=== PATIENT | male | born 1955 | race Caucasian/White ===

== ENCOUNTER → 2020-09-24 11:33 | Outpatient (BNVA) | payer MEDICAID, SELFPAY | PROVIDERS: Family Provider Nurse Practitioner Family; PCP Nurse Practitioner Family; Visit Provider Registered Nurse | DX: F10.10 Alcohol abuse, uncomplicated (principal); F17.200 Nicotine dependence, unspecified, uncomplicated; F41.9 Anxiety disorder, unspecified; J43.9 Emphysema, unspecified; I50.9 Heart failure, unspecified; F41.0 Panic disorder [episodic paroxysmal anxiety]; Z71.41 Alcohol abuse counseling and surveillance of alcoholic; F43.0 Acute stress reaction | CPT/HCPCS: 80053; 80061; 85025 ==

== ENCOUNTER → 2021-01-11 11:45 | Outpatient (BNVA) | payer MEDICAID, SELFPAY | PROVIDERS: Family Provider Nurse Practitioner Family; PCP Nurse Practitioner Family; Visit Provider Internal Medicine Cardiovascular Disease | DX: I50.812 Chronic right heart failure (principal); R60.0 Localized edema | CPT/HCPCS: 80048; 83880 ==

== ENCOUNTER → 2021-01-17 10:14 | Outpatient (BNVA) | payer MEDICARE, MEDICAID, SELFPAY | PROVIDERS: Family Provider Nurse Practitioner Family; PCP Nurse Practitioner Family; Visit Provider Internal Medicine Cardiovascular Disease | DX: E46 Unspecified protein-calorie malnutrition (principal); I50.9 Heart failure, unspecified; J44.1 Chronic obstructive pulmonary disease with (acute) exacerbation; R07.89 Other chest pain | CPT/HCPCS: 80048; 83880 ==

== ENCOUNTER → 2021-01-24 09:58 | Outpatient (BNVA) | payer MEDICARE, MEDICAID, SELFPAY | PROVIDERS: Family Provider Nurse Practitioner Family; PCP Nurse Practitioner Family; Visit Provider Internal Medicine Cardiovascular Disease | DX: I50.9 Heart failure, unspecified (principal); R07.89 Other chest pain; J44.1 Chronic obstructive pulmonary disease with (acute) exacerbation; E46 Unspecified protein-calorie malnutrition | CPT/HCPCS: 80048; 83880 ==

== ENCOUNTER → 2021-02-08 08:51 | Outpatient (BNVA) | payer MEDICARE, MEDICAID, SELFPAY | PROVIDERS: Family Provider Nurse Practitioner Family; PCP Nurse Practitioner Family; Visit Provider Internal Medicine Cardiovascular Disease | DX: E46 Unspecified protein-calorie malnutrition (principal); J44.1 Chronic obstructive pulmonary disease with (acute) exacerbation; R07.89 Other chest pain; I50.9 Heart failure, unspecified; R60.0 Localized edema | CPT/HCPCS: 80048; 83880 ==

== ENCOUNTER 2021-02-17 09:12 | Outpatient (CLI) | payer MEDICARE, MEDICAID, SELFPAY ==
--- NOTE | 2021-02-17 09:39 | USCV_ITS ---
Jacob Goetz Age: 65 Gender: M : 1955 Exam Date: 02/17/2021 09:50 Ordering Phys: Janak Lazcano MD ([email or web address]) Technologist: Veda Mendes Exam Location: [facility] [place] Indication: VERY SOB BP: / HR: 80 Rhythm: Other Technical Quality: Poor secondary to COPD MEASUREMENTS (Male / Female) Normal Values 2D ECHO LV Diastolic Diameter PLAX 3.8 cm 4.2 - 5.9 / 3.9 - 5.3 cm LV Systolic Diameter PLAX 3.2 cm LV Chamber Size 2.8 cm IVS Diastolic Thickness 1.2 cm 0.6 - 1.0 / 0.6 - 0.9 cm IVS Systolic Thickness 1.4 cm LVPW Diastolic Thickness 1.3 cm 0.6 - 1.0 / 0.6 - 0.9 cm LVPW Systolic Thickness 1.3 cm RV Chamber Size 2.0 cm LVOT Diameter 2.0 cm LV Ejection Fraction 2D Teich 6.2 % LV Ejection Fraction MOD 2C 61.7 % LV Ejection Fraction 2C AL 65.0 % LA Diameter 2.7 cm LA Width 2.9 cm LA Height 2.6 cm RA Width 2.4 cm RA Height 2.3 cm M-MODE LV Diastolic Diameter MM 3.5 cm 4.2 - 5.9 / 3.9 - 5.3 cm LV Systolic Diameter MM 2.1 cm LV Ejection Fraction MM Teich 70.4 % IVS Diastolic Thickness MM 0.8 cm 0.6 - 1.0 / 0.6 - 0.9 cm IVS Systolic Thickness MM 1.0 cm LVPW Diastolic Thickness MM 0.7 cm 0.6 - 1.0 / 0.6 - 0.9 cm LVPW Systolic Thickness MM 1.1 cm Aortic Annulus Diameter 3.3 cm LA Ao Ratio MM 0.8 MV E Point Septal Separation 0.5 cm DOPPLER AV Peak Velocity 86.0 cm/s LVOT Peak Velocity 63.0 cm/s AV Area Cont Eq vti 2.6 cm squared AV Area Cont Eq pk 2.4 cm squared MV Area PHT 10.5 cm squared Mitral E to A Ratio 0.7 MV E' Velocity 35.0 cm/s Mitral E to MV E' Ratio 8.8 Mitral E to LV E' Lateral Ratio 7.9 Mitral E to LV E' Septal Ratio 10.2 TR Peak Velocity 139.2 cm/s TR Peak Gradient 7.8 mmHg TR Mean Velocity 104.1 cm/s TR Mean Gradient 4.9 mmHg TR Velocity Time Integral 34.3 cm TV Peak E Velocity 74.0 cm/s PV Peak Velocity 56.0 cm/s RV Acceleration Time 0.1 s RV Ejection Time 0.3 s RV AcT/ET 0.5 FINDINGS Left Ventricle Limited quality echocardiogram because of poor ultrasonic windows. Normal left ventricular size. LV systolic function is borderline normal with EF of 50-55%. Regional wall motion abnormalities can not ruled out because of limited visualization.Grade 1 diastolic dysfunction is noted Right Ventricle The right ventricle is normal in size and function. Right Atrium The right atrium is normal in size. Left Atrium The left atrium is normal in size. Mitral Valve Structurally normal mitral valve without significant stenosis or prolapse. There is trace mitral regurgitation. Aortic Valve Thickened aortic valve without significant stenosis. There is no aortic regurgitation. Tricuspid Valve Structurally normal tricuspid valve without significant stenosis or regurgitation. Insufficient jet to calculate RVSP Pulmonic Valve Structurally normal pulmonic valve without significant stenosis. There is no pulmonic regurgitation. Pericardium Normal pericardium without effusion. Aorta Normal ascending aorta dimension. CONCLUSIONS Limited quality echocardiogram because of poor ultrasonic windows LV systolic function is borderline normal with EF of 50-55%. Regional wall motion abnormalities can not be ruled out because of poor visualization. Grade 1 diastolic dysfunction Trace mitral regurgitation No comparison studies are available Dexter Romero MD (Electronically Signed) Final Date: 17 February 2021 17:27 S
--- NOTE | 2021-02-17 09:59 | ECG_ITS ---
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 Interpretive Statements NAME OF STUDY: LEXISCAN SESTAMIBI STRESS TEST INDICATION: [Chest Pain; Shortness of Breath] Procedure: At the baseline, the blood pressure was 168/102 mmHg with a heart rate of 92 bpm. The electrocardiogram showed normal sinus rhythm, incomplete right bundle branch block with normal ST and T's. The Lexiscan was infused over a period of 20 seconds. A total of 0.4 mg of Lexiscan was infused. The stress phase was continued for a total of 5 minutes. Heart rate was at the end of stress phase was 105 bpm and a blood pressure of 156/81 mmHg. The EKG at the peak infusion revealed since normal sinus rhythm with no significant ST-T wave changes. Sestamibi was injected 20 seconds after the Lexiscan infusion. Blood pressure at the end of recovery phase was 172/89 mmHg with a heart rate of 97 bpm Conclusion: 1. Normal EKG response to Lexiscan infusion 2. No Lexiscan induced chest pain or cardiac arrhythmia. 3. Normal blood pressure and heart rate response. 4. Sestamibi/sestamibi perfusion scan pending; see separate report. Electronically Signed On 02-26-2021 12:21:32 CDT by Dexter Romero M.D. [id number]
--- NOTE | 2021-02-17 09:59 | NMCV_ITS ---
NM samantha perf SPECT r/s* [id number] Jacob Goetz Age: 65 Gender: M : 1955 Exam Date: 02/17/2021 09:59 Ordering Phys: Janak Lazcano MD ([email or web address]) Technologist: WOODY Mcbride Exam Location: [facility] Indications: CHEST PAIN STRESS TEST Please [facility] for [facility] IMAGE PROTOCOL Rest/Stress 1 Lexiscan Day Radiopharmaceutical Dose (mCi) Administration Site Administered by Rest: Tc-99m 10.5 IV WOODY Mcbride Sestamibi Stress:Tc-99m 32.6 IV WOODY Patel Sestamibi Rest: 17-Feb-2021 60 Discovery 630 Stress: 17-Feb-2021 30 Discovery 630 0.4mg Lexiscan. Supine position only as patient was unable to lay prone. SPECT RESULTS Technical Quality: Excellent Raw Data Analysis: Normal Image Corrections: No attenuation or motion correction applied Summed Stress Score: 3 Summed Rest Score: 7 Summed Difference Score: 0 PERFUSION FINDINGS There is a moderate sized, fixed perfusion defect in the apical, apical lateral and apical inferior daniel. It improves on stress. This is likely secondary to prior infarct vs attenuation artifact. No evidence of ischemia noted FUNCTIONAL RESULTS (calculated via Gated SPECT) Stress Image LV EF (%): 41 Stress EDV (mL):105 TID: 1.18 Stress ESV (mL):62 FUNCTIONAL FINDINGS: LV systolic function is mild to moderately reduced with EF of 41% IMPRESSIONS 1. Abnormal myocardial perfusion imaging. Moderate sized, fixed perfusion defect in the apical, apical lateral and apical inferior daniel. It improves on stress. This is likely secondary to prior infarct vs attenuation artifact. No evidence of ischemia noted 2. LV systolic function is reduced with EF of 41% Dexter Romero MD (Electronically Signed) Final Date: 20 Feb 2021 18:47 S
[2021-02-17] MEDS: regadenoson 0.4 Mg/5 ml Syringe IVP (11:22)
[2021-02-17 12:48] VITALS: BP 172/89; PULSE 97
== END 2021-02-17 09:13 | disposition home or self-care (01) ==
LOC: CDL 09:14
PROVIDERS: PCP Registered Nurse; Visit Provider Internal Medicine Cardiovascular Disease
DX: R07.89 Other chest pain (principal); R06.02 Shortness of breath; I51.81 Takotsubo syndrome; I34.0 Nonrheumatic mitral (valve) insufficiency
CPT/HCPCS: 78452; 93017; 93306; A9500; J2785

== ENCOUNTER → 2021-07-14 10:52 | Outpatient (BNVA) | payer MEDICARE, MEDICAID, SELFPAY | PROVIDERS: PCP Registered Nurse; Visit Provider Registered Nurse | DX: E46 Unspecified protein-calorie malnutrition (principal) | CPT/HCPCS: 80053; 82607; 84443; 85025 ==

== ENCOUNTER 2022-01-07 14:57 | Observation (INO) | payer MEDICARE, MEDICAID, SELFPAY ==
[2022-01-07] VITALS (12 sets, daily range): BP systolic 115–146; BP diastolic 73–80; PULSE 95–118; RESP 16–26; TEMP 36.9–38.4; O2SAT 92–98; BMI 17.8
--- NOTE | 2022-01-07 15:23 | XRR_ITS ---
PROCEDURE INFORMATION: Exam: XR Chest Exam date and time: 01/07/2022 2:32 PM Age: 66 years old Clinical indication: Shortness of breath; Additional info: Cough TECHNIQUE: Imaging protocol: XR of the chest. Views: 1 view. COMPARISON: CR Chest 1 view [id number] 02/14/2019 12:24 PM FINDINGS: Lungs: Hyperinflated lungs with mild diffuse coarsening of the lung parenchyma. Linear scarring noted along the peripheral right mid lung in the left lung base. No consolidation. Pleural spaces: Unremarkable. No pleural effusion. No pneumothorax. Heart/Mediastinum: Unremarkable. No cardiomegaly. Bones/joints: Old callused left lower rib fractures again noted. Visualized osseous structures are intact. XR/XR chest 1V portable [id number] IMPRESSION: Sequela of COPD. No acute findings.
--- NOTE | 2022-01-07 15:24 | ECG_ITS ---
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 Measurements Intervals [place] Rate: 119 P: 82 GA: 110 QRS: 52 QRSD: 93 T: 88 QT: 323 QTc: 456 Interpretive Statements SINUS TACHYCARDIA WITH SHORT GA INTERVAL POSSIBLE LEFT ATRIAL ENLARGEMENT [-0.1mV P-WAVE IN V1/V2] INCOMPLETE RIGHT BUNDLE BRANCH BLOCK [90+ ms QRS DURATION, TERMINAL R IN V1/V2, 40+ ms S IN I/aVL/V4/V5/V6] ABNORMAL RHYTHM ECG INTERPRETATION BASED ON A DEFAULT AGE OF 40 YEARS No previous ECG available for comparison Electronically Signed On 01-08-2022 17:25:44 CDT by Janak Lazcano M.D. [id number]
--- NOTE | 2022-01-07 15:26 | ED_ITS ---
HPI - General Adult General: Chief complaint: General Medical Stated complaint: SOB Time Seen by Provider: 01/07/22 14:59 Source: patient Mode of arrival: EMS Limitations: no limitations History of Present Illness: This patient was transported to the emergency department by EMS. He has a longstanding history of COPD and over the past several days states he has had increasing cough, dyspnea with exertion and feeling ill. He wears oxygen as needed at home. He also uses Spiriva as well as a rescue inhaler. He states he has had little improvement with those modalities at home. He does admit to still using tobacco. He states he does have a history of heart failure but denies any sustained chest pain. He states his appetite and oral intake has been diminished over the past couple of days. No nausea vomiting or diarrhea. No history of thromboembolic events. No known exposure to COVID-19 and is unimmunized against COVID-19. He does live alone. Associated symptoms: Reports cough, dyspnea and short of breath; Deny chest pain, headache(s), nausea, rash, palpitations, syncope or vomiting Review of Systems 2 Const: Reports: change in appetite; Denies: fever(s) or chills Eyes: Denies: change in vision ENMT: Denies: throat pain, odynophagia or nasal congestion Card: Denies: chest pain, palpitations, irregular heart rhythm, edema, syncope or pre-syncope Resp: Reports: dyspnea, non-productive cough and wheezing; Denies: stridor or hemoptysis GI: Denies: abdominal pain, nausea, vomiting or diarrhea : Denies: flank pain, difficulty urinating, dysuria, urinary frequency or urinary urgency Musc: Denies: neck pain, back pain, extremity pain, extremity swelling or joint pain Skin/Breast: Denies: rash Neuro: Denies: headache(s), numbness in extremities, weakness in extremities, dizziness or Slurred speech present Psych: Denies: depression or mood swings All/Imm: Denies: urticaria, throat swelling or tongue swelling PFSH ED PFSH: Medical History AA (alcohol abuse) Anxiety Clubbed fingers Emphysema/COPD Essential hypertension Panic attack as reaction to stress Smoking Family History Son Cancer Grandmother Cancer Mother CAD (coronary artery disease) Dementia Stroke Family/Other Lung disease Other Hyperlipidemia Hypertension Denies family history of Diabetes Clotting disorder Chronic kidney disease (CKD) Suicide Anesthesia complication Bleeding disorder Family history of premature coronary artery disease Social History Smoking and tobacco status: current every day smoker (pack a day 55 years) cigarettes Packs smoked per day: 1 Years cigarettes smoked: 55 Alcohol intake: current Adopted: No Caregiver/support person: No Lives independently: Yes Current occupational status: disabled History of recent travel: No Current gender identity: Male Physical Exam Narrative: EXAM NARRATIVE: Thin appearing gentleman who is alert and answers questions in rather short declarative sentences. occasional cough. Const: COMMON NORMALS: no acute distress, patient oriented x3 and alert GENERAL APPEARANCE: frail appearing NUTRITIONAL APPEARANCE: underweight ORIENTATION/CONSCIOUSNESS: Yes awake HENMT: COMMON NORMALS: normocephalic, external ears normal, Normal external nose present, Normal nasal mucous membranes and turbinates present, moist oral mucous membranes and oropharynx normal HEAD & SCALP: normocephalic FACE & SINUS: normal facial exam NOSE: Normal external nose present and Normal nasal mucous membranes and turbinates present EXTERNAL EAR: Yes external ears normal Eye: COMMON NORMALS: Equal, round and reactive pupils present, EOMs intact b ilaterally, conjunctivae normal and no scleral icterus CONJUNCTIVA: Yes c onjunctivae normal PUPIL: Yes Equal, round and reactive pupils present Neck/C-Spine: COMMON NORMALS: full ROM, no lymphadenopathy, supple and no JVD Chest: COMMONS NORMALS: normal inspection of the chest CHEST: No Ecchymosis present and No rash Resp: EFFORT & INSPECTION: Yes Actively coughing and Yes uses accessory muscles AUSCULTATION: crackles Laterality: bilateral Cardio: COMMON NORMALS: no JVD, regular rhythm, No murmurs present (Cardio) and Peripheral pulses 2+ throughout RATE: tachycardic RHYTHM: regular rhythm PERIPHERAL PULSES: Peripheral pulses 2+ throughout GI: COMMON NORMALS: Normal to inspection, nondistended, normoactive bowel sounds present, Soft to palpation, non-tender, No hepatosplenomegaly present and no masses PALPATION: Yes Soft to palpation and Yes No hepatosplenomegaly present : COMMON NORMALS: Yes no CVA tenderness BLADDER/KIDNEY EXAM: Yes no CVA tenderness Back/Pelvis: COMMON NORMALS: no CVA tenderness, no thoracic nor lumbar tenderness and thoraco-lumbar ROM normal Extremity: COMMON NORMALS: normal to inspection, full ROM, capillary refill normal, no clubbing, cyanosis or edema and no pedal edema Neuro: COMMON NORMALS: patient oriented x3, moves all extremities, no focal motor deficits and no sensory deficits noted SENSORIUM/ORIENTATION: Yes alert Psych: COMMON NORMALS: mental status grossly normal MOOD & AFFECT: Yes irritable Skin: COMMON NORMALS: no rashes or lesions noted, no jaundice, no petechiae and no mottling; negative for turgor normal GENERAL SKIN EXAM: no rashes or lesions noted and decreased turgor Course Vital Signs: Vital signs: Vital Signs Temperature 98.8 F 01/07/22 16:14 Pulse Rate 114 H 01/07/22 17:30 Respiratory Rate 26 H 01/07/22 15:42 Blood Pressure 142/75 01/07/22 17:30 Pulse Oximetry 94 01/07/22 17:30 [facility] - General Adult Medical Decision Making Patient with frailty of age and oxygen dependent COPD comes to the emergency department with progressive worsening condition over the past 4 days. His clinical examination suggestive of COPD exacerbation. He had a fever on presentation with a leukocytosis despite a chest x-ray which was unrevealing for infiltrate he certainly is at risk for community acquired pneumonia. He received IV fluids, steroids, antibiotics, bronchodilators in the emergency department. Because of his current clinical picture it is thought best to continue his therapy as an inpatient. He will be admitted to the hospital. Patient agreed to the plan of care. Medical Records I reviewed the patient's medical records. Lab Data I reviewed the patient's lab results. : 01/07/22 15:18 01/07/22 15:18 Radiology Impressions Chest X-Ray 01/07/22 15:23 IMPRESSION: Sequela of COPD. No acute findings. Laboratory Results WBC 17.3 10^3/uL (4.0-10.0) H 01/07/22 15:18 RBC 4.20 10^6/uL (4.1-5.3) 01/07/22 15:18 Hgb 12.8 g/dL (11.7-16.6) 01/07/22 15:18 Hct 42.3 % (42.0-52.0) 01/07/22 15:18 MCV 100.7 fl (80-94) H 01/07/22 15:18 MCH 30.5 pg (28.0-34.0) 01/07/22 15:18 MCHC 30.3 g/dL (30.0-36.0) 01/07/22 15:18 RDW 13.3 % (12.1-15.1) 01/07/22 15:18 Plt Count 198 10^3/cmm (130-400) 01/07/22 15:18 MPV 11.2 fL (7.4-10.4) H 01/07/22 15:18 Neut % (Auto) 87.0 % 01/07/22 15:18 Lymph % (Auto) 4.7 % 01/07/22 15:18 [place] % (Auto) 7.5 % 01/07/22 15:18 Eos % (Auto) 0.2 % 01/07/22 15:18 Baso % (Auto) 0.2 % 01/07/22 15:18 Neut # (Auto) 15.07 10^3/uL (1.8-7.7) H 01/07/22 15:18 Lymph # (Auto) 0.8 10^3/uL (0.8-4.8) 01/07/22 15:18 [place] # (Auto) 1.3 10^3/uL (0.2-0.9) H 01/07/22 15:18 Eos # (Auto) 0.0 10^3/uL (0.0-0.8) 01/07/22 15:18 Baso # (Auto) 0.0 10^3/uL (0.0-0.1) 01/07/22 15:18 Nucleated RBC % (auto) 0 % 01/07/22 15:18 Nucleated RBCs # 0.0 /100WBC 01/07/22 15:18 Sodium 137 mmol/L (136-145) 01/07/22 15:18 Potassium 3.6 mmol/L (3.5-5.1) 01/07/22 15:18 Chloride 96 mmol/L (98-107) L 01/07/22 15:18 Carbon Dioxide 30 mmol/L (22-29) H 01/07/22 15:18 Anion Gap 14.6 (5-19) 01/07/22 15:18 BUN 12 mg/dL (8-23) 01/07/22 15:18 Creatinine 0.5 mg/dL (0.7-1.2) L 01/07/22 15:18 GFR Calculation 166.4 mL/min (90-130) H 01/07/22 15:18 Glucose 111 mg/dL (65-115) 01/07/22 15:18 Calculated Osmolality 284 mOsm/kg (285-295) L 01/07/22 15:18 Lactate 1.0 mmol/L (0.5-2.2) 01/07/22 15:18 Calcium 9.3 mg/dL (8.5-10.5) 01/07/22 15:18 Total Bilirubin 0.4 mg/dL (0.15-1.2) 01/07/22 15:18 AST 12 U/L (0-40) 01/07/22 15:18 ALT 6 U/L (0-41) 01/07/22 15:18 Alkaline Phosphatase 77 IU/L (40-130) 01/07/22 15:18 NT-Pro-B Natriuret Pep 162 pg/mL (0-125) H 01/07/22 15:18 Total Protein 8.0 g/dL (6.6-8.7) 01/07/22 15:18 Albumin 4.0 g/dL (3.5-5.2) 01/07/22 15:18 Globulin 4.0 g/dL (1.3-4.6) 01/07/22 15:18 SARS-CoV-2 Ag (Rapid) Negative (Negative) 01/07/22 15:37 Imaging Data CXR: Radiologist's impression: COPD EKG Data EKG 1: EKG interpretation time: 15:33 Interpretation: EKG was interpreted with ventricular rate noted 119 bpm noted. Normal NE interval Q TC intervals. QRS duration is normal. He has evidence of right intra atrial enlargement on limb lead II. no acute ST-T wave changes noted. Does have artifact noted on V3. Computer generated interpretation: Chest X-Ray 01/07/22 15:23 IMPRESSION: Sequela of COPD. No acute findings. Discharge Plan Discharge Patient Disposition: Admitted As Inpatient Clinical Impression: COPD exacerbation, Pneumonia Condition: Stable Prescriptions: No Action albuterol sulfate [ProAir HFA] 90 mcg/actuation HFA aerosol inhaler 2 puff INHALATION Q6H PRN (Reason: shortness of breath or wheezing) Qty: 6.7 12RF lisinopril 5 mg tablet 5 mg PO DAILY Qty: 90 1RF Rx Instructions: should increase dose to 5mg. furosemide 40 mg tablet 40 mg PO DAILY PRN0RF Rx Instructions: May take additional dose daily as needed for shortness of breath omeprazole 20 mg capsule,delayed release(DR/EC) 20 mg PO DAILY 30 Days Qty: 30 0RF Rx Instructions: Take on empty stomach. alprazolam [Xanax] 0.5 mg tablet 0.5 mg PO TID PRN (Reason: anxiety) 30 Days Qty: 80 2RF potassium chloride [Klor-Con] 20 mEq packet See Rx Instructions .ROUTE .COMPLEX Qty: 180 3RF Dose Instruction: MIX PACKET DIRECTED AND TAKE TWICE DAILY MAY TAKE ADDITIONAL DOSE NEEDED FOR WITH FUROSEMIDE Rx Instructions: MIX PACKET DIRECTED AND TAKE TWICE DAILY MAY TAKE ADDITIONAL DOSE NEEDED FOR WITH FUROSEMIDE Trelegy Ellipta 200-62.5-25 mcg blister with device See Rx Instructions .ROUTE .COMPLEX Qty: 60 3RF Dose Instruction: INHALE 1 PUFF BY MOUTH DAILY. MAY DIRECTOR PLANS 2-3 DAYS EARLY DUE TO TRANSPORTATION Rx Instructions: INHALE 1 PUFF BY MOUTH DAILY. MAY DIRECTOR PLANS 2-3 DAYS EARLY DUE TO TRANSPORTATION please give 90 day supply Referrals: Shelly Garibay FNP [Primary Care Provider] - Coding Level of Care Code ED Scientific Publications Editor for Chg Fwd Exam Comprehensive
[2022-01-07] MEDS: sodium chloride 0.9% 500 ML IV (15:32)
[2022-01-07] MEDS: ipratropium-albuterol 3 mL Neb INHALATION (15:42)
[2022-01-07 15:52] LABS: Basophils % 0.2 %; Eosinophils % 0.2 %; Hematocrit 42.3 % (42.0-52.0); Hemoglobin 12.8 g/dL (11.7-16.6); Lymphocytes # 0.8 10^3/uL (0.8-4.8); Lymphocytes % 4.7 %; Mean Corpuscular HGB Conc 30.3 g/dL (30.0-36.0); Mean Corpuscular Hemoglobin 30.5 pg (28.0-34.0); Mean Corpuscular Volume 100.7 fl (80-94); Mean Platelet Volume 11.2 fL (7.4-10.4); Monocytes # 1.3 10^3/uL (0.2-0.9); Monocytes % 7.5 %; Neutrophils # 15.07 10^3/uL (1.8-7.7); Nucleated Red Blood Cells % 0 %; Platelet Count 198 10^3/cmm (130-400); Red Cell Distribution Width 13.3 % (12.1-15.1); White Blood Count 17.3 10^3/uL (4.0-10.0)
[2022-01-07 16:18] LABS: Alanine Aminotransferase 6 U/L (0-41); Alkaline Phosphatase 77 IU/L (40-130); Anion Gap 14.6 (5-19); Aspartate Amino Transferase 12 U/L (0-40); Blood Urea Nitrogen 12 mg/dL (8-23); Calcium 9.3 mg/dL (8.5-10.5); Carbon Dioxide 30 mmol/L (22-29); Chloride 96 mmol/L (98-107); Glomerular Filtration Rate 166.4 mL/min (90-130); Glucose 111 mg/dL (65-115); NT Pro B Type Natriuretic Pept 162 pg/mL (0-125); Osmolality Calculated 284 mOsm/kg (285-295); Potassium 3.6 mmol/L (3.5-5.1); Sodium 137 mmol/L (136-145); Total Bilirubin 0.4 mg/dL (0.15-1.2)
[2022-01-07 16:25] LABS: SARS Covid-2 Antigen Negative (Negative)
[2022-01-07] MEDS: cefTRIAXone 2,000 MG in sodium chloride 0.9% (plus) 50 ML 100 MG IV (17:50)
[2022-01-07] MEDS: azithromycin 500 MG in sodium chloride 0.9% 250 ML 250 MG IV (19:00)
--- NOTE | 2022-01-07 21:51 | PM.HP ---
Providers/Chief Complaint Admitting Physician: Fany Moyer MD Primary Care Provider: ALLEN Nichole Chief Complaint: SOB History of Present Illness Jacob Goetz is a 66 year old male w/ h/o HTN. COPD, Chr Resp Failure, CHF, smoker came to the ED c/o increasing SOB for 5 days. Pt Pt states that 5 days back he developed some SOB which gradually progressed to AVENDANO and now even at rest. Has a yellowish productive ough. His PMD recently diagnosed him w/ CHF and started lasix. He has however did not take te Lasix as it was causing him to urinate too much. He denied CP, PND. Denied fever, chills. In the ED his WBC was 17, COVID 19 serology negative, CXR no acute changes. He is being admitted for Ac Exacerbation of COPD. Review of Systems Narrative: Const:?? Reports: change in appetite; Denies: fever(s) or chill s Eyes:?? Denies: change in vision ENMT:?? Denies: throat rupa n, odynophagia or nasal congestion Card:?? Denies: chest pain , palpitations, ir regular heart rhyt hm, edema, syncope or pre-syncope Resp:?? Reports: dyspnea, non-productive cou gh and wheezing; D enies: stridor or hemoptysis GI:?? Denies: abdominal pain, nausea, vomi ting or diarrhea :?? Denies: flank pain , difficulty urina ting, dysuria, uri nary frequency or urinary urgency Musc:?? Denies: neck pain, back pain, extrem ity pain, extremit y swelling or join t pain Skin/Breast:?? Denies: rash Neuro:?? Denies: headache(s ), numbness in ext remities, weakness in extremities, d izziness or Slurre d speech present Psych:?? Denies: depression or mood swings All/Imm:?? Denies: urticaria, throat swelling o r tongue swelling Medications/Allergies Home Medications Medication Instructions Recorded Confirmed Last Taken Type potassium chloride 20 mEq oral See Rx Instructions .ROUTE 07/05/21 01/08/22 Unknown Rx packet (Klor-Con) .COMPLEX #180 ea furosemide 40 mg tablet 20 mg PO DAILY tab 08/24/21 01/08/22 Unknown History albuterol sulfate 90 mcg/actuation 2 puff INHALATION Q6H PRN #6.7 gm 09/20/21 01/08/22 Unknown Rx aerosol inhaler (ProAir HFA) lisinopril 5 mg tablet 5 mg PO DAILY #90 tab 09/20/21 01/08/22 Unknown Rx fluticasone fur. 200 mcg-umeclid See Rx Instructions .ROUTE 11/21/21 01/08/22 Unknown Rx 62.5 mcg-vilant 25 mcg .COMPLEX #60 ea inhalat.powder (Trelegy Ellipta) alprazolam 0.5 mg tablet (Xanax) 0.5 mg PO TID PRN 30 Days #80 tab 12/19/21 01/08/22 Unknown Rx omeprazole 20 mg capsule,delayed 20 mg PO DAILY 30 Days #30 cap 12/19/21 01/08/22 Unknown Rx release Allergies Allergy/AdvReac Type Severity Reaction Status Date / Time Penicillins Allergy Mild UNKNOWN Verified 01/02/22 14:23 PFSH Acute PFSH: Medical History AA (alcohol abuse) Anxiety Clubbed fingers Emphysema/COPD Essential hypertension Panic attack as reaction to stress Smoking Family History Son Cancer Grandmother Cancer Mother CAD (coronary artery disease) Dementia Stroke Family/Other Lung disease Other Hyperlipidemia Hypertension Denies family history of Diabetes Clotting disorder Chronic kidney disease (CKD) Suicide Anesthesia complication Bleeding disorder Family history of premature coronary artery disease Social History Smoking and tobacco status: current every day smoker (pack a day 55 years) cigarettes Packs smoked per day: 1 Years cigarettes smoked: 55 Alcohol intake: current Adopted: No Caregiver/support person: No Lives independently: Yes Current occupational status: disabled History of recent travel: No Current gender identity: Male Vitals/I&O/Wt Last Vital Signs Temp 98.4 F 01/07/22 21:09 Pulse 109 H 01/07/22 21:09 Resp 18 01/07/22 21:09 BP 115/73 01/07/22 21:09 Pulse Ox 92 01/07/22 21:09 01/07/22 01/07/22 01/07/22 06:59 14:59 22:59 Intake Total 300 / 300 Balance 300 / 300 Weight last 48 hrs Weight 48.625 kg Weight 48.534 kg Physical Exam Narrative: Narrative:?? EXAM NARRATIVE: Th in appearing gentl eman who is alert and answers questi ons in rather shor t declarative sent ences. ? occasiona l cough. Const:?? COMMON NORMALS: no acute distress, p atient oriented x3 and alert? GENERA L APPEARANCE: frai l appearing? NUTRI TIONAL APPEARANCE: underweight? ORIE NTATION/CONSCIOUSN ESS: Yes awake HENMT:?? COMMON NORMALS: no rmocephalic, exter nal ears normal, N ormal external nos e present, Normal nasal mucous membr anes and turbinate s present, moist o ral mucous membran es and oropharynx normal? HEAD & SCA LP: normocephalic? FACE & SINUS: nor mal facial exam? N OSE: Normal ball point splitter al nose present an d Normal nasal muc ous membranes and turbinates present ? EXTERNAL EAR: Ye s external ears no rmal Eye:?? COMMON NORMALS: Eq ual, round and dejuan ctive pupils prese nt, EOMs intact bi laterally, conjunc tivae normal and n o scleral icterus? CONJUNCTIVA: Yes conjunctivae rohan l? PUPIL: Yes Equa l, round and react catherine pupils present Neck/C-Spine:?? COMMON NORMALS: fu ll ROM, no lymphad enopathy, supple a nd no JVD Chest:?? COMMONS NORMALS: n ormal inspection o f the chest? CHEST : No Ecchymosis pr esent and No rash Resp:?? EFFORT & INSPECTIO N: Yes Actively co ughing and Yes use s accessory muscle s? AUSCULTATION: c rackles Laterality : bilateral Cardio:?? COMMON NORMALS: no JVD, regular rhyt hm, No murmurs pre sent (Cardio) and Peripheral pulses 2+ throughout? RAT E: tachycardic? RH YTHM: regular rhyt hm? PERIPHERAL PUL SES: Peripheral pu lses 2+ throughout GI:?? COMMON NORMALS: No rmal to inspection , nondistended, no rmoactive bowel so unds present, Soft to palpation, non -tender, No hepato splenomegaly prese nt and no masses? PALPATION: Yes Sof t to palpation and Yes No hepatosple nomegaly present :?? COMMON NORMALS: Ye s no CVA tendernes s? BLADDER/KIDNEY EXAM: Yes no CVA t enderness Back/Pelvis:?? COMMON NORMALS: no CVA tenderness, n o thoracic nor lum bar tenderness and thoraco-lumbar RO M normal Extremity:?? COMMON NORMALS: no rmal to inspection , full ROM, capill adriano refill normal, no clubbing, cyan osis or edema and no pedal edema Neuro:?? COMMON NORMALS: pa tient oriented x3, moves all extremi ties, no focal mot or deficits and no sensory deficits noted? SENSORIUM/O RIENTATION: Yes al ert Psych:?? COMMON NORMALS: me ntal status grossl y normal? MOOD & A FFECT: Yes irritab le Skin:?? COMMON NORMALS: no rashes or lesions noted, no jaundic e, no petechiae an d no mottling; neg ative for turgor n ormal? GENERAL SKI N EXAM: no rashes or lesions noted a nd decreased turgo r Data : 01/08/22 05:34 01/08/22 05:34 Micro: Microbiology 01/07/22 17:30 Blood Culture - Preliminary Blood SPECIMEN COLLECTED 01/07/22 17:34 Blood Culture - Preliminary Blood SPECIMEN COLLECTED A&P Assessment and plan (1) COPD exacerbation: SOB, Cough, Chest tightness Status: Acute (2) Pneumonia: Suspected PNA w/ SOB, high WBC Status: Acute (3) Essential hypertension: Status: Acute (4) Chronic respiratory failure: Status: Acute Qualifiers: Respiratory failure complication: hypoxia and hypercapnia Qualified Code(s): J96.11 - Chronic respiratory failure with hypoxia; J96.12 - Chronic respiratory failure with hypercapnia (5) Smoking: Status: Chronic (6) CHF (congestive heart failure): Status: Chronic Qualifiers: Heart failure chronicity: chronic Heart failure type: right-sided Qualified Code(s): I50.812 - Chronic right heart failure (7) Anxiety: Status: Chronic (8) Leukocytosis: Status: Acute Plan Emerically Rocephine, Azithromycin Bd C/S Duoneb q6 Solumedrol 80 mg q8 O2 @2l Nicoderm CQ Discussed smoking cessation. Pt refused Attestations Medical Necessity Statement*: Pt here w/ Acute COPD Exacerbation and possible pneumonia. 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
[2022-01-07] MEDS: enoxaparin 40 mg/0.4 mL Syringe SUBCUT (22:32)
--- NOTE | 2022-01-07 23:38 | PC.ADMIT ---
[address] Admission Note: The patient,Jacob Goetz,66 y/o, was given written information regarding hospital policies, unit procedures and contact persons. Patient's smoking status: current every day smoker. Vital Signs - 8 hr 01/07/22 15:42 01/07/22 15:49 01/07/22 16:14 Temperature 98.8 F Pulse Rate 112 H 116 H 117 H Respiratory Rate 26 H Blood Pressure 146/74 Pulse Oximetry 98 94 01/07/22 17:30 01/07/22 18:16 01/07/22 19:45 Temperature Pulse Rate 114 H 113 H 106 H Respiratory Rate 16 18 Blood Pressure 142/75 139/78 139/77 Pulse Oximetry 94 93 96 01/07/22 21:09 01/07/22 21:36 01/07/22 22:00 Temperature 98.4 F Pulse Rate 109 H 95 95 Respiratory Rate 18 Blood Pressure 115/73 Pulse Oximetry 92 01/07/22 22:31 Temperature Pulse Rate 111 H Respiratory Rate 22 H Blood Pressure Pulse Oximetry 98 PATIENT ADMITTED THIS SHIFT FROM EMERGENCY DEPARTMENT FOR SHORTNESS OF BREATH AND PNEUMONIA. PATIENT ALERT AND OREINTED X4 UPON ADMISSION TO FLOOR. IV PATENT AND INTACT TO LEFT FOREARM. PATIENT UP TO BCS WITH STAND BY ASSIST VOIDING WITH NO DIFFICULTIES. VSS, PATIENT REMAINS ON 2L OXYGEN VIA NASAL CANULA. PATIENT RESTING IN BED AT THIS TIME IN NO ACUTE DISTRESS, CALL LIGHT WIHTIN REACH AND REMINDED TO CALL FOR HELP. PATIENT VERBAILIZED UNDERSTANDING.
[2022-01-08] VITALS (15 sets, daily range): BP systolic 108–154; BP diastolic 58–79; PULSE 71–96; RESP 16–18; TEMP 36.3–36.7; O2SAT 92–98
[2022-01-08 06:23] LABS: Basophils % 0.2 %; Hematocrit 37.4 % (42.0-52.0); Hemoglobin 11.8 g/dL (11.7-16.6); Lymphocytes # 0.8 10^3/uL (0.8-4.8); Lymphocytes % 6.1 %; Mean Corpuscular HGB Conc 31.6 g/dL (30.0-36.0); Mean Corpuscular Hemoglobin 30.5 pg (28.0-34.0); Mean Corpuscular Volume 96.6 fl (80-94); Mean Platelet Volume 11.1 fL (7.4-10.4); Monocytes # 0.1 10^3/uL (0.2-0.9); Monocytes % 0.8 %; Neutrophils # 11.32 10^3/uL (1.8-7.7); Neutrophils % 92.4 %; Nucleated Red Blood Cells % 0 %; Platelet Count 241 10^3/cmm (130-400); Red Blood Count 3.87 10^6/uL (4.1-5.3); Red Cell Distribution Width 13.4 % (12.1-15.1); White Blood Count 12.3 10^3/uL (4.0-10.0)
[2022-01-08 06:35] LABS: Alanine Aminotransferase 6 U/L (0-41); Albumin Level 3.1 g/dL (3.5-5.2); Alkaline Phosphatase 68 IU/L (40-130); Anion Gap 13.8 (5-19); Aspartate Amino Transferase 10 U/L (0-40); Blood Urea Nitrogen 14 mg/dL (8-23); Calcium 8.9 mg/dL (8.5-10.5); Carbon Dioxide 27 mmol/L (22-29); Chloride 97 mmol/L (98-107); Glomerular Filtration Rate 166.4 mL/min (90-130); Glucose 133 mg/dL (65-115); Osmolality Calculated 280 mOsm/kg (285-295); Potassium 3.8 mmol/L (3.5-5.1); Sodium 134 mmol/L (136-145); Total Bilirubin 0.2 mg/dL (0.15-1.2); Total Protein 7.1 g/dL (6.6-8.7)
[2022-01-08] MEDS: famotidine 20 mg Tablet PO ×2 (07:46→17:22)
[2022-01-08] MEDS: nicotine 21 mg Patch 1 PATCH TRANSDERMA (07:46)
[2022-01-08] MEDS: lisinopril 5 mg Tablet PO (07:46)
[2022-01-08] MEDS: ipratropium-albuterol 3 mL Neb INHALATION ×3 (08:05→20:24)
[2022-01-08] MEDS: ALPRAZolam 0.5 mg Tablet PO ×2 (09:57→20:06)
--- NOTE | 2022-01-08 12:47 | PM.PN ---
Subjective Subjective: Still has SOB and cough but slightly less. Feels anxious and wants to resume his Xanax Vitals/I&O/Wt Last Vital Signs Temp 97.7 F 01/08/22 12:00 Pulse 96 01/08/22 12:00 Resp 18 01/08/22 12:00 BP 154/79 01/08/22 12:00 Pulse Ox 98 01/08/22 12:00 01/07/22 01/08/22 01/08/22 22:59 06:59 14:59 Intake Total 410 / 410 150 / 560 240 / 240 Output Total 0 / 0 200 / 200 Balance 410 / 410 -50 / 360 240 / 240 Weight last 48 hrs Weight 48.534 kg Weight 48.625 kg Weight 48.534 kg Physical Exam Narrative: NAD CVS: S1S2, RRR, Mur (-) Resp: BS+ b/l scaterred wheeze post Abd: Soft, NT, BS+ Edema (-) SWEATER DESIGNER: A&Ox3 Data : 01/08/22 05:34 01/08/22 05:34 Micro: Microbiology 01/07/22 17:30 Blood Culture - Preliminary Blood SPECIMEN COLLECTED 01/07/22 17:34 Blood Culture - Preliminary Blood SPECIMEN COLLECTED A&P Assessment and plan (1) COPD exacerbation: Still SOB, cough Status: Acute (2) Pneumonia: CXR was neg but clinically suspected Status: Acute (3) Chronic respiratory failure: No significant change Status: Acute Qualifiers: Respiratory failure complication: hypoxia and hypercapnia Qualified Code(s): J96.11 - Chronic respiratory failure with hypoxia; J96.12 - Chronic respiratory failure with hypercapnia (4) Essential hypertension: BP slightly high. May be stress vs true Status: Acute (5) Leukocytosis: improving Status: Acute (6) CHF (congestive heart failure): compensated Status: Chronic Qualifiers: Heart failure type: right-sided Heart failure chronicity: chronic Qualified Code(s): I50.812 - Chronic right heart failure (7) Anxiety: Anxious Status: Chronic (8) Benign essential HTN: Status: Acute (9) Smoking addiction: Status: Acute (10) SIRS (systemic inflammatory response syndrome): Meets all the criteria Status: Acute Plan Continue Abx Continue IV Steroid, Bronchodilator Resume Zestril Resume Xanax DVT Prylaxis w/ Lovenox O2 Supplement Attestations Medical Necessity Statement*: Pt w/ Ac COPD.SIRS possible Pneumonia will need continued hospitalization for care and management Time Spent in Patient Care: 45 min Coding Level of Care Code Acute Remote Encoding Center Manager for g Fwd Diagnoses COPD exacerbation J44.1 Pneumonia J18.9 Chronic respiratory failure J96.11; J96.12 Respiratory failure complication: hypoxia and hypercapnia Essential hypertension I10 Leukocytosis D72.829 CHF (congestive heart failure) I50.812 Heart failure type: right-sided Heart failure chronicity: chronic Anxiety F41.9 Benign essential HTN I10 Smoking addiction F17.200 SIRS (systemic inflammatory response syndrome) R65.10
[2022-01-08] MEDS: azithromycin 500 MG in sodium chloride 0.9% 250 ML 250 MG IV (16:12)
[2022-01-08] MEDS: cefTRIAXone 1,000 MG in sodium chloride 0.9% (plus) 50 ML 100 MG IV (17:22)
--- NOTE | 2022-01-08 20:26 | PC.NURSE ---
PATIENT HAS COMPLAINTS OF NAUSEA AT THIS TIME. PATIENT REQUESTING PRN MEDICATION. PRN ZOFRAN GIVEN.
[2022-01-08] MEDS: ondansetron 4 MG Tablet PO (20:27)
[2022-01-08] MEDS: enoxaparin 40 mg/0.4 mL Syringe SUBCUT (22:48)
[2022-01-09] VITALS (13 sets, daily range): BP systolic 109–144; BP diastolic 57–74; PULSE 74–95; RESP 15–25; TEMP 36.3–36.6; O2SAT 90–98
[2022-01-09] MEDS: nicotine 21 mg Patch 1 PATCH TRANSDERMA (08:09)
[2022-01-09] MEDS: famotidine 20 mg Tablet PO ×2 (08:09→17:17)
[2022-01-09] MEDS: lisinopril 5 mg Tablet PO (08:09)
[2022-01-09] MEDS: ipratropium-albuterol 3 mL Neb INHALATION ×3 (08:30→20:15)
--- NOTE | 2022-01-09 10:01 | CT_ITS ---
WS: [id number] CTA OF THE CHEST WITH PULMONARY EMBOLISM PROTOCOL TECHNIQUE: High-resolution contrast enhanced CTA of the chest with coronal and sagittal reformatted i mages with pulmonary embolism protocol. MIP images are also reviewed. CLINICAL INFORMATION: sob, cachexia COMPARISON: None. DLP: 416.[address] scans at [facility] use at least one of these dose optimization techniques: automated e xposure control; mA and/or kV adjustment per patient size (includes targeted exams where dose is matc hed to clinical indication); or iterative reconstruction. FINDINGS: Proximal main pulmonary arteries are normal. Segmental and subsegmental pulmonary arteries are normal . No evidence of pulmonary embolus. Normal caliber thoracic aorta. Advanced chronic emphysematous changes. Slight atelectasis RIGHT lower lobe. Trace RIGHT pleural fluid or pleural thickening. Fibrosis in the lung apices. Subsegmental atelectasis RIGHT middle lobe. No mediastinal or hilar lymp hadenopathy. No axillary lymphadenopathy. Adrenal glands are normal. Mild narrowing of the celiac at the origin. SMA is patent. Small esophagea l hiatal hernia. CT/CT angio chest PE protcl [id number] IMPRESSION: 1. No evidence of pulmonary embolus. 2. Advanced chronic emphysematous changes. No acute pulmonary infiltrates. 3. Trace pleural fluid or pleural thickening RIGHT lower lobe posteriorly. 4. No other acute findings.
[2022-01-09] MEDS: iohexol 350 mg/mL 100 mL Btl IV (11:16)
--- NOTE | 2022-01-09 12:37 | PM.PN ---
Subjective Subjective: Patient is at baseline 2 L Cachectic malnourished clubbing positive Requested CTA Is motivated to quit smoking Does not want his sister to be informed in case of an emergency however he stating that his son can be approached. At the end he told him that his son is mentally challenged but wants to avoid getting in touch with his sister Vitals/I&O/Wt Last Vital Signs Temp 97.4 F L 01/09/22 08:00 Pulse 90 01/09/22 08:40 Resp 16 01/09/22 08:30 BP 132/74 01/09/22 08:00 Pulse Ox 98 01/09/22 08:30 01/08/22 01/09/22 01/09/22 22:59 06:59 14:59 Intake Total 780 / 1260 240 / 1500 240 / 240 Output Total 350 / 350 Balance 430 / 910 240 / 1150 240 / 240 Weight last 48 hrs Weight 48.081 kg Weight 48.534 kg Weight 48.625 kg Weight 48.534 kg Physical Exam Narrative: Diminished airflow bilaterally Currently on 2 L Cachectic Malnourished Digital clubbing Unkept appearance S1, S2 Dehydrated No signs of edema Abdomen is soft Awake and alert Talkative Nonfocal neuro exam Data : 01/08/22 05:34 01/08/22 05:34 Micro: Microbiology 01/07/22 17:30 Blood Culture - Preliminary Blood NEGATIVE TO DATE 01/07/22 17:34 Blood Culture - Preliminary Blood NEGATIVE TO DATE A&P Assessment and plan (1) SIRS (systemic inflammatory response syndrome): Status: Acute (2) COPD exacerbation: Status: Acute (3) Pneumonia: Status: Acute Plan COPD exacerbation secondary to active smoking No active signs of PE or pneumonia Digital clubbing positive Will need outpatient pulmonary medicine referral De-escalate steroids No active signs of pneumonia or sepsis No signs of PE We will add azithromycin for anti-inflammatory effect Considering his cachectic malnourished appearance might benefit from a palliative consult however would like him to get evaluated by pulmonary medicine first Chronic hypoxia without acute worsening He is on 2 L at baseline Full code Cardiac diet Attestations Medical Necessity Statement*: Anticipating discharge tomorrow Time Spent in Patient Care: 20min Coding Level of Care Code Acute Animal Control Specialist for g Fwd Diagnoses SIRS (systemic inflammatory response syndrome) R65.10 COPD exacerbation J44.1 Pneumonia J18.9
[2022-01-09] MEDS: ALPRAZolam 0.5 mg Tablet PO (18:19)
[2022-01-09] MEDS: enoxaparin 40 mg/0.4 mL Syringe SUBCUT (21:24)
[2022-01-09] MEDS: acetaminophen 325 mg Tablet 650 MG PO (22:49)
[2022-01-10] VITALS (16 sets, daily range): BP systolic 145–159; BP diastolic 59–90; PULSE 76–94; RESP 16–23; TEMP 36.4–36.8; O2SAT 92–95
[2022-01-10] MEDS: guaiFENesin-dextromethorphan UDC 10 mL PO ×4 (01:26→17:02)
--- NOTE | 2022-01-10 01:32 | PC.NURSE ---
PATIENT STATED THAT HE HAS A COUGH THAT IS COMING FROM OUTSIDE THE LUNGS, AND NOTHING IS COMING UP WHEN HE COUGHS.' PATIENT DENIES SHORTNESS OF BREATHE AND CHEST PAIN. PRN YESSY FOSTER AT THIS TIME.
[2022-01-10] MEDS: ALPRAZolam 0.5 mg Tablet PO ×3 (03:01→22:59)
[2022-01-10] MEDS: ipratropium-albuterol 3 mL Neb INHALATION ×4 (03:18→20:18)
[2022-01-10 04:55] LABS: Basophils % 0.2 %; Hematocrit 39.9 % (42.0-52.0); Hemoglobin 12.6 g/dL (11.7-16.6); Lymphocytes # 0.7 10^3/uL (0.8-4.8); Lymphocytes % 3.8 %; Mean Corpuscular HGB Conc 31.6 g/dL (30.0-36.0); Mean Corpuscular Hemoglobin 30.4 pg (28.0-34.0); Mean Corpuscular Volume 96.4 fl (80-94); Mean Platelet Volume 10.5 fL (7.4-10.4); Monocytes # 1.1 10^3/uL (0.2-0.9); Monocytes % 5.9 %; Neutrophils # 16.19 10^3/uL (1.8-7.7); Neutrophils % 88.6 %; Nucleated Red Blood Cells % 0 %; Platelet Count 313 10^3/cmm (130-400); Red Blood Count 4.14 10^6/uL (4.1-5.3); Red Cell Distribution Width 13.4 % (12.1-15.1); White Blood Count 18.3 10^3/uL (4.0-10.0)
[2022-01-10 05:15] LABS: Blood Urea Nitrogen 19 mg/dL (8-23); Calcium 8.9 mg/dL (8.5-10.5); Carbon Dioxide 31 mmol/L (22-29); Chloride 100 mmol/L (98-107); Glomerular Filtration Rate 166.4 mL/min (90-130); Glucose 144 mg/dL (65-115); Osmolality Calculated 295 mOsm/kg (285-295); Sodium 140 mmol/L (136-145)
[2022-01-10 05:22] LABS: Anion Gap 13.1 (5-19); Potassium 4.1 mmol/L (3.5-5.1)
[2022-01-10] MEDS: azithromycin 250 mg Tablet PO (06:00)
[2022-01-10] MEDS: famotidine 20 mg Tablet PO ×2 (08:20→17:02)
[2022-01-10] MEDS: predniSONE 20 mg Tablet 40 MG PO (08:20)
[2022-01-10] MEDS: nicotine 21 mg Patch 1 PATCH TRANSDERMA (08:20)
[2022-01-10] MEDS: lisinopril 5 mg Tablet PO (08:20)
--- NOTE | 2022-01-10 09:16 | PM.PN ---
Subjective Subjective: CT scan did not show PE or pneumonia He is afebrile Cultures negative He does have severe COPD Leukocytosis most likely secondary to use of steroids He was complaining about his diet Change to regular Vitals/I&O/Wt Last Vital Signs Temp 97.7 F 01/10/22 07:23 Pulse 90 01/10/22 08:42 Resp 20 H 01/10/22 08:32 BP 147/76 01/10/22 07:23 Pulse Ox 93 01/10/22 08:32 01/09/22 01/10/22 01/10/22 22:59 06:59 14:59 Intake Total 480 / 960 380 / 1340 240 / 240 Output Total 500 / 500 100 / 600 Balance -20 / 460 280 / 740 240 / 240 Weight last 48 hrs Weight 49.396 kg Weight 48.081 kg Physical Exam Narrative: Patient was eating breakfast No active patient was eating breakfast Comfortable on 2 L nasal cannula No active distress No chest pain S1, S2 Bilateral diminished breath sound no active wheezing Dry cough Appropriate mood and affect EOMI, PERRLA Nonfocal neuro exam cachectic malnourished Data : 01/10/22 04:20 01/10/22 04:20 A&P Assessment and plan (1) SIRS (systemic inflammatory response syndrome): Status: Acute (2) COPD exacerbation: Status: Acute (3) Pneumonia: Status: Acute (4) Chronic respiratory failure: Status: Acute Qualifiers: Respiratory failure complication: hypoxia and hypercapnia Qualified Code(s): J96.11 - Chronic respiratory failure with hypoxia; J96.12 - Chronic respiratory failure with hypercapnia (5) Essential hypertension: Status: Acute (6) Leukocytosis: Status: Acute Plan COPD exacerbation Patient is cachectic, malnourished No signs of pneumonia on CT scan: Pneumonia ruled out He is on azithromycin for anti-inflammatory effect He will need outpatient pulmonary medicine follow-up No signs of PE Doing well on 2 L nasal cannula Secondary to leukocytosis and plan to watch him 1 more day in the hospital, however he has been afebrile, cultures negative to date, hold his steroids today no active wheezing If his leukocytosis is trending down, will discharge him tomorrow, he is okay with this plan Change to regular diet Full code DVT prophylaxis on board Attestations Medical Necessity Statement*: Discharge tomorrow Time Spent in Patient Care: 30min Coding Level of Care Code Acute Radar Engineering Teacher for Chg Fwd Diagnoses SIRS (systemic inflammatory response syndrome) R65.10 COPD exacerbation J44.1 Pneumonia J18.9 Chronic respiratory failure J96.11; J96.12 Respiratory failure complication: hypoxia and hypercapnia Essential hypertension I10 Leukocytosis D72.829
--- NOTE | 2022-01-10 10:13 | PC.CHAP ---
Pastoral Care Encounter/Spiritual Assessment Type of Contact [] Declined airline reservation agent visit [] Patient/Family/Request visit [] Outpatient visit [] Follow-up visit [] Physician referral [] Code/Alert [x] Routine visit [] Staff referral [] Actively dying [] Patient sleeping [] Family support [] [] Out of room [] Palliative care [] [] Receiving care in room [] Pre-surgical visit [] Trauma [] Long length of stay [] ICU visit [] Other: Relational/Emotional Strength [x] Patient feels connected with others/family/visitors/staff [] Distress [] Loneliness/isolation [] Abandonment Spirituality of Patient [x] Person of Marya [] Attends Tenriism of their Marya [x] Believes in Prayer [] Reads Bible or Voodoo materials [] There are Spiritual issues to be addressed Flat Lock Operator Interventions [x] Prayer [x] Active listening [x] Non-anxious presence [x] Spiritual/emotional support [] Crisis/trauma care [] Spiritual counseling [] Bereavement support [] Provided bereavement packet [] Provided Bible/devotional materials [] Provided toy/stuffed animal, coloring book to patient or family member [] Provided Communion [] Anointing/[place] [] Salvation [x] Completed spiritual assessment [] Other: Impact on Illness or Injury [] Angry [] Fearful [] Anxious [] Often cries [] Exhaustion [] Unable to work [] Unable to attend pentecostal [] Unable to walk/stand [] Unable to read [] Unable to drive [] Unable to eat/drink [] Unable to sleep [] Unable to be with family [] Patient intubated [] Other: Summary Pt lives alone but has sons and their wives who live in the area and keep check on him. He also has several grandchildren. He is a person of marya but does not attend services. He stated he is on good speaking terms with the cVidya. He has been in the hospital several times recently. He stated he likes [facility] and the care he receives here. He told the Flat Lock Operator to keep the staff in prayer because they needed it with the burdens they are under. Time spent with patient 15m
--- NOTE | 2022-01-10 10:39 | PC.SOCIAL ---
IMM Update Pg. 2 of IMM updated and reviewed with patient, who verbalized understanding. Copy provided.
[2022-01-10] MEDS: acetaminophen 325 mg Tablet 650 MG PO (13:55)
[2022-01-10] MEDS: enoxaparin 40 mg/0.4 mL Syringe SUBCUT (21:43)
[2022-01-11 02:07] VITALS: PULSE 72; RESP 17; O2SAT 94
[2022-01-11] MEDS: ipratropium-albuterol 3 mL Neb INHALATION ×2 (02:08→08:59)
[2022-01-11] MEDS: acetaminophen 325 mg Tablet 650 MG PO (02:20)
[2022-01-11] MEDS: guaiFENesin-dextromethorphan UDC 10 mL PO (02:20)
[2022-01-11 03:43] VITALS: BP 149/73; PULSE 85; RESP 18; TEMP 36.3; O2SAT 94
[2022-01-11 04:54] VITALS: PULSE 83
[2022-01-11 05:00] LABS: Basophils # 0.1 10^3/uL (0.0-0.1); Basophils % 0.4 %; Eosinophils % 0.1 %; Hematocrit 36.6 % (42.0-52.0); Hemoglobin 11.5 g/dL (11.7-16.6); Lymphocytes # 1.1 10^3/uL (0.8-4.8); Lymphocytes % 8.4 %; Mean Corpuscular HGB Conc 31.4 g/dL (30.0-36.0); Mean Corpuscular Hemoglobin 29.6 pg (28.0-34.0); Mean Corpuscular Volume 94.3 fl (80-94); Monocytes # 1.3 10^3/uL (0.2-0.9); Monocytes % 9.5 %; Neutrophils # 10.45 10^3/uL (1.8-7.7); Neutrophils % 76.7 %; Nucleated Red Blood Cells % 0 %; Platelet Count 298 10^3/cmm (130-400); Red Blood Count 3.88 10^6/uL (4.1-5.3); Red Cell Distribution Width 13.3 % (12.1-15.1); White Blood Count 13.6 10^3/uL (4.0-10.0)
--- NOTE | 2022-01-11 06:52 | P.DS_ITS ---
Discharge Providers Date of Admission: 01/07/22 17:30 Date of Discharge: January 11, 2022 Attending Provider at Admission: Fany Moyer MD Attending Provider at Discharge: Leah Haider MD Primary Care Provider: ALLEN Nichole Diagnoses at Discharge Discharge Diagnosis (1) SIRS (systemic inflammatory response syndrome): Status: Acute (2) COPD exacerbation: Status: Acute (3) Pneumonia: Status: Acute (4) Chronic respiratory failure: Status: Acute Qualifiers: Respiratory failure complication: hypoxia and hypercapnia Qualified Code(s): J96.11 - Chronic respiratory failure with hypoxia; J96.12 - Chronic respiratory failure with hypercapnia (5) Essential hypertension: Status: Acute (6) Leukocytosis: Status: Acute Reason for Visit Reason for Visit: SOB Hospital Course Hospital Course Patient was admitted for management and evaluation of COPD exacerbation, initially he was being treated as pneumonia associated COPD exacerbation however CTA chest did not reveal consolidation, he is an active smoker who suffered from COPD exacerbation, his oxygen, did not worsen at baseline uses 2 L at home. He was counseled on smoking cessation. He has digital clubbing. No active pulmonary mass on CTA chest. I requested him to continue his treleogy, see pulmonary medicine, use nicotine patch, quit smoking. His leukocytosis was secondary to use of steroids which improved after I discontinued prednisone. He remained afebrile, he is cachectic malnourished, has severe COPD. At risk of readmissions. Will benefit from pulmonary rehab. Sputum and blood culture remain negative. Physical Exam Narrative: patient was eating breakfast No active patient was eating breakfast Comfortable on 2 L nasal cannula No active distress No chest pain S1, S2 Bilateral diminished breath sound no active wheezing Dry cough Appropriate mood and affect EOMI, PERRLA Nonfocal neuro exam cachectic malnourished ? Discharge Data Studies Completed and Pending Completed Studies During Hospitalization Category Date Time Status CTA PE [CT angio chest PE protcl [id number]] Routine Cat Scan 01/09/22 10:01 Completed XR chest 1V portable [id number] Urgent Exams 01/07/22 15:23 Completed Pending at discharge Category Date Time Status Blood Culture Stat Lab 01/07/22 17:30 Results Sputum Culture and Gram Stain Routine Lab 01/10/22 15:00 Received Radiology Impressions Chest X-Ray 01/07/22 15:23 IMPRESSION: Sequela of COPD. No acute findings. Chest CTA 01/09/22 10:01 IMPRESSION: 1. No evidence of pulmonary embolus. 2. Advanced chronic emphysematous changes. No acute pulmonary infiltrates. 3. Trace pleural fluid or pleural thickening RIGHT lower lobe posteriorly. 4. No other acute findings. Laboratory Results WBC 13.6 10^3/uL (4.0-10.0) H 01/11/22 04:40 RBC 3.88 10^6/uL (4.1-5.3) L 01/11/22 04:40 Hgb 11.5 g/dL (11.7-16.6) L 01/11/22 04:40 Hct 36.6 % (42.0-52.0) L 01/11/22 04:40 MCV 94.3 fl (80-94) H 01/11/22 04:40 MCH 29.6 pg (28.0-34.0) 01/11/22 04:40 MCHC 31.4 g/dL (30.0-36.0) 01/11/22 04:40 RDW 13.3 % (12.1-15.1) 01/11/22 04:40 Plt Count 298 10^3/cmm (130-400) 01/11/22 04:40 MPV 10.0 fL (7.4-10.4) 01/11/22 04:40 Neut % (Auto) 76.7 % 01/11/22 04:40 Lymph % (Auto) 8.4 % 01/11/22 04:40 Tucker % (Auto) 9.5 % 01/11/22 04:40 Eos % (Auto) 0.1 % 01/11/22 04:40 Baso % (Auto) 0.4 % 01/11/22 04:40 Neut # (Auto) 10.45 10^3/uL (1.8-7.7) H 01/11/22 04:40 Lymph # (Auto) 1.1 10^3/uL (0.8-4.8) 01/11/22 04:40 Tucker # (Auto) 1.3 10^3/uL (0.2-0.9) H 01/11/22 04:40 Eos # (Auto) 0.0 10^3/uL (0.0-0.8) 01/11/22 04:40 Baso # (Auto) 0.1 10^3/uL (0.0-0.1) 01/11/22 04:40 Nucleated RBC % (auto) 0 % 01/11/22 04:40 Nucleated RBCs # 0.0 /100WBC 01/11/22 04:40 Sodium 140 mmol/L (136-145) 01/10/22 04:20 Potassium 4.1 mmol/L (3.5-5.1) 01/10/22 04:20 Chloride 100 mmol/L (98-107) 01/10/22 04:20 Carbon Dioxide 31 mmol/L (22-29) H 01/10/22 04:20 Anion Gap 13.1 (5-19) 01/10/22 04:20 BUN 19 mg/dL (8-23) 01/10/22 04:20 Creatinine 0.5 mg/dL (0.7-1.2) L 01/10/22 04:20 GFR Calculation 166.4 mL/min (90-130) H 01/10/22 04:20 Glucose 144 mg/dL (65-115) H 01/10/22 04:20 Calculated Osmolality 295 mOsm/kg (285-295) 01/10/22 04:20 Lactate 1.0 mmol/L (0.5-2.2) 01/07/22 15:18 Calcium 8.9 mg/dL (8.5-10.5) 01/10/22 04:20 Total Bilirubin 0.2 mg/dL (0.15-1.2) 01/08/22 05:34 AST 10 U/L (0-40) 01/08/22 05:34 ALT 6 U/L (0-41) 01/08/22 05:34 Alkaline Phosphatase 68 IU/L (40-130) 01/08/22 05:34 NT-Pro-B Natriuret Pep 162 pg/mL (0-125) H 01/07/22 15:18 Total Protein 7.1 g/dL (6.6-8.7) 01/08/22 05:34 Albumin 3.1 g/dL (3.5-5.2) L 01/08/22 05:34 Globulin 4.0 g/dL (1.3-4.6) 01/08/22 05:34 SARS-CoV-2 Ag (Rapid) Negative (Negative) 01/07/22 15:37 Vitals Last Vital Signs Temp 97.3 F L 01/11/22 03:43 Pulse 83 01/11/22 04:54 Resp 18 01/11/22 03:43 BP 149/73 01/11/22 03:43 Pulse Ox 94 01/11/22 03:43 Discharge Plan Discharge Patient Disposition: Home Condition: Stable Prescriptions: New lisinopril 5 mg Tablet 5 mg PO DAILY Qty: 30 2RF nicotine 14 mg/24 hr patch 24 hour 1 patch transdermal DAILY Qty: 14 0RF nicotine 7 mg/24 hr patch 24 hour 1 patch transdermal DAILY Qty: 7 0RF Continued albuterol sulfate [ProAir HFA] 90 mcg/actuation HFA aerosol inhaler 2 puff INHALATION Q6H PRN (Reason: shortness of breath or wheezing) Qty: 6.7 12RF lisinopril 5 mg tablet 5 mg PO DAILY Qty: 90 1RF Rx Instructions: should increase dose to 5mg. furosemide 40 mg tablet 20 mg PO DAILY 0RF Rx Instructions: May take additional dose daily as needed for shortness of breath omeprazole 20 mg capsule,delayed release(DR/EC) 20 mg PO DAILY 30 Days Qty: 30 0RF Rx Instructions: Take on empty stomach. alprazolam [Xanax] 0.5 mg tablet 0.5 mg PO TID PRN (Reason: anxiety) 30 Days Qty: 80 2RF potassium chloride [Klor-Con] 20 mEq packet See Rx Instructions .ROUTE .COMPLEX Qty: 180 3RF Dose Instruction: MIX PACKET DIRECTED AND TAKE TWICE DAILY MAY TAKE ADDITIONAL DOSE NEEDED FOR WITH FUROSEMIDE Rx Instructions: MIX PACKET DIRECTED AND TAKE TWICE DAILY MAY TAKE ADDITIONAL DOSE NEEDED FOR WITH FUROSEMIDE Trelegy Ellipta 200-62.5-25 mcg blister with device See Rx Instructions .ROUTE .COMPLEX Qty: 60 4RF Dose Instruction: INHALE 1 PUFF BY MOUTH DAILY. MAY RETURNED CASE INSPECTOR 2-3 DAYS EARLY DUE TO TRANSPORTATION Rx Instructions: INHALE 1 PUFF BY MOUTH DAILY. MAY RETURNED CASE INSPECTOR 2-3 DAYS EARLY DUE TO TRANS PORTATION please give 90 day supply Discharge Orders: Discharge Order (Routine); Ordered 01/11/22 Ordered By: Leah Haider Other Ambulatory Orders: Physical Therapy Eval and Treat Outpatient (Order) Timeframe: 2 Months Facility: [facility] - Location: Physical Therapy Ordered By: Leah Haider Referrals: IvonnerAlex MD [Physician] - 01/20/22 8:45 am Shelly Garibay FNP [Primary Care Provider] - 01/25/22 10:00 am Discharge Diet: Cardiac Discharge Activity: Increase activity as tolerated Patient Instructions: COPD, Lisinopril (By mouth), Heart Failure (ED), Pneumonia (GEN), CHF Stoplight, Opioid Safety, Pneumonia Stoplight Discharge Attestations Time Spent in Discharge Care*: less than 30 min Quality Metrics Clinical Quality Measures [ No reported AMI, CVA or VTE this stay] Coding Level of Care Code Acute g [facility] note Diagnoses SIRS (systemic inflammatory response syndrome) R65.10 COPD exacerbation J44.1 Pneumonia J18.9 Chronic respiratory failure J96.11; J96.12 Respiratory failure complication: hypoxia and hypercapnia Essential hypertension I10 Leukocytosis D72.829
[2022-01-11 07:17] VITALS: BP 152/72; PULSE 77; RESP 18; O2SAT 93
[2022-01-11] MEDS: ALPRAZolam 0.5 mg Tablet PO (08:56)
[2022-01-11] MEDS: famotidine 20 mg Tablet PO (08:56)
[2022-01-11] MEDS: lisinopril 5 mg Tablet PO (08:56)
[2022-01-11] MEDS: nicotine 21 mg Patch 1 PATCH TRANSDERMA (08:56)
[2022-01-11 08:59] VITALS: PULSE 84; RESP 18; O2SAT 92
[2022-01-11 09:05] VITALS: PULSE 88
--- NOTE | 2022-01-11 10:24 | PC.CHAP ---
Pastoral Care Encounter/Spiritual Assessment Type of Contact [] Declined [employer] and agencies supervisor visit [] Patient/Family/Request visit [] Outpatient visit [] Follow-up visit [] Physician referral [] Code/Alert [x] Routine visit [] Staff referral [] Actively dying [] Patient sleeping [] Family support [] [] Out of room [] Palliative care [] [] Receiving care in room [] Pre-surgical visit [] Trauma [] Long length of stay [] ICU visit [] Other: Relational/Emotional Strength [x] Patient feels connected with others/family/visitors/staff [] Distress [] Loneliness/isolation [] Abandonment Spirituality of Patient [x] Person of Marya [] Attends Religious of their Marya [x] Believes in Prayer [] Reads Bible or Rastafari materials [] There are Spiritual issues to be addressed Transcriber Interventions [] Prayer [] Active listening [] Non-anxious presence [] Spiritual/emotional support [] Crisis/trauma care [] Spiritual counseling [] Bereavement support [] Provided bereavement packet [] Provided Bible/devotional materials [] Provided toy/stuffed animal, coloring book to patient or family member [] Provided Communion [] Anointing/Cyclone [] Salvation [x] Completed spiritual assessment [] Other: Impact on Illness or Injury [] Angry [] Fearful [] Anxious [] Often cries [] Exhaustion [] Unable to work [] Unable to attend jewish [] Unable to walk/stand [] Unable to read [] Unable to drive [] Unable to eat/drink [] Unable to sleep [] Unable to be with family [] Patient intubated [] Other: Summary Time spent with patient
== END 2022-01-11 11:00 | disposition home or self-care (01) ==
LOC: ER 17:35 → MEDSURG 18:57
PROVIDERS: Admitting Provider Internal Medicine; Emergency Provider Emergency Medicine; PCP Registered Nurse; Visit Provider Internal Medicine
DX: J44.1 Chronic obstructive pulmonary disease with (acute) exacerbation (principal); J18.9 Pneumonia, unspecified organism; R65.10 Systemic inflammatory response syndrome (SIRS) of non-infectious origin without acute organ dysfunction; J96.11 Chronic respiratory failure with hypoxia; J96.12 Chronic respiratory failure with hypercapnia; I10 Essential (primary) hypertension; D72.829 Elevated white blood cell count, unspecified; F41.9 Anxiety disorder, unspecified; F17.210 Nicotine dependence, cigarettes, uncomplicated
CPT/HCPCS: 36415; 71045; 71275; 80048; 80053; 83605; 83880; 85025; 87040; 87070; 87205; 87426; 93005; 94640; 96365; 96367; 96372; 96375; 99285; G0378; J0456; J0696; J1650; J2930; J7040; J7050; J7512; Q0144; Q0162; Q9967

== ENCOUNTER → 2022-01-20 08:51 | Outpatient (BNVA) | payer MEDICARE, MEDICAID, SELFPAY | PROVIDERS: PCP Registered Nurse; Visit Provider Internal Medicine Pulmonary Disease | DX: J43.9 Emphysema, unspecified (principal); R06.00 Dyspnea, unspecified; F17.210 Nicotine dependence, cigarettes, uncomplicated; Z09 Encounter for follow-up examination after completed treatment for conditions other than malignant neoplasm; I10 Essential (primary) hypertension; I50.9 Heart failure, unspecified; F10.11 Alcohol abuse, in remission | CPT/HCPCS: 99204 ==

== ENCOUNTER 2022-01-24 21:10 | Observation (INO) | payer MEDICARE, MEDICAID, SELFPAY ==
--- NOTE | 2022-01-24 21:13 | ECG_ITS ---
[facility] Test Date: 2022-01-24 Pat Name: Jacob Goetz Department: Room: Gender: Male Spool Tender: : 1955 Requested By: Jesus Rivero Order Number: [id number] Mariha MD: Janak Lzacano M.D. Measurements Intervals [place] Rate: 133 P: 81 CA: 121 QRS: 7 QRSD: 90 T: 117 QT: 354 QTc: 528 Interpretive Statements SINUS TACHYCARDIA WITH FREQUENT VENTRICULAR PREMATURE COMPLEXES POSSIBLE RIGHT VENTRICULAR CONDUCTION DELAY [RSR (QR) IN V1/V2] ST DEVIATION AND MODERATE T-WAVE ABNORMALITY, CONSIDER LATERAL ISCHEMIA [-0.1+ mV T-WAVE IN I/aVL/V5/V6] Compared to ECG 01/07/2022 15:13:41 Ventricular premature complex(es) now present T-wave abnormality now present Possible ischemia now present Short CA interval no longer present Incomplete right bundle-branch block no longer present Electronically Signed On 01-24-2022 22:58:38 CDT by Janak Lazcano M.D. [id number] peña
--- NOTE | 2022-01-24 21:13 | XRR_ITS ---
PROCEDURE INFORMATION: Exam: XR Chest Exam date and time: 01/24/2022 9:52 PM Age: 66 years old Clinical indication: Shortness of breath; Additional info: Dyspnea TECHNIQUE: Imaging protocol: XR of the chest. Views: 1 view. COMPARISON: CT angio chest PE protcl [id number] 01/24/2022 9:39 PM FINDINGS: Lungs: Lung volumes are large and the lungs are hyperlucent consistent with emphysema. There is mild nonspecific opacity in the lung bases, most apparent on the left. Pleural spaces: Unremarkable. No pleural effusion. No pneumothorax. Heart/Mediastinum: Cardiomediastinal contours are unremarkable. Bones/joints: Bones are unremarkable. XR/XR chest 1V portable [id number] IMPRESSION: 1. Mild nonspecific opacity in the lung bases. 2. Emphysema.
[2022-01-24 21:14] VITALS: BP 149/72; PULSE 131; RESP 28; TEMP 36.7; O2SAT 95; BMI 16.2
--- NOTE | 2022-01-24 21:18 | CTR_ITS ---
PROCEDURE INFORMATION: Exam: CTA Chest With Contrast Exam date and time: 01/24/2022 9:39 PM Age: 66 years old Clinical indication: Shortness of breath and tachypnea; Patient HX: SOB with hypoxia and tachycardia. History of copd and chf. ; Additional info: Eval for pe TECHNIQUE: Imaging protocol: Computed tomographic angiography of the chest with contrast. 3D rendering (Not supervised by radiologist): MIP and/or 3D reconstructed images were created by the technologist. Radiation optimization: All CT scans at this facility use at least one of these dose optimization techniques: automated exposure control; mA and/or kV adjustment per patient size (includes targeted exams where dose is matched to clinical indication); or iterative reconstruction. Contrast material: OMNI 350; Contrast volume: 91 ml; Contrast route: INTRAVENOUS (IV); COMPARISON: CT angio chest PE protcl [id number] 01/09/2022 11:09 AM RADIATION DOSE METRICS: Total DLP (mGy-cm): 384.75 FINDINGS: Pulmonary arteries: The pulmonary arteries are adequately opacified for evaluation to the subsegmental level. There is no filling defect to suggest embolism. Aorta: There is mild aortic atherosclerotic disease. Lungs: There is severe upper lung predominant centrilobular emphysema. There is dependent consolidation in the inferior lower lobes bilaterally. Pleural spaces: There is no pleural effusion or pneumothorax. Heart: Heart size is normal. There is no pericardial effusion. There is mild coronary artery calcification. Lymph nodes: There is no mediastinal or hilar lymphadenopathy. Gallbladder and bile ducts: There is moderate dilation of the common bile duct and central intrahepatic ducts. Pancreas: The pancreatic duct is diffusely dilated. Spleen: Splenic size is normal. There are scattered calcifications consistent with healed granulomas. Adrenal glands: The adrenal glands are hypertrophic bilaterally. Bones/joints: Bones are unremarkable. Soft tissues: The extrathoracic soft tissues are unremarkable. CT/CT angio chest PE protcl [id number] IMPRESSION: 1. No pulmonary embolism. 2. Dependent opacities in both lower lobes are nonspecific. Possible infection and/or atelectasis. 3. Dilation of the common bile duct and pancreatic duct. The ampulla is not imaged. Ampullary stone or neoplasm is not excluded. Consider nonemergent follow-up MRI. 4. Severe centrilobular emphysema.
[2022-01-24 21:24] LABS: Basophils # 0.1 10^3/uL (0.0-0.1); Basophils % 0.3 %; Eosinophils % 0.2 %; Hematocrit 41.9 % (42.0-52.0); Hemoglobin 13.2 g/dL (11.7-16.6); Lymphocytes # 0.4 10^3/uL (0.8-4.8); Lymphocytes % 1.9 %; Mean Corpuscular HGB Conc 31.5 g/dL (30.0-36.0); Mean Corpuscular Hemoglobin 30.3 pg (28.0-34.0); Mean Corpuscular Volume 96.1 fl (80-94); Mean Platelet Volume 9.3 fL (7.4-10.4); Monocytes # 0.2 10^3/uL (0.2-0.9); Monocytes % 1.1 %; Neutrophils # 18.22 10^3/uL (1.8-7.7); Neutrophils % 96.1 %; Nucleated Red Blood Cells % 0 %; Platelet Count 295 10^3/cmm (130-400); Red Blood Count 4.36 10^6/uL (4.1-5.3); White Blood Count 18.9 10^3/uL (4.0-10.0)
--- NOTE | 2022-01-24 21:24 | ED_ITS ---
HPI - General Adult General: Chief complaint: Shortness of Breath/Dyspnea Stated complaint: SOB Time Seen by Provider: 01/24/22 21:12 History of Present Illness: Patient is a 66-year-old male with history of hypertension, CHF, COPD/emphysema, smoking presents the emergency room with a cute dyspnea. Patient states that she has been feeling chest pain for the last 2 to 3 days that has acutely worsened today. Patient reports mild cough but denies any fever or chills, abdominal constant nausea/vomiting, diarrhea melena when she is Onset:2-3 days ago Duration: ongoing Location:home Severity:moderate Associated symptoms: Reports dyspnea; Deny chest pain, nausea, rash, palpitations or vomiting Review of Systems Const: Denies: fever(s) or chills Eyes: Denies: change in vision ENMT: Denies: mouth pain Card: Denies: chest pain or palpitations Resp: Reports: dyspnea and non-productive cough GI: Denies: abdominal pain, nausea, vomiting or diarrhea : Denies: dysuria Musc: Denies: extremity pain Skin/Breast: Denies: rash or new lesions Neuro: Denies: weakness in extremities Psych: Reports: other (Normal mood) Salty/Lymph: Denies: easy bruising PFSH ED PFSH: Medical History AA (alcohol abuse) Anxiety Benign essential HTN CHF (congestive heart failure) Chronic respiratory failure Clubbed fingers Emphysema/COPD Essential hypertension Leukocytosis Panic attack as reaction to stress Smoking Smoking addiction Family History Son Cancer Grandmother Cancer Mother CAD (coronary artery disease) Dementia Stroke Family/Other Lung disease Other Hyperlipidemia Hypertension Denies family history of Diabetes Clotting disorder Chronic kidney disease (CKD) Suicide Anesthesia complication Bleeding disorder Family history of premature coronary artery disease Social History Smoking and tobacco status: current every day smoker cigarettes Packs smoked per day: 1 Years cigarettes smoked: 56 [ Other cigarette details: started age 10] Alcohol intake: current Adopted: No Caregiver/support person: No Lives independently: Yes Current occupational status: disabled History of recent travel: No Current gender identity: Male Physical Exam Const: COMMON NORMALS: alert HENMT: COMMON NORMALS: atraumatic HEAD & SCALP: atraumatic MOUTH: moist mucous membranes abnormal Eye: COMMON NORMALS: EOMs intact bilaterally and conjunctivae normal CONJUNCTIVA: Yes conjunctivae normal Neck/C-Spine: COMMON NORMALS: full ROM and supple Resp: OTHER: + Mild increased work of breathing, coarse breath sounds bilaterally. Cardio: RATE: tachycardic GI: COMMON NORMALS: Soft to palpation and non-tender PALPATION: Yes Soft to palpation Extremity: COMMON NORMALS: full ROM Neuro: SENSORIUM/ORIENTATION: Yes alert MOTOR EXAM: No Abnormal motor strength present and Other motor observations present (no focal motor deficits) Psych: COMMON NORMALS: speech normal SPEECH: Yes normal speech MOOD & AFFECT: Yes euthymic mood Course Vital Signs: Vital signs: Vital Signs Temperature 97.6 F 01/26/22 12:14 Pulse Rate 109 H 01/26/22 12:14 Respiratory Rate 23 H 01/26/22 12:14 Blood Pressure 141/69 01/26/22 12:14 Pulse Oximetry 92 01/26/22 12:14 [facility] - General Adult Medical Decision Making 66-year-old male with history of COPD smoking presenting to the emergency room with increased oxygen requirement and dyspnea and nonproductive cough. On physical exam, patient has coarse breath sounds bilaterally. Patient noted to be satting at 94% on 7 L of oxygen. Patient has mild increased work of breathing. X-ray chest shows emphysematous changes. Patient white count 18.9. CTA chest did not show any signs of PE. Patient is noted to have dilated common bile duct and pancreatic duct. T Bili/AST/ALT non-elevated At the present time, do not suspect choledocholithiasis or ascending cholangitis. Patient received DuoNeb and Solu-Medrol and IVF with improvement symptom. Given the fact the patient has no pneumonia on CT evaluation, and prior leukocytosis, do not suspect this is pneumonia and we will not treat empirically with antibiotics. Dispsoition: admission Lab Data : 01/26/22 02:15 01/26/22 02:15 Radiology Impressions Chest X-Ray 01/24/22 21:13 IMPRESSION: 1. Mild nonspecific opacity in the lung bases. 2. Emphysema. Chest CTA 01/24/22 21:18 IMPRESSION: 1. No pulmonary embolism. 2. Dependent opacities in both lower lobes are nonspecific. Possible infection and/or atelectasis. 3. Dilation of the common bile duct and pancreatic duct. The ampulla is not imaged. Ampullary stone or neoplasm is not excluded. Consider nonemergent follow-up MRI. 4. Severe centrilobular emphysema. Abdomen Ultrasound 01/25/22 02:43 IMPRESSION: 1. Distended gallbladder. Dilated common bile duct measuring 8.7 mm. Recommend further evaluation with MRCP to exclude choledocholithiasis or pancreatic head mass 2. No hydronephrosis in RIGHT kidney. 3. Heterogeneous hypoechoic hepatic echotexture with echogenic portal triads can be seen with hepatitis, such as viral and alcoholic hepatitis and hepatocellular disease. Recommend correlation with liver function tests. 4. Pancreas is not well evaluated. Dilatation of the pancreatic duct. Fatty atrophy of the pancreas. 5. No hydronephrosis in RIGHT kidney. Laboratory Results WBC 18.9 10^3/uL (4.0-10.0) H 01/24/22 21:19 RBC 4.36 10^6/uL (4.1-5.3) 01/24/22 21:19 Hgb 13.2 g/dL (11.7-16.6) 01/24/22 21:19 Hct 41.9 % (42.0-52.0) L 01/24/22 21:19 MCV 96.1 fl (80-94) H 01/24/22 21:19 MCH 30.3 pg (28.0-34.0) 01/24/22 21:19 MCHC 31.5 g/dL (30.0-36.0) 01/24/22 21:19 RDW 14.0 % (12.1-15.1) 01/24/22 21:19 Plt Count 295 10^3/cmm (130-400) 01/24/22 21:19 MPV 9.3 fL (7.4-10.4) 01/24/22 21:19 Neut % (Auto) 96.1 % 01/24/22 21:19 Lymph % (Auto) 1.9 % 01/24/22 21:19 [place]field % (Auto) 1.1 % 01/24/22 21:19 Eos % (Auto) 0.2 % 01/24/22 21:19 Baso % (Auto) 0.3 % 01/24/22 21:19 Neut # (Auto) 18.22 10^3/uL (1.8-7.7) H 01/24/22 21:19 Lymph # (Auto) 0.4 10^3/uL (0.8-4.8) L 01/24/22 21:19 [place]field # (Auto) 0.2 10^3/uL (0.2-0.9) 01/24/22 21:19 Eos # (Auto) 0.0 10^3/uL (0.0-0.8) 01/24/22 21:19 Baso # (Auto) 0.1 10^3/uL (0.0-0.1) 01/24/22 21:19 Nucleated RBC % (auto) 0 % 01/24/22 21:19 Nucleated RBCs # 0.0 /100WBC 01/24/22 21:19 Specimen Type Arterial 01/24/22 21:14 Sample Site Brachial, right 01/24/22 21:14 ABG pH 7.31 (7.35-7.45) L 01/24/22 21:14 ABG pCO2 58.7 mmHg (35-45) H 01/24/22 21:14 ABG pO2 110.0 mmHg (80.0-100.0) H 01/24/22 21:14 ABG HCO3 29.5 mmol/L (22-26) H 01/24/22 21:14 ABG O2 Saturation 98.5 01/24/22 21:14 ABG Base Excess 2.0 mmol/L (-2.0-2.0) 01/24/22 21:14 Quoc Test Pos 01/24/22 21:14 Hematocrit 36.2 % (42-52) L 01/24/22 21:14 Hgb O2 Saturation 93.8 % (95-100) L 01/24/22 21:14 Carboxyhemoglobin 3.6 %THgb (0.4-20.1) 01/24/22 21:14 Methemoglobin 1.1 % (0.4-1.5) 01/24/22 21:14 Total Hemoglobin 11.8 g/dL (14-18) L 01/24/22 21:14 Sodium 142.0 mmol/L (131-143) 01/24/22 21:14 Potassium 3.7 mmol/L (3.5-5.0) 01/24/22 21:14 Glucose 82.0 mg/dL (70-115) 01/24/22 21:14 Ionized Calcium 1.1 mmol/L (1.1-1.4) 01/24/22 21:14 O2 Delivery Device Oxy mask 01/24/22 21:14 O2 Liters/Min 10.0 % 01/24/22 21:14 Commissions Coordinator ID Hensa 01/24/22 21:14 Sodium 138 mmol/L (136-145) 01/24/22 21:19 Sodium 139 mmol/L (136-145) 01/24/22 21:19 Potassium 4.0 mmol/L (3.5-5.1) 01/24/22 21:19 Potassium 4.0 mmol/L (3.5-5.1) 01/24/22 21:19 Chloride 98 mmol/L (98-107) 01/24/22 21:19 Chloride 99 mmol/L (98-107) 01/24/22 21:19 Carbon Dioxide 30 mmol/L (22-29) H 01/24/22 21:19 Carbon Dioxide 31 mmol/L (22-29) H 01/24/22 21:19 Anion Gap 13.0 (5-19) 01/24/22 21:19 Anion Gap 14.0 (5-19) 01/24/22 21:19 BUN 15 mg/dL (8-23) 01/24/22 21:19 BUN 15 mg/dL (8-23) 01/24/22 21:19 Creatinine 0.6 mg/dL (0.7-1.2) L 01/24/22 21:19 Creatinine 0.7 mg/dL (0.7-1.2) 01/24/22 21:19 GFR Calculation 112.8 mL/min (90-130) 01/24/22 21:19 GFR Calculation 134.8 mL/min (90-130) H 01/24/22 21:19 Glucose 97 mg/dL (65-115) 01/24/22 21:19 Glucose 100 mg/dL (65-115) 01/24/22 21:19 Calculated Osmolality 287 mOsm/kg (285-295) 01/24/22 21:19 Calculated Osmolality 289 mOsm/kg (285-295) 01/24/22 21:19 Calcium 8.8 mg/dL (8.5-10.5) 01/24/22 21:19 Calcium 9.1 mg/dL (8.5-10.5) 01/24/22 21:19 Total Bilirubin 0.4 mg/dL (0.15-1.2) 01/24/22 21:19 AST 16 U/L (0-40) 01/24/22 21:19 ALT 10 U/L (0-41) 01/24/22 21:19 Alkaline Phosphatase 87 IU/L (40-130) 01/24/22 21:19 Troponin T Baseline 25 ng/L (0-15) H 01/24/22 21:19 NT-Pro-B Natriuret Pep 226 pg/mL (0-125) H 01/24/22 21:19 Total Protein 7.1 g/dL (6.6-8.7) 01/24/22 21:19 Albumin 4.0 g/dL (3.5-5.2) 01/24/22 21:19 Globulin 3.1 g/dL (1.3-4.6) 01/24/22 21:19 Coronavirus 229E (PCR) Not detected (NOT DETECT) 01/24/22 21:20 SARS-CoV-2 (PCR) Not detected (NOT DETECT) 01/24/22 21:20 Imaging Data Other Imaging: Radiologist's impression: [place] [address] CT Scan Report Signed Patient: Jacob Goetz Unit #: [id number] : 1955 Age/Sex: 66 / M ADM Date: 01/24/22 Loc: ER Room/Bed: Attending Dr: Ordering Provider/Ordering MD: Jesus Rivero MD Date of Service: 01/24/22 Procedure(s): CT angio chest PE protcl [id number] Accession Number(s): [id number] Report Number: [id number] PROCEDURE INFORMATION: Exam: CTA Chest With Contrast Exam date and time: 01/24/2022 9:39 PM Age: 66 years old Clinical indication: Shortness of breath and tachypnea; Patient HX: SOB with hypoxia and tachycardia. History of copd and chf. ; Additional info: Eval for pe TECHNIQUE: Imaging protocol: Computed tomographic angiography of the chest with contrast. 3D rendering (Not supervised by radiologist): MIP and/or 3D reconstructed images were created by the technologist. Radiation optimization: All CT scans at this facility use at least one of these dose optimization techniques: automated exposure control; mA and/or kV adjustment per patient size (includes targeted exams where dose is matched to clinical indication); or iterative reconstruction. Contrast material: OMNI 350; Contrast volume: 91 ml; Contrast route: INTRAVENOUS (IV);? COMPARISON: CT angio chest PE protcl [id number] 01/09/2022 11:09 AM RADIATION DOSE METRICS: Total DLP (mGy-cm): 384.75 FINDINGS: Pulmonary arteries: The pulmonary arteries are adequately opacified for evaluation to the subsegmental level. There is no filling defect to suggest embolism. Aorta: There is mild aortic atherosclerotic disease. Lungs: There is severe upper lung predominant centrilobular emphysema. There is dependent consolidation in the inferior lower lobes bilaterally. Pleural spaces: There is no pleural effusion or pneumothorax. Heart: Heart size is normal. There is no pericardial effusion. There is mild coronary artery calcification. Lymph nodes: There is no mediastinal or hilar lymphadenopathy. Gallbladder and bile ducts: There is moderate dilation of the common bile duct and central intrahepatic ducts. Pancreas: The pancreatic duct is diffusely dilated. Spleen: Splenic size is normal. There are scattered calcifications consistent with healed granulomas. Adrenal glands: The adrenal glands are hypertrophic bilaterally. Bones/joints: Bones are unremarkable. Soft tissues: The extrathoracic soft tissues are unremarkable. CT/CT angio chest PE protcl [id number] IMPRESSION: 1. No pulmonary embolism. 2. Dependent opacities in both lower lobes are nonspecific. Possible infection and/or atelectasis. 3. Dilation of the common bile duct and pancreatic duct. The ampulla is not imaged. Ampullary stone or neoplasm is not excluded. Consider nonemergent follow-up MRI. 4. Severe centrilobular emphysema. ? Dictated By: Chaka Alexander MD Signed By: Chaka Alexander MD Signed Date/Time: 01/24/222214 DD/ [address] [address] XRay Report Signed Patient: Jacob Goetz Unit #: [id number] : 1955 Age/Sex: 66 / M ADM Date: 01/24/22 Loc: ER Room/Bed: Attending Dr: Ordering Provider/Ordering MD: Jesus Rivero MD Date of Service: 01/24/22 Procedure(s): XR chest 1V portable [id number] Accession Number(s): [id number] Report Number: [id number] PROCEDURE INFORMATION: Exam: XR Chest Exam date and time: 01/24/2022 9:52 PM Age: 66 years old Clinical indication: Shortness of breath; Additional info: Dyspnea TECHNIQUE: Imaging protocol: XR of the chest. Views: 1 view. COMPARISON: CT angio chest PE protcl [id number] 01/24/2022 9:39 PM FINDINGS: Lungs: Lung volumes are large and the lungs are hyperlucent consistent with emphysema. There is mild nonspecific opacity in the lung bases, most apparent on the left. Pleural spaces: Unremarkable. No pleural effusion. No pneumothorax. Heart/Mediastinum: Cardiomediastinal contours are unremarkable. Bones/joints: Bones are unremarkable. XR/XR chest 1V portable [id number] IMPRESSION: 1. Mild nonspecific opacity in the lung bases. 2. Emphysema. ? Dictated By: Chaka Alexander MD Signed By: Chaka Alexander MD Signed Date/Time: 01/24/222215 DD/ 51 Discharge Plan Discharge Patient Disposition: Admitted As Inpatient Admit Provider: Rajan Nava Clinical Impression: Acute dyspnea, Tachycardia, Hypoxemia, COPD exacerbation Condition: Stable Discharge Diet: Regular Discharge Activity: Increase activity as tolerated Coding Level of Care Code ED Die Forger for Chg Fwd Exam Comprehensive
[2022-01-24] MEDS: iohexol 350 mg/mL 100 mL Btl IV (21:39)
[2022-01-24 21:55] LABS: Troponin(5th) Baseline 25 ng/L (0-15)
[2022-01-24 21:59] LABS: Blood Urea Nitrogen 15 mg/dL (8-23); Calcium 8.8 mg/dL (8.5-10.5); Carbon Dioxide 31 mmol/L (22-29); Chloride 98 mmol/L (98-107); Glomerular Filtration Rate 134.8 mL/min (90-130); Glucose 97 mg/dL (65-115); Osmolality Calculated 287 mOsm/kg (285-295); Sodium 138 mmol/L (136-145)
[2022-01-24 22:00] LABS: NT Pro B Type Natriuretic Pept 226 pg/mL (0-125)
[2022-01-24] MEDS: sodium chloride 0.9% 1,000 ML 999 ML IV (22:09)
[2022-01-24] MEDS: sodium chloride 0.9% 500 ML IV (22:09)
[2022-01-24 22:13] VITALS: PULSE 100; RESP 19; O2SAT 96
[2022-01-24] MEDS: ipratropium-albuterol 3 mL Neb INHALATION (22:13)
[2022-01-24 22:35] LABS: Alanine Aminotransferase 10 U/L (0-41); Alkaline Phosphatase 87 IU/L (40-130); Aspartate Amino Transferase 16 U/L (0-40); Blood Urea Nitrogen 15 mg/dL (8-23); Calcium 9.1 mg/dL (8.5-10.5); Carbon Dioxide 30 mmol/L (22-29); Chloride 99 mmol/L (98-107); Globulin 3.1 g/dL (1.3-4.6); Glomerular Filtration Rate 112.8 mL/min (90-130); Glucose 100 mg/dL (65-115); Osmolality Calculated 289 mOsm/kg (285-295); Sodium 139 mmol/L (136-145); Total Bilirubin 0.4 mg/dL (0.15-1.2); Total Protein 7.1 g/dL (6.6-8.7)
[2022-01-24 22:48] VITALS: PULSE 120; RESP 20; O2SAT 99
[2022-01-24 22:48] LABS: ABG PCO2 58.7 mmHg (35-45); ABG PH Result 7.31 (7.35-7.45); Arterial Blood Gas Hematocrit 36.2 % (42-52); Blood Gas Allen Test Pos; Blood Gas Sample Site Brachial, right; Blood Gas Sample Type Arterial; Carboxyhemoglobin 3.6 %THgb (0.4-20.1); HCO3 ABG 29.5 mmol/L (22-26); HGB O2 Sat 93.8 % (95-100); Ionized Calcium Level - ABG 1.1 mmol/L (1.1-1.4); Methemoglobin 1.1 % (0.4-1.5); Oxygen Device OXY MASK; Oxygen Saturation ABG 98.5; Potassium Level - ABG 3.7 mmol/L (3.5-5.0); Total Hemoglobin 11.8 g/dL (14-18)
[2022-01-24 23:09] LABS: Adenovirus Not Detected (NOT DETECT); Chlamydia Pneumoniae Not Detected (NOT DETECT); Coronavirus 229E,HKU1,NL63,OC4 Not Detected (NOT DETECT); Human Metapneumovirus Not Detected (NOT DETECT); Human Rhinovirus/Enterovirus Not Detected (NOT DETECT); Influenza A Not Detected (NOT DETECT); Influenza A H1 Not Detected (NOT DETECT); Influenza A H1-2009 Not Detected (NOT DETECT); Influenza A H3 Not Detected (NOT DETECT); Influenza B Not Detected (NOT DETECT); Mycoplasma Pneumoniae Not Detected (NOT DETECT); Parainfluenza Virus Type 1 Not Detected (NOT DETECT); Parainfluenza Virus Type 2 Not Detected (NOT DETECT); Parainfluenza Virus Type 3 Not Detected (NOT DETECT); Parainfluenza Virus Type 4 Not Detected (NOT DETECT); Respiratory Syncytial Virus A Not Detected (NOT DETECT); Respiratory Syncytial Virus B Not Detected (NOT DETECT); SARS-COV-2 Not Detected (NOT DETECT)
--- NOTE | 2022-01-24 23:38 | PM.HP ---
Providers/Chief Complaint Admitting Physician: Rajan Nava DO Primary Care Provider: ALLEN Nichole Chief Complaint: SOB History of Present Illness The patient is a 66-year-old male with known history of O2 dependent COPD for which he uses 2 L via nasal cannula at home who continues to smoke who presents with chief [place] dyspnea which started proximally 1 hour prior to presenting to the hospital. He states it was of sudden onset. He states he was laying down at the time of onset. He denies fever, rigors, nausea, vomiting, cough, wheeze, abdominal pain, diarrhea, myalgia, chest pain. He denies peripheral edema. He presents for further evaluation Review of Systems General: Reports: 10 or more systems reviewed and unremarkable except in HPI and below Medications/Allergies Home Medications Medication Instructions Recorded Confirmed Last Taken Type potassium chloride 20 mEq oral See Rx Instructions .ROUTE 07/05/21 01/20/22 Unknown Rx packet (Klor-Con) .COMPLEX #180 ea albuterol sulfate 90 mcg/actuation 2 puff INHALATION Q6H PRN #6.7 gm 09/20/21 01/20/22 Unknown Rx aerosol inhaler (ProAir HFA) lisinopril 5 mg tablet 5 mg PO DAILY #90 tab 09/20/21 01/08/22 Unknown Rx alprazolam 0.5 mg tablet (Xanax) 0.5 mg PO TID PRN 30 Days #80 tab 12/19/21 01/20/22 Unknown Rx omeprazole 20 mg capsule,delayed 20 mg PO DAILY 30 Days #30 cap 12/19/21 01/20/22 Unknown Rx release fluticasone fur. 200 mcg-umeclid See Rx Instructions .ROUTE 01/11/22 01/20/22 Unknown Rx 62.5 mcg-vilant 25 mcg .COMPLEX #60 ea inhalat.powder (Trelegy Ellipta) lisinopril 5 mg tablet 5 mg PO DAILY #30 tab 01/11/22 01/20/22 Unknown Rx nicotine 14 mg/24 hr daily 1 patch TRANSDERMAL DAILY #14 ea 01/11/22 01/20/22 Unknown Rx transdermal patch nicotine 7 mg/24 hr daily 1 patch TRANSDERMAL DAILY #7 ea 01/11/22 01/20/22 Unknown Rx transdermal patch furosemide 40 mg tablet 20 mg PO DAILY #30 tab 01/23/22 01/23/22 Unknown Rx potassium chloride 10 mEq 10 meq PO DAILY #30 tab 01/23/22 01/23/22 Unknown Rx tablet,extended release Allergies Allergy/AdvReac Type Severity Reaction Status Date / Time Penicillins Allergy Mild UNKNOWN Verified 01/20/22 09:16 PFSH Acute PFSH: Medical History AA (alcohol abuse) Anxiety Benign essential HTN CHF (congestive heart failure) Chronic respiratory failure Clubbed fingers Emphysema/COPD Essential hypertension Leukocytosis Panic attack as reaction to stress Smoking Smoking addiction Family History Son Cancer Grandmother Cancer Mother CAD (coronary artery disease) Dementia Stroke Family/Other Lung disease Other Hyperlipidemia Hypertension Denies family history of Diabetes Clotting disorder Chronic kidney disease (CKD) Suicide Anesthesia complication Bleeding disorder Family history of premature coronary artery disease Social History Smoking and tobacco status: current every day smoker cigarettes Packs smoked per day: 1 Years cigarettes smoked: 56 [ Other cigarette details: started age 10] Alcohol intake: current Adopted: No Caregiver/support person: No Lives independently: Yes Current occupational status: disabled History of recent travel: No Current gender identity: Male Vitals/I&O/Wt Last Vital Signs Temp 98.1 F 01/24/22 21:14 Pulse 120 H 01/24/22 22:48 Resp 20 H 01/24/22 22:48 BP 149/72 01/24/22 21:14 Pulse Ox 99 01/24/22 22:48 01/24/22 01/24/22 01/25/22 14:59 22:59 06:59 Intake Total 1500 / 1500 Balance 1500 / 1500 Weight last 48 hrs Weight 44.452 kg Physical Exam Narrative: General: -Alert -No acute distress -No dyspnea -No tachypnea Head: -Atraumatic -Normocephalic Eyes: -Pupils equally round and reactive to light and accommodation -Extraocular muscles intact Neurological: -Cranial nerves II-XII intact Neck: -No jugular venous distention -No thyromegaly -No cervical lymphadenopathy Heart: -Regular rate -Regular rhythm -No murmurs -No gallops -No rubs Lungs: -No wheeze -No rhonchi -No rales ? Abdomen: -Normal bowel sounds in all four quadrants -No rebound -No guarding -No tenderness Extremities: -2/4 pulse in all four extremities -No clubbing -No cyanosis -No edema -No calf tenderness present bilaterally -Negative Chuy?s sign bilaterally Musculoskeletal: -5/5 bilateral upper extremity strength -5/5 bilateral lower extremity strength -Sensorium of bilateral upper extremities are equal and intact -Sensorium of bilateral lower extremities are equal and intact ? Additional Details / Additional Findings / Exceptions / Miscellaneous: Data : 01/24/22 21:19 01/24/22 21:19 A&P Assessment and plan (1) Acute dyspnea: Status: Acute Plan Dyspnea secondary to COPD exacerbation for which patient typically O2 dependent 2 L at home. Cymetra 60 Mill grams IV every 8 hours post DuoNeb every 4 hours plus Levaquin 500 Mill grams IV daily Common bile duct dilatation. LFTs within normal limit. Right upper quadrant ultrasound pending Remote history of alcohol abuse. The patient claims to be in abstention Elevated troponin. This likely sequelae of hypoxemia. Will monitor patient on telemetry and checks her cardiac enzymes. Recheck EKG on the morning of January 25, 2022 Arthritis Documented a history of benzodiazepine dependence Anxiety with history of panic attack CHF, ejection fraction 41% with grade 1 diastolic dysfunction Coronary artery disease, status post GA GERD. Protonix 40 Mill grams by mouth daily Hypertension Smoker. The patient becomes regarding smoking cessation Vital noncompliance as witnessed by patient continued to smoke despite having O2 dependent COPD. The patient will be counseled regarding medical compliance DT Margarita is. 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
[2022-01-25] VITALS (21 sets, daily range): BP systolic 100–162; BP diastolic 50–79; PULSE 90–120; RESP 16–25; TEMP 36.6–36.7; O2SAT 90–96
--- NOTE | 2022-01-25 00:28 | PC.NURSE ---
Patient states he has an appointment at 10 am tomorrow in [place]. Patient states we can get his list of home medications from his pharmacy or his doctor in [place]. Patient states the only thing I need tonight is my 0.[address] Nava notified of patient asking for Xanax. Home Xanax dose ordered.
[2022-01-25] MEDS: ALPRAZolam 0.5 mg Tablet PO ×3 (00:40→21:20)
[2022-01-25] MEDS: levofloxacin-dextrose 5 % 500 MG/100 ML PREMIX 100 MG IV ×2 (00:41→23:57)
[2022-01-25] MEDS: enoxaparin 40 mg/0.4 mL Syringe SUBCUT ×2 (00:41→23:57)
[2022-01-25] MEDS: acetaminophen 325 mg Tablet 650 MG PO (00:51)
[2022-01-25 00:57] LABS: Troponin 5 2HR 31.47 ng/L (0-15); Troponin 5 2HR Delta 6.47 ABS# (0-10)
--- NOTE | 2022-01-25 02:43 | US_ITS ---
WS: [id number] ULTRASOUND ABDOMEN LIMITED CLINICAL INFORMATION: RUQ US: CBD dilat COMPARISON: None. FINDINGS: Liver Size: Normal. Craniocaudal length: 13.5 cm. Echogenicity: Coarse hypoechoic with echogenic portal triads Surface nodularity: None. Mass (size and location): None. Bile ducts Intrahepatic ducts: Normal. Common bile duct diameter: 0.9 cm. Gallbladder Distended Gallstones: None. Gallbladder sludge: None. Gallbladder wall thickening: None. Pericholecystic fluid: None. Sonographic Parks sign: Absent. Pancreas Not well visualized. Dilatation pancreatic duct. Fatty atrophy. Right kidney: Normal. Hydronephrosis: None. Size: 9.3 cm x 4.8 cm x 3.7 cm. Abdominal aorta and IVC Visualized portions are normal. Ascites: None. US/US abdomen limited [id number] IMPRESSION: 1. Distended gallbladder. Dilated common bile duct measuring 8.7 mm. Recommend further evaluation with MRCP to exclude choledocholithiasis or pancreatic head mass 2. No hydronephrosis in RIGHT kidney. 3. Heterogeneous hypoechoic hepatic echotexture with echogenic portal triads c an be seen with hepatitis, such as viral and alcoholic hepatitis and hepatocell ular disease. Recommend correlation with liver function tests. 4. Pancreas is not well evaluated. Dilatation of the pancreatic duct. Fatty at rophy of the pancreas. 5. No hydronephrosis in RIGHT kidney.
[2022-01-25 04:03] LABS: Troponin 5 6HR 21.67 ng/L (0-15)
[2022-01-25 04:12] LABS: Troponin 5 6HR Delta -3.33 ng/L (0-12)
--- NOTE | 2022-01-25 05:23 | PC.NURSE ---
Patient switched from non-rebreather to 4 L NC. Oxygen saturation maintaining 91 percent on continuous pulse ox monitor.
--- NOTE | 2022-01-25 06:00 | ECG_ITS ---
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 Measurements Intervals [place] Rate: 93 P: 83 AR: 127 QRS: 69 QRSD: 85 T: 89 QT: 359 QTc: 447 Interpretive Statements SINUS RHYTHM POSSIBLE RIGHT VENTRICULAR CONDUCTION DELAY [RSR (QR) IN V1/V2] Compared to ECG 01/24/2022 21:22:50 Sinus tachycardia no longer present Ventricular premature complex(es) no longer present T-wave abnormality no longer present Possible ischemia no longer present Electronically Signed On 01-25-2022 18:31:04 CDT by Harika Swanson M.D. [email or web address]
[2022-01-25] MEDS: ipratropium-albuterol 3 mL Neb INHALATION ×4 (06:09→21:05)
--- NOTE | 2022-01-25 09:01 | PC.PHAR ---
PT STATES HE TAKES CARE OF HIS OWN MEDICATIONS-PT STATES HE HASNT PICKED UP THE NICOTINE 14MG PATCHES FILLED 01/11/22 OR THE 7MG DAILY WRITTEN ON 01/11/22-PT STATES HE HAS BEEN TAKING ONE PACKET KCL (20MEQ) DAILY RX WRITTEN MIX PACKET DIRECTED AND TAKE TWICE DAILY MAY TAKE ADDITIONAL DOSE NEEDED FOR WITH FUROSEMIDE -EXT MED HISTORY DOESNT SHOW WHEN LAST FILLED-EXT MED HISTORY SHOWS KCL 10MEQ DAILY FILLED ON 01/23/22 30D/S PT STATES NOT PICKED UP FROM THE PHARMACY-
[2022-01-25] MEDS: pantoprazole DR 40 mg Tablet PO (09:40)
--- NOTE | 2022-01-25 11:29 | PC.NURSE ---
Spoke with Dr Wagner with patient concerns of needing cough medications instructions received to start Tesslon perals 100mg po TID PRN
[2022-01-25] MEDS: benzonatate 100 mg Capsule PO (11:37)
--- NOTE | 2022-01-25 12:04 | PC.CHAP ---
Pastoral Care Encounter/Spiritual Assessment Type of Contact [] Declined oil developer visit [] Patient/Family/Request visit [] Outpatient visit [] Follow-up visit [] Physician referral [] Code/Alert [x] Routine visit [] Staff referral [] Actively dying [] Patient sleeping [] Family support [] [] Out of room [] Palliative care [] [x] Receiving care in room [] Pre-surgical visit [] Trauma [] Long length of stay [] ICU visit [x] Other: doctor Relational/Emotional Strength [] Patient feels connected with others/family/visitors/staff [] Distress [] Loneliness/isolation [] Abandonment Spirituality of Patient [] Person of Marya [] Attends Pentecostal of their Marya [] Believes in Prayer [] Reads Bible or Druze materials [] There are Spiritual issues to be addressed Adjunct History Instructor Interventions [x] Prayer [] Active listening [] Non-anxious presence [] Spiritual/emotional support [] Crisis/trauma care [] Spiritual counseling [] Bereavement support [] Provided bereavement packet [] Provided Bible/devotional materials [] Provided toy/stuffed animal, coloring book to patient or family member [] Provided Communion [] Anointing/[place] [] Salvation [x] Completed spiritual assessment [] Other: Impact on Illness or Injury [] Angry [] Fearful [] Anxious [] Often cries [] Exhaustion [] Unable to work [] Unable to attend zoroastrian [] Unable to walk/stand [] Unable to read [] Unable to drive [] Unable to eat/drink [] Unable to sleep [] Unable to be with family [] Patient intubated [] Other: Summary Time spent with patient
[2022-01-25] MEDS: nicotine 21 mg Patch 1 PATCH TRANSDERMA (16:02)
--- NOTE | 2022-01-25 17:33 | P.PN_ITS ---
Subjective Subjective: Patient was seen and examined this morning, very difficult to understand, states that shortness of breath has improved. Medications: Medication Review Details: Generic Name Dose Route Start Last Admin Trade Name Judy PRN Reason Stop Dose Admin Acetaminophen 650 mg 01/24/22 23:44 01/25/22 00:51 Acetaminophen 32 5 Mg Tablet PO 650 mg Q6H PRN Administration Mild/Mod Pain Or Temp >/= 101 Albuterol/Ipratrop ium 3 ml 01/25/22 00:00 01/25/22 15:44 Ipratropium-Albu terol 3 Ml Neb INHALATION Not Given Q4H.RESPIRATORY S CH Alprazolam 0.5 mg 01/25/22 08:50 01/25/22 09:40 Alprazolam 0.5 M g Tablet PO 0.5 mg TID PRN Administration ANXIETY Benzonatate 100 mg 01/25/22 11:29 01/25/22 11:37 Benzonatate 100 Mg Capsule PO 100 mg TID PRN Administration COUGH Enoxaparin Sodium 40 mg 01/25/22 00:00 01/25/22 00:41 Enoxaparin 40 Mg /0.4 Ml Syringe SUBCUT 40 mg Q24H BLANCA Administration Levofloxacin/Dextr ose 500 mg in 100 mls @ 100 mls/hr 01/25/22 00:00 01/25/22 01:18 Levaquin-D5w IV Infused Q24H BLANCA Infusion Protocol Methylprednisolone Sodium Succinate 60 mg 01/25/22 06:00 01/25/22 14:55 Methylprednisolo ne Sod Succ 125 Mg /2 Ml Inj IVP 60 mg Q8H BLANCA Administration Nicotine 1 patch 01/25/22 15:50 01/25/22 16:02 Nicotine 21 Mg P atch TRANSDERMA 1 patch DAILY BLANCA Administration Pantoprazole Sodiu m 40 mg 01/25/22 09:00 01/25/22 09:[address] 40 Mg Tablet PO 40 mg DAILY BLANCA Administration Vitals/I&O/Wt Last Vital Signs Temp 97.8 F 01/25/22 15:28 Pulse 103 H 01/25/22 15:44 Resp 18 01/25/22 15:44 BP 108/50 01/25/22 15:28 Pulse Ox 93 01/25/22 15:44 01/25/22 01/25/2222 06:59 14:59 22:59 Intake Total 1800 / 1800 Output Total 325 / 325 360 / 360 Balance 1475 / 1475 -360 / -360 Weight last 48 hrs Weight 46.72 kg Weight 44.452 kg Physical Exam Const: COMMON NORMALS: patient oriented x3 HENMT: COMMON NORMALS: normocephalic and atraumatic HEAD & SCALP: normoceph alic and atraumatic Eye: GENERAL EYE: appearance normal, both eyes and all related structures Chest: COMMONS NORMALS: normal inspection of the chest and normal palpation of entire chest wall CHEST: Yes Symmetrical chest wall rise Resp: EFFORT & INSPECTION: Yes symmetric chest movement OTHER: Diminished air entry bilaterally Cardio: COMMON NORMALS: regular rate, regular rhythm, S1 normal heart sound present, S2 normal heart sound present, No gallops present (Cardio), No murmurs present (Cardio), No rub (Cardio) and Peripheral pulses 2+ throughout RATE: regular rate RHYTHM: regular rhythm HEART SOUNDS: S1 normal heart sound present and S2 normal heart sound present PERIPHERAL PULSES: Peripheral pulses 2+ throughout GI: COMMON NORMALS: Normal to inspection, nondistended, normoactive bowel sounds present, Soft to palpation, non-tender, No hepatosplenomegaly present and no masses AUSCULTATION: Yes normoactive bowel sounds PALPATION: Yes Soft to palpation and Yes No hepatosplenomegaly present RECTAL EXAM: Yes deferred Extremity: COMMON NORMALS: no clubbing, cyanosis or edema and no pedal edema Neuro: COMMON NORMALS: patient oriented x3 Data : 01/24/22 21:19 01/24/22 21:19 A&P Assessment and plan (1) Acute dyspnea: Status: Acute Plan Dyspnea secondary to COPD exacerbation for which patient typically O2 dependent 2 L at home. Cymetra 60 Mill grams IV every 8 hours post DuoNeb every 4 hours plus Levaquin 500 Mill grams IV daily Common bile duct dilatation. LFTs within normal limit. Right upper quadrant ultrasound pending Remote history of alcohol abuse. The patient claims to be in abstention Elevated troponin. This likely sequelae of hypoxemia. Will monitor patient on telemetry and checks her cardiac enzymes. Recheck EKG on the morning of January 25, 2022 Arthritis Documented a history of benzodiazepine dependence Anxiety with history of panic attack CHF, ejection fraction 41% with grade 1 diastolic dysfunction Coronary artery disease, status post [place] GERD. Protonix 40 Mill grams by mouth daily Hypertension Smoker. The patient becomes regarding smoking cessation Vital noncompliance as witnessed by patient continued to smoke despite having O2 dependent COPD. The patient will be counseled regarding medical compliance DT Margarita is. Lovenox 40 Mill grams subcu tensely daily Attestations Medical Necessity Statement*: Patient is to be in hospital for management of COPD exacerbation Coding Level of Care Code Acute Senior Medical Billing Specialist for [facility] Fwd Exam Comprehensive Diagnoses Acute dyspnea R06.00
[2022-01-26] VITALS (15 sets, daily range): BP systolic 109–141; BP diastolic 55–70; PULSE 91–118; RESP 16–24; TEMP 36.4–36.8; O2SAT 91–110
[2022-01-26] MEDS: ipratropium-albuterol 3 mL Neb INHALATION ×4 (00:46→11:49)
[2022-01-26 03:00] LABS: Hematocrit 33.6 % (42.0-52.0); Hemoglobin 10.4 g/dL (11.7-16.6); Mean Corpuscular Hemoglobin 30.4 pg (28.0-34.0); Mean Corpuscular Volume 98.2 fl (80-94); Mean Platelet Volume 10.6 fL (7.4-10.4); Platelet Count 213 10^3/cmm (130-400); Red Blood Count 3.42 10^6/uL (4.1-5.3); Red Cell Distribution Width 14.1 % (12.1-15.1); White Blood Count 26.4 10^3/uL (4.0-10.0)
[2022-01-26 03:17] LABS: Slide Review Slide Review Perform
[2022-01-26 03:18] LABS: Absolute Neutrophil 24.3 10^3/cmm (1.4-6.5); Band Neutrophils Absolute 5.3 10^3/cmm (0.0-1.2); Eosinophils 0 %; Lymphocytes 2 %; Lymphocytes Absolute 0.8 10^3/cmm (1.2-3.4); Monocytes Absolute 0.5 10^3/cmm (0.1-0.6); Platelet Estimate Normal (Normal); Segmented Neutrophils 72 %; Total Cells Counted 100 (0-100)
[2022-01-26 03:23] LABS: Anion Gap 14.3 (5-19); Blood Urea Nitrogen 18 mg/dL (8-23); Calcium 8.9 mg/dL (8.5-10.5); Carbon Dioxide 28 mmol/L (22-29); Chloride 99 mmol/L (98-107); Glomerular Filtration Rate 134.8 mL/min (90-130); Glucose 233 mg/dL (65-115); Osmolality Calculated 295 mOsm/kg (285-295); Potassium 3.3 mmol/L (3.5-5.1); Sodium 138 mmol/L (136-145)
[2022-01-26] MEDS: nicotine 21 mg Patch 1 PATCH TRANSDERMA (09:17)
[2022-01-26] MEDS: ALPRAZolam 0.5 mg Tablet PO (09:17)
[2022-01-26] MEDS: pantoprazole DR 40 mg Tablet PO (09:17)
--- NOTE | 2022-01-26 10:50 | P.DS_ITS ---
Discharge Providers Date of Admission: 01/24/22 22:52 Date of Discharge: January 26, 2022 Attending Provider at Admission: Rajan Nava DO Attending Provider at Discharge: Miko Wagner MD Primary Care Provider: ALLEN Nichole Diagnoses at Discharge Discharge Diagnosis (1) Acute dyspnea: Reason for Visit Reason for Visit: SOB Hospital Course Hospital Course HPI : 66-year-old male with known history of O2 dependent COPD for which he uses 2 L via nasal cannula at home who continues to smoke who presents with chief [place] dyspnea which started proximally 1 hour prior to presenting to the hospital.? He states it was of sudden onset.? He states he was laying down at the time of onset.? He denies fever, rigors, nausea, vomiting, cough, wheeze, abdominal pain, diarrhea, myalgia, chest pain.? He denies peripheral edema.? He presents for further evaluation. Hospital course: Was admitted for the management of COPD exacerbation: Was kept on steroids, duo nebs supplemental oxygen as needed, other conservative respiratory support measures, levofloxacin, incentive spirometer, flutter valve, responded well to other conservative medical management , he was discharged on prednisone 40 mg p.o. daily for 7 days and was continued on home trilogy inhaler. He will continue to follow with his primary care physician as an outpatient. Physical Exam Const: COMMON NORMALS: patient oriented x3 HENMT: COMMON NORMALS: normocephalic and atraumatic HEAD & SCALP: normocephalic and atraumatic Eye: GENERAL EYE: appearance normal, both eyes and all related structures Chest: COMMONS NORMALS: normal inspection of the chest and normal palpation of entire chest wall CHEST: Yes Symmetrical chest wall rise Resp: EFFORT & INSPECTION: Yes symmetric chest movement OTHER: Diminished air entry bilaterally Cardio: COMMON NORMALS: regular rate, regular rhythm, S1 normal heart sound present, S2 normal heart sound present, No gallops present (Cardio), No murmurs present (Cardio), No rub (Cardio) and Peripheral pulses 2+ throughout RATE: regular rate RHYTHM: regular rhythm HEART SOUNDS: S1 normal heart sound present and S2 normal heart sound present PERIPHERAL PULSES: Peripheral pulses 2+ throughout GI: COMMON NORMALS: Normal to inspection, nondistended, normoactive bowel s ounds present, Soft to palpation, non-tender, No hepatosplenomegaly present and no masses AUSCULTATION: Yes normoactive bowel sounds PALPATION: Yes Soft to palpation and Yes No hepatosplenomegaly present RECTAL EXAM: Yes deferred Extremity: COMMON NORMALS: no clubbing, cyanosis or edema and no pedal edema Neuro: COMMON NORMALS: patient oriented x3 Discharge Data Studies Completed and Pending Completed Studies During Hospitalization Category Date Time Status CTA chest [CT angio chest PE protcl [id number]] Urgent Cat Scan 01/24/22 21:18 Completed XR chest 1V portable [id number] Urgent Exams 01/24/22 21:13 Completed US abdomen limited [id number] Routine Ultrasound 01/25/22 02:43 Completed Pending at discharge Category Date Time Status ABG FULL [Arterial Blood Gas Full] Stat Lab 01/24/22 21:14 Results BMP [Basic Metabolic Panel] AM LABS Lab 01/27/22 04:00 Ordered BMP [Basic Metabolic Panel] AM LABS Lab 01/28/22 04:00 Ordered CBC Auto Diff [Complete Blood Count w/Auto] AM LABS Lab 01/27/22 04:00 Ordered CBC Auto Diff [Complete Blood Count w/Auto] AM LABS Lab 01/28/22 04:00 Ordered Radiology Impressions Chest X-Ray 01/24/22 21:13 IMPRESSION: 1. Mild nonspecific opacity in the lung bases. 2. Emphysema. Chest CTA 01/24/22 21:18 IMPRESSION: 1. No pulmonary embolism. 2. Dependent opacities in both lower lobes are nonspecific. Possible infection and/or atelectasis. 3. Dilation of the common bile duct and pancreatic duct. The ampulla is not imaged. Ampullary stone or neoplasm is not excluded. Consider nonemergent follow-up MRI. 4. Severe centrilobular emphysema. Abdomen Ultrasound 01/25/22 02:43 IMPRESSION: 1. Distended gallbladder. Dilated common bile duct measuring 8.7 mm. Recommend further evaluation with MRCP to exclude choledocholithiasis or pancreatic head mass 2. No hydronephrosis in RIGHT kidney. 3. Heterogeneous hypoechoic hepatic echotexture with echogenic portal triads can be seen with hepatitis, such as viral and alcoholic hepatitis and hepatocellular disease. Recommend correlation with liver function tests. 4. Pancreas is not well evaluated. Dilatation of the pancreatic duct. Fatty atrophy of the pancreas. 5. No hydronephrosis in RIGHT kidney. Laboratory Results WBC 26.4 10^3/uL (4.0-10.0) H 01/26/22 02:15 RBC 3.42 10^6/uL (4.1-5.3) L 01/26/22 02:15 Hgb 10.4 g/dL (11.7-16.6) L 01/26/22 02:15 Hct 33.6 % (42.0-52.0) L 01/26/22 02:15 MCV 98.2 fl (80-94) H 01/26/22 02:15 MCH 30.4 pg (28.0-34.0) 01/26/22 02:15 MCHC 31.0 g/dL (30.0-36.0) 01/26/22 02:15 RDW 14.1 % (12.1-15.1) 01/26/22 02:15 Plt Count 213 10^3/cmm (130-400) 01/26/22 02:15 MPV 10.6 fL (7.4-10.4) H 01/26/22 02:15 Neut % (Auto) 96.1 % 01/24/22 21:19 Lymph % (Auto) 1.9 % 01/24/22 21:19 [place]idan % (Auto) 1.1 % 01/24/22 21:19 Eos % (Auto) 0.2 % 01/24/22 21:19 Baso % (Auto) 0.3 % 01/24/22 21:19 Neut # (Auto) 18.22 10^3/uL (1.8-7.7) H 01/24/22 21:19 Lymph # (Auto) 0.4 10^3/uL (0.8-4.8) L 01/24/22 21:19 [place]idan # (Auto) 0.2 10^3/uL (0.2-0.9) 01/24/22 21:19 Eos # (Auto) 0.0 10^3/uL (0.0-0.8) 01/24/22 21:19 Baso # (Auto) 0.1 10^3/uL (0.0-0.1) 01/24/22 21:19 Nucleated RBC % (auto) 0 % 01/24/22 21:19 Total Counted 100 (0-100) 01/26/22 02:15 Atypical Lymphs % 1.0 % (0-5) 01/26/22 02:15 Absolute Neutrophils 24.3 10^3/cmm (1.4-6.5) H 01/26/22 02:15 Segmented Neutrophils 72 % 01/26/22 02:15 Abs Segm Neuts (Man) 19.0 10/cmm (1.6-7.1) H 01/26/22 02:15 Band Neutrophils 20.0 % 01/26/22 02:15 Abs Band Neuts (Man) 5.3 10^3/cmm (0.0-1.2) H 01/26/22 02:15 Absolute Lymphocytes 0.8 10^3/cmm (1.2-3.4) L 01/26/22 02:15 Lymphocytes (Manual) 2 % 01/26/22 02:15 Monocytes (Manual) 2.0 % 01/26/22 02:15 Absolute Monocytes 0.5 10^3/cmm (0.1-0.6) 01/26/22 02:15 Eosinophils (Manual) 0 % 01/26/22 02:15 Absolute Eosinophils 0.0 10^3/cmm (0.0-0.7) 01/26/22 02:15 Basophils (Manual) 0.0 % 01/26/22 02:15 Absolute Basophils 0.0 10^3/cmm (0.0-0.2) 01/26/22 02:15 Metamyelocytes 3.0 % 01/26/22 02:15 Nucleated RBCs # 0.0 /100WBC 01/24/22 21:19 Platelet Estimate Normal (Normal) 01/26/22 02:15 Specimen Type Arterial 01/24/22 21:14 Sample Site Brachial, right 01/24/22 21:14 ABG pH 7.31 (7.35-7.45) L 01/24/22 21:14 ABG pCO2 58.7 mmHg (35-45) H 01/24/22 21:14 ABG pO2 110.0 mmHg (80.0-100.0) H 01/24/22 21:14 ABG HCO3 29.5 mmol/L (22-26) H 01/24/22 21:14 ABG O2 Saturation 98.5 01/24/22 21:14 ABG Base Excess 2.0 mmol/L (-2.0-2.0) 01/24/22 21:14 Quoc Test Pos 01/24/22 21:14 Hematocrit 36.2 % (42-52) L 01/24/22 21:14 Hgb O2 Saturation 93.8 % (95-100) L 01/24/22 21:14 Carboxyhemoglobin 3.6 %THgb (0.4-20.1) 01/24/22 21:14 Methemoglobin 1.1 % (0.4-1.5) 01/24/22 21:14 Total Hemoglobin 11.8 g/dL (14-18) L 01/24/22 21:14 Sodium 142.0 mmol/L (131-143) 01/24/22 21:14 Potassium 3.7 mmol/L (3.5-5.0) 01/24/22 21:14 Glucose 82.0 mg/dL (70-115) 01/24/22 21:14 Ionized Calcium 1.1 mmol/L (1.1-1.4) 01/24/22 21:14 O2 Delivery Device Oxy mask 01/24/22 21:14 O2 Liters/Min 10.0 % 01/24/22 21:14 Director [employer] ID Hensa 01/24/22 21:14 Sodium 138 mmol/L (136-145) 01/26/22 02:15 Potassium 3.3 mmol/L (3.5-5.1) L 01/26/22 02:15 Chloride 99 mmol/L (98-107) 01/26/22 02:15 Carbon Dioxide 28 mmol/L (22-29) 01/26/22 02:15 Anion Gap 14.3 (5-19) 01/26/22 02:15 BUN 18 mg/dL (8-23) 01/26/22 02:15 Creatinine 0.6 mg/dL (0.7-1.2) L 01/26/22 02:15 GFR Calculation 134.8 mL/min (90-130) H 01/26/22 02:15 Glucose 233 mg/dL (65-115) H 01/26/22 02:15 Calculated Osmolality 295 mOsm/kg (285-295) 01/26/22 02:15 Calcium 8.9 mg/dL (8.5-10.5) 01/26/22 02:15 Total Bilirubin 0.4 mg/dL (0.15-1.2) 01/24/22 21:19 AST 16 U/L (0-40) 01/24/22 21:19 ALT 10 U/L (0-41) 01/24/22 21:19 Alkaline Phosphatase 87 IU/L (40-130) 01/24/22 21:19 Troponin T Baseline 25 ng/L (0-15) H 01/24/22 21:19 Troponin T 120 Minute 31.47 ng/L (0-15) H 01/24/22 23:35 Delta Troponin T 6.47 ABS# (0-10) 01/24/22 23:35 Troponin T Hi Sens 6Hr 21.67 ng/L (0-15) H 01/25/22 03:28 Troponin T Hi Sens 6Hr Delta -3.33 ng/L (0-12) L 01/25/22 03:28 NT-Pro-B Natriuret Pep 226 pg/mL (0-125) H 01/24/22 21:19 Total Protein 7.1 g/dL (6.6-8.7) 01/24/22 21:19 Albumin 4.0 g/dL (3.5-5.2) 01/24/22 21:19 Globulin 3.1 g/dL (1.3-4.6) 01/24/22 21:19 Coronavirus 229E (PCR) Not detected (NOT DETECT) 01/24/22 21:20 SARS-CoV-2 (PCR) Not detected (NOT DETECT) 01/24/22 21:20 Vitals Last Vital Signs Temp 98.2 F 01/26/22 08:00 Pulse 104 H 01/26/22 08:31 Resp 17 01/26/22 08:26 BP 128/70 01/26/22 08:00 Pulse Ox 110 H 01/26/22 08:26 Discharge Plan Discharge Patient Disposition: Home Condition: Stable Prescriptions: New prednisone 20 mg tablet 40 mg PO BID Qty: 7 0RF Continued albuterol sulfate [ProAir HFA] 90 mcg/actuation HFA aerosol inhaler 2 puff INHALATION Q6H PRN (Reason: shortness of breath or wheezing) Qty: 6.7 12RF omeprazole 20 mg capsule,delayed release(DR/EC) 20 mg PO DAILY 30 Days Qty: 30 0RF Rx Instructions: Take on empty stomach. alprazolam [Xanax] 0.5 mg tablet 0.5 mg PO TID PRN (Reason: anxiety) 30 Days Qty: 80 2RF potassium chloride 10 mEq tablet extended release 10 meq PO DAILY Qty: 30 2RF potassium chloride [Klor-Con] 20 mEq packet See Rx Instructions .ROUTE .COMPLEX Qty: 180 3RF Dose Instruction: MIX PACKET DIRECTED AND TAKE TWICE DAILY MAY TAKE ADDITIONAL DOSE NEEDED FOR WITH FUROSEMIDE Rx Instructions: MIX PACKET DIRECTED ONCE A DAY lisinopril 5 mg Tablet 5 mg PO DAILY Qty: 30 2RF Trelegy Ellipta 200-62.5-25 mcg blister with device See Rx Instructions .ROUTE .COMPLEX Qty: 60 4RF Dose Instruction: INHALE 1 PUFF BY MOUTH DAILY. MAY HOUSING PROJECT MANAGER 2-3 DAYS EARLY DUE TO TRANSPORTATION Rx Instructions: INHALE 1 PUFF BY MOUTH DAILY. MAY HOUSING PROJECT MANAGER 2-3 DAYS EARLY DUE TO TRANSPORTATION please give 90 day supply nicotine 14 mg/24 hr patch 24 hour 1 patch transdermal DAILY Qty: 14 0RF nicotine 7 mg/24 hr patch 24 hour 1 patch transdermal DAILY Qty: 7 0RF Held furosemide 40 mg tablet 20 mg PO DAILY Qty: 30 0RF Hold Instructions: Resume on 02/09/22. Rx Instructions: May take additional dose daily as needed for shortness of breath Discharge Orders: Discharge Order (Routine); Ordered 01/26/22 Ordered By: Miko Wagner Referrals: Shelly Garibay FNP [Primary Care Provider] - 02/02/22 10:00 am (You have a hospital followup with ALLEN Nichole on February 02 at 10:00am) Discharge Diet: Regular Discharge Activity: Increase activity as tolerated Patient Instructions: COPD, Prednisone (By mouth), Levofloxacin (By mouth) (Levaqmanasa, Levmckayla Leva-danni), Using Oxygen at Home (DC), Opioid Safety Discharge Attestations Time Spent in Discharge Care*: less than 30 min Quality Metrics Clinical Quality Measures [ No reported AMI, CVA or VTE this stay] Coding Level of Care Code Acute Chg FW DC note Exam Comprehensive Diagnoses Acute dyspnea R06.00
--- NOTE | 2022-01-26 13:50 | PC.NURSE ---
Discharge Note Patient discharged to Home via private vehicle accompanied by friend. Discharge instructions reviewed with patient and/or customer loyalty representative. Mobile pharmacy medications and/or prescriptions provided. Belongings/home medications returned.
== END 2022-01-26 13:51 | disposition home or self-care (01) ==
LOC: ER 22:12 → CSU 23:13
PROVIDERS: Admitting Provider Internal Medicine; Emergency Provider Emergency Medicine; PCP Registered Nurse; Visit Provider Internal Medicine
DX: J44.1 Chronic obstructive pulmonary disease with (acute) exacerbation (principal); Z99.81 Dependence on supplemental oxygen; F17.210 Nicotine dependence, cigarettes, uncomplicated; M19.90 Unspecified osteoarthritis, unspecified site; F41.9 Anxiety disorder, unspecified; I50.9 Heart failure, unspecified; I25.10 Atherosclerotic heart disease of native coronary artery without angina pectoris; I11.0 Hypertensive heart disease with heart failure; Z91.19 Patient's noncompliance with other medical treatment and regimen; I25.2 Old myocardial infarction
CPT/HCPCS: 71045; 71275; 76705; 80048; 80051; 80053; 82330; 82805; 83880; 84484; 85007; 85025; 87635; 93005; 94640; 96361; 96372; 96374; 99285; G0378; J1650; J1956; J2930; J7030; J7040; Q9967

== ENCOUNTER → 2022-02-02 10:43 | Outpatient (BNVA) | payer MEDICARE, MEDICAID, SELFPAY | PROVIDERS: PCP Registered Nurse; Visit Provider Registered Nurse | DX: K21.9 Gastro-esophageal reflux disease without esophagitis (principal); I50.9 Heart failure, unspecified; E78.5 Hyperlipidemia, unspecified; I10 Essential (primary) hypertension; K86.89 Other specified diseases of pancreas; R93.5 Abnormal findings on diagnostic imaging of other abdominal regions, including retroperitoneum | CPT/HCPCS: 80053; 80061; 83880; 85007; 85025 ==

== ENCOUNTER 2022-02-07 11:35 | Inpatient (IN) | payer MEDICARE, MEDICAID, SELFPAY ==
[2022-02-07] VITALS (8 sets, daily range): BP systolic 105–139; BP diastolic 48–75; PULSE 54–109; RESP 16–22; TEMP 36.6–37; O2SAT 95–98; BMI 16.1
--- NOTE | 2022-02-07 12:31 | XR_ITS ---
WS: [id number] Exam: XR chest 1V portable [id number] Date/Time of Exam: 02/07/2022 12:32 PM Reason For Exam: dyspnea Comparison 01/24/2022. The lungs are hyperinflated and clear. Chronic changes in the left base. No pleural effusions. Unrema rkable cardiomediastinal silhouette. Bony structures are intact. XR/XR chest 1V portable [id number] IMPRESSION: 1. Pulmonary hyperinflation which may indicate COPD. No acute process noted.
--- NOTE | 2022-02-07 12:44 | ED_ITS ---
HPI - General Adult General: Chief complaint: General Medical Stated complaint: Weakness Time Seen by Provider: 02/07/22 12:10 History of Present Illness: Patient is a 66-year-old male with history of HTN, CHF, COPD on 2L of oxygen, CBD/pancreatic duct dilatation presents to the emerg ency room for worsening symptoms of cough, generalized weakness, decreased p.o. intake, diarrhea and weight loss since discharge from the hospital on 01/26/2022. Patient followed up with Dr. Garibay and had a MRCP that was scheduled today. The MRCP showed possible stricture versus occult neoplasm and recommended ERCP. Patient presents the emergency room for worsening symptoms. Onset:chronic Duration:ongoing Location:home Severity:severe Associated symptoms: Reports nausea; Deny chest pain, dyspnea, rash, palpitations or vomiting Review of Systems Const: Reports: change in appetite, change in weight and other (+generalized weakness); Denies: fever(s) or chills Eyes: Denies: change in vision ENMT: Denies: mouth pain Card: Denies: chest pain or palpitations Resp: Reports: non-productive cough; Denies: dyspnea GI: Reports: nausea and diarrhea; Denies: abdominal pain or vomiting : Denies: dysuria Musc: Denies: extremity pain Skin/Breast: Denies: rash or new lesions Neuro: Denies: weakness in extremities Psych: Reports: other (Normal mood) Salty/Lymph: Denies: easy bruising PFS ED PFSH: Medical History AA (alcohol abuse) Acute dyspnea Anxiety Benign essential HTN CHF (congestive heart failure) Chronic respiratory failure Clubbed fingers COPD exacerbation Emphysema/COPD Essential hypertension Hypoxemia Leukocytosis Panic attack as reaction to stress Smoking Smoking addiction Tachycardia Family History Son Cancer Grandmother Cancer Mother CAD (coronary artery disease) Dementia Stroke Family/Other Lung disease Other Hyperlipidemia Hypertension Denies family history of Diabetes Clotting disorder Chronic kidney disease (CKD) Suicide Anesthesia complication Bleeding disorder Family history of premature coronary artery disease Social History Smoking and tobacco status: current every day smoker cigarettes Packs smoked per day: 1 Years cigarettes smoked: 56 [ Other cigarette details: started age 10] Alcohol intake: current Adopted: No Caregiver/support person: No Lives independently: Yes Current occupational status: disabled History of recent travel: No Current gender identity: Male Physical Exam Const: COMMON NORMALS: alert OTHER: +thin cachetic male HENMT: COMMON NORMALS: atraumatic HEAD & SCALP: atraumatic MOUTH: moist mucous membranes abnormal Eye: COMMON NORMALS: EOMs intact bilaterally and conjunctivae normal CONJUNCTIVA: Yes conjunctivae normal Neck/C-Spine: COMMON NORMALS: full ROM and supple Resp: COMMON NORMALS: normal respiratory effort OTHER: + Coarse breath sounds bilaterally Cardio: RATE: tachycardic GI: COMMON NORMALS: Soft to palpation and non-tender PALPATION: Yes Soft to palpation Extremity: COMMON NORMALS: full ROM Neuro: SENSORIUM/ORIENTATION: Yes alert MOTOR EXAM: No Abnormal motor strength present and Other motor observations present (no focal motor deficits) Psych: COMMON NORMALS: speech normal SPEECH: Yes normal speech MOOD & AFFECT: Yes euthymic mood Course Vital Signs: Vital signs: Vital Signs Temperature 98.8 F 02/08/22 07:44 Pulse Rate 97 02/08/22 10:35 Respiratory Rate 18 02/08/22 10:35 Blood Pressure 105/52 02/08/22 07:44 Pulse Oximetry 93 02/08/22 10:35 MDM - General Adult Medical Decision Making 66-year-old male with history of COPD, hypertension, CHF, CBD/pancreatic duct dilation presenting to the emergency room with generalized weakness, decreased p.o. intake and, diarrhea, cough x3 weeks. On physical exam, patient is afebrile, dry cachectic with coarse breath sounds bilaterally. X-ray chest is negative for any acute finding. Patient is noted to have a white count of 34.6 up from 18K from prior discharge. Blood culture sent. Patient received vancomycin and cefepime and metronidazole. On review of MRCP, we do not see any CBD dilatation secondary to a stone. This likely stricture versus cancer. I do not suspect that there is ascending cholangitis or cholecystitis at this time. It is entirely unclear why patient has an overwhelming leukocytosis. He was previously discharged with prednisone daily 40 mg. However in light of other symptoms and possible dehydration, patient will be started on IVF and antibiotics. CT abd+pelvis show diffuse colitis without any other acute findings. I discussed case with Dr. Tanner Vera from [facility] who tells me that given the fact the patient has no LFT elevation, T bili elevation no right upper quadrant pain, it does not suspect that this is an acute infection from enlarged CBD/pancreatic duct. In the setting of patient's findings of colitis, this is likely C. difficile vs bacterial colitis. He recommended sending stool sample testing and cover empirically with antibiotics. Dr. Vera does not recommend transferring for ERCP at this time. However Dr. Vera will see patient in clinic after patient recovers from the colitis. Disposition: admission Lab Data : 02/08/22 04:26 02/08/22 04:26 Radiology Impressions Chest X-Ray 02/07/22 12:31 IMPRESSION: 1. Pulmonary hyperinflation which may indicate COPD. No acute process noted. Abdomen/Pelvis CT 02/07/22 15:09 IMPRESSION: 1. Diffuse colonic wall thickening suggesting colitis, likely infectious/inflammatory etiology. Neoplasm or ischemia is less likely due to long segment of involvement however clinical correlation is needed. No pneumatosis, large obstructive mass or free air. No drainable abscess. 2. Pancreatic and biliary ductal dilatation. See discussion above. 3. Other nonacute abdominopelvic findings as above. 4. Abnormal lung findings. See discussion above. Laboratory Results WBC 34.6 10^3/uL (4.0-10.0) H* 02/07/22 13:00 RBC 4.19 10^6/uL (4.1-5.3) 02/07/22 13:00 Hgb 12.4 g/dL (11.7-16.6) 02/07/22 13:00 Hct 40.8 % (42.0-52.0) L 02/07/22 13:00 MCV 97.4 fl (80-94) H 02/07/22 13:00 MCH 29.6 pg (28.0-34.0) 02/07/22 13:00 MCHC 30.4 g/dL (30.0-36.0) 02/07/22 13:00 RDW 15.2 % (12.1-15.1) H 02/07/22 13:00 Plt Count 389 10^3/cmm (130-400) 02/07/22 13:00 MPV 9.3 fL (7.4-10.4) 02/07/22 13:00 Neut % (Auto) 87.2 % 02/07/22 13:00 Lymph % (Auto) 3.6 % 02/07/22 13:00 Lawrence % (Auto) 6.7 % 02/07/22 13:00 Eos % (Auto) 0.4 % 02/07/22 13:00 Baso % (Auto) 0.3 % 02/07/22 13:00 Neut # (Auto) 30.15 10^3/uL (1.8-7.7) H 02/07/22 13:00 Lymph # (Auto) 1.3 10^3/uL (0.8-4.8) 02/07/22 13:00 Lawrence # (Auto) 2.3 10^3/uL (0.2-0.9) H 02/07/22 13:00 Eos # (Auto) 0.1 10^3/uL (0.0-0.8) 02/07/22 13:00 Baso # (Auto) 0.1 10^3/uL (0.0-0.1) 02/07/22 13:00 Nucleated RBC % (auto) 0 % 02/07/22 13:00 Nucleated RBCs # 0.0 /100WBC 02/07/22 13:00 Sodium 137 mmol/L (136-145) 02/07/22 13:00 Potassium 3.8 mmol/L (3.5-5.1) 02/07/22 13:00 Chloride 95 mmol/L (98-107) L 02/07/22 13:00 Carbon Dioxide 29 mmol/L (22-29) 02/07/22 13:00 Anion Gap 16.8 (5-19) 02/07/22 13:00 BUN 22 mg/dL (8-23) 02/07/22 13:00 Creatinine 0.8 mg/dL (0.7-1.2) 02/07/22 13:00 GFR Calculation 96.7 mL/min (90-130) 02/07/22 13:00 Glucose 109 mg/dL (65-115) 02/07/22 13:00 Calculated Osmolality 288 mOsm/kg (285-295) 02/07/22 13:00 Lactate 1.0 mmol/L (0.5-2.2) 02/07/22 13:29 Calcium 8.6 mg/dL (8.5-10.5) 02/07/22 13:00 Total Bilirubin 0.3 mg/dL (0.15-1.2) 02/07/22 13:00 AST 17 U/L (0-40) 02/07/22 13:00 ALT 17 U/L (0-41) 02/07/22 13:00 Alkaline Phosphatase 133 IU/L (40-130) H 02/07/22 13:00 C-Reactive Protein 258.1 mg/L (0.0-4.9) H 02/07/22 13:00 Total Protein 6.5 g/dL (6.6-8.7) L 02/07/22 13:00 Albumin 2.7 g/dL (3.5-5.2) L 02/07/22 13:00 Globulin 3.8 g/dL (1.3-4.6) 02/07/22 13:00 Lipase 7 U/L (13-60) L 02/07/22 13:00 Procalcitonin 77.54 ng/mL (0-0.5) H 02/07/22 13:00 Imaging Data CXR: Radiologist's impression: [address] [address] XRay Report Signed Patient: Jacob Goetz Unit #: [id number] : 1955 Age/Sex: 66 / M ADM Date: 02/07/22 Loc: ER Room/Bed: Attending Dr: Ordering Provider/Ordering MD: Jesus Rivero MD Date of Service: 02/07/22 Procedure(s): XR chest 1V portable [id number] Accession Number(s): [id number] Report Number: [id number] WS: [id number] Exam: XR chest 1V portable [id number] Date/Time of Exam: 02/07/2022 12:32 PM Reason For Exam: dyspnea Comparison 01/24/2022. The lungs are hyperinflated and clear. Chronic changes in the left base. No pleural effusions. Unremarkable cardiomediastinal silhouette. Bony structures are intact. XR/XR chest 1V portable [id number] IMPRESSION: 1. Pulmonary hyperinflation which may indicate COPD. No acute process noted. ? Dictated By: Neno Al DO Signed By: Neno Al DO Signed Date/Time: 02/07/22 1256 DD/ [address] [address] [address] Scan Report Signed Patient: Jacob Goetz Unit #: [id number] : 1955 Age/Sex: 66 / M ADM Date: 02/07/22 Loc: ER Room/Bed: Attending Dr: Ordering Provider/Ordering MD: Jesus Rivero MD Date of Service: 02/07/22 Procedure(s): CT abdomen pelvis w con* [id number] Accession Number(s): [id number] Report Number: [id number] PROCEDURE INFORMATION: Exam: CT Abdomen And Pelvis With Contrast Exam date and time: 02/07/2022 3:55 PM Age: 66 years old Clinical indication: Abdominal pain; Additional info: Eval for infection TECHNIQUE: Imaging protocol: Computed tomography of the abdomen and pelvis with contrast. Radiation optimization: All CT scans at this facility use at least one of these dose optimization techniques: automated exposure control; mA and/or kV adjustment per patient size (includes targeted exams where dose is matched to clinical indication); or iterative reconstruction. Contrast material: OMNI 350; Contrast volume: 75 ml; Contrast route: INTRAVENOUS (IV);? COMPARISON: 1. MR MRCP [id number] 02/07/2022 10:[address] angio chest PE protcl [id number] 01/24/2022 9:39 PM RADIATION DOSE METRICS: Total DLP (mGy-cm): 658.06 FINDINGS: Lungs: Pulmonary emphysema and bilateral basilar peribronchial thickening and linear scarring similar to most recent chest CT exam. Please refer to chest CT exam report. Basilar pneumonia cannot be excluded in this setting. Liver: Elongated right hepatic lobe with no significant overall hepatomegaly. No cirrhosis or suspicious mass. Multiple calcified hepatic granulomas. Gallbladder and bile ducts: There is mild intrahepatic and ductal dilatation. The distal CBD is somewhat obscured by artifacts however it is probably mildly dilated measuring about 8-9 mm as noted on most recent MRCP. There is also mild main pancreatic ductal dilatation measuring about 5 mm. No large pancreatic mass is identified however small ampullary lesion or stricture cannot be excluded in this setting. GI consultation should be obtained. Additional imaging such as ERCP/EUS may be considered. No obvious acute peripancreatic edema or acute inflammatory response.? Gallbladder is moderately distended with no obvious imaging signs of acute cholecystitis.? No obvious biliary ductal wall thickening. Pancreas: See Gallbladder and bile ducts finding. Spleen: Normal spleen size with no discrete mass. Multiple calcified splenic granulomas. Adrenal glands: Normal. No mass. Kidneys and ureters: No obstructing calculus. No hydronephrosis. Stomach and bowel: Assessment of the bowel loop is suboptimal due to lack of luminal contrast however there is long segment colonic wall thickening involving the ascending, transverse and proximal descending colon. There is also probable mild sigmoid and rectal mural thickening. The distal descending/sigmoid junction region demonstrates relatively normal wall thickness. No evidence of colonic or small bowel obstruction or pneumatosis. Small colorectal stool burden. Appendix: No evidence of appendicitis. Intraperitoneal space: No free air, ascites or drainable abscess. Arteries: Unremarkable. No abdominal aortic aneurysm. Lymph nodes: No enlarged lymph nodes. Urinary bladder: Unremarkable as visualized. Reproductive: Mildly enlarged prostate. Bones/joints: No acute fracture.? Soft tissues: No acute findings. CT/CT abdomen pelvis w con* [id number] IMPRESSION: 1. Diffuse colonic wall thickening suggesting colitis, likely infectious/inflammatory etiology. Neoplasm or ischemia is less likely due to long segment of involvement however clinical correlation is needed. No pneumatosis, large obstructive mass or free air.? No drainable abscess. 2. Pancreatic and biliary ductal dilatation. See discussion above. 3. Other nonacute abdominopelvic findings as above. 4. Abnormal lung findings. See discussion above. ? 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
[2022-02-07] MEDS: sodium chloride 0.9% 500 ML IV (12:50)
[2022-02-07 13:12] LABS: Basophils # 0.1 10^3/uL (0.0-0.1); Basophils % 0.3 %; Eosinophils # 0.1 10^3/uL (0.0-0.8); Eosinophils % 0.4 %; Hematocrit 40.8 % (42.0-52.0); Hemoglobin 12.4 g/dL (11.7-16.6); Lymphocytes # 1.3 10^3/uL (0.8-4.8); Lymphocytes % 3.6 %; Mean Corpuscular HGB Conc 30.4 g/dL (30.0-36.0); Mean Corpuscular Hemoglobin 29.6 pg (28.0-34.0); Mean Corpuscular Volume 97.4 fl (80-94); Mean Platelet Volume 9.3 fL (7.4-10.4); Monocytes # 2.3 10^3/uL (0.2-0.9); Monocytes % 6.7 %; Neutrophils # 30.15 10^3/uL (1.8-7.7); Neutrophils % 87.2 %; Nucleated Red Blood Cells % 0 %; Platelet Count 389 10^3/cmm (130-400); Red Blood Count 4.19 10^6/uL (4.1-5.3); Red Cell Distribution Width 15.2 % (12.1-15.1)
[2022-02-07 13:17] LABS: White Blood Count 34.6 10^3/uL (4.0-10.0)
[2022-02-07 13:30] LABS: Alanine Aminotransferase 17 U/L (0-41); Albumin Level 2.7 g/dL (3.5-5.2); Alkaline Phosphatase 133 IU/L (40-130); Anion Gap 16.8 (5-19); Aspartate Amino Transferase 17 U/L (0-40); Blood Urea Nitrogen 22 mg/dL (8-23); Calcium 8.6 mg/dL (8.5-10.5); Carbon Dioxide 29 mmol/L (22-29); Chloride 95 mmol/L (98-107); Globulin 3.8 g/dL (1.3-4.6); Glomerular Filtration Rate 96.7 mL/min (90-130); Glucose 109 mg/dL (65-115); Lipase 7 U/L (13-60); Osmolality Calculated 288 mOsm/kg (285-295); Potassium 3.8 mmol/L (3.5-5.1); Sodium 137 mmol/L (136-145); Total Bilirubin 0.3 mg/dL (0.15-1.2); Total Protein 6.5 g/dL (6.6-8.7)
[2022-02-07] MEDS: metroNIDAZOLE IV 500 MG/100 ML PREMIX 100 MG IV ×2 (14:20→21:39)
[2022-02-07] MEDS: vancomycin 1,000 MG in sodium chloride 0.9% 250 ML 250 MG IV (14:20)
[2022-02-07] MEDS: cefepime 1,000 MG in sodium chloride 0.9% (plus) 50 ML 100 MG IV (14:26)
--- NOTE | 2022-02-07 15:09 | CTR_ITS ---
PROCEDURE INFORMATION: Exam: CT Abdomen And Pelvis With Contrast Exam date and time: 02/07/2022 3:55 PM Age: 66 years old Clinical indication: Abdominal pain; Additional info: Eval for infection TECHNIQUE: Imaging protocol: Computed tomography of the abdomen and pelvis with contrast. Radiation optimization: All CT scans at this facility use at least one of these dose optimization techniques: automated exposure control; mA and/or kV adjustment per patient size (includes targeted exams where dose is matched to clinical indication); or iterative reconstruction. Contrast material: OMNI 350; Contrast volume: 75 ml; Contrast route: INTRAVENOUS (IV); COMPARISON: 1. MR MRCP [id number] 02/07/2022 10:[address] angio chest PE protcl [id number] 01/24/2022 9:39 PM RADIATION DOSE METRICS: Total DLP (mGy-cm): 658.06 FINDINGS: Lungs: Pulmonary emphysema and bilateral basilar peribronchial thickening and linear scarring similar to most recent chest CT exam. Please refer to chest CT exam report. Basilar pneumonia cannot be excluded in this setting. Liver: Elongated right hepatic lobe with no significant overall hepatomegaly. No cirrhosis or suspicious mass. Multiple calcified hepatic granulomas. Gallbladder and bile ducts: There is mild intrahepatic and ductal dilatation. The distal CBD is somewhat obscured by artifacts however it is probably mildly dilated measuring about 8-9 mm as noted on most recent MRCP. There is also mild main pancreatic ductal dilatation measuring about 5 mm. No large pancreatic mass is identified however small ampullary lesion or stricture cannot be excluded in this setting. GI consultation should be obtained. Additional imaging such as ERCP/EUS may be considered. No obvious acute peripancreatic edema or acute inflammatory response. Gallbladder is moderately distended with no obvious imaging signs of acute cholecystitis. No obvious biliary ductal wall thickening. Pancreas: See Gallbladder and bile ducts finding. Spleen: Normal spleen size with no discrete mass. Multiple calcified splenic granulomas. Adrenal glands: Normal. No mass. Kidneys and ureters: No obstructing calculus. No hydronephrosis. Stomach and bowel: Assessment of the bowel loop is suboptimal due to lack of luminal contrast however there is long segment colonic wall thickening involving the ascending, transverse and proximal descending colon. There is also probable mild sigmoid and rectal mural thickening. The distal descending/sigmoid junction region demonstrates relatively normal wall thickness. No evidence of colonic or small bowel obstruction or pneumatosis. Small colorectal stool burden. Appendix: No evidence of appendicitis. Intraperitoneal space: No free air, ascites or drainable abscess. Arteries: Unremarkable. No abdominal aortic aneurysm. Lymph nodes: No enlarged lymph nodes. Urinary bladder: Unremarkable as visualized. Reproductive: Mildly enlarged prostate. Bones/joints: No acute fracture. Soft tissues: No acute findings. CT/CT abdomen pelvis w con* [id number] IMPRESSION: 1. Diffuse colonic wall thickening suggesting colitis, likely infectious/inflammatory etiology. Neoplasm or ischemia is less likely due to long segment of involvement however clinical correlation is needed. No pneumatosis, large obstructive mass or free air. No drainable abscess. 2. Pancreatic and biliary ductal dilatation. See discussion above. 3. Other nonacute abdominopelvic findings as above. 4. Abnormal lung findings. See discussion above.
[2022-02-07] MEDS: ipratropium-albuterol 3 mL Neb INHALATION ×3 (15:22)
[2022-02-07] MEDS: iohexol 350 mg/mL 100 mL Btl IV (16:12)
--- NOTE | 2022-02-07 18:36 | P.HP_ITS ---
Providers/Chief Complaint Primary Care Provider: ALLEN Nichole Chief Complaint: Weakness History of Present Illness Jacob Goetz is a 66 year old male review of systemsWith past medical history of oxygen dependent COPD, continuous tobacco abuse, CHF, EF of 41%, possible noncompliance, recent hospitalization for COPD exacerbation who presented today to emergency room with complaints of generalized weakness, diarrhea. He reports that his diarrhea started shortly after discharge from the hospital. He is not very good historian. He is noted willingly answering to my questions and refusing to provide more details. However I was able to find out that he is having multiple episodes of diarrhea. There is no associated significant abdominal pain, vomiting, rectal blood, fever or chills. No significant changes in his respiratory complaints. No shortness of breath at rest or wheezing. No chest pain. In emergency room CT of the abdomen revealed diffuse colitis most likely infectious according to the radiologist. Also described were common bile duct and pancreatic duct mild dilation. However there is no associated LFT elevation. ER physician Dr. Rivero spoke with [facility] on-call GI physician Dr. Belcher. They reviewed patient's imaging studies and complaints and other data. Dr. Belcher recommended keeping him here, managing his colitis, ruling out C. difficile and discharging after stabilization with outpatient follow-up for ERCP after discharge. According to him there is no evidence of cholangitis or biliary obstruction. Please see radiology report for more details. Definitely GI malignancy remains a possibility especially considering patient's recent weight loss. Review of systems otherwise is negative except positive and negative pertinent as described above. All systems reviewed. Reportedly the patient continues smoking. Has history of remote alcohol use. Unable to obtain information about possible drug use Medications/Allergies Home Medications Medication Instructions Recorded Confirmed Last Taken Type potassium chloride 20 mEq oral See Rx Instructions .ROUTE 07/05/21 02/07/22 02/07/22 Rx packet (Klor-Con) .COMPLEX #180 ea albuterol sulfate 90 mcg/actuation 2 puff INHALATION Q6H PRN #6.7 gm 09/20/21 02/07/22 Unknown Rx aerosol inhaler (ProAir HFA) lisinopril 5 mg tablet 5 mg PO DAILY #30 tab 01/11/22 02/07/22 02/07/22 Rx nicotine 14 mg/24 hr daily 1 patch TRANSDERMAL DAILY #14 ea 01/11/22 02/07/2202/02/22 Rx transdermal patch alprazolam 0.5 mg tablet (Xanax) 0.5 mg PO TID PRN 30 Days #80 tab 02/02/22 02/07/22 02/07/22 04:00 Rx omeprazole 20 mg capsule,delayed 20 mg PO DAILY 30 Days #90 cap 02/02/22 02/07/22 Unknown Rx release famotidine 20 mg tablet (Pepcid AC) 40 mg PO BID 02/07/22 02/07/22 02/07/22 History fluticasone fur. 200 mcg-umeclid 1 ea INHALATION DAILY 02/07/22 02/07/22 02/07/22 History 62.5 mcg-vilant 25 mcg inhalat.powder (Trelegy Ellipta) furosemide 40 mg tablet 40 mg PO QAM 02/07/22 02/07/22 02/07/22 History 40mg see pharmacy co Allergies Allergy/AdvReac Type Severity Reaction Status Date / Time Penicillins Allergy Mild UNKNOWN Verified 02/07/22 14:48 PFSH Acute PFSH: Medical History AA (alcohol abuse) Acute dyspnea Anxiety Benign essential HTN CHF (congestive heart failure) Chronic respiratory failure Clubbed fingers COPD exacerbation Emphysema/COPD Essential hypertension Hypoxemia Leukocytosis Panic attack as reaction to stress Smoking Smoking addiction Tachycardia Family History Son Cancer Grandmother Cancer Mother CAD (coronary artery disease) Dementia Stroke Family/Other Lung disease Other Hyperlipidemia Hypertension Denies family history of Diabetes Clotting disorder Chronic kidney disease (CKD) Suicide Anesthesia complication Bleeding disorder Family history of premature coronary artery disease Social History Smoking and tobacco status: current every day smoker cigarettes Packs smoked per day: 1 Years cigarettes smoked: 56 [ Other cigarette details: started age 10] Alcohol intake: current Adopted: No Caregiver/support person: No Lives independently: Yes Current occupational status: disabled History of recent travel: No Current gender identity: Male Vitals/I&O/Wt Last Vital Signs Temp 97.9 F 02/07/22 11:37 Pulse 100 02/07/22 15:23 Resp 18 02/07/22 15:23 BP 109/65 02/07/22 11:37 Pulse Ox 98 02/07/22 15:23 Weight last 48 hrs Weight 43.998 kg Physical Exam Narrative: The patient is very ill looking male, disheveled, cachectic. However there is no acute distress. No agitation. Seemingly he is not very happy being in the hospital. Skin is warm and dry. Dry mucous membranes Neck supple. No JVD Lungs no significant wheezes or crackles. No respiratory distress Heart S1, S2, regular Abdomen is slightly distended, nontender, bowel sounds are hyperactive. No rebound or guarding. Extremities trace edema. No cyanosis or calf tenderness bilaterally. No facial asymmetry. Normal speech No focal deficits. Eyes PERRL, extraocular muscles are intact. No icterus. Data : 02/07/22 13:00 02/07/22 13:00 Micro: Microbiology 02/07/22 13:33 Blood Culture - Preliminary Blood SPECIMEN COLLECTED 02/07/22 13:29 Blood Culture - Preliminary Blood SPECIMEN COLLECTED Other data: Radiology Impressions Chest X-Ray 02/07/22 12:31 IMPRESSION: 1. Pulmonary hyperinflation which may indicate COPD. No acute process noted. Abdomen/Pelvis CT 02/07/22 15:09 IMPRESSION: 1. Diffuse colonic wall thickening suggesting colitis, likely infectious/inflammatory etiology. Neoplasm or ischemia is less likely due to long segment of involvement however clinical correlation is needed. No pneumatosis, large obstructive mass or free air. No drainable abscess. 2. Pancreatic and biliary ductal dilatation. See discussion above. 3. Other nonacute abdominopelvic findings as above. 4. Abnormal lung findings. See discussion above. Laboratory Results WBC 34.6 10^3/uL (4.0-10.0) H* 02/07/22 13:00 RBC 4.19 10^6/uL (4.1-5.3) 02/07/22 13:00 Hgb 12.4 g/dL (11.7-16.6) 02/07/22 13:00 Hct 40.8 % (42.0-52.0) L 02/07/22 13:00 MCV 97.4 fl (80-94) H 02/07/22 13:00 MCH 29.6 pg (28.0-34.0) 02/07/22 13:00 MCHC 30.4 g/dL (30.0-36.0) 02/07/22 13:00 RDW 15.2 % (12.1-15.1) H 02/07/22 13:00 Plt Count 389 10^3/cmm (130-400) 02/07/22 13:00 MPV 9.3 fL (7.4-10.4) 02/07/22 13:00 Neut % (Auto) 87.2 % 02/07/22 13:00 Lymph % (Auto) 3.6 % 02/07/22 13:00 Reagan % (Auto) 6.7 % 02/07/22 13:00 Eos % (Auto) 0.4 % 02/07/22 13:00 Baso % (Auto) 0.3 % 02/07/22 13:00 Neut # (Auto) 30.15 10^3/uL (1.8-7.7) H 02/07/22 13:00 Lymph # (Auto) 1.3 10^3/uL (0.8-4.8) 02/07/22 13:00 Reagan # (Auto) 2.3 10^3/uL (0.2-0.9) H 02/07/22 13:00 Eos # (Auto) 0.1 10^3/uL (0.0-0.8) 02/07/22 13:00 Baso # (Auto) 0.1 10^3/uL (0.0-0.1) 02/07/22 13:00 Nucleated RBC % (auto) 0 % 02/07/22 13:00 Nucleated RBCs # 0.0 /100WBC 02/07/22 13:00 Sodium 137 mmol/L (136-145) 02/07/22 13:00 Potassium 3.8 mmol/L (3.5-5.1) 02/07/22 13:00 Chloride 95 mmol/L (98-107) L 02/07/22 13:00 Carbon Dioxide 29 mmol/L (22-29) 02/07/22 13:00 Anion Gap 16.8 (5-19) 02/07/22 13:00 BUN 22 mg/dL (8-23) 02/07/22 13:00 Creatinine 0.8 mg/dL (0.7-1.2) 02/07/22 13:00 GFR Calculation 96.7 mL/min (90-130) 02/07/22 13:00 Glucose 109 mg/dL (65-115) 02/07/22 13:00 Calculated Osmolality 288 mOsm/kg (285-295) 02/07/22 13:00 Lactate 1.0 mmol/L (0.5-2.2) 02/07/22 13:29 Calcium 8.6 mg/dL (8.5-10.5) 02/07/22 13:00 Total Bilirubin 0.3 mg/dL (0.15-1.2) 02/07/22 13:00 AST 17 U/L (0-40) 02/07/22 13:00 ALT 17 U/L (0-41) 02/07/22 13:00 Alkaline Phosphatase 133 IU/L (40-130) H 02/07/22 13:00 Total Protein 6.5 g/dL (6.6-8.7) L 02/07/22 13:00 Albumin 2.7 g/dL (3.5-5.2) L 02/07/22 13:00 Globulin 3.8 g/dL (1.3-4.6) 02/07/22 13:00 Lipase 7 U/L (13-60) L 02/07/22 13:00 A&P Assessment and plan (1) Colitis: Status: Acute (2) Dehydration: Status: Acute (3) Dilated cbd, acquired: Status: Acute (4) Dilated pancreatic duct: Status: Acute (5) Sepsis: Status: Acute Plan Jacob Goetz is a 66 year old male review of systemsWith past medical history of oxygen dependent COPD, continuous tobacco abuse, CHF, EF of 41%, possible noncompliance, recent hospitalization for COPD exacerbation who presented today to emergency room with complaints of generalized weakness, diarrhea. He reports that his diarrhea started shortly after discharge from the hospital. In emergency room CT of the abdomen revealed diffuse colitis most likely infectious according to the radiologist. Also described were common bile duct and pancreatic duct mild dilation. However there is no associated LFT elevat ion. ER physician Dr. Rivero spoke with [facility] on-call GI physician Dr. Belcher. They reviewed patient's imaging studies and complaints and other data. Dr. Belcher recommended keeping him here, managing his colitis, ruling out C. difficile and discharging after stabilization with outpatient follow-up for ERCP after discharge. According to him there is no evidence of cholangitis or biliary obstruction. Please see radiology report for more details. Definitely GI malignancy remains a possibility especially considering patient's recent weight loss. Colitis and associated dehydration. Most likely infectious. C. difficile is suspected. The patient was given vancomycin and cefepime in the emergency room. It will cover him until tomorrow empirically until we have stool study results including C. difficile testing. At this point I will start him on p.o. vancomycin and IV metronidazole. Will check procalcitonin and CRP as baseline to monitor the progress throughout the hospitalization. We will provide gentle IV hydration with LR. Will monitor and replace electrolytes. Sepsis secondary to above. IV fluids and antibiotics. Hemodynamically stable at this point. Biliary and pancreatic duct dilation without elevation of LFTs. ER physician as mentioned above has spoken with [facility] on-call GI physician. They recommended against the transfer of the patient. They recommend treating patient's colitis, ruling out C. difficile. The patient will need however outpatient GI follow-up as soon as possible to rule out pancreatic or biliary obstructive problems or malignancy. We will monitor patient's LFTs. Cachexia and severe protein calorie malnutrition. We will request dietary consult and recommendations. History of COPD. Currently stable. Continue home medications and as needed coverage. History of CHF with EF of 41%. No evidence of decompensation. Will need to be careful with IV fluids. Holding furosemide. We will continue his home Lasix. He is not hypertensive. Not on beta-blockers probably due to risk of hypotension. Tobacco abuse. Nicotine patch. Hypertension. Continue home hydralazine. Ordering as needed hydralazine. DVT prophylaxis. Heparin. CODE STATUS. He wants to be full code. The plan of care was discussed with the patient. He voiced no additional questions. The patient remained unhappy and hard to please throughout entire interview which is understandable considering his current health and not feeling well. 65 minutes are spent on this encounter. Attestations Medical Necessity Statement*: Based on my assessment of patient's current condition the patient will require more than 2 midnights in the hospital. He is quite sick and needs IV fluids and systemic antibiotics. Needs additional testing. Coding Level of Care Code Acute Synthetic Department Supervisor for Zain Goss Diagnoses Colitis K52.9 Dehydration E86.0 Dilated cbd, acquired K83.8 Dilated pancreatic duct K86.89 Sepsis A41.9
[2022-02-07 19:25] LABS: C Reactive Protein 258.1 mg/L (0.0-4.9)
[2022-02-07 19:32] LABS: Procalcitonin 77.54 ng/mL (0-0.5)
[2022-02-07] MEDS: heparin 5,000 unit/mL INJ 1 mL 5000 UNIT SUBCUT (19:34)
[2022-02-07] MEDS: lactated ringers 1,000 ML 75 ML IV (19:38)
[2022-02-07 20:15] LABS: Add Urine Microscopic? YES; Bilirubin Urine Neg (Negative); Blood Urine Neg (Negative); Glucose Urine UA Norm (Normal); Ketones Urine Negative (Negative); Leukocyte Esterase Urine Negative (Negative); Nitrate Urine Negative (Negative); Protein Urine Trace (Negative); Urine Appearance Clear (CLEAR); Urine Color Yellow (Yellow); Urobilinogen Urine Norm (Negative); pH Urine 5 (5-7)
[2022-02-07 20:19] LABS: RBC Urine 0-4 /hpf (0-2); Renal Epithelial Cells Urine N /hpf; WBC Urine 0-4 /hpf (0-5)
[2022-02-07 20:20] LABS: Add Urine Culture? Yes; Amorphous Sediment Urine TRACE /hpf; Mucus Urine 1+ /hpf; Other Casts Urine N /lpf; Other Crystals Urine N /hpf; Other Sediment, Urine N; Uric Acid Crystals Urine N /hpf
[2022-02-08] VITALS (10 sets, daily range): BP systolic 101–125; BP diastolic 52–69; PULSE 65–100; RESP 16–18; TEMP 36.8–37.3; O2SAT 93–98; BMI 16.1
[2022-02-08] MEDS: acetaminophen 325 mg Tablet 650 MG PO ×2 (01:39→09:42)
[2022-02-08] MEDS: ALPRAZolam 0.5 mg Tablet PO ×3 (01:39→20:33)
[2022-02-08 05:06] LABS: Basophils # 0.1 10^3/uL (0.0-0.1); Basophils % 0.3 %; Eosinophils # 0.2 10^3/uL (0.0-0.8); Eosinophils % 0.8 %; Hemoglobin 10.2 g/dL (11.7-16.6); Lymphocytes # 1.1 10^3/uL (0.8-4.8); Lymphocytes % 4.2 %; Mean Corpuscular HGB Conc 30.9 g/dL (30.0-36.0); Mean Corpuscular Hemoglobin 29.8 pg (28.0-34.0); Mean Corpuscular Volume 96.5 fl (80-94); Mean Platelet Volume 9.6 fL (7.4-10.4); Monocytes # 1.8 10^3/uL (0.2-0.9); Monocytes % 6.9 %; Neutrophils # 22.34 10^3/uL (1.8-7.7); Neutrophils % 86.6 %; Nucleated Red Blood Cells % 0 %; Platelet Count 320 10^3/cmm (130-400); Red Blood Count 3.42 10^6/uL (4.1-5.3); Red Cell Distribution Width 15.3 % (12.1-15.1); White Blood Count 25.8 10^3/uL (4.0-10.0)
[2022-02-08 05:24] LABS: Magnesium 1.9 mg/dL (1.7-2.3)
[2022-02-08 05:27] LABS: Alanine Aminotransferase 10 U/L (0-41); Albumin Level 2.2 g/dL (3.5-5.2); Alkaline Phosphatase 142 IU/L (40-130); Anion Gap 12.7 (5-19); Aspartate Amino Transferase 14 U/L (0-40); Blood Urea Nitrogen 18 mg/dL (8-23); Carbon Dioxide 31 mmol/L (22-29); Chloride 99 mmol/L (98-107); Globulin 3.4 g/dL (1.3-4.6); Glomerular Filtration Rate 134.8 mL/min (90-130); Glucose 93 mg/dL (65-115); Osmolality Calculated 290 mOsm/kg (285-295); Potassium 3.7 mmol/L (3.5-5.1); Sodium 139 mmol/L (136-145); Total Bilirubin 0.2 mg/dL (0.15-1.2); Total Protein 5.6 g/dL (6.6-8.7)
[2022-02-08] MEDS: metroNIDAZOLE IV 500 MG/100 ML PREMIX 100 MG IV ×3 (05:37→21:13)
[2022-02-08] MEDS: heparin 5,000 unit/mL INJ 1 mL 5000 UNIT SUBCUT ×2 (05:38→18:16)
[2022-02-08] MEDS: nicotine 14 mg Patch 1 PATCH TRANSDERMA (08:53)
[2022-02-08] MEDS: lisinopril 2.5 mg Tablet PO (09:42)
[2022-02-08] MEDS: albuterol 8 gm MDI 2 PUFF INHALATION ×2 (10:34→21:23)
[2022-02-08] MEDS: budesonide 0.5 mg/2 mL Neb INHALATION ×2 (10:34→21:23)
--- NOTE | 2022-02-08 10:52 | PM.PN ---
Subjective Subjective: Reports ongoing diarrhea, probably slightly better. No rectal blood. No significant acute abdominal pain. No fever or chills. No nausea or vomiting. Denies chest pain or shortness of breath. Medications: Medication Review Details: Generic Name Dose Route Start Last Admin Trade Name Freq PRN Reason Stop Dose Admin Acetaminophen 650 mg 02/07/22 18:27 02/08/22 09:42 Acetaminophen 32 5 Mg Tablet PO 650 mg Q6H PRN Administration Mild/Mod Pain Or Temp >/= 101 Albuterol Sulfate 2 puff 02/07/22 19:54 02/08/22 10:34 Albuterol 8 Gm M di INHALATION 2 puff Q6H PRN Administration shortness of tej th or wheezing Alprazolam 0.5 mg 02/07/22 19:54 02/08/22 09:42 Alprazolam 0.5 M g Tablet PO 0.5 mg TID PRN Administration anxiety Budesonide 0.5 mg 02/08/22 08:00 02/08/22 10:34 Budesonide 0.5 M g/2 Ml Neb INHALATION 0.5 mg BID.RESPIRATORY S CH Administration Heparin Sodium (Po rcine) 5,000 unit 02/07/22 18:30 02/08/22 05:38 Heparin 5,000 Un it/Ml Inj 1 Ml SUBCUT 5,000 unit Q12H BLANCA Administration Lactated Ringer's 1,000 mls @ 75 ml s/hr 02/07/22 18:30 02/07/22 19:38 Lactated Ringers IV 02/08/22 21:09 75 mls/hr .[id number] BLANCA Administration Metronidazole 500 mg in 100 mls @ 100 mls/hr 02/07/22 22:00 02/08/22 06:37 Flagyl Iv IV Infused Q8H BLANCA Infusion Protocol Lisinopril 2.5 mg 02/08/22 09:15 02/08/22 09:42 Lisinopril 2.5 M g Tablet PO 2.5 mg DAILY BLANCA Administration Nicotine 1 patch 02/08/22 09:00 02/08/22 08:53 Nicotine 14 Mg P atch TRANSDERMA 1 patch DAILY BLANCA Administration Vancomycin HCl 250 mg 02/07/22 20:00 02/08/22 08:53 Vancomycin 1,000 Mg Oral Olga (Btl) PO 250 ml Q6H BLANCA Administration Vitals/I&O/Wt Last Vital Signs Temp 98.8 F 02/08/22 07:44 Pulse 97 02/08/22 10:35 Resp 18 02/08/22 10:35 BP 105/52 02/08/22 07:44 Pulse Ox 93 02/08/22 10:35 02/07/22 02/08/22 02/08/22 22:59 06:59 14:59 Intake Total 1050 / 1050 200 / 1250 Balance 1050 / 1050 200 / 1250 Weight last 48 hrs Weight 43.998 kg Weight 43.998 kg Physical Exam Narrative: The patient is very ill looking male, disheveled, cachectic. However there is no acute distress. No agitation. Skin is warm and dry. Moist mucous membranes Neck supple. No JVD Lungs no significant wheezes or crackles. No respiratory distress Heart S1, S2, regular Abdomen is slightly distended, nontender, bowel sounds are hyperactive. No rebound or guarding. Extremities trace edema. No cyanosis or calf tenderness bilaterally. No facial asymmetry. Normal speech No focal deficits. Eyes PERRL, extraocular muscles are intact. No icterus. Data : 02/08/22 04:26 02/08/22 04:26 Micro: Microbiology 02/07/22 19:26 Stool Lactoferrin - Final Stool C.difficile Toxin B Gene (PCR) - Final Occult Blood (FIT) - Final 02/07/22 13:33 Blood Culture - Preliminary Blood SPECIMEN COLLECTED 02/07/22 13:29 Blood Culture - Preliminary Blood SPECIMEN COLLECTED A&P Assessment and plan (1) Colitis: Status: Acute (2) Dehydration: Status: Acute (3) Dilated cbd, acquired: Status: Acute (4) Dilated pancreatic duct: Status: Acute (5) Sepsis: Status: Acute Plan Jacob Goetz is a 66 year old male review of systemsWith past medical history of oxygen dependent COPD, continuous tobacco abuse, CHF, EF of 41%, possible noncompliance, recent hospitalization for COPD exacerbation who presented today to emergency room with complaints of generalized weakness, diarrhea. He reports that his diarrhea started shortly after discharge from the hospital. In emergency room CT of the abdomen revealed diffuse colitis most likely infectious according to the radiologist. Also described were common bile duct and pancreatic duct mild dilation. However there is no associated LFT elevation. ER physician Dr. Rivero spoke with [facility] on-call GI physician Dr. Belcher. They reviewed patient's imaging studies and complaints and other data. Dr. Belcher recommended keeping him here, managing his colitis, ruling out C. difficile and discharging after stabilization with outpatient follow-up for ERCP after discharge. According to him there is no evidence of cholangitis or biliary obstruction. Please see radiology report for more details. Definitely GI malignancy remains a possibility especially considering patient's recent weight loss. Clostridium difficile colitis and associated dehydration. Some improvement with po Vanco and IV metronidazole. Will monitor procalcitonin and CRP. We will stop IV fluids later today and continue oral hydration. Sepsis secondary to above. Resolved. Biliary and pancreatic duct dilation without elevation of LFTs. ER physician as mentioned above has spoken with [facility] on-call GI physician. They recommended against the transfer of the patient. They recommend treating patient's colitis. The patient will need however outpatient GI follow-up as soon as possible to rule out pancreatic or biliary obstructive problems or malignancy. We will monitor patient's LFTs. These discussions were communicated to the family and the patient yesterday and today. Cachexia and severe protein calorie malnutrition. dietary consult and recommendations. History of COPD. Currently stable. Continue home medications and as needed coverage. History of CHF with EF of 41%. No evidence of decompensation. Will need to be careful with IV fluids. Holding furosemide. He is not hypertensive. Not on beta-blockers probably due to risk of hypotension. Tobacco abuse. Nicotine patch. Hypertension. Continue home lisinopril and as needed hydralazine. DVT prophylaxis. Heparin. CODE STATUS. He wants to be full code. The plan of care was discussed with the patient. He voiced no additional questions. Attestations Medical Necessity Statement*: Requires aggressive antibiotics and close monitoring due to severe colitis. Still having frequent diarrhea and at the risk of dehydration. 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
--- NOTE | 2022-02-08 12:17 | PC.CHAP ---
Pastoral Care Encounter/Spiritual Assessment Type of Contact [] Declined seismograph operator visit [] Patient/Family/Request visit [] Outpatient visit [] Follow-up visit [] Physician referral [] Code/Alert [x] Routine visit [] Staff referral [] Actively dying [] Patient sleeping [] Family support [] [] Out of room [] Palliative care [] [] Receiving care in room [] Pre-surgical visit [] Trauma [] Long length of stay [] ICU visit [] Other: Relational/Emotional Strength [] Patient feels connected with others/family/visitors/staff [] Distress [] Loneliness/isolation [] Abandonment Spirituality of Patient [] Person of Marya [] Attends Orthodoxy of their Marya [] Believes in Prayer [] Reads Bible or Anglican materials [] There are Spiritual issues to be addressed Tire Buffer Interventions [x] Prayer [] Active listening [] Non-anxious presence [] Spiritual/emotional support [] Crisis/trauma care [] Spiritual counseling [] Bereavement support [] Provided bereavement packet [] Provided Bible/devotional materials [] Provided toy/stuffed animal, coloring book to patient or family member [] Provided Communion [] Anointing/Kiana [] Salvation [x] Completed spiritual assessment [] Other: Impact on Illness or Injury [] Angry [] Fearful [] Anxious [] Often cries [] Exhaustion [] Unable to work [] Unable to attend sikh [] Unable to walk/stand [] Unable to read [] Unable to drive [] Unable to eat/drink [] Unable to sleep [] Unable to be with family [] Patient intubated [] Other: Summary Time spent with patient
--- NOTE | 2022-02-08 14:14 | PC.NURSE ---
WATER PROOFER found Alprazolam medication and Pro Air inhaler in patients pocket. Medication placed in [facility]
[2022-02-08] MEDS: lactated ringers 1,000 ML 75 ML IV (14:27)
[2022-02-09] VITALS (9 sets, daily range): BP systolic 109–124; BP diastolic 62–78; PULSE 82–111; RESP 13–18; TEMP 36.4–37.5; O2SAT 94–97
[2022-02-09] MEDS: acetaminophen 325 mg Tablet 650 MG PO ×2 (02:56→20:17)
[2022-02-09 03:01] LABS: Basophils # 0.1 10^3/uL (0.0-0.1); Basophils % 0.4 %; Eosinophils # 0.2 10^3/uL (0.0-0.8); Eosinophils % 0.6 %; Hematocrit 34.8 % (42.0-52.0); Hemoglobin 10.3 g/dL (11.7-16.6); Lymphocytes # 1.2 10^3/uL (0.8-4.8); Lymphocytes % 4.1 %; Mean Corpuscular HGB Conc 29.6 g/dL (30.0-36.0); Mean Corpuscular Hemoglobin 29.7 pg (28.0-34.0); Mean Corpuscular Volume 100.3 fl (80-94); Mean Platelet Volume 9.7 fL (7.4-10.4); Monocytes # 1.7 10^3/uL (0.2-0.9); Monocytes % 5.7 %; Neutrophils # 26.27 10^3/uL (1.8-7.7); Neutrophils % 87.9 %; Nucleated Red Blood Cells % 0 %; Platelet Count 302 10^3/cmm (130-400); Red Blood Count 3.47 10^6/uL (4.1-5.3); Red Cell Distribution Width 15.5 % (12.1-15.1); White Blood Count 29.9 10^3/uL (4.0-10.0)
[2022-02-09 03:26] LABS: Chloride 99 mmol/L (98-107); Potassium 3.1 mmol/L (3.5-5.1); Sodium 138 mmol/L (136-145)
[2022-02-09 04:11] LABS: Anion Gap 14.1 (5-19); Blood Urea Nitrogen 9 mg/dL (8-23); Calcium 7.7 mg/dL (8.5-10.5); Carbon Dioxide 28 mmol/L (22-29); Glomerular Filtration Rate 166.4 mL/min (90-130); Glucose 95 mg/dL (65-115); Magnesium 1.9 mg/dL (1.7-2.3); Phosphorus 2.2 mg/dL (2.5-4.5)
[2022-02-09] MEDS: heparin 5,000 unit/mL INJ 1 mL 5000 UNIT SUBCUT ×2 (06:01→18:14)
[2022-02-09] MEDS: metroNIDAZOLE IV 500 MG/100 ML PREMIX 100 MG IV ×3 (06:02→21:08)
--- NOTE | 2022-02-09 06:37 | PC.NURSE ---
PATIENT ENCOURAGED TO GET U IN CHAIR THIS MORNING. PATIENT STATED THAT HE HASNT SLEPT ANY AND HE WANTED TO STAY IN BED. WILL TRY TO ENCOURAGE TO GET IN CHAIR CLOSER TO BREAKFAST TIME.
--- NOTE | 2022-02-09 08:07 | XR_ITS ---
WS: [id number] Exam: XR [id number] Date/Time of Exam: 02/09/2022 8:34 AM Reason For Exam: c diff No bowel obstruction or free air. Visualized organ margins appear normal. Regional bony elements are intact. There is atelectasis and possible infiltrate in the left lower lobe. XR/XR KUB [id number] IMPRESSION: 1. No acute abdominal finding. 2. Left lower lobe atelectasis and questionable infiltrate partially visualized .
[2022-02-09] MEDS: ALPRAZolam 0.5 mg Tablet PO (08:18)
[2022-02-09] MEDS: lisinopril 2.5 mg Tablet PO (08:18)
[2022-02-09] MEDS: nicotine 14 mg Patch 1 PATCH TRANSDERMA (08:18)
[2022-02-09] MEDS: potassium chloride premix 100 ML 25 MEQ IV (08:29)
[2022-02-09] MEDS: budesonide 0.5 mg/2 mL Neb INHALATION ×2 (09:59→21:23)
[2022-02-09] MEDS: albuterol 8 gm MDI 2 PUFF INHALATION ×2 (09:59→21:27)
--- NOTE | 2022-02-09 11:14 | P.PN_ITS ---
Subjective Subjective: Reports no changes in the diarrhea. No blood. Denies abdominal pain. Reports decreased but improving appetite. No nausea or vomiting. No chest pain, shortness of breath, cough, palpitations Medications: Medication Review Details: Generic Name Dose Route Start Last Admin Trade Name Freq PRN Reason Stop Dose Admin Acetaminophen 650 mg 02/07/22 18:27 02/09/22 02:56 Acetaminophen 32 5 Mg Tablet PO 650 mg Q6H PRN Administration Mild/Mod Pain Or Temp >/= 101 Albuterol Sulfate 2 puff 02/07/22 19:54 02/09/22 09:59 Albuterol 8 Gm M di INHALATION 2 puff Q6H PRN Administration shortness of tej th or wheezing Alprazolam 0.5 mg 02/07/22 19:54 02/09/22 08:18 Alprazolam 0.5 M g Tablet PO 0.5 mg TID PRN Administration anxiety Budesonide 0.5 mg 02/08/22 08:00 02/09/22 09:59 Budesonide 0.5 M g/2 Ml Neb INHALATION 0.5 mg BID.RESPIRATORY S CH Administration Heparin Sodium (Po rcine) 5,000 unit 02/07/22 18:30 02/09/22 06:01 Heparin 5,000 Un it/Ml Inj 1 Ml SUBCUT 5,000 unit Q12H BLANCA Administration Metronidazole 500 mg in 100 mls @ 100 mls/hr 02/07/22 22:00 02/09/22 07:15 Flagyl Iv IV Infused Q8H BLANCA Infusion Protocol Potassium Chloride 100 mls @ 25 mls/ hr 02/09/22 08:07 02/09/22 08:29 K-Franko IV 02/09/22 12:06 25 mls/hr ONCE ONE Administration Lisinopril 2.5 mg 02/08/22 09:15 02/09/22 08:18 Lisinopril 2.5 M g Tablet PO 2.5 mg DAILY BLANCA Administration Nicotine 1 patch 02/08/22 09:00 02/09/22 08:18 Nicotine 14 Mg P atch TRANSDERMA 1 patch DAILY BLANCA Administration Vancomycin HCl 250 mg 02/07/22 20:00 02/09/22 08:18 Vancomycin 1,000 Mg Oral Loga (Btl) PO 250 ml Q6H BLANCA Administration Vitals/I&O/Wt Last Vital Signs Temp 97.6 F 02/09/22 07:41 Pulse 89 02/09/22 10:08 Resp 18 02/09/22 10:00 BP 111/65 02/09/22 07:41 Pulse Ox 95 02/09/22 10:00 02/08/22 02/09/22 02/09/22 22:59 06:59 14:59 Intake Total 490 / 1850 1300 / 3150 340 / 340 Output Total 800 / 801 Balance 490 / 1849 500 / 2349 340 / 340 Weight last 48 hrs Weight 43.273 kg Weight 43.998 kg Weight 43.998 kg Physical Exam Narrative: The patient is very ill looking male, disheveled, cachectic. However there is no acute distress. No agitation. Skin is warm and dry. Moist mucous membranes Neck supple. No JVD Lungs no significant wheezes or crackles. No respiratory distress Heart S1, S2, regular Abdomen is without distention,nontender, bowel sounds normal. No rebound or guarding. Extremities trace edema. No cyanosis or calf tenderness bilaterally. No facial asymmetry. Normal speech No focal deficits. Eyes PERRL, extraocular muscles are intact. No icterus. Data : 02/09/22 02:18 02/09/22 02:18 Micro: Microbiology 02/07/22 19:21 Urine Culture - Preliminary Urine,Clean Catch 02/07/22 13:33 Blood Culture - Preliminary Blood NEGATIVE TO DATE 02/07/22 13:29 Blood Culture - Preliminary Blood NEGATIVE TO DATE 02/07/22 19:26 Stool Lactoferrin - Final Stool Enteric Pathogens (PCR) - Final Parasite Antigen Panel - Final C.difficile Toxin B Gene (PCR) - Final Occult Blood (FIT) - Final A&P Assessment and plan (1) Colitis: Status: Acute (2) Dehydration: Status: Acute (3) Dilated cbd, acquired: Status: Acute (4) Dilated pancreatic duct: Status: Acute (5) Sepsis: Status: Acute Plan Jacob Goetz is a 66 year old male review of systemsWith past medical history of oxygen dependent COPD, continuous tobacco abuse, CHF, EF of 41%, possible noncompliance, recent hospitalization for COPD exacerbation who presented today to emergency room with complaints of generalized weakness, diarrhea. He reports that his diarrhea started shortly after discharge from the hospital. In emergency room CT of the abdomen revealed diffuse colitis most likely infectious according to the radiologist. Also described were common bile duct and pancreatic duct mild dilation. However there is no associated LFT elevation. ER physician Dr. Rivero spoke with [facility] on-call GI physician Dr. Belcher. They reviewed patient's imaging studies and complaints and other data. Dr. Belcher recommended keeping him here, managing his colitis, ruling out C. difficile and discharging after stabilization with outpatient follow-up for ERCP after discharge. According to him there is no evidence of cholangitis or bi liary obstruction. Please see radiology report for more details. Definitely GI malignancy remains a possibility especially considering patient's recent weight loss. Clostridium difficile colitis and associated dehydration. Some improvement with po Vanco and IV metronidazole. Will monitor procalcitonin and CRP. IV fluids are discontinued. Dehydration. Resolved. Sepsis secondary to above. Resolved. Biliary and pancreatic duct dilation without elevation of LFTs. ER physician as mentioned above has spoken with [facility] on-call GI physician. They recommended against the transfer of the patient. They recommend treating patient's colitis. The patient will need however outpatient GI follow-up as soon as possible to rule out pancreatic or biliary obstructive problems or malignancy. We will monitor patient's LFTs. These discussions were communicated to the family and the patient yesterday and today. Cachexia and severe protein calorie malnutrition. dietary consult and recom mendations. We will add appetite stimulant. Suspect depression. We will decrease Xanax dose and order mirtazapine at night which I hope will also help with the sleep and appetite. History of COPD. Currently stable. Continue home medications and as needed coverage. History of CHF with EF of 41%. No evidence of decompensation. Will need to be careful with IV fluids. Holding furosemide. He is not hypertensive. Not on beta-blockers probably due to risk of hypotension. Tobacco abuse. Nicotine patch. Hypertension. Continue home lisinopril and as needed hydralazine. DVT prophylaxis. Heparin. CODE STATUS. He wants to be full code. The plan of care was discussed with the patient. He voiced no additional questions. Attestations Medical Necessity Statement*: Still requires aggressive management with p.o. and IV antibiotics for severe case of C. difficile colitis. Also needs close monitoring due to concerns of possible decompensation. Coding Level of Care Code Acute Marketing Programs Specialist for Chg Fwd Diagnoses Colitis K52.9 Dehydration E86.0 Dilated cbd, acquired K83.8 Dilated pancreatic duct K86.89 Sepsis A41.9
[2022-02-09] MEDS: ALPRAZolam 0.5 mg Tablet 0.25 MG PO (15:48)
--- NOTE | 2022-02-09 17:27 | PC.NURSE ---
Patient has been educated multiple times about pushing call light for help to get up. Patient refuses to push light for assistance to the bedside commode.
[2022-02-09] MEDS: mirtazapine 15 mg Tablet 7.5 MG PO (20:14)
[2022-02-10] VITALS (9 sets, daily range): BP systolic 109–130; BP diastolic 60–70; PULSE 82–108; RESP 16–18; TEMP 36.6–37.2; O2SAT 93–99
[2022-02-10] MEDS: heparin 5,000 unit/mL INJ 1 mL 5000 UNIT SUBCUT ×2 (05:38→17:24)
[2022-02-10] MEDS: metroNIDAZOLE IV 500 MG/100 ML PREMIX 100 MG IV ×3 (05:39→21:00)
[2022-02-10 05:58] LABS: Alanine Aminotransferase 7 U/L (0-41); Albumin Level 2.1 g/dL (3.5-5.2); Alkaline Phosphatase 97 IU/L (40-130); Anion Gap 10.4 (5-19); Aspartate Amino Transferase 9 U/L (0-40); Blood Urea Nitrogen 10 mg/dL (8-23); C Reactive Protein 149.6 mg/L (0.0-4.9); Calcium 7.9 mg/dL (8.5-10.5); Carbon Dioxide 32 mmol/L (22-29); Chloride 105 mmol/L (98-107); Globulin 2.8 g/dL (1.3-4.6); Glomerular Filtration Rate 166.4 mL/min (90-130); Glucose 78 mg/dL (65-115); Osmolality Calculated 296 mOsm/kg (285-295); Potassium 3.4 mmol/L (3.5-5.1); Sodium 144 mmol/L (136-145); Total Bilirubin 0.2 mg/dL (0.15-1.2); Total Protein 4.9 g/dL (6.6-8.7)
[2022-02-10 06:04] LABS: Basophils # 0.1 10^3/uL (0.0-0.1); Basophils % 0.5 %; Eosinophils # 0.3 10^3/uL (0.0-0.8); Eosinophils % 1.7 %; Hematocrit 32.5 % (42.0-52.0); Lymphocytes # 1.3 10^3/uL (0.8-4.8); Lymphocytes % 7.4 %; Mean Corpuscular HGB Conc 30.8 g/dL (30.0-36.0); Mean Corpuscular Hemoglobin 29.5 pg (28.0-34.0); Mean Corpuscular Volume 95.9 fl (80-94); Mean Platelet Volume 11.4 fL (7.4-10.4); Neutrophils # 14.21 10^3/uL (1.8-7.7); Neutrophils % 82.3 %; Nucleated Red Blood Cells % 0 %; Platelet Count 252 10^3/cmm (130-400); Red Blood Count 3.39 10^6/uL (4.1-5.3); Red Cell Distribution Width 15.9 % (12.1-15.1); White Blood Count 17.3 10^3/uL (4.0-10.0)
[2022-02-10 06:08] LABS: Procalcitonin 8.79 ng/mL (0-0.5)
[2022-02-10] MEDS: ALPRAZolam 0.5 mg Tablet 0.25 MG PO ×2 (06:23→22:12)
[2022-02-10 06:57] LABS: Slide Review Slide Review Perform
[2022-02-10] MEDS: potassium chloride oral liq 20 mEq/15 mL UDC PO ×2 (08:28→17:24)
[2022-02-10] MEDS: nicotine 14 mg Patch 1 PATCH TRANSDERMA (08:28)
[2022-02-10] MEDS: lisinopril 2.5 mg Tablet PO (08:28)
[2022-02-10] MEDS: budesonide 0.5 mg/2 mL Neb INHALATION ×2 (09:04→20:34)
[2022-02-10] MEDS: albuterol 8 gm MDI 2 PUFF INHALATION (09:04)
--- NOTE | 2022-02-10 09:07 | PC.SOCIAL ---
IMM Update Pg. 2 of IMM updated and reviewed with patient, who verbalized understanding. Copy provided.
--- NOTE | 2022-02-10 10:25 | P.PN_ITS ---
Subjective Subjective: Patient's condition, clinical signs, complaints and physical examination findings are discussed with the patient's nurse and multidisciplinary team. The patient is currently improving. Good oral intake. Doing well with the physical and Occupational Therapy. No pain. No rectal blood. Medications: Medication Review Details: Generic Name Dose Route Start Last Admin Trade Name Freq PRN Reason Stop Dose Admin Acetaminophen 650 mg 02/07/22 18:27 02/09/22 20:17 Acetaminophen 32 5 Mg Tablet PO 650 mg Q6H PRN Administration Mild/Mod Pain Or Temp >/= 101 Albuterol Sulfate 2 puff 02/07/22 19:54 02/10/22 09:04 Albuterol 8 Gm M di INHALATION 2 puff Q6H PRN Administration shortness of tej th or wheezing Alprazolam 0.25 mg 02/09/22 11:16 02/10/22 06:23 Alprazolam 0.5 M g Tablet PO 0.25 mg TID PRN Administration anxiety Budesonide 0.5 mg 02/08/22 08:00 02/10/22 09:04 Budesonide 0.5 M g/2 Ml Neb INHALATION 0.5 mg BID.RESPIRATORY S CH Administration Heparin Sodium (Po rcine) 5,000 unit 02/07/22 18:30 02/10/22 05:38 Heparin 5,000 Un it/Ml Inj 1 Ml SUBCUT 5,000 unit Q12H BLANCA Administration Metronidazole 500 mg in 100 mls @ 100 mls/hr 02/07/22 22:00 02/10/22 06:39 Flagyl Iv IV Infused Q8H BLANCA Infusion Protocol Lisinopril 2.5 mg 02/08/22 09:15 02/10/22 08:28 Lisinopril 2.5 M g Tablet PO 2.5 mg DAILY BLANCA Administration Mirtazapine 7.5 mg 02/09/22 21:00 02/09/22 20:14 Mirtazapine 15 M g Tablet PO 7.5 mg BEDTIME BLANCA Administration Nicotine 1 patch 02/08/22 09:00 02/10/22 08:28 Nicotine 14 Mg P atch TRANSDERMA 1 patch DAILY BLANCA Administration Non-Formulary Medi cation 1 each 02/08/22 09:00 02/09/22 16:35 Fluticasone-Umec lidin-Vilanter [Tr elegy Ellipta] INHALATION Not Given DAILY [facility] Potassium Chloride 20 meq 02/10/22 09:00 02/10/22 08:28 Potassium Chlori de Oral Liq 20 Meq /15 Ml Udc PO 20 meq BID BLANCA Administration Vancomycin HCl 250 mg 02/07/22 20:00 02/10/22 08:28 Vancomycin 1,000 Mg Oral Olga (Btl) PO 2.5 ml Q6H BLANCA Administration Vitals/I&O/Wt Last Vital Signs Temp 98.7 F 02/10/22 07:13 Pulse 98 02/10/22 09:09 Resp 17 02/10/22 09:04 BP 123/64 02/10/22 07:13 Pulse Ox 93 02/10/22 09:04 02/09/22 02/10/22 02/10/22 22:59 06:59 14:59 Intake Total 450 / 790 590 / 1380 Output Total 200 / 200 440 / 640 Balance 250 / 590 150 / 740 Weight last 48 hrs Weight 43.998 kg Weight 43.273 kg Physical Exam Narrative: AAO3. NAD. Skin is warm and dry. Moist mucous membranes No respiratory distress Abdomen is soft and nontender. No cyanosis Normal speech No focal deficits. Data : 02/10/22 05:05 02/10/22 05:05 Micro: Microbiology 02/07/22 19:21 Urine Culture - Preliminary Urine,Clean Catch A&P Assessment and plan (1) Colitis: Status: Acute (2) Dehydration: Status: Acute (3) Dilated cbd, acquired: Status: Acute (4) Dilated pancreatic duct: Status: Acute (5) Sepsis: Status: Acute Plan Jacob Goetz is a 66 year old male review of systemsWith past medical h istory of oxygen dependent COPD, continuous tobacco abuse, CHF, EF of 41%, possible noncompliance, recent hospitalization for COPD exacerbation who presented today to emergency room with complaints of generalized weakness, diarrhea. He reports that his diarrhea started shortly after discharge from the hospital. In emergency room CT of the abdomen revealed diffuse colitis most likely infectious according to the radiologist. Also described were common bile duct and pancreatic duct mild dilation. However there is no associated LFT elevation. ER physician Dr. Rivero spoke with [facility] on-call GI physician Dr. Belcher. They reviewed patient's imaging studies and complaints and other data. Dr. Belcher recommended keeping him here, managing his colitis, ruling out C. difficile and discharging after stabilization with outpatient follow-up for ERCP after discharge. According to him there is no evidence of cholangitis or biliary obstruction. Please see radiology report for more details. Definitely GI malignancy remains a possibility especially considering patient's recent weight loss. Clostridium difficile colitis and associated dehydration. Some improvement with po Vanco and IV metronidazole. Improving leukocytosis and CRP. Continue current management for now. Dehydration. Resolved. Sepsis secondary to above. Resolved. Biliary and pancreatic duct dilation without elevation of LFTs. ER physician as mentioned above has spoken with [facility] on-call GI physician. They recommended against the transfer of the patient. They recommend treating patient's colitis. The patient will need however outpatient GI follow-up as soon as possible to rule out pancreatic or biliary obstructive problems or malignancy. We will monitor patient's LFTs. These discussions were c ommunicated to the family and the patient yesterday and today. Cachexia and severe protein calorie malnutrition. dietary consult and recommendations. Continue protein supplementation and balanced with Suspect depression. Decreased Xanax dose and order mirtazapine at night which I hope will also help with the sleep and appetite. History of COPD. Currently stable. Continue home medications and as needed coverage. History of CHF with EF of 41%. No evidence of decompensation. Will need to be careful with IV fluids. Holding furosemide. He is not hypertensive. Not on beta-blockers probably due to risk of hypotension. Tobacco abuse. Nicotine patch. Hypertension. Continue home lisinopril and as needed hydralazine. DVT prophylaxis. Heparin. CODE STATUS. He wants to be full code. Discussed with multidisciplinary team Attestations Medical Necessity Statement*: Improving but still requires IV and oral antibiotics and close monitoring. Possible discharge in 2 to 3 days. Coding Level of Care Code Acute Balance Wheel Arm Burnisher for Chg Fwd Diagnoses Colitis K52.9 Dehydration E86.0 Dilated cbd, acquired K83.8 Dilated pancreatic duct K86.89 Sepsis A41.9
[2022-02-10] MEDS: mirtazapine 15 mg Tablet 7.5 MG PO (20:57)
[2022-02-10] MEDS: acetaminophen 325 mg Tablet 650 MG PO (23:43)
[2022-02-11] VITALS: BP 122/66; PULSE 100; RESP 17; O2SAT 98
[2022-02-11] MEDS: metroNIDAZOLE IV 500 MG/100 ML PREMIX 100 MG IV ×3 (05:57→21:13)
[2022-02-11] MEDS: heparin 5,000 unit/mL INJ 1 mL 5000 UNIT SUBCUT ×2 (05:57→16:40)
[2022-02-11 06:04] LABS: Basophils # 0.1 10^3/uL (0.0-0.1); Basophils % 0.5 %; Eosinophils # 0.2 10^3/uL (0.0-0.8); Eosinophils % 2.6 %; Hematocrit 33.9 % (42.0-52.0); Hemoglobin 10.1 g/dL (11.7-16.6); Lymphocytes # 1.3 10^3/uL (0.8-4.8); Lymphocytes % 13.6 %; Mean Corpuscular HGB Conc 29.8 g/dL (30.0-36.0); Mean Corpuscular Hemoglobin 29.9 pg (28.0-34.0); Mean Corpuscular Volume 100.3 fl (80-94); Mean Platelet Volume 9.3 fL (7.4-10.4); Monocytes # 0.8 10^3/uL (0.2-0.9); Monocytes % 8.5 %; Neutrophils % 70.5 %; Nucleated Red Blood Cells % 0 %; Platelet Count 310 10^3/cmm (130-400); Red Blood Count 3.38 10^6/uL (4.1-5.3); Red Cell Distribution Width 15.4 % (12.1-15.1); White Blood Count 9.2 10^3/uL (4.0-10.0)
--- NOTE | 2022-02-11 06:16 | PC.NURSE ---
Shift Summary Patient slept through most of the night with respirations even and non-labored. Initially, patient complained of having generalized pain that allowed him to rest after receiving tylenol.
[2022-02-11 06:29] LABS: Anion Gap 11.6 (5-19); Blood Urea Nitrogen 7 mg/dL (8-23); Carbon Dioxide 29 mmol/L (22-29); Chloride 105 mmol/L (98-107); Glomerular Filtration Rate 166.4 mL/min (90-130); Glucose 84 mg/dL (65-115); Magnesium 1.9 mg/dL (1.7-2.3); Phosphorus 2.1 mg/dL (2.5-4.5); Potassium 3.6 mmol/L (3.5-5.1); Sodium 142 mmol/L (136-145)
[2022-02-11] MEDS: ALPRAZolam 0.5 mg Tablet 0.25 MG PO (06:39)
[2022-02-11 07:57] VITALS: BP 114/62; PULSE 84; RESP 12; TEMP 36.7; O2SAT 99
[2022-02-11] MEDS: lisinopril 2.5 mg Tablet PO (07:58)
[2022-02-11] MEDS: nicotine 14 mg Patch 1 PATCH TRANSDERMA (07:58)
[2022-02-11] MEDS: potassium chloride oral liq 20 mEq/15 mL UDC PO ×2 (07:59→16:40)
[2022-02-11 08:00] VITALS: PULSE 86; RESP 16; O2SAT 94
[2022-02-11] MEDS: phosphorus 250 mg Tablet PO ×2 (09:37→16:40)
--- NOTE | 2022-02-11 11:12 | P.PN_ITS ---
Subjective Subjective: Patient looks much better today. However he reports ongoing diarrhea. No rectal blood. Multiple episodes of diarrhea which is watery. No abdominal pain. No nausea or vomiting. Appetite is improving. No fever or chills. Medications: Medication Review Details: Generic Name Dose Route Start Last Admin Trade Name Mathewq PRN Reason Stop Dose Admin Acetaminophen 650 mg 02/07/22 18:27 02/10/22 23:43 Acetaminophen 32 5 Mg Tablet PO 650 mg Q6H PRN Administration Mild/Mod Pain Or Temp >/= 101 Albuterol Sulfate 2 puff 02/07/22 19:54 02/10/22 09:04 Albuterol 8 Gm M di INHALATION 2 puff Q6H PRN Administration shortness of tej th or wheezing Alprazolam 0.25 mg 02/09/22 11:16 02/11/22 06:39 Alprazolam 0.5 M g Tablet PO 0.25 mg TID PRN Administration anxiety Budesonide 0.5 mg 02/08/22 08:00 02/10/22 20:34 Budesonide 0.5 M g/2 Ml Neb INHALATION 0.5 mg BID.RESPIRATORY S CH Administration Heparin Sodium (Po rcine) 5,000 unit 02/07/22 18:30 02/11/22 05:57 Heparin 5,000 Un it/Ml Inj 1 Ml SUBCUT 5,000 unit Q12H BLANCA Administration Metronidazole 500 mg in 100 mls @ 100 mls/hr 02/07/22 22:00 02/11/22 06:57 Flagyl Iv IV Infused Q8H BLANCA Infusion Protocol Lisinopril 2.5 mg 02/08/22 09:15 02/11/22 07:58 Lisinopril 2.5 M g Tablet PO 2.5 mg DAILY BLANCA Administration Mirtazapine 7.5 mg 02/09/22 21:00 02/10/22 20:57 Mirtazapine 15 M g Tablet PO 7.5 mg BEDTIME BLANCA Administration Nicotine 1 patch 02/08/22 09:00 02/11/22 07:58 Nicotine 14 Mg P atch TRANSDERMA 1 patch DAILY BLANCA Administration Non-Formulary Medi cation 1 each 02/08/22 09:00 02/10/22 16:57 Fluticasone-Umec lidin-Vilanter [Tr elegy Ellipta] INHALATION Not Given DAILY [facility]ANCA Potassium Chloride 20 meq 02/10/22 09:00 02/11/22 07:59 Potassium Chlori de Oral Liq 20 Meq /15 Ml Udc PO 20 meq BID BLANCA Administration Potassium Phosphat e 250 mg 02/11/22 09:00 02/11/22 09:37 Phosphorus 250 M g Tablet PO 250 mg BID BLANCA Administration Vancomycin HCl 250 mg 02/07/22 20:00 02/11/22 09:37 Vancomycin 1,000 Mg Oral Olga (Btl) PO 2.5 ml Q6H BLANCA Administration Vitals/I&O/Wt Last Vital Signs Temp 98.1 F 02/11/22 07:57 Pulse 86 02/11/22 08:00 Resp 16 02/11/22 08:00 BP 114/62 02/11/22 07:57 Pulse Ox 94 02/11/22 08:00 02/10/22 02/11/22 02/11/22 22:59 06:59 14:59 Intake Total 440 / 440 100 / 540 100 / 100 Balance 440 / 440 100 / 540 100 / 100 Weight last 48 hrs Weight 43.687 kg Weight 43.998 kg Physical Exam Narrative: AAO3. NAD. Skin is warm and dry. Moist mucous membranes PERRL, extraocular muscles are intact. No respiratory distress. Clear. Abdomen is soft and nontender. Bowel sounds are better No cyanosis. No calf tenderness bilaterally. Normal speech No focal deficits. Data : 02/11/22 05:55 02/11/22 05:55 Micro: Microbiology 02/07/22 19:21 Urine Culture - Final Urine,Clean Catch A&P Assessment and plan (1) Colitis: Status: Acute (2) Dehydration: Status: Acute (3) Dilated cbd, acquired: Status: Acute (4) Dilated pancreatic duct: Status: Acute (5) Sepsis: Status: Acute Plan Jacob Goetz is a 66 year old male review of systemsWith past medical history of oxygen dependent COPD, continuous tobacco abuse, CHF, EF of 41%, possible noncompliance, recent hospitalization for COPD exacerbation who presented today to emergency room with complaints of generalized weakness, diarrhea. He reports that his diarrhea started shortly after discharge from the hospital. In emergency room CT of the abdomen revealed diffuse colitis most likely infectious according to the radiologist. Also described were common bile duct and pancreatic duct mild dilation. However there is no associated LFT elevation. ER physician Dr. Rivero spoke with [facility] on-call GI physician Dr. Belcher. They reviewed patient's imaging studies and complaints and other data. Dr. Belcher recommended keeping him here, managing his colitis, ruling out C. difficile and discharging after stabilization with outpatient follow-up for ERCP after discharge. According to him there is no evidence of cholangitis or biliary obstruction. Please see radiology report for more details. Definitely GI malignancy remains a possibility especially considering patient's recent weight loss. Clostridium difficile colitis and associated dehydration. Leukocytosis has resolved. We will wait for clinical improvements. Continues having diarrhea. Will consider de-escalating antibiotics (stopping metronidazole) soon. Dehydration. Resolved. Sepsis secondary to above. Resolved. Biliary and pancreatic duct dilation without elevation of LFTs. ER physician as mentioned above has spoken with [facility] on-call GI physician. They recommended against the transfer of the patient. They recommend treating patient's colitis. The patient will need however outpatient GI follow-up as soon as possible to rule out pancreatic or biliary obstructive problems or malignancy. We will monitor patient's LFTs. Please remind the patient and the family at discharge. Cachexia and severe protein calorie malnutrition. dietary consult and tiffany mmendations. Continue protein supplementation and balanced food. Improving. Suspect depression. Decreased Xanax dose again today. Continue mirtazapine at night which I hope will also help with the sleep and appetite. Generalized deconditioning and debilitated state. Continue PT OT efforts. The patient states that he cannot return home in this condition. We will look into possible placement solutions. Discussed with the case management. History of COPD. Currently stable. Continue home medications and as needed coverage. History of CHF with EF of 41%. No evidence of decompensation. Will need to be careful with IV fluids. Holding furosemide. He is not hypertensive. Not on beta-blockers probably due to risk of hypotension. Tobacco abuse. Nicotine patch. Hypertension. Continue home lisinopril and as needed hydralazine. DVT prophylaxis. Heparin. CODE STATUS. He wants to be full code. Discussed with multidisciplinary team Attestations Medical Necessity Statement*: Improving, however needs very close monitoring and adjustments of the treatments. Coding Level of Care Code Acute Risk Analyst for Chg Fwd Diagnoses Colitis K52.9 Dehydration E86.0 Dilated cbd, acquired K83.8 Dilated pancreatic duct K86.89 Sepsis A41.9
[2022-02-11] MEDS: budesonide 0.5 mg/2 mL Neb INHALATION (11:23)
[2022-02-11 11:45] VITALS: O2SAT 98
[2022-02-11] MEDS: ALPRAZolam 0.5 mg Tablet 0.125 MG PO ×2 (14:58→22:27)
[2022-02-11 16:00] VITALS: BP 118/71; PULSE 91; RESP 13; TEMP 36.6; O2SAT 99
[2022-02-11 20:00] VITALS: BP 124/74; PULSE 90; PULSE 95; RESP 16; RESP 18; TEMP 36.4; O2SAT 97; O2SAT 98
[2022-02-11] MEDS: mirtazapine 15 mg Tablet 7.5 MG PO (20:22)
[2022-02-11] MEDS: acetaminophen 325 mg Tablet 650 MG PO (23:40)
[2022-02-12] VITALS (8 sets, daily range): BP systolic 121–138; BP diastolic 70–75; PULSE 73–95; RESP 16–24; TEMP 36.3–36.9; O2SAT 93–98
[2022-02-12 05:31] LABS: Basophils # 0.1 10^3/uL (0.0-0.1); Basophils % 0.9 %; Eosinophils # 0.2 10^3/uL (0.0-0.8); Eosinophils % 2.5 %; Hematocrit 32.1 % (42.0-52.0); Hemoglobin 9.8 g/dL (11.7-16.6); Lymphocytes # 1.3 10^3/uL (0.8-4.8); Lymphocytes % 13.7 %; Mean Corpuscular HGB Conc 30.5 g/dL (30.0-36.0); Mean Corpuscular Hemoglobin 30.1 pg (28.0-34.0); Mean Corpuscular Volume 98.5 fl (80-94); Mean Platelet Volume 9.3 fL (7.4-10.4); Monocytes # 0.7 10^3/uL (0.2-0.9); Monocytes % 7.4 %; Neutrophils # 6.75 10^3/uL (1.8-7.7); Nucleated Red Blood Cells % 0 %; Platelet Count 293 10^3/cmm (130-400); Red Blood Count 3.26 10^6/uL (4.1-5.3); Red Cell Distribution Width 15.3 % (12.1-15.1); White Blood Count 9.4 10^3/uL (4.0-10.0)
[2022-02-12] MEDS: metroNIDAZOLE IV 500 MG/100 ML PREMIX 100 MG IV ×3 (05:31→20:25)
[2022-02-12] MEDS: heparin 5,000 unit/mL INJ 1 mL 5000 UNIT SUBCUT ×2 (05:32→18:00)
[2022-02-12 05:55] LABS: Anion Gap 7.4 (5-19); Blood Urea Nitrogen 7 mg/dL (8-23); C Reactive Protein 32.5 mg/L (0.0-4.9); Calcium 7.1 mg/dL (8.5-10.5); Carbon Dioxide 32 mmol/L (22-29); Chloride 103 mmol/L (98-107); Glomerular Filtration Rate 166.4 mL/min (90-130); Glucose 86 mg/dL (65-115); Magnesium 1.9 mg/dL (1.7-2.3); Phosphorus 2.8 mg/dL (2.5-4.5); Potassium 3.4 mmol/L (3.5-5.1); Sodium 139 mmol/L (136-145)
[2022-02-12] MEDS: nicotine 14 mg Patch 1 PATCH TRANSDERMA (09:02)
[2022-02-12] MEDS: lisinopril 2.5 mg Tablet PO (09:02)
[2022-02-12] MEDS: potassium chloride oral liq 20 mEq/15 mL UDC PO ×3 (09:03→20:26)
[2022-02-12] MEDS: ALPRAZolam 0.5 mg Tablet 0.125 MG PO ×2 (09:16→18:00)
--- NOTE | 2022-02-12 10:05 | PC.SOCIAL ---
IMM Update Pg. 2 of IMM updated and reviewed with patient, who verbalized understanding. Copy provided.
--- NOTE | 2022-02-12 11:14 | PM.PN ---
Subjective Subjective: Patient's condition, clinical signs, complaints and physical examination findings are discussed with the patient's nurse and multidisciplinary team.? The patient is currently improving.? Good oral intake.? No pain.? No rectal blood. Medications: Medication Review Details: Generic Name Dose Route Start Last Admin Trade Name Freq PRN Reason Stop Dose Admin Acetaminophen 650 mg 02/07/22 18:27 02/11/22 23:40 Acetaminophen 32 5 Mg Tablet PO 650 mg Q6H PRN Administration Mild/Mod Pain Or Temp >/= 101 Albuterol Sulfate 2 puff 02/07/22 19:54 02/10/22 09:04 Albuterol 8 Gm M di INHALATION 2 puff Q6H PRN Administration shortness of tej th or wheezing Alprazolam 0.125 mg 02/11/22 11:13 02/12/22 09:16 Alprazolam 0.5 M g Tablet PO 0.125 mg TID PRN Administration anxiety Budesonide 0.5 mg 02/08/22 08:00 02/11/22 20:06 Budesonide 0.5 M g/2 Ml Neb INHALATION Not Given BID.RESPIRATORY S CH Heparin Sodium (Po rcine) 5,000 unit 02/07/22 18:30 02/12/22 05:32 Heparin 5,000 Un it/Ml Inj 1 Ml SUBCUT 5,000 unit Q12H BLANCA Administration Metronidazole 500 mg in 100 mls @ 100 mls/hr 02/07/22 22:00 02/12/22 06:31 Flagyl Iv IV Infused Q8H BLANCA Infusion Protocol Lisinopril 2.5 mg 02/08/22 09:15 02/12/22 09:02 Lisinopril 2.5 M g Tablet PO 2.5 mg DAILY BLANCA Administration Mirtazapine 7.5 mg 02/09/22 21:00 02/11/22 20:22 Mirtazapine 15 M g Tablet PO 7.5 mg BEDTIME BLANCA Administration Nicotine 1 patch 02/08/22 09:00 02/12/22 09:02 Nicotine 14 Mg P atch TRANSDERMA 1 patch DAILY BLANCA Administration Non-Formulary Medi cation 1 each 02/08/22 09:00 02/12/22 07:22 Fluticasone-Umec lidin-Vilanter [Tr elegy Ellipta] INHALATION Not Given DAILY BLANCA Potassium Chloride 20 meq 04/24/22 09:00 02/12/22 09:03 Potassium Chlori de Oral Liq 20 Meq /15 Ml Udc PO 20 meq TID BLANCA Administration Vancomycin HCl 250 mg 02/07/22 20:00 02/12/22 09:17 Vancomycin 1,000 Mg Oral Olga (Btl) PO 2.5 ml Q6H BLANCA Administration Vitals/I&O/Wt Last Vital Signs Temp 98.3 F 02/12/22 07:43 Pulse 89 02/12/22 08:00 Resp 16 02/12/22 08:00 BP 138/71 02/12/22 07:43 Pulse Ox 97 02/12/22 08:00 02/11/22 02/12/22 02/12/22 22:59 06:59 14:59 Intake Total 680 / 830 100 / 930 240 / 240 Output Total 8 / 8 Balance 680 / 830 92 / 922 240 / 240 Weight last 48 hrs Weight 43.772 kg Weight 43.687 kg Physical Exam Narrative: AAO3. NAD. Skin is warm and dry. Moist mucous membranes No respiratory distress Abdomen is soft and nontender. No cyanosis Normal speech No focal deficits. ? Data : 02/12/22 05:05 02/12/22 05:05 A&P Assessment and plan (1) Colitis: Status: Acute (2) Dehydration: Status: Acute (3) Dilated cbd, acquired: Status: Acute (4) Dilated pancreatic duct: Status: Acute (5) Sepsis: Status: Acute Plan Jacob Goetz is a 66 year old male review of systemsWith past medical history of oxygen dependent COPD, continuous tobacco abuse, CHF, EF of 41%, possible noncompliance, recent hospitalization for COPD exacerbation who presented today to emergency room with complaints of generalized weakness, diarrhea. He reports that his diarrhea started shortly after discharge from the hospital. In emergency room CT of the abdomen revealed diffuse colitis most likely infectious according to the radiologist. Also described were common bile duct and pancreatic duct mild dilation. However there is no associated LFT elevation. ER physician Dr. Rivero spoke with [facility] on-call GI physician Dr. Belcher. They reviewed patient's imaging studies and complaints and other data. Dr. Belcher recommended keeping him here, managing his colitis, ruling out C. difficile and discharging after stabilization with outpatient follow-up for ERCP after discharge. According to him there is no evidence of cholangitis or biliary obstruction. Please see radiology report for more details. Definitely GI malignancy remains a possibility especially considering patient's recent weight loss. Clostridium difficile colitis and associated dehydration. Leukocytosis has resolved. We will wait for clinical improvements. Continues having diarrhea. Will consider de-escalating antibiotics (stopping metronidazole) soon. Dehydration. Resolved. Sepsis secondary to above. Resolved. Biliary and pancreatic duct dilation without elevation of LFTs. ER physician as mentioned above has spoken with [facility] on-call GI physician. They recommended against the transfer of the patient. They recommend treating patient's colitis. The patient will need however outpatient GI follow-up as soon as possible to rule out pancreatic or biliary obstructive problems or malignancy. We will monitor patient's LFTs. Please remind the patient and the family at discharge. Cachexia and severe protein calorie malnutrition. dietary consult and recommendations. Continue protein supplementation and balanced food. Improving. Suspect depression. Decreased Xanax dose again today. Continue mirtazapine at night which I hope will also help with the sleep and appetite. Generalized deconditioning and debilitated state. Continue PT OT efforts. The patient states that he cannot return home in this condition. We will look into possible placement solutions. Discussed with the case management. History of COPD. Currently stable. Continue home medications and as needed coverage. History of CHF with EF of 41%. No evidence of decompensation. Will need to be careful with IV fluids. Holding furosemide. He is not hypertensive. Not on beta-blockers probably due to risk of hypotension. Tobacco abuse. Nicotine patch. Hypertension. Continue home lisinopril and as needed hydralazine. DVT prophylaxis. Heparin. CODE STATUS. He wants to be full code. Discussed with multidisciplinary team Attestations Medical Necessity Statement*: Possible discharge soon. Case management is assessing his discharge needs. High risk for readmission Coding Level of Care Code Acute Lightning Rod Erector for [facility] Diagnoses Colitis K52.9 Dehydration E86.0 Dilated cbd, acquired K83.8 Dilated pancreatic duct K86.89 Sepsis A41.9
[2022-02-12] MEDS: acetaminophen 325 mg Tablet 650 MG PO (13:43)
[2022-02-12] MEDS: mirtazapine 15 mg Tablet 7.5 MG PO (20:25)
[2022-02-12] MEDS: ondansetron 2 mg/ML SDV 2 mL 4 MG IVP (20:34)
[2022-02-13] VITALS (9 sets, daily range): BP systolic 91–126; BP diastolic 64–71; PULSE 77–101; RESP 13–20; TEMP 36.5–37.1; O2SAT 94–98
[2022-02-13] MEDS: ALPRAZolam 0.5 mg Tablet 0.125 MG PO (02:30)
[2022-02-13 03:23] LABS: Basophils # 0.1 10^3/uL (0.0-0.1); Basophils % 0.8 %; Eosinophils # 0.2 10^3/uL (0.0-0.8); Eosinophils % 2.1 %; Hematocrit 32.7 % (42.0-52.0); Hemoglobin 9.9 g/dL (11.7-16.6); Lymphocytes # 1.2 10^3/uL (0.8-4.8); Lymphocytes % 11.6 %; Mean Corpuscular HGB Conc 30.3 g/dL (30.0-36.0); Mean Corpuscular Hemoglobin 29.5 pg (28.0-34.0); Mean Corpuscular Volume 97.3 fl (80-94); Mean Platelet Volume 9.4 fL (7.4-10.4); Monocytes # 0.7 10^3/uL (0.2-0.9); Monocytes % 6.5 %; Neutrophils # 8.19 10^3/uL (1.8-7.7); Neutrophils % 76.8 %; Nucleated Red Blood Cells % 0 %; Platelet Count 315 10^3/cmm (130-400); Red Blood Count 3.36 10^6/uL (4.1-5.3); White Blood Count 10.7 10^3/uL (4.0-10.0)
[2022-02-13 03:40] LABS: Albumin Level 2.1 g/dL (3.5-5.2); Anion Gap 8.9 (5-19); Blood Urea Nitrogen 5 mg/dL (8-23); Calcium 7.1 mg/dL (8.5-10.5); Carbon Dioxide 30 mmol/L (22-29); Chloride 105 mmol/L (98-107); Glomerular Filtration Rate 215.2 mL/min (90-130); Glucose 107 mg/dL (65-115); Magnesium 1.8 mg/dL (1.7-2.3); Phosphorus 2.1 mg/dL (2.5-4.5); Potassium 3.9 mmol/L (3.5-5.1); Sodium 140 mmol/L (136-145)
--- NOTE | 2022-02-13 05:06 | PC.NURSE ---
Pt had three bowel movements between 1900 and 0200, all roughly the same size and all looked the same.
[2022-02-13] MEDS: metroNIDAZOLE IV 500 MG/100 ML PREMIX 100 MG IV ×3 (05:14→21:34)
[2022-02-13] MEDS: heparin 5,000 unit/mL INJ 1 mL 5000 UNIT SUBCUT ×2 (05:15→18:29)
[2022-02-13] MEDS: budesonide 0.5 mg/2 mL Neb INHALATION ×2 (08:17→19:36)
[2022-02-13] MEDS: albuterol 8 gm MDI 2 PUFF INHALATION ×2 (08:19→19:37)
[2022-02-13] MEDS: potassium chloride oral liq 20 mEq/15 mL UDC PO ×3 (09:36→20:43)
[2022-02-13] MEDS: lisinopril 2.5 mg Tablet PO (09:36)
[2022-02-13] MEDS: ondansetron 2 mg/ML SDV 2 mL 4 MG IVP ×3 (09:37→20:44)
[2022-02-13] MEDS: ALPRAZolam 0.5 mg Tablet 0.25 MG PO ×2 (13:14→20:43)
--- NOTE | 2022-02-13 13:47 | P.PN_ITS ---
Subjective Subjective: Seen and examined this morning. Cousin at bedside. Patient and family had a lot of concerns regarding his diagnosis and his further follow-up appointment. They state they were told in the ER that patient has cancer and there was some confusion in regards to what was going on. I answered all their questions and concerns to their satisfaction. Patient had 1 bowel movement this morning and had multiple yesterday. He also reports having nausea which has been a longstanding issue for him. Vitals/I&O/Wt Last Vital Signs Temp 98.7 F 02/13/22 08:00 Pulse 95 02/13/22 08:20 Resp 17 02/13/22 08:20 BP 118/66 02/13/22 08:00 Pulse Ox 95 02/13/22 08:21 02/12/22 02/13/22 02/13/22 22:59 06:59 14:59 Intake Total 340 / 680 100 / 780 200 / 200 Output Total 250 / 250 Balance 340 / 680 -150 / 530 200 / 200 Weight last 48 hrs Weight 29.166 kg Weight 43.772 kg Physical Exam Narrative: AAO3. NAD. Skin is warm and dry. Moist mucous membranes No respiratory distress Abdomen is soft and nontender. No cyanosis Normal speech No focal deficits. Data : 02/13/22 03:02 02/13/22 03:02 Micro: Microbiology 02/07/22 13:29 Blood Culture - Final Blood NO GROWTH AFTER 5 DAYS 02/07/22 13:33 Blood Culture - Final Blood NO GROWTH AFTER 5 DAYS A&P Assessment and plan (1) Sepsis: Status: Acute (2) Colitis: Status: Acute (3) Alcoholism in remission: Status: Acute (4) Emphysema/COPD: Status: Chronic Qualifiers: Emphysema type: unspecified Qualified Code(s): J43.9 - Emphysema, unspecified (5) Congestive heart failure: Status: Acute Qualifiers: Heart failure type: unspecified Heart failure chronicity: unspecified Qualified Code(s): I50.9 - Heart failure, unspecified (6) Clostridium difficile colitis: Status: Acute Plan #Sepsis secondary to difficile colitis #Cachexia and severe protein calorie malnutrition #Generalized deconditioning, debilitated state #History of COPD?stable #History of CHF with reduced ejection fraction 41% #Nicotine dependence #Hypertension #Depression/anxiety #Biliary pancreatic dilation without elevation of LFT. Outpatient follow-up with GI recommended to rule out malignancy and further work-up. -Continue patient on oral vancomycin. ? We will discuss with social media sr strategy manager for placement. Patient has been referred to [facility]. ? He will need follow-up with GI in [place] for further work-up of his biliary tract. A copy of CAT scan from admission was given to patient and his cousin upon the request. They state they they will need transportation arranged and everything set up as patient cannot get there on his own. They would like to speak to social media sr strategy manager. ? Continue mirtazapine. Patient on as needed Xanax 3 times daily. Full code Family available bedside and updated. Attestations Medical Necessity Statement*: Pending placement to [facility]. Potential discharge in a.m. Coding Level of Care Code Acute Stock Mover for [facility] Diagnoses Sepsis A41.9 Colitis K52.9 Alcoholism in remission F10.21 Emphysema/COPD J43.9 Emphysema type: unspecified Congestive heart failure I50.9 Heart failure type: unspecified Heart failure chronicity: unspecified Clostridium difficile colitis A04.72
[2022-02-13] MEDS: acetaminophen 325 mg Tablet 650 MG PO (20:42)
[2022-02-13] MEDS: mirtazapine 15 mg Tablet 7.5 MG PO (20:43)
[2022-02-14] VITALS (11 sets, daily range): BP systolic 102–121; BP diastolic 56–76; PULSE 67–193; RESP 13–24; TEMP 36.6–36.8; O2SAT 93–98
[2022-02-14] MEDS: metroNIDAZOLE IV 500 MG/100 ML PREMIX 100 MG IV ×3 (04:57→20:53)
[2022-02-14] MEDS: heparin 5,000 unit/mL INJ 1 mL 5000 UNIT SUBCUT ×2 (04:57→18:12)
[2022-02-14 05:40] LABS: Basophils # 0.1 10^3/uL (0.0-0.1); Basophils % 0.7 %; Eosinophils # 0.2 10^3/uL (0.0-0.8); Eosinophils % 2.9 %; Hemoglobin 10.1 g/dL (11.7-16.6); Lymphocytes # 1.3 10^3/uL (0.8-4.8); Lymphocytes % 16.3 %; Mean Corpuscular HGB Conc 29.7 g/dL (30.0-36.0); Mean Corpuscular Hemoglobin 29.1 pg (28.0-34.0); Monocytes # 0.7 10^3/uL (0.2-0.9); Monocytes % 8.6 %; Neutrophils # 5.58 10^3/uL (1.8-7.7); Nucleated Red Blood Cells % 0 %; Platelet Count 336 10^3/cmm (130-400); Red Blood Count 3.47 10^6/uL (4.1-5.3); Red Cell Distribution Width 15.1 % (12.1-15.1); White Blood Count 8.2 10^3/uL (4.0-10.0)
[2022-02-14 05:59] LABS: Anion Gap 7.2 (5-19); Blood Urea Nitrogen 5 mg/dL (8-23); Calcium 7.4 mg/dL (8.5-10.5); Carbon Dioxide 35 mmol/L (22-29); Chloride 103 mmol/L (98-107); Glomerular Filtration Rate 134.8 mL/min (90-130); Glucose 89 mg/dL (65-115); Magnesium 1.9 mg/dL (1.7-2.3); Osmolality Calculated 289 mOsm/kg (285-295); Potassium 4.2 mmol/L (3.5-5.1); Sodium 141 mmol/L (136-145)
[2022-02-14] MEDS: albuterol 8 gm MDI 2 PUFF INHALATION ×2 (07:30→22:11)
[2022-02-14] MEDS: budesonide 0.5 mg/2 mL Neb INHALATION ×2 (07:30→20:19)
[2022-02-14] MEDS: ALPRAZolam 0.5 mg Tablet 0.25 MG PO ×2 (09:31→20:51)
[2022-02-14] MEDS: nicotine 14 mg Patch 1 PATCH TRANSDERMA (09:31)
[2022-02-14] MEDS: lisinopril 2.5 mg Tablet PO (09:32)
[2022-02-14] MEDS: potassium chloride oral liq 20 mEq/15 mL UDC PO ×3 (09:33→20:54)
--- NOTE | 2022-02-14 11:04 | PM.PN ---
Subjective Subjective: Seen this morning. Patient reported 10 bowel movements since yesterday which are uncontrollable and he is incontinent of bowel at times. Nursing staff however reported 5 bowel movements. Patient states that his abdomen overall feels a little better but he feels he is not quite there yet. He is requesting something for stopping his diarrhea. It is also reported the patient is not wanting to work with physical therapy. Vitals/I&O/Wt Last Vital Signs Temp 97.8 F 02/14/22 08:00 Pulse 92 02/14/22 08:00 Resp 13 02/14/22 08:00 BP 112/70 02/14/22 08:00 Pulse Ox 94 02/14/22 08:00 02/13/22 02/14/22 02/14/22 22:59 06:59 14:59 Intake Total 440 / 640 100 / 740 Output Total 300 / 300 Balance 440 / 640 -200 / 440 Weight last 48 hrs Weight 44.271 kg Weight 29.166 kg Physical Exam Narrative: AAO3. NAD. Skin is warm and dry. Moist mucous membranes No respiratory distress Abdomen is soft and nontender. No cyanosis Normal speech No focal deficits. Data : 02/14/22 04:59 02/14/22 05:02 A&P Assessment and plan (1) Clostridium difficile colitis: Status: Acute (2) Sepsis: Status: Acute (3) Abnormal computed tomography angiography (CTA) of abdomen: Status: Acute (4) Colitis: Status: Acute (5) Dilated pancreatic duct: Status: Acute Plan #Sepsis secondary to difficile colitis #Cachexia and severe protein calorie malnutrition #Generalized deconditioning, debilitated state #History of COPD?stable #History of CHF with reduced ejection fraction 41% #Nicotine dependence #Hypertension #Depression/anxiety #Biliary pancreatic dilation without elevation of LFT.? Outpatient follow-up with GI recommended to rule out malignancy and further work-up. . -Continue patient on oral vancomycin. ? We will discuss with director social welfare for placement.? Patient has been referred to [facility]. Pending insurance authorization. ? He will need follow-up with GI in [place] for further work-up of his biliary tract.? A copy of CAT scan from admission was given to patient and his cousin upon the request.? They state they they will need transportation arranged and everything set up as patient cannot get there on his own.? We will be discussing all the above with director social welfare. ? Continue mirtazapine.? Patient on as needed Xanax 3 times daily. -C. difficile treated with oral vancomycin. We will continue for now along with the IV metronidazole. Patient still having uncontrollable bowel movements and increased frequency. We will continue current treatment. I will avoid given Imodium due to active infection. I expect patient to improve over the next few days. Full code Attestations Medical Necessity Statement*: Greater than 48-hour stay for treatment of C. difficile diarrhea. Coding Level of Care Code Acute Coin Machine Mechanic for [facility] Diagnoses Clostridium difficile colitis A04.72 Sepsis A41.9 Abnormal computed tomography angiography (CTA) of abdomen R93.5 Colitis K52.9 Dilated pancreatic duct K86.89
--- NOTE | 2022-02-14 11:26 | PC.SOCIAL ---
IMM Update Pg. 2 of IMM updated and reviewed with patient, who verbalized understanding. Copy provided.
[2022-02-14] MEDS: acetaminophen 325 mg Tablet 650 MG PO ×2 (14:17→20:59)
--- NOTE | 2022-02-14 16:29 | XR_ITS ---
WS: [id number] Right shoulder, 3 views, 02/14/2022 Clinical Data: posterior shoulder and neck pain Comparison: None. Findings: No fractures or dislocations are seen. There is minimal irregularity of the greater tuberosity and of the glenoid fossa. The AC joint is normal. The adjacent right clavicle, right scapula and ribs are n ormal. The soft tissues are unremarkable. XR/XR shoulder RT min 2V* [id number] Impression: Mild osteoarthritis of the right shoulder.
--- NOTE | 2022-02-14 16:29 | XR_ITS ---
WS: [id number] Cervical spine, AP and lateral views, 02/14/2022 Clinical Data: right shoulder/neck posterior pain Comparison: None. Findings: No compression fractures are seen. The disc heights are normal. There is minimal spurring o f the anterior aspect of the vertebral bodies C4, C5 and C6. The C7 vertebral body is obscured on the lateral film by the patient's shoulders. There is no prevertebral soft tissue swelling. The odontoid is unremarkable. The soft tissues of the neck and the lung apices are normal. XR/XR cervical spine 3V* [id number] Impression: Minimal osteoarthritis C4-C6.
[2022-02-14] MEDS: mirtazapine 15 mg Tablet 7.5 MG PO (20:51)
[2022-02-14] MEDS: ondansetron 2 mg/ML SDV 2 mL 4 MG IVP (20:53)
[2022-02-15] VITALS (10 sets, daily range): BP systolic 97–159; BP diastolic 59–101; PULSE 65–112; RESP 16–22; TEMP 36.8–37.3; O2SAT 94–98
[2022-02-15 04:53] LABS: Anion Gap 9.3 (5-19); Blood Urea Nitrogen 8 mg/dL (8-23); Calcium 7.4 mg/dL (8.5-10.5); Carbon Dioxide 31 mmol/L (22-29); Chloride 105 mmol/L (98-107); Glomerular Filtration Rate 166.4 mL/min (90-130); Glucose 143 mg/dL (65-115); Osmolality Calculated 293 mOsm/kg (285-295); Potassium 4.3 mmol/L (3.5-5.1); Sodium 141 mmol/L (136-145)
[2022-02-15] MEDS: metroNIDAZOLE IV 500 MG/100 ML PREMIX 100 MG IV (05:12)
[2022-02-15] MEDS: heparin 5,000 unit/mL INJ 1 mL 5000 UNIT SUBCUT ×2 (05:13→18:57)
[2022-02-15 06:07] LABS: Basophils # 0.1 10^3/uL (0.0-0.1); Basophils % 0.9 %; Eosinophils # 0.2 10^3/uL (0.0-0.8); Eosinophils % 2.9 %; Hematocrit 33.4 % (42.0-52.0); Lymphocytes # 1.2 10^3/uL (0.8-4.8); Mean Corpuscular HGB Conc 29.9 g/dL (30.0-36.0); Mean Corpuscular Hemoglobin 29.4 pg (28.0-34.0); Mean Corpuscular Volume 98.2 fl (80-94); Mean Platelet Volume 9.6 fL (7.4-10.4); Monocytes # 0.7 10^3/uL (0.2-0.9); Monocytes % 8.7 %; Neutrophils # 5.67 10^3/uL (1.8-7.7); Neutrophils % 69.4 %; Nucleated Red Blood Cells % 0 %; Platelet Count 344 10^3/cmm (130-400); Red Cell Distribution Width 14.9 % (12.1-15.1); White Blood Count 8.2 10^3/uL (4.0-10.0)
[2022-02-15] MEDS: budesonide 0.5 mg/2 mL Neb INHALATION ×2 (08:10→20:32)
[2022-02-15] MEDS: albuterol 8 gm MDI 2 PUFF INHALATION ×2 (08:10→20:32)
[2022-02-15] MEDS: ondansetron 2 mg/ML SDV 2 mL 4 MG IVP (08:57)
[2022-02-15] MEDS: potassium chloride oral liq 20 mEq/15 mL UDC PO ×3 (08:57→21:16)
[2022-02-15] MEDS: lisinopril 2.5 mg Tablet PO (08:57)
[2022-02-15] MEDS: nicotine 14 mg Patch 1 PATCH TRANSDERMA (08:58)
[2022-02-15] MEDS: ALPRAZolam 0.5 mg Tablet 0.25 MG PO ×2 (09:03→19:00)
--- NOTE | 2022-02-15 09:16 | PC.NURSE ---
Stool vadim/red bm.
--- NOTE | 2022-02-15 10:10 | P.PN_ITS ---
Subjective Subjective: Seen this morning. Patient had 4 small bowel movements that were slightly loose over last 24 hours. He feels a lot better. Also a concern of shoulder pain for which he received an x-ray yesterday. Patient states the pain is chronic for him. Patient has been working with physical therapy as well Vitals/I&O/Wt Last Vital Signs Temp 98.5 F 02/15/22 07:16 Pulse 112 H 02/15/22 08:11 Resp 16 02/15/22 08:11 BP 159/101 02/15/22 07:16 Pulse Ox 95 02/15/22 08:11 02/14/22 02/15/22 02/15/22 22:59 06:59 14:59 Intake Total 680 / 680 100 / 780 Balance 680 / 680 100 / 780 Weight last 48 hrs Weight 44.271 kg Physical Exam Narrative: AAO3. NAD. Skin is warm and dry. Moist mucous membranes No respiratory distress Abdomen is soft and nontender. No cyanosis Normal speech No focal deficits. Data : 02/15/22 05:48 02/15/22 04:04 A&P Assessment and plan (1) Clostridium difficile colitis: Status: Acute (2) Sepsis: Status: Acute (3) Colitis: Status: Acute (4) Smoker: Status: Acute (5) Dilated pancreatic duct: Status: Acute (6) Chronic malnutrition: Status: Acute (7) Alcoholism in remission: Status: Acute (8) Emphysema/COPD: Status: Chronic Qualifiers: Emphysema type: unspecified Qualified Code(s): J43.9 - Emphysema, unspecified Plan #Sepsis secondary to difficile colitis #Cachexia and severe protein calorie malnutrition #Generalized deconditioning, debilitated state #History of COPD?stable #History of CHF with reduced ejection fraction 41% #Nicotine dependence #Hypertension #Depression/anxiety #Biliary pancreatic dilation without elevation of LFT.? Outpatient follow-up with GI recommended to rule out malignancy and further work-up.? . -Continue patient on oral vancomycin. ? We will discuss with social service director for placement.? Patient has been referred to [facility].? Pending insurance authorization. ? He will need follow-up with GI in [place] for further work-up of his biliary tract.? A copy of CAT scan from admission was given to patient and his cousin upon the request.? They state they they will need transportation arranged and everything set up as patient cannot get there on his own.? We will be discussing all the above with social service director. ? Continue mirtazapine.? Patient on as needed Xanax 3 times daily. -C. difficile treated with oral vancomycin.? We will stop IV metronidazole today. ? Medically clear for discharge. Pending placement. Attestations Medical Necessity Statement*: Pending placement. Coding Level of Care Code Acute Geotechnical Laboratory Technician for [facility] Diagnoses Clostridium difficile colitis A04.72 Sepsis A41.9 Colitis K52.9 Smoker F17.200 Dilated pancreatic duct K86.89 Chronic malnutrition E46 Alcoholism in remission F10.21 Emphysema/COPD J43.9 Emphysema type: unspecified
[2022-02-15] MEDS: mirtazapine 15 mg Tablet 7.5 MG PO (21:13)
[2022-02-16] VITALS (9 sets, daily range): BP systolic 100–112; BP diastolic 65–69; PULSE 86–110; RESP 14–22; TEMP 36.3–37.1; O2SAT 95–98
[2022-02-16] MEDS: acetaminophen 325 mg Tablet 650 MG PO (02:13)
[2022-02-16] MEDS: ALPRAZolam 0.5 mg Tablet 0.25 MG PO ×3 (03:36→20:23)
[2022-02-16] MEDS: albuterol 8 gm MDI 2 PUFF INHALATION ×4 (03:58→20:56)
[2022-02-16] MEDS: heparin 5,000 unit/mL INJ 1 mL 5000 UNIT SUBCUT ×2 (05:34→17:15)
[2022-02-16] MEDS: potassium chloride oral liq 20 mEq/15 mL UDC PO ×3 (08:22→20:22)
[2022-02-16] MEDS: nicotine 14 mg Patch 1 PATCH TRANSDERMA (08:22)
[2022-02-16] MEDS: lisinopril 2.5 mg Tablet PO (08:22)
[2022-02-16] MEDS: budesonide 0.5 mg/2 mL Neb INHALATION ×2 (08:46→20:56)
--- NOTE | 2022-02-16 10:38 | PC.SOCIAL ---
IMM Update pg 2 of IMM updated and reviewed w/ patient. Copy provided and Copy in chart updated.
--- NOTE | 2022-02-16 11:13 | P.PN_ITS ---
Subjective Subjective: seen today. pt states he feels a lot better he is requesting new nasal cannula Vitals/I&O/Wt Last Vital Signs Temp 97.3 F L 02/16/22 07:34 Pulse 108 H 02/16/22 10:20 Resp 20 H 02/16/22 10:20 BP 108/69 02/16/22 07:34 Pulse Ox 96 02/16/22 10:20 02/15/22 02/16/22 02/16/22 22:59 06:59 14:59 Intake Total 310 / 310 560 / 870 Output Total 600 / 600 Balance 310 / 310 -40 / 270 Weight last 48 hrs Weight 39.19 kg Weight 39.825 kg Physical Exam Narrative: AAO3. NAD. Skin is warm and dry. Moist mucous membranes No respiratory distress Abdomen is soft and nontender. No cyanosis Normal speech No focal deficits. Data : 02/15/22 05:48 02/15/22 04:04 A&P Assessment and plan (1) Clostridium difficile colitis: Status: Acute (2) Dehydration: Status: Acute (3) Dilated pancreatic duct: Status: Acute (4) Abnormal computed tomography angiography (CTA) of abdomen: Status: Acute (5) Smoker: Status: Acute (6) Alcoholism in remission: Status: Acute (7) Chronic malnutrition: Status: Acute Plan #Sepsis secondary to difficile colitis #Cachexia and severe protein calorie malnutrition #Generalized deconditioning, debilitated state #History of COPD?stable #History of CHF with reduced ejection fraction 41% #Nicotine dependence #Hypertension #Depression/anxiety #Biliary pancreatic dilation without elevation of LFT.? Outpatient follow-up with GI recommended to rule out malignancy and further work-up.? . -Continue patient on oral vancomycin. ? We will discuss with dialysis social worker for placement.? Patient has been referred to [facility].? Pending insurance authorization. ? He will need follow-up with GI in [place] for further work-up of his biliary tract.? A copy of CAT scan from admission was given to patient and his cousin upon the request.? They state they they will need transportation arranged and everything set up as patient cannot get there on his own.? We will be discussing all the above with dialysis social worker. ? Continue mirtazapine.? Patient on as needed Xanax 3 times daily. -C. difficile treated with oral vancomycin.? We will stop IV metronidazole today. ? Medically clear for discharge.? Pending placement. Attestations Medical Necessity Statement*: Pending placement. Coding Level of Care Code Acute Insurance Account Specialist for [facility] Diagnoses Clostridium difficile colitis A04.72 Dehydration E86.0 Dilated pancreatic duct K86.89 Abnormal computed tomography angiography (CTA) of abdomen R93.5 Smoker F17.200 Alcoholism in remission F10.21 Chronic malnutrition E46
--- NOTE | 2022-02-16 18:20 | PC.NURSE ---
Patient reported having 5 bowel movements today. Stated that he is feeling much better. He has been eating more today than previous day. Vitals stable. Requested a breathing treatment twice. Will continue to monitor and give report to night nurse.
[2022-02-16] MEDS: mirtazapine 15 mg Tablet 7.5 MG PO (20:22)
[2022-02-17] VITALS (9 sets, daily range): BP systolic 106–126; BP diastolic 58–77; PULSE 102–120; RESP 16–22; TEMP 36.7–37.2; O2SAT 95–97
[2022-02-17] MEDS: heparin 5,000 unit/mL INJ 1 mL 5000 UNIT SUBCUT ×2 (05:18→17:39)
[2022-02-17] MEDS: ALPRAZolam 0.5 mg Tablet 0.25 MG PO ×3 (05:22→20:23)
[2022-02-17] MEDS: albuterol 8 gm MDI 2 PUFF INHALATION ×2 (08:04→12:22)
[2022-02-17] MEDS: budesonide 0.5 mg/2 mL Neb INHALATION ×2 (08:04→20:25)
--- NOTE | 2022-02-17 08:13 | P.PN_ITS ---
Subjective Subjective: seen today. no acute events overnight Vitals/I&O/Wt Last Vital Signs Temp 98.2 F 02/17/22 07:55 Pulse 105 H 02/17/22 08:00 Resp 16 02/17/22 08:00 BP 125/68 02/17/22 07:55 Pulse Ox 96 02/17/22 08:00 02/16/22 02/17/22 02/17/22 22:59 06:59 14:59 Intake Total 240 / 480 540 / 1020 Output Total 800 / 800 Balance 240 / 480 -260 / 220 Weight last 48 hrs Weight 42.638 kg Weight 39.19 kg Physical Exam Narrative: AAO3. NAD. Skin is warm and dry. Moist mucous membranes No respiratory distress Abdomen is soft and nontender. No cyanosis Normal speech No focal deficits. Data : 02/15/22 05:48 02/15/22 04:04 A&P Assessment and plan Plan #Sepsis secondary to difficile colitis #Cachexia and severe protein calorie malnutrition #Generalized deconditioning, debilitated state #History of COPD?stable #History of CHF with reduced ejection fraction 41% #Nicotine dependence #Hypertension #Depression/anxiety #Biliary pancreatic dilation without elevation of LFT.? Outpatient follow-up with GI recommended to rule out malignancy and further work-up.? . -Continue patient on oral vancomycin. ? We will discuss with social sciences department chair for placement.? Patient has been referred to [facility].? Pending insurance authorization. ? He will need follow-up with GI in [place] for further work-up of his biliary tract.? A copy of CAT scan from admission was given to patient and his cousin upon the request.? They state they they will need transportation arranged and everything set up as patient cannot get there on his own.? Pt awaiting placement to custodial. ? Continue mirtazapine.? Patient on as needed Xanax 3 times daily. -C. difficile treated with oral vancomycin.? We will stop IV metronidazole today. ? Medically clear for discharge.? Pending placement. Attestations Medical Necessity Statement*: pending placement Coding Level of Care Code Acute Supervising Law Enforcement Analyst for [facility]
[2022-02-17] MEDS: potassium chloride oral liq 20 mEq/15 mL UDC PO ×3 (08:18→20:20)
[2022-02-17] MEDS: lisinopril 2.5 mg Tablet PO (08:18)
[2022-02-17] MEDS: nicotine 14 mg Patch 1 PATCH TRANSDERMA (08:18)
--- NOTE | 2022-02-17 16:02 | PC.NURSE ---
Patient is still waiting for placement. Vitals stable. No pain. Mild anxiety. Patient requested for a breathing treatment twice. Sat in chair for lunch. Will continue to monitor and give report to night nurse.
[2022-02-17] MEDS: calcium carbonate 500 mg Chew Tablet 1000 MG PO (18:03)
[2022-02-17] MEDS: mirtazapine 15 mg Tablet 7.5 MG PO (20:22)
[2022-02-18] VITALS (9 sets, daily range): BP systolic 109–129; BP diastolic 68–80; PULSE 98–117; RESP 16–22; TEMP 36.7–36.8; O2SAT 94–99
[2022-02-18] MEDS: ALPRAZolam 0.5 mg Tablet 0.25 MG PO ×3 (04:17→19:56)
--- NOTE | 2022-02-18 05:15 | PC.NURSE ---
Patient is waiting for placement. Vitals have been stable. No pain reported to staff. Patient has had miild anxiety. Xanax has been given twice per shift
[2022-02-18] MEDS: heparin 5,000 unit/mL INJ 1 mL 5000 UNIT SUBCUT ×2 (05:25→17:30)
[2022-02-18] MEDS: budesonide 0.5 mg/2 mL Neb INHALATION ×2 (07:25→21:13)
[2022-02-18] MEDS: potassium chloride oral liq 20 mEq/15 mL UDC PO ×3 (08:23→19:57)
[2022-02-18] MEDS: nicotine 14 mg Patch 1 PATCH TRANSDERMA (08:23)
[2022-02-18] MEDS: lisinopril 2.5 mg Tablet PO (08:23)
--- NOTE | 2022-02-18 08:45 | PM.PN ---
Subjective Subjective: seen today. no acute events overnight Vitals/I&O/Wt Last Vital Signs Temp 98.3 F 02/18/22 08:00 Pulse 117 H 02/18/22 08:00 Resp 16 02/18/22 08:00 BP 125/72 02/18/22 08:00 Pulse Ox 95 02/18/22 08:00 Weight last 48 hrs Weight 42.638 kg Physical Exam Narrative: AAO3. NAD. Skin is warm and dry. Moist mucous membranes No respiratory distress Abdomen is soft and nontender. No cyanosis Normal speech No focal deficits. Data : 02/15/22 05:48 02/15/22 04:04 A&P Assessment and plan (1) Clostridium difficile colitis: Status: Acute (2) Dehydration: Status: Acute (3) Abnormal computed tomography angiography (CTA) of abdomen: Status: Acute (4) Dilation of pancreatic duct: Status: Acute (5) Colitis: Status: Acute (6) Dilated cbd, acquired: Status: Acute (7) Dilated pancreatic duct: Status: Acute (8) Alcohol abuse counseling and surveillance: Status: Acute (9) Chronic malnutrition: Status: Acute Plan #Sepsis secondary to difficile colitis #Cachexia and severe protein calorie malnutrition #Generalized deconditioning, debilitated state #History of COPD?stable #History of CHF with reduced ejection fraction 41% #Nicotine dependence #Hypertension #Depression/anxiety #Biliary pancreatic dilation without elevation of LFT.? Outpatient follow-up with GI recommended to rule out malignancy and further work-up.? . -Continue patient on oral vancomycin. ? We will discuss with psychologist social for placement.? Patient has been referred to [facility].? Pending insurance authorization. ? He will need follow-up with GI in [place] for further work-up of his biliary tract.? A copy of CAT scan from admission was given to patient and his cousin upon the request.? They state they they will need transportation arranged and everything set up as patient cannot get there on his own.? [facility] ? Continue mirtazapine.? Patient on as needed Xanax 3 times daily. -C. difficile treated with oral vancomycin.? We will stop IV metronidazole today. ? Medically clear for discharge.? Pending placement. Attestations Medical Necessity Statement*: pending placement Coding Level of Care Code Acute It Program Auditor for g Fwd Diagnoses Clostridium difficile colitis A04.72 Dehydration E86.0 Abnormal computed tomography angiography (CTA) of abdomen R93.5 Dilation of pancreatic duct K86.89 Colitis K52.9 Dilated cbd, acquired K83.8 Dilated pancreatic duct K86.89 Alcohol abuse counseling and surveillance Z71.41 Chronic malnutrition E46
--- NOTE | 2022-02-18 09:26 | PC.SOCIAL ---
IMM Update pg 2 of IMM updated and reviewed w/ patient. Copy provided and Copy in chart updated.
[2022-02-18] MEDS: ondansetron 2 mg/ML SDV 2 mL 4 MG IVP (11:24)
--- NOTE | 2022-02-18 15:33 | PC.NURSE ---
Patient had uneventful shift. Vitals stable. Patient is still eating 50% or more of his food. Patient experienced some nausea after breakfast, zofran given. No pain. Will continue to monitor and give report to night nurse.
[2022-02-18] MEDS: calcium carbonate 500 mg Chew Tablet 1000 MG PO (17:30)
[2022-02-18] MEDS: albuterol 8 gm MDI 2 PUFF INHALATION (18:33)
[2022-02-18] MEDS: mirtazapine 15 mg Tablet 7.5 MG PO (19:56)
[2022-02-19] VITALS (11 sets, daily range): BP systolic 98–118; BP diastolic 58–69; PULSE 95–110; RESP 16–22; TEMP 36.4–37.2; O2SAT 94–100; BMI 15.7
[2022-02-19] MEDS: ALPRAZolam 0.5 mg Tablet 0.25 MG PO ×3 (04:09→23:07)
[2022-02-19 04:56] LABS: Basophils # 0.1 10^3/uL (0.0-0.1); Basophils % 0.9 %; Eosinophils # 0.3 10^3/uL (0.0-0.8); Eosinophils % 3.4 %; Hematocrit 34.7 % (42.0-52.0); Hemoglobin 10.1 g/dL (11.7-16.6); Lymphocytes % 25.4 %; Mean Corpuscular HGB Conc 29.1 g/dL (30.0-36.0); Mean Corpuscular Hemoglobin 29.2 pg (28.0-34.0); Mean Corpuscular Volume 100.3 fl (80-94); Mean Platelet Volume 10.1 fL (7.4-10.4); Monocytes # 0.8 10^3/uL (0.2-0.9); Monocytes % 9.9 %; Neutrophils # 4.61 10^3/uL (1.8-7.7); Neutrophils % 58.9 %; Nucleated Red Blood Cells % 0 %; Platelet Count 466 10^3/cmm (130-400); Red Blood Count 3.46 10^6/uL (4.1-5.3); Red Cell Distribution Width 15.6 % (12.1-15.1); White Blood Count 7.8 10^3/uL (4.0-10.0)
[2022-02-19 05:08] LABS: Anion Gap 11.6 (5-19); Blood Urea Nitrogen 14 mg/dL (8-23); Carbon Dioxide 30 mmol/L (22-29); Chloride 103 mmol/L (98-107); Glomerular Filtration Rate 134.8 mL/min (90-130); Glucose 115 mg/dL (65-115); Osmolality Calculated 291 mOsm/kg (285-295); Potassium 4.6 mmol/L (3.5-5.1); Sodium 140 mmol/L (136-145)
[2022-02-19] MEDS: heparin 5,000 unit/mL INJ 1 mL 5000 UNIT SUBCUT ×2 (05:20→17:13)
--- NOTE | 2022-02-19 08:06 | PC.NURSE ---
Report received from Annelise SIMMS
[2022-02-19] MEDS: potassium chloride oral liq 20 mEq/15 mL UDC PO ×2 (08:35→20:32)
[2022-02-19] MEDS: nicotine 14 mg Patch 1 PATCH TRANSDERMA (08:35)
[2022-02-19] MEDS: lisinopril 2.5 mg Tablet PO (08:36)
[2022-02-19] MEDS: budesonide 0.5 mg/2 mL Neb INHALATION ×2 (09:03→21:27)
--- NOTE | 2022-02-19 12:17 | P.PN_ITS ---
Subjective Subjective: Patient is a 66-year-old male who was being treated for C. difficile colitis. He was seen this morning. He was resting comfortably in bed. He had 1 bowel movement yesterday which was formed. Patient has completed his course of 10 days of oral vancomycin. He has no other concerns or complaints at this time. He is waiting for placement. Vitals/I&O/Wt Last Vital Signs Temp 97.7 F 02/19/22 11:33 Pulse 109 H 02/19/22 11:33 Resp 18 02/19/22 11:33 BP 115/69 02/19/22 11:33 Pulse Ox 97 02/19/22 11:33 02/18/22 02/19/22 02/19/22 22:59 06:59 14:59 Intake Total 400 / 620 420 / 1040 183 / 183 Output Total 300 / 300 Balance 400 / 620 120 / 740 183 / 183 Weight last 48 hrs Weight 43.091 kg Physical Exam Narrative: AAO3. NAD. Skin is warm and dry. Moist mucous membranes No respiratory distress Abdomen is soft and nontender. No cyanosis Normal speech No focal deficits. Data : 02/19/22 03:37 02/19/22 03:37 A&P Assessment and plan (1) Clostridium difficile colitis: Status: Acute (2) Dehydration: Status: Acute (3) Sepsis: Status: Acute (4) Dilated cbd, acquired: Status: Acute (5) Dilated pancreatic duct: Status: Acute (6) Colitis: Status: Acute (7) Abnormal computed tomography angiography (CTA) of abdomen: Status: Acute Plan #Sepsis secondary to difficile colitis #Cachexia and severe protein calorie malnutrition #Generalized deconditioning, debilitated state #History of COPD?stable #History of CHF with reduced ejection fraction 41% #Nicotine dependence #Hypertension #Depression/anxiety #Biliary pancreatic dilation without elevation of LFT.? Outpatient follow-up with GI recommended to rule out malignancy and further work-up.? . -Continue patient on oral vancomycin. ? We will discuss with outreach and education social worker for placement.? Patient has been referred [facility].? Pending insurance authorization. ? He will need follow-up with GI in [place] for further work-up of his biliary tract.? A copy of CAT scan from admission was given to patient and his cousin upon the request.? They state they they will need transportation arranged and everything set up as patient cannot get there on his own.? Pt awaiting placement to [facility]. ? Continue mirtazapine.? Patient on as needed Xanax 3 times daily. -C. difficile treated with oral vancomycin.? Patient is completed treatment at this time. Metronidazole has also been completed. ? Medically clear for discharge.? Pending placement. Attestations Medical Necessity Statement*: Awaiting placement Coding Level of Care Code Acute Counseling Center Manager for [facility] Diagnoses Clostridium difficile colitis A04.72 Dehydration E86.0 Sepsis A41.9 Dilated cbd, acquired K83.8 Dilated pancreatic duct K86.89 Colitis K52.9 Abnormal computed tomography angiography (CTA) of abdomen R93.5
[2022-02-19 14:02] LABS: SARS Covid-2 Antigen Negative (Negative)
[2022-02-19] MEDS: albuterol 8 gm MDI 2 PUFF INHALATION (17:20)
--- NOTE | 2022-02-19 19:18 | PC.NURSE ---
Report to Cinthya SNELL at this time.
[2022-02-19] MEDS: mirtazapine 15 mg Tablet 7.5 MG PO (20:32)
[2022-02-20 02:58] VITALS: BP 112/72; PULSE 98; RESP 18; TEMP 36.8; O2SAT 96
[2022-02-20] MEDS: heparin 5,000 unit/mL INJ 1 mL 5000 UNIT SUBCUT (05:51)
[2022-02-20 07:30] VITALS: PULSE 94; RESP 17; O2SAT 97
[2022-02-20] MEDS: albuterol 8 gm MDI 2 PUFF INHALATION (07:30)
[2022-02-20 07:31] VITALS: BP 106/63; PULSE 95; RESP 18; TEMP 36.8; O2SAT 96
[2022-02-20 07:33] VITALS: PULSE 93
[2022-02-20] MEDS: potassium chloride oral liq 20 mEq/15 mL UDC PO (08:18)
[2022-02-20] MEDS: nicotine 14 mg Patch 1 PATCH TRANSDERMA (08:18)
[2022-02-20] MEDS: lisinopril 2.5 mg Tablet PO (08:19)
[2022-02-20] MEDS: ALPRAZolam 0.5 mg Tablet 0.25 MG PO (08:27)
--- NOTE | 2022-02-20 10:00 | FL_ITS ---
WS: [id number] MODIFIED BARIUM SWALLOW HISTORY: Other dysphagia FLUOROSCOPY TIME: 3min [id number] # of spot films: 1 Modified barium swallow was performed by the speech pathologist. Fluoroscopy was provided with the pa tient in a lateral projection. Multiple food consistencies were provided. Moderate aspiration with thin liquids. The aspiration improved with chin tuck maneuver. No additional aspiration or laryngeal penetration. Patient swallowed the barium tablet with no difficulty. FL/FL barium swallow modifd [id number] IMPRESSION: Moderate aspiration with thin liquids. Aspiration resolved with chin tuck maneu luciana. Please see speech therapist report also for recommendations.
--- NOTE | 2022-02-20 10:50 | PM.DCS ---
Discharge Providers Date of Admission: 02/07/22 17:48 Date of Discharge: February 20, 2022 Attending Provider at Admission: Demetrio Vaughn Attending Provider at Discharge: Melani Caro MD Primary Care Provider: ALLEN Nichole Diagnoses at Discharge Discharge Diagnosis (1) Clostridium difficile colitis: Status: Resolved (2) Dehydration: Status: Resolved (3) Sepsis: Status: Resolved (4) Dilated cbd, acquired: Status: Acute (5) Dilated pancreatic duct: Status: Acute (6) Colitis: Status: Acute (7) Abnormal computed tomography angiography (CTA) of abdomen: Status: Acute Reason for Visit Reason for Visit: Weakness Brief History: As per Dr. Vaughn Jacob Goetz is a 66 year old male? review of systemsWith past medical history of oxygen dependent COPD, continuous tobacco abuse, CHF, EF of 41%, possible noncompliance, recent hospitalization for COPD exacerbation who presented today to emergency room with complaints of generalized weakness, diarrhea.? He reports that his diarrhea started shortly after discharge from the hospital.? He is not very good historian.? He is noted willingly answering to my questions and refusing to provide more details.? However I was able to find out that he is having multiple episodes of diarrhea.? There is no associated significant abdominal pain, vomiting, rectal blood, fever or chills.? No significant changes in his respiratory complaints.? No shortness of breath at rest or wheezing.? No chest pain. In emergency room CT of the abdomen revealed diffuse colitis most likely infectious according to the radiologist.? Also described were common bile duct and pancreatic duct mild dilation.? However there is no associated LFT elevation.? ER physician Dr. Rivero spoke with [facility] on-call GI physician Dr. Belcher.? They reviewed patient's imaging studies and complaints and other data.? Dr. Belcher recommended keeping him here, managing his colitis, ruling out C. difficile and discharging after stabilization with outpatient follow-up for ERCP after discharge.? According to him there is no evidence of cholangitis or biliary obstruction.? Please see radiology report for more details.? Definitely GI malignancy remains a possibility especially considering patient's recent weight loss. Review of systems otherwise is negative except positive and negative pertinent as described above.? All systems reviewed. Reportedly the patient continues smoking.? Has history of remote alcohol use.? Unable to obtain information about possible drug use Hospital Course Hospital Course Patient was admitted for diarrhea. He was positive for C. difficile. He was tx with IV metro and oral vanc. Pt was interested in going to a skilled facility which was setup for day of dischrge but he changed his mind last minute and ended up going home. Also on admission, CT abdomen described common bile duct and pancreatic duct dilation. There was no associated LFT elevation. ER physician called [facility] and spoke to on-call GI physician Dr. Belcher. Patient's imaging studies and complaints and other data were reviewed. Recommended ERCP and outpatient follow-up with GI after discharge. Patient was given a referral for Dr. Belcher at discharge. All this was discussed in detail with patient and his cousin and copy of CAT scan was also given to them. Physical Exam Narrative: AAO3. NAD. Skin is warm and dry. Moist mucous membranes No respiratory distress Abdomen is soft and nontender. No cyanosis Normal speech No focal deficits Discharge Data Studies Completed and Pending Completed Studies During Hospitalization Category Date Time Status CT abdomen pelvis w con* [id number] Urgent Cat Scan 02/07/22 15:09 Completed XR KUB [id number] Routine Exams 02/09/22 08:07 Completed XR cervical spine 3V* [id number] Routine Exams 02/14/22 16:29 Completed XR chest 1V portable [id number] Stat Exams 02/07/22 12:31 Completed XR shoulder RT min 2V* [id number] Routine Exams 02/14/22 16:29 Completed Pending at discharge Category Date Time Status Modified barium swallow [FL barium swallow modifd [id number] Exams 02/20/22 10:00 Taken ] Routine Radiology Impressions Chest X-Ray 02/07/22 12:31 IMPRESSION: 1. Pulmonary hyperinflation which may indicate COPD. No acute process noted. Abdomen/Pelvis CT 02/07/22 15:09 IMPRESSION: 1. Diffuse colonic wall thickening suggesting colitis, likely infectious/inflammatory etiology. Neoplasm or ischemia is less likely due to long segment of involvement however clinical correlation is needed. No pneumatosis, large obstructive mass or free air. No drainable abscess. 2. Pancreatic and biliary ductal dilatation. See discussion above. 3. Other nonacute abdominopelvic findings as above. 4. Abnormal lung findings. See discussion above. KUB X-Ray 02/09/22 08:07 IMPRESSION: 1. No acute abdominal finding. 2. Left lower lobe atelectasis and questionable infiltrate partially visualized. Cervical Spine X-Ray 02/14/22 16:29 Impression: Minimal osteoarthritis C4-C6. Shoulder X-Ray 02/14/22 16:29 Impression: Mild osteoarthritis of the right shoulder. Laboratory Results WBC 7.8 10^3/uL (4.0-10.0) 02/19/22 03:37 Corrected WBC Cancelled 02/15/22 04:04 RBC 3.46 10^6/uL (4.1-5.3) L 02/19/22 03:37 Hgb 10.1 g/dL (11.7-16.6) L 02/19/22 03:37 Hct 34.7 % (42.0-52.0) L 02/19/22 03:37 MCV 100.3 fl (80-94) H 02/19/22 03:37 MCH 29.2 pg (28.0-34.0) 02/19/22 03:37 MCHC 29.1 g/dL (30.0-36.0) L 02/19/22 03:37 RDW 15.6 % (12.1-15.1) H 02/19/22 03:37 Plt Count 466 10^3/cmm (130-400) H 02/19/22 03:37 MPV 10.1 fL (7.4-10.4) 02/19/22 03:37 Gran % Cancelled 02/15/22 04:04 Neut % (Auto) 58.9 % 02/19/22 03:37 Lymph % (Auto) 25.4 % 02/19/22 03:37 [place] % (Auto) 9.9 % 02/19/22 03:37 Eos % (Auto) 3.4 % 02/19/22 03:37 Baso % (Auto) 0.9 % 02/19/22 03:37 Neut # (Auto) 4.61 10^3/uL (1.8-7.7) 02/19/22 03:37 Lymph # (Auto) 2.0 10^3/uL (0.8-4.8) 02/19/22 03:37 [place] # (Auto) 0.8 10^3/uL (0.2-0.9) 02/19/22 03:37 Eos # (Auto) 0.3 10^3/uL (0.0-0.8) 02/19/22 03:37 Baso # (Auto) 0.1 10^3/uL (0.0-0.1) 02/19/22 03:37 Absolute Gran (auto) Cancelled 02/15/22 04:04 Nucleated RBC % (auto) 0 % 02/19/22 03:37 Nucleated RBCs # 0.0 /100WBC 02/19/22 03:37 Sodium 140 mmol/L (136-145) 02/19/22 03:37 Potassium 4.6 mmol/L (3.5-5.1) 02/19/22 03:37 Chloride 103 mmol/L (98-107) 02/19/22 03:37 Carbon Dioxide 30 mmol/L (22-29) H 02/19/22 03:37 Anion Gap 11.6 (5-19) 02/19/22 03:37 BUN 14 mg/dL (8-23) 02/19/22 03:37 Creatinine 0.6 mg/dL (0.7-1.2) L 02/19/22 03:37 GFR Calculation 134.8 mL/min (90-130) H 02/19/22 03:37 Glucose 115 mg/dL (65-115) 02/19/22 03:37 Calculated Osmolality 291 mOsm/kg (285-295) 02/19/22 03:37 Lactate 1.0 mmol/L (0.5-2.2) 02/07/22 13:29 Calcium 9.0 mg/dL (8.5-10.5) 02/19/22 03:37 Phosphorus 2.1 mg/dL (2.5-4.5) L 02/13/22 03:02 Magnesium 2.0 mg/dL (1.7-2.3) 02/19/22 03:37 Total Bilirubin 0.2 mg/dL (0.15-1.2) 02/10/22 05:05 AST 9 U/L (0-40) 02/10/22 05:05 ALT 7 U/L (0-41) 02/10/22 05:05 Alkaline Phosphatase 97 IU/L (40-130) 02/10/22 05:05 C-Reactive Protein 32.5 mg/L (0.0-4.9) H 02/12/22 05:05 Total Protein 4.9 g/dL (6.6-8.7) L 02/10/22 05:05 Albumin 2.1 g/dL (3.5-5.2) L 02/13/22 03:02 Globulin 2.8 g/dL (1.3-4.6) 02/10/22 05:05 Lipase 7 U/L (13-60) L 02/07/22 13:00 Procalcitonin 8.79 ng/mL (0-0.5) H 02/10/22 05:05 Urine Color Yellow (Yellow) 02/07/22 19:21 Urine Appearance Clear (CLEAR) 02/07/22 19:21 Urine pH 5 (5-7) 02/07/22 19:21 Ur Specific [place] 1.010 (1.005-1.030) 02/07/22 19:21 Urine Protein Trace (Negative) 02/07/22 19:21 Urine Glucose (UA) Norm (Normal) 02/07/22 19:21 Urine Ketones Negative (Negative) 02/07/22 19:21 Urine Blood Neg (Negative) 02/07/22 19:21 Urine Nitrate Negative (Negative) 02/07/22 19:21 Urine Bilirubin Neg (Negative) 02/07/22 19:21 Urine Urobilinogen Norm mg/dL (Negative) 02/07/22 19:21 Ur Leukocyte Esterase Negative (Negative) 02/07/22 19:21 Urine RBC 0-4 /hpf (0-2) H 02/07/22 19:21 Urine WBC 0-4 /hpf (0-5) H 02/07/22 19:21 Ur Squamous Epith Cells None /hpf (0-5) 02/07/22 19:21 Ur Transition Epith Cell None /hpf 02/07/22 19:21 Ur Renal Epithelial Cell N /hpf 02/07/22 19:21 Calcium Oxalate Crystal None /hpf 02/07/22 19:21 Uric Acid Crystals N /hpf 02/07/22 19:21 Triple Phos Crystals None /hpf 02/07/22 19:21 Other Crystals N /hpf 02/07/22 19:21 Amorphous Sediment Trace /hpf 02/07/22 19:21 Urine Bacteria None /hpf (NONE) 02/07/22 19:21 Hyaline Casts None /lpf 02/07/22 19:21 Fine Granular Casts None /lpf 02/07/22 19:21 Coarse Granular Casts None /lpf 02/07/22 19:21 RBC Casts None /lpf 02/07/22 19:21 Other Casts N /lpf 02/07/22 19:21 Urine Mucus 1+ /hpf 02/07/22 19:21 Urine Trichomonas None /hpf 02/07/22 19:21 Urine Yeast 1+ /hpf H 02/07/22 19:21 Urine Sperm None /hpf 02/07/22 19:21 Ur Oval Fat Bodies None /hpf 02/07/22 19:21 SARS-CoV-2 Ag (Rapid) Negative (Negative) 02/19/22 13:30 Vitals Last Vital Signs Temp 98.3 F 02/20/22 07:31 Pulse 93 02/20/22 07:33 Resp 18 02/20/22 07:31 BP 106/63 02/20/22 07:31 Pulse Ox 96 02/20/22 07:31 Discharge Plan Discharge Patient Disposition: Home Condition: Stable Prescriptions: Continued albuterol sulfate [ProAir HFA] 90 mcg/actuation HFA aerosol inhaler 2 puff INHALATION Q6H PRN (Reason: shortness of breath or wheezing) Qty: 6.7 12RF alprazolam [Xanax] 0.5 mg tablet 0.5 mg PO TID PRN (Reason: anxiety) 30 Days Qty: 80 2RF Rx Instructions: May fill on or after 02/13 omeprazole 20 mg capsule,delayed release(DR/EC) 20 mg PO DAILY 30 Days Qty: 90 1RF Rx Instructions: Take on empty stomach. lisinopril 5 mg Tablet 5 mg PO DAILY Qty: 30 2RF nicotine 14 mg/24 hr patch 24 hour 1 patch transdermal DAILY Qty: 14 0RF Pepcid AC 20 mg Tablet 40 mg PO BID 0RF Trelegy Ellipta 200-62.5-25 mcg blister with device 1 ea inhalation DAILY 0RF Changed furosemide 40 mg tablet 20 mg PO QAM Qty: 0 0RF Discontinued potassium chloride [Klor-Con] 20 mEq packet See Rx Instructions .ROUTE .COMPLEX Qty: 180 3RF Dose Instruction: MIX PACKET DIRECTED AND TAKE TWICE DAILY MAY TAKE ADDITIONAL DOSE NEEDED FOR WITH FUROSEMIDE Rx Instructions: MIX PACKET DIRECTED ONCE A DAY Discharge Orders: Discharge Order (Routine); Ordered 02/20/22 Ordered By: Melani Caro Other Ambulatory Orders: Basic Metabolic Panel (Routine) Timeframe: 3 Days Facility: [facility] - Location: Lab - Main Lab Ordered By: Melani Caro DME: Walker (Order) Location: None Selected Ordered By: Melani Caro Referrals: rakan belcher [Other] - 7-10 days (CT of the abdomen revealed diffuse colitis most likely infectious according to the radiologist. Also described were common bile duct and pancreatic duct mild dilation.) Shelly Garibay FNP [Primary Care Provider] - 02/27/22 10:30 am Discharge Diet: Cardiac and Low Salt Discharge Activity: Resume usual activity, Use walker/crutches as instructed and Oxygen as instructed Patient Instructions: Dehydration - Adult, C. Diff (Clostridioides Difficile) Infection (DC), Opioid Safety Discharge Attestations Time Spent in Discharge Care*: other Quality Metrics Clinical Quality Measures [ No reported AMI, CVA or VTE this stay] Coding Level of Care Code Acute Chg FW DC note Diagnoses Clostridium difficile colitis A04.72 Dehydration E86.0 Sepsis A41.9 Dilated cbd, acquired K83.8 Dilated pancreatic duct K86.89 Colitis K52.9 Abnormal computed tomography angiography (CTA) of abdomen R93.5
--- NOTE | 2022-02-20 11:05 | PC.SOCIAL ---
IMM Update Pg. 2 of IMM updated and reviewed with patient's cousin. Copy provided.
[2022-02-20 11:47] VITALS: BP 103/62; PULSE 113; RESP 18; TEMP 36.3; O2SAT 98
--- NOTE | 2022-02-20 14:15 | PC.NURSE ---
Spoke to nurse at Dr. Belcher's office in [place] and she states that they have not seen this patient since 2014 and they would need a referral from his primary care or another physician before they will be able to schedule an appointment for a follow for him. Dr. Caro notified.
--- NOTE | 2022-02-20 15:41 | PC.NURSE ---
patient and cousin verbalized understanding of discharge instructions, home medications, and follow up appointments. walker delivered to bedside. prescriptions called to [facility]
[2022-02-20 15:44] VITALS: BP 103/62; PULSE 113; RESP 18; TEMP 36.3; O2SAT 98
== END 2022-02-20 15:45 | disposition home or self-care (01) | DRG 871 ==
LOC: ER 16:42 → MEDSURG 18:42
PROVIDERS: Admitting Provider Internal Medicine; Emergency Provider Emergency Medicine; PCP Registered Nurse; Visit Provider Internal Medicine
DX: A41.9 Sepsis, unspecified organism (principal); E43 Unspecified severe protein-calorie malnutrition; A04.72 Enterocolitis due to Clostridium difficile, not specified as recurrent; I50.22 Chronic systolic (congestive) heart failure; Z68.1 Body mass index [BMI] 19.9 or less, adult; I11.0 Hypertensive heart disease with heart failure; Z99.81 Dependence on supplemental oxygen; F10.11 Alcohol abuse, in remission; F41.9 Anxiety disorder, unspecified; J43.9 Emphysema, unspecified; F17.210 Nicotine dependence, cigarettes, uncomplicated; E86.0 Dehydration; K86.89 Other specified diseases of pancreas; F41.8 Other specified anxiety disorders; Z79.51 Long term (current) use of inhaled steroids; R93.5 Abnormal findings on diagnostic imaging of other abdominal regions, including retroperitoneum; G89.29 Other chronic pain; M19.011 Primary osteoarthritis, right shoulder
CPT/HCPCS: 36415; 71045; 72040; 73030; 74018; 74177; 74181; 74230; 80048; 80053; 80069; 81001; 82274; 83605; 83630; 83690; 83735; 84100; 84145; 85025; 86140; 87040; 87086; 87426; 87493; 87506; 92611; 94640; 94664; 96365; 96367; 96372; 97110; 97116; 97161; 97165; 97530; 99285; J0692; J1644; J2405; J3370; J3480; J3535; J7040; J7050; J7626; Q9967; S0030

== ENCOUNTER → 2022-03-09 11:29 | Outpatient (BNVA) | payer MEDICARE, MEDICAID, SELFPAY | PROVIDERS: PCP Registered Nurse; Visit Provider Registered Nurse | DX: K52.9 Noninfective gastroenteritis and colitis, unspecified (principal) | CPT/HCPCS: 80053; 85025 ==

== ENCOUNTER → 2022-03-23 09:56 | Outpatient (BNVA) | payer MEDICARE, MEDICAID, SELFPAY | PROVIDERS: PCP Registered Nurse; Visit Provider Internal Medicine Pulmonary Disease | DX: J43.9 Emphysema, unspecified (principal); R06.00 Dyspnea, unspecified; Z09 Encounter for follow-up examination after completed treatment for conditions other than malignant neoplasm; Z91.89 Other specified personal risk factors, not elsewhere classified; F17.210 Nicotine dependence, cigarettes, uncomplicated; Z99.81 Dependence on supplemental oxygen | CPT/HCPCS: 99214 ==

== ENCOUNTER 2022-07-09 14:44 | Inpatient (IN) | payer MEDICARE, MEDICAID, SELFPAY ==
[2022-07-09 14:45] VITALS: BP 102/60; PULSE 120; RESP 22; TEMP 38; O2SAT 96; BMI 14.8
--- NOTE | 2022-07-09 14:48 | XRR_ITS ---
PROCEDURE INFORMATION: Exam: XR Chest Exam date and time: 07/09/2022 3:24 PM Age: 67 years old Clinical indication: Cough and shortness of breath; Additional info: SOB TECHNIQUE: Imaging protocol: Radiologic exam of the chest. Views: 1 view. COMPARISON: CR XR chest 1V portable [id number] 02/07/2022 12:35 PM FINDINGS: Lungs: Hyperinflated lungs. Linear opacities in the left lung base. Pleural spaces: Unremarkable. No pleural effusion. No pneumothorax. Heart/Mediastinum: Unremarkable. No cardiomegaly. Bones/joints: Unremarkable. XR/XR chest 1V portable [id number] IMPRESSION: Sequela of COPD. Linear opacities in the left lung base may reflect an infiltrate or focal scarring.
--- NOTE | 2022-07-09 14:53 | W.ED.SOB ---
HPI - SOB/Dyspnea General: Chief Complaint: Shortness of Breath/Dyspnea Stated Complaint: SOB, FEVER, N/V Time Seen by Provider: 07/09/22 14:45 Source: patient and EMS Mode of arrival: EMS Limitations: no limitations History of Present Illness: HPI Narrative: 67-year-old male who has a extensive history of COPD he is on 2 to 3 L of oxygen at home. He states that over the last 2 days he has had increasing cough that is been productive of colored sputum he is also had low-grade fever he does have a fever here 100.4 states he has had to turn his oxygen up from 2-3 EMS states they arrived he did have wheezing they gave breathing treatment and steroid he feels much improved denies any chest pain Associated symptoms: Reports fever(s); Deny abdominal pain, chest pain, nausea or vomiting Review of Systems Const: Reports: fever(s) and body aches Eyes: Denies: blurry vision or eye discomfort ENMT: Denies: throat pain or dental pain Card: Denies: chest pain Resp: Reports: dyspnea, non-productive cough and wheezing GI: Denies: abdominal pain, nausea, vomiting or diarrhea : Denies: dysuria Musc: Denies: neck pain or back pain Skin/Breast: Denies: rash Neuro: Denies: headache(s) Psych: Denies: depression Salty/Lymph: Denies: easy bruising All/Imm: Denies: urticaria PFSH ED PFSH: Medical History AA (alcohol abuse) Acute dyspnea Anxiety Benign essential HTN CHF (congestive heart failure) Chronic respiratory failure Clubbed fingers COPD exacerbation Emphysema/COPD Essential hypertension Generalized anxiety disorder with panic attacks Hypoxemia Leukocytosis Panic attack as reaction to stress Smoking Smoking addiction Tachycardia Family History Son Cancer Grandmother Cancer Mother CAD (coronary artery disease) Dementia Stroke Family/Other Lung disease Other Hyperlipidemia Hypertension Denies family history of Diabetes Clotting disorder Chronic kidney disease (CKD) Suicide Anesthesia complication Bleeding disorder Family history of premature coronary artery disease Social History Smoking and tobacco status: current every day smoker cigarettes Packs smoked per day: 1 Years cigarettes smoked: 56 [ Other cigarette details: started age 10] Alcohol intake: current Adopted: No Caregiver/support person: No Lives independently: Yes Current occupational status: disabled History of recent travel: No Current gender identity: Male Physical Exam Const: COMMON NORMALS: patient oriented x3 GENERAL APPEARANCE: ill appearing and frail appearing HENMT: COMMON NORMALS: normocephalic and atraumatic HEAD & SCALP: normocephalic and atraumatic Eye: COMMON NORMALS: Equal, round and reactive pupils present and EOMs intact bilaterally PUPIL: Yes Equal, round and reactive pupils present Neck/C-Spine: COMMON NORMALS: full ROM and supple Chest: COMMONS NORMALS: normal inspection of the chest and normal palpation of entire chest wall Resp: COMMON NORMALS: No retractions and No use of accessory muscles EFFORT & INSPECTION: Yes tachypneic and Yes labored AUSCULTATION: wheezes Cardio: COMMON NORMALS: regular rate, regular rhythm and No murmurs present (Cardio) RATE: regular rate RHYTHM: regular rhythm GI: COMMON NORMALS: Normal to inspection, nondistended, normoactive bowel sounds present, Soft to palpation, non-tender and no masses PALPATION: Yes Soft to palpation Extremity: COMMON NORMALS: normal to inspection and full ROM Neuro: COMMON NORMALS: patient oriented x3, moves all extremities and no focal motor deficits Psych: COMMON NORMALS: mental status grossly normal, Normal thought process present and cooperative THOUGHT PROCESS: Normal thought process present Skin: COMMON NORMALS: no rashes or lesions noted and no wounds GENERAL SKIN EXAM: no rashes or lesions noted Course Vital Signs: Vital signs: Vital Signs Temperature 100.4 F H 07/09/22 14:45 Pulse Rate 119 H 07/09/22 15:28 Respiratory Rate 16 07/09/22 15:28 Blood Pressure 102/60 07/09/22 14:45 Pulse Oximetry 97 07/09/22 15:28 Oxygen Delivery Me thod 07/09/22 15:28 Oxygen Flow Rate 2.5 07/09/22 15:28 MDM - SOB/Dyspnea Medical Decision Making Patient presents here with cough fever dyspnea likely COPD exacerbation along with a left lower lobe pneumonia. Patient is improved here after breathing treatment does have an elevated white count patient started on IV antibiotics I spoke to the hospitalist will admit at this time. Lab Data : 07/09/22 13:45 07/09/22 13:45 Labs/Radiology: Radiology Impressions Chest X-Ray 07/09/22 14:48 IMPRESSION: Sequela of COPD. Linear opacities in the left lung base may reflect an infiltrate or focal scarring. Laboratory Results WBC 18.2 10^3/uL (4.0-10.0) H 07/09/22 13:45 RBC 4.69 10^6/uL (4.1-5.3) 07/09/22 13:45 Hgb 14.0 g/dL (11.7-16.6) 07/09/22 13:45 Hct 44.6 % (42.0-52.0) 07/09/22 13:45 MCV 95.1 fl (80-94) H 07/09/22 13:45 MCH 29.9 pg (28.0-34.0) 07/09/22 13:45 MCHC 31.4 g/dL (30.0-36.0) 07/09/22 13:45 RDW 14.4 % (12.1-15.1) 07/09/22 13:45 Plt Count 249 10^3/cmm (130-400) 07/09/22 13:45 MPV 10.9 fL (7.4-10.4) H 07/09/22 13:45 Neut % (Auto) 86.8 % 07/09/22 13:45 Lymph % (Auto) 4.8 % 07/09/22 13:45 [place] % (Auto) 7.3 % 07/09/22 13:45 Eos % (Auto) 0.4 % 07/09/22 13:45 Baso % (Auto) 0.3 % 07/09/22 13:45 Neut # (Auto) 15.80 10^3/uL (1.8-7.7) H 07/09/22 13:45 Lymph # (Auto) 0.9 10^3/uL (0.8-4.8) 07/09/22 13:45 [place] # (Auto) 1.3 10^3/uL (0.2-0.9) H 07/09/22 13:45 Eos # (Auto) 0.1 10^3/uL (0.0-0.8) 07/09/22 13:45 Baso # (Auto) 0.1 10^3/uL (0.0-0.1) 07/09/22 13:45 Nucleated RBC % (auto) 0 % 07/09/22 13:45 Nucleated RBCs # 0.0 /100WBC 07/09/22 13:45 Sodium 139 mmol/L (136-145) 07/09/22 13:45 Potassium 3.7 mmol/L (3.5-5.1) 07/09/22 13:45 Chloride 94 mmol/L (98-107) L 07/09/22 13:45 Carbon Dioxide 30 mmol/L (22-29) H 07/09/22 13:45 Anion Gap 18.7 (5-19) 07/09/22 13:45 BUN 23 mg/dL (8-23) 07/09/22 13:45 Creatinine 0.9 mg/dL (0.7-1.2) 07/09/22 13:45 GFR Calculation 84.2 mL/min (90-130) L 07/09/22 13:45 Glucose 161 mg/dL (65-115) H 07/09/22 13:45 Calculated Osmolality 295 mOsm/kg (285-295) 07/09/22 13:45 Lactate 3.2 mmol/L (0.5-2.2) H 07/09/22 15:15 Calcium 9.4 mg/dL (8.5-10.5) 07/09/22 13:45 Total Bilirubin 0.4 mg/dL (0.15-1.2) 07/09/22 13:45 AST 10 U/L (0-40) 07/09/22 13:45 ALT < 5 U/L (0-41) 07/09/22 13:45 Alkaline Phosphatase 59 U/L (40-130) 07/09/22 13:45 NT-Pro-B Natriuret Pep 575 pg/mL (0-125) H 07/09/22 13:45 Total Protein 7.5 g/dL (6.6-8.7) 07/09/22 13:45 Albumin 4.0 g/dL (3.5-5.2) 07/09/22 13:45 Globulin 3.5 g/dL (1.3-4.6) 07/09/22 13:45 SARS-CoV-2 Ag (Rapid) Negative (Negative) 07/09/22 15:10 Critical Care Time Critical Care Time: Critical Care Time: Yes Total Critical Care Time: 41 Attestation: The high probability of a clinically significant, sudden or life threatening deterioration of the patient's resp system(s) required my full and direct attention, intervention and personal management. The critical care time is as shown. This time is in addition to time spent performing any reported procedures but includes the following: [x] Data and vital sign review and interpretation [x] Patient assessment, examination and intervention [x] Documentation [x] Medication orders and management Discharge Plan Discharge Patient Disposition: Admitted As Inpatient Clinical Impression: Community acquired pneumonia Qualifiers: Laterality: left Lung location: lower lobe of lung Qualified Code(s): J18.9 - Pneumonia, unspecified organism Condition: Stable Coding Level of Care Code ED Mechanic Field Service for Zain Goss Exam Comprehensive
[2022-07-09 15:20] LABS: ABG PCO2 46.1 mmHg (35-45); ABG PH Result 7.42 (7.35-7.45); Arterial Blood Gas Hematocrit 42.1 % (42-52); Base Excess ABG 4.5 mmol/L (-2.0-2.0); Blood Gas Allen Test Pos; Blood Gas Sample Site Radial, right; Blood Gas Sample Type Arterial; HCO3 ABG 29.8 mmol/L (22-26); Oxygen Device NC; PO2 ABG 67.8 mmHg (80.0-100.0)
[2022-07-09] MEDS: levalbuterol 1.25 mg/3 mL Neb INHALATION (15:26)
[2022-07-09 15:28] VITALS: PULSE 119; RESP 16; O2SAT 97
[2022-07-09] MEDS: acetaminophen 325 mg Tablet 650 MG PO (15:35)
[2022-07-09 15:43] LABS: Basophils # 0.1 10^3/uL (0.0-0.1); Basophils % 0.3 %; Eosinophils # 0.1 10^3/uL (0.0-0.8); Eosinophils % 0.4 %; Hematocrit 44.6 % (42.0-52.0); Lymphocytes # 0.9 10^3/uL (0.8-4.8); Lymphocytes % 4.8 %; Mean Corpuscular HGB Conc 31.4 g/dL (30.0-36.0); Mean Corpuscular Hemoglobin 29.9 pg (28.0-34.0); Mean Corpuscular Volume 95.1 fl (80-94); Mean Platelet Volume 10.9 fL (7.4-10.4); Monocytes # 1.3 10^3/uL (0.2-0.9); Monocytes % 7.3 %; Neutrophils % 86.8 %; Nucleated Red Blood Cells % 0 %; Platelet Count 249 10^3/cmm (130-400); Red Blood Count 4.69 10^6/uL (4.1-5.3); Red Cell Distribution Width 14.4 % (12.1-15.1); White Blood Count 18.2 10^3/uL (4.0-10.0)
[2022-07-09 15:52] LABS: SARS Covid-2 Antigen Negative (Negative)
[2022-07-09] MEDS: cefTRIAXone 1,000 MG in sodium chloride 0.9% (plus) 50 ML 100 MG IV (16:03)
[2022-07-09] MEDS: sodium chloride 0.9% 1,000 ML 999 ML IV ×2 (16:03)
[2022-07-09 16:13] LABS: Lactate (Lactic Acid level) 3.2 mmol/L (0.5-2.2)
[2022-07-09 16:24] LABS: Alanine Aminotransferase < 5 U/L (0-41); Alkaline Phosphatase 59 U/L (40-130); Anion Gap 18.7 (5-19); Aspartate Amino Transferase 10 U/L (0-40); Blood Urea Nitrogen 23 mg/dL (8-23); Calcium 9.4 mg/dL (8.5-10.5); Carbon Dioxide 30 mmol/L (22-29); Chloride 94 mmol/L (98-107); Globulin 3.5 g/dL (1.3-4.6); Glomerular Filtration Rate 84.2 mL/min (90-130); Glucose 161 mg/dL (65-115); NT Pro B Type Natriuretic Pept 575 pg/mL (0-125); Osmolality Calculated 295 mOsm/kg (285-295); Potassium 3.7 mmol/L (3.5-5.1); Sodium 139 mmol/L (136-145); Total Bilirubin 0.4 mg/dL (0.15-1.2); Total Protein 7.5 g/dL (6.6-8.7)
[2022-07-09 17:02] VITALS: BP 118/54; PULSE 107; RESP 16; O2SAT 99
--- NOTE | 2022-07-09 17:13 | PM.HP ---
Providers/Chief Complaint Primary Care Provider: ALLEN Nichole Chief Complaint: SOB, FEVER, N/V History of Present Illness Pleasant 67-year-old gentleman with history of COPD, normally on 2 L nasal cannula oxygen, has been feeling more short of breath especially with exertion over the last week or so worse in the last several days, presents with productive cough low-grade fever 100.4, his oxygen flow had increased about 3 L. He reports he had 2 episodes of vomiting in the last few days. States several weeks ago had upper endoscopy. He is not sure whether had colonoscopy but does not think so. Does say that results were mostly okay. He denies currently abdominal pain. He says feeling mildly queasy. Denies any diarrhea. Rapid COVID-19 negative in ER. Chest x-ray with sequela of COPD, linear opacities in left lung base possibly infiltrate or focal scarring. Leukocytosis 18.2. 100.4F. Sinus tachycardia 107. Lactate 3.3. In ER blood cultures were collected, he received ceftriaxone and azithromycin, fluid bolus. In terms of CODE STATUS he would want attempted resuscitation, but says would not want persistent repeated attempts in case not successful. Review of Systems Const: Denies: fever(s), chills, body aches or malaise Eyes: Denies: change in vision, eye discomfort or eye redness ENMT: Denies: throat pain, oral sores or ear or mastoid pain Card: Reports: dyspnea on exertion; Denies: chest pain, edema or pre-syncope Resp: Reports: dyspnea, productive cough and change in phlegm color; Denies: hemoptysis GI: Reports: vomiting; Denies: abdominal pain, nausea, diarrhea, constipation, hematochezia or melena : Denies: flank pain, difficulty urinating, urinary frequency or hematuria Musc: Denies: back pain, joint swelling or joint redness Skin/Breast: Denies: rash or new lesions Neuro: Denies: headache(s), numbness in extremities, weakness in extremities, dizziness, confusion or seizure-like activity Endo: Denies: polyuria or polydipsia Salty/Lymph: Denies: easy bleeding or tender lymph nodes All/Imm: Denies: urticaria or tongue swelling Medications/Allergies Home Medications Medication Instructions Recorded Confirmed Last Taken Type lisinopril 5 mg tablet 5 mg PO DAILY #30 tabs 01/11/22 07/09/22 07/09/22 Rx furosemide 40 mg tablet 20 mg PO QAM #0 tabs 02/20/22 07/09/22 02/07/22 Rx 40mg see pharmacy co ipratropium 0.5 mg-albuterol 3 mg 3 ml inhalation Q6H PRN wheezing 03/23/22 07/09/22 Unknown Rx (2.5 mg base)/3 mL nebulization #180 mL soln miscellaneous medical supply #1 ea 03/23/22 07/09/22 Unknown Rx mucus clearing device #1 ea 03/23/22 07/09/22 Unknown Rx albuterol sulfate 90 mcg/actuation 2 puff inhalation Q6H PRN 06/27/22 07/09/22 Unknown Rx aerosol inhaler (ProAir HFA) shortness of breath or wheezing #6.7 grams alprazolam 0.5 mg tablet (Xanax) 0.5 mg PO TID PRN anxiety 30 days 06/27/22 07/09/22 Unknown Rx #75 tabs fluticasone fur. 200 mcg-umeclid 1 inh inhalation DAILY 30 days #1 06/27/22 07/09/22 07/09/22 Rx 62.5 mcg-vilant 25 mcg ea inhalat.powder (Trelegy Ellipta) omeprazole 20 mg capsule,delayed 20 mg PO BID 30 days #60 caps 06/27/22 07/09/22 07/09/22 Rx release potassium chloride 10 mEq 10 meq PO DAILY #90 tabs 06/27/22 07/09/22 07/09/22 Rx tablet,extended release(part/cryst) (Klor-Con M) Allergies Allergy/AdvReac Type Severity Reaction Status Date / Time Penicillins Allergy Mild UNKNOWN Verified 06/27/22 10:01 PFSH Acute PFSH: Medical History (Updated 07/09/22 @ 17:37 by Prosper Reis MD) AA (alcohol abuse) Acute dyspnea Anxiety Benign essential HTN CHF (congestive heart failure) Chronic respiratory failure Clubbed fingers COPD exacerbation Emphysema/COPD Essential hypertension Generalized anxiety disorder with panic attacks Hypoxemia Leukocytosis Panic attack as reaction to stress Smoking Smoking addiction Tachycardia Surgical History (Updated 07/09/22 @ 17:37 by Prosper Reis MD) Hx of tonsillectomy Family History Son Cancer Grandmother Cancer Mother CAD (coronary artery disease) Dementia Stroke Family/Other Lung disease Other Hyperlipidemia Hypertension Denies family history of Diabetes Clotting disorder Chronic kidney disease (CKD) Suicide Anesthesia complication Bleeding disorder Family history of premature coronary artery disease Social History Smoking and tobacco status: current every day smoker cigarettes Packs smoked per day: 1 Years cigarettes smoked: 56 [ Other cigarette details: started age 10] Alcohol intake: current Adopted: No Caregiver/support person: No Lives independently: Yes Current occupational status: disabled History of recent travel: No Current gender identity: Male Vitals/I&O/Wt Last Vital Signs Temp 100.4 F H 07/09/22 14:45 Pulse 107 H 07/09/22 17:02 Resp 16 07/09/22 17:02 BP 118/54 07/09/22 17:02 Pulse Ox 99 07/09/22 17:02 O2 Del Method 07/09/22 17:02 O2 Flow Rate 2.5 07/09/22 15:28 Weight last 48 hrs Weight 40.37 kg Physical Exam Const: COMMON NORMALS: patient oriented x3 and alert GENERAL APPEARANCE: cooperative NUTRITIONAL APPEARANCE: thin ORIENTATION/CONSCIOUSNESS: Yes awake HENMT: COMMON NORMALS: oropharynx normal Neck/C-Spine: COMMON NORMALS: no JVD Resp: COMMON NORMALS: normal respiratory effort and clear to auscultation bilaterally AUSCULTATION: diminished lung sounds Cardio: COMMON NORMALS: no JVD, regular rhythm, S1 normal heart sound present, S2 normal heart sound present and No murmurs present (Cardio) RHYTHM: regular rhythm HEART SOUNDS: S1 normal heart sound present and S2 normal heart sound present GI: COMMON NORMALS: Normal to inspection, nondistended, normoactive bowel sounds present, Soft to palpation and non-tender PALPATION: Yes Soft to palpation Extremity: COMMON NORMALS: no joint enlargement and no pedal edema Neuro: COMMON NORMALS: patient oriented x3 and moves all extremities SENSORIUM/ORIENTATION: Yes alert Skin: COMMON NORMALS: no rashes or lesions noted GENERAL SKIN EXAM: no rashes or lesions noted Data : 07/09/22 13:45 07/09/22 13:45 Micro: Microbiology 07/09/22 15:18 Blood Culture - Preliminary Blood SPECIMEN COLLECTED 07/09/22 15:15 Blood Culture - Preliminary Blood SPECIMEN COLLECTED A&P Assessment and plan (1) Community acquired pneumonia: Community-acquired pneumonia, possible sepsis with leukocytosis 18, sinus tachycardia 107. Blood cultures collected. Lactic acid 3.3. Received fluid bolus, antibiotics. Continue ceftriaxone, azithromycin. Collect sputum culture if able to provide. Oxygen support. Breathing treatments. With history of vomiting cannot exclude aspiration pneumonia. If not improving, consider addition of anaerobic coverage. Inpatient treatment, CV risk group by esvin 65. Status: Acute Qualifiers: Laterality: left Lung location: lower lobe of lung Qualified Code(s): J18.9 - Pneumonia, unspecified organism (2) Nausea and vomiting: Currently mild nausea, no further vomiting. 2 episodes of vomiting in the last week. Denies abdominal pain. Does state that he had EGD done several weeks back in [place]. He is not sure whether colonoscopy was done as well. We will obtain abdominal series x-ray to assess for any free air. PPI, as needed antiemetics. Status: Acute (3) Smoker: Discussed with him smoking cessation for 4 minutes. He is down to about 6 cigarettes/day. Continue replacement as needed. Status: Acute (4) Protein calorie malnutrition: Add Ensure clear to clear liquid diet for now. Once nausea and vomiting without recurrence, please advance diet, continue protein supplements. Consider sales department supervisor consultation. Status: Acute Plan Anxiety HTN CHF COPD, possible exacerbation, with dyspnea, productive cough, but does appear to have pneumonia. Antibiotics as above. Breathing treatments. With nausea and vomiting for now hold steroid, but may need to consider addition in case not improving. Will provide inhaled steroid. Attestations Medical Necessity Statement*: Admission of over 2 midnights is going to be needed for assessment and management of pneumonia and gentleman with underlying comorbidities as above, in severe respiratory by esvin Beyer. Coding Level of Care Code Acute Tamper Operator for g Fwd Exam Comprehensive Diagnoses Community acquired pneumonia J18.9 Laterality: left Lung location: lower lobe of lung Nausea and vomiting R11.2 Smoker F17.200 Protein calorie malnutrition E46
--- NOTE | 2022-07-09 17:15 | XRR_ITS ---
PROCEDURE INFORMATION: Exam: XR Abdomen Exam date and time: 07/09/2022 5:21 PM Age: 67 years old Clinical indication: Abdominal tenderness; Additional info: Vomiting, recent egd TECHNIQUE: Imaging protocol: Radiologic exam of the abdomen. Views: 2 Views. Upright and supine views. COMPARISON: CT abdomen pelvis w con* [id number] 02/07/2022 3:55 PM FINDINGS: Gastrointestinal tract: Diffuse gas-filled small bowel without pathologic distention. Intraperitoneal space: Normal. No free air. Bones/joints: Unremarkable for age. XR/XR acute abdomen series [id number] IMPRESSION: No acute findings.
[2022-07-09] MEDS: azithromycin 500 MG in sodium chloride 0.9% 250 ML 250 MG IV (17:40)
[2022-07-09] MEDS: ALPRAZolam 0.5 mg Tablet PO (17:51)
[2022-07-09] MEDS: pantoprazole DR 40 mg Tablet PO (17:51)
[2022-07-09 18:37] LABS: Lipase 5 U/L (13-60)
[2022-07-09 19:31] LABS: Troponin(5th) Baseline 25 ng/L (0-15)
[2022-07-09 19:40] VITALS: PULSE 91; RESP 20; O2SAT 96
[2022-07-09 20:00] VITALS: BP 92/55; PULSE 92; RESP 114; TEMP 36.8; O2SAT 97; BMI 14.8
[2022-07-09] MEDS: budesonide 0.5 mg/2 mL Neb 0.25 MG INHALATION (20:32)
[2022-07-09] MEDS: ipratropium-albuterol 3 mL Neb INHALATION (20:32)
--- NOTE | 2022-07-09 20:35 | ECG_ITS ---
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 Measurements Intervals [place] Rate: 82 P: 78 DC: 130 QRS: 71 QRSD: 102 T: 77 QT: 393 QTc: 460 Interpretive Statements SINUS RHYTHM POSSIBLE RIGHT VENTRICULAR CONDUCTION DELAY [RSR (QR) IN V1/V2] Compared to ECG 01/25/2022 06:19:29 No significant changes Electronically Signed On 07-10-2022 7:38:28 CDT by Tip Corona M.D. [id number]
[2022-07-09 20:37] VITALS: PULSE 86; RESP 16; O2SAT 96
[2022-07-09] MEDS: heparin 5,000 unit/mL INJ 1 mL 5000 UNIT SUBCUT (21:27)
[2022-07-09 21:32] LABS: Troponin 5 2HR 24.65 ng/L (0-15)
[2022-07-09 21:40] LABS: Troponin 5 2HR Delta -0.35 ABS# (0-10)
[2022-07-10] VITALS (13 sets, daily range): BP systolic 100–153; BP diastolic 55–84; PULSE 82–123; RESP 14–18; TEMP 36.4–36.6; O2SAT 90–96
[2022-07-10 00:43] LABS: Basophils % 0.2 %; Hematocrit 35.5 % (42.0-52.0); Hemoglobin 10.8 g/dL (11.7-16.6); Lymphocytes # 0.7 10^3/uL (0.8-4.8); Lymphocytes % 4.7 %; Mean Corpuscular HGB Conc 30.4 g/dL (30.0-36.0); Mean Corpuscular Hemoglobin 30.2 pg (28.0-34.0); Mean Corpuscular Volume 99.2 fl (80-94); Mean Platelet Volume 10.3 fL (7.4-10.4); Monocytes # 0.4 10^3/uL (0.2-0.9); Monocytes % 2.9 %; Neutrophils # 13.82 10^3/uL (1.8-7.7); Neutrophils % 91.7 %; Nucleated Red Blood Cells % 0 %; Platelet Count 186 10^3/cmm (130-400); Red Blood Count 3.58 10^6/uL (4.1-5.3); Red Cell Distribution Width 14.4 % (12.1-15.1); White Blood Count 15.1 10^3/uL (4.0-10.0)
[2022-07-10 01:01] LABS: Alanine Aminotransferase < 5 U/L (0-41); Albumin Level 2.7 g/dL (3.5-5.2); Alkaline Phosphatase 40 U/L (40-130); Anion Gap 13.9 (5-19); Aspartate Amino Transferase 7 U/L (0-40); Blood Urea Nitrogen 23 mg/dL (8-23); Calcium 7.9 mg/dL (8.5-10.5); Carbon Dioxide 26 mmol/L (22-29); Chloride 103 mmol/L (98-107); Globulin 2.8 g/dL (1.3-4.6); Glomerular Filtration Rate 112.5 mL/min (90-130); Glucose 159 mg/dL (65-115); Osmolality Calculated 295 mOsm/kg (285-295); Potassium 3.9 mmol/L (3.5-5.1); Sodium 139 mmol/L (136-145); Total Bilirubin 0.2 mg/dL (0.15-1.2); Total Protein 5.5 g/dL (6.6-8.7)
[2022-07-10 01:02] LABS: Troponin 5 6HR 21.68 ng/L (0-15)
[2022-07-10 01:12] LABS: Troponin 5 6HR Delta -3.32 ng/L (0-12)
[2022-07-10 01:17] LABS: Slide Review Slide Review Perform
[2022-07-10] MEDS: acetaminophen 325 mg Tablet 650 MG PO ×2 (02:52→18:36)
--- NOTE | 2022-07-10 03:55 | ECG_ITS ---
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 Measurements Intervals [place] Rate: 93 P: 74 ME: 148 QRS: 77 QRSD: 82 T: 79 QT: 345 QTc: 430 Interpretive Statements SINUS RHYTHM POSSIBLE RIGHT VENTRICULAR CONDUCTION DELAY [RSR (QR) IN V1/V2] MODERATE ST DEPRESSION [0.05+ mV ST DEPRESSION] Compared to ECG 07/09/2022 20:35:50 ST (T wave) deviation now present Electronically Signed On 07-10-2022 7:39:15 CDT by Tip Corona M.D. [id number]
[2022-07-10] MEDS: heparin 5,000 unit/mL INJ 1 mL 5000 UNIT SUBCUT ×2 (06:31→18:37)
[2022-07-10] MEDS: ipratropium-albuterol 3 mL Neb INHALATION ×4 (07:55→19:57)
[2022-07-10] MEDS: budesonide 0.5 mg/2 mL Neb 0.25 MG INHALATION ×2 (07:55→19:57)
[2022-07-10] MEDS: ALPRAZolam 0.5 mg Tablet PO ×2 (08:18→18:36)
[2022-07-10] MEDS: pantoprazole DR 40 mg Tablet PO ×2 (08:18→18:37)
[2022-07-10] MEDS: lisinopril 5 mg Tablet PO (08:18)
--- NOTE | 2022-07-10 12:18 | P.PN_ITS ---
Subjective Subjective: Patient was very anxious about his blood pressure and heart rate, I have told him that I will obtain CT chest because he is very malnourished cachectic there is digital clubbing as well Patient took his time to convey his concerns to me Is getting ceftriaxone and azithromycin Vitals/I&O/Wt Last Vital Signs Temp 97.8 F 07/10/22 12:00 Pulse 97 07/10/22 12:00 Resp 18 07/10/22 12:00 BP 131/61 07/10/22 12:00 Pulse Ox 93 07/10/22 12:00 O2 Del Method 07/10/22 12:00 O2 Flow Rate 3 07/10/22 11:44 07/09/22 07/10/22 07/10/22 22:59 06:59 14:59 Intake Total 2320 / 2320 120 / 2440 Output Total 0 / 0 250 / 250 150 / 150 Balance 2320 / 2320 -130 / 2190 -150 / -150 Weight last 48 hrs Weight 40.37 kg Weight 40.37 kg Physical Exam Narrative: Cachectic, malnourished Currently on 3 L nasal cannula Bilateral breath sounds with mild rhonchi Digital clubbing present Abdomen soft EOMI, PERRLA S1, S2 No acute respiratory distress No conversational dyspnea Data : 07/10/22 00:33 07/10/22 00:33 Micro: Microbiology 07/09/22 15:18 Blood Culture - Preliminary Blood SPECIMEN COLLECTED 07/09/22 15:15 Blood Culture - Preliminary Blood SPECIMEN COLLECTED A&P Assessment and plan (1) Protein calorie malnutrition: Status: Acute (2) Community acquired pneumonia: Status: Acute Qualifiers: Laterality: left Lung location: lower lobe of lung Qualified Code(s): J18.9 - Pneumonia, unspecified organism (3) Generalized anxiety disorder with panic attacks: Status: Acute (4) Dependence on continuous supplemental oxygen: Status: Acute (5) Clubbed fingers: Status: Acute (6) Emphysema/COPD: Status: Chronic Qualifiers: Emphysema type: unspecified Qualified Code(s): J43.9 - Emphysema, unspecified Plan Acute on chronic hypoxic At home uses 2 L currently currently on 3 L of oxygen No conversational dyspnea No acute respiratory distress I will obtain CT chest to rule out malignancy patient has digital clubbing, cachexia and malnourishment I will change his IV azithromycin to p.o. Continue ceftriaxone Continue DVT prophylaxis Goals of care discussed with the patient, patient is stating that if Dr. Ingram there is a chance of recovery then go ahead and do everything if there is no chance then limited resuscitation Severe protein calorie malnourishment Added Ensure Active smoker Patient is stating that he was going through pulmonary rehab on recommendation of access liaison now he is not able to do so because of deconditioning, will obtain PT, patient lives alone If he does well with PT I might be able to discharge him home with outpatient pulmonary rehab Attestations Medical Necessity Statement*: Continue hospitalization Time Spent in Patient Care: 40 Coding Level of Care Code Acute Embedded Processor for g Fwd Diagnoses Protein calorie malnutrition E46 Community acquired pneumonia J18.9 Laterality: left Lung location: lower lobe of lung Generalized anxiety disorder with panic attacks F41.1; F41.0 Dependence on continuous supplemental oxygen Z99.81 Clubbed fingers R68.3 Emphysema/COPD J43.9 Emphysema type: unspecified
--- NOTE | 2022-07-10 12:18 | CT_ITS ---
WS: [id number] CT CHEST WITHOUT INTRAVENOUS CONTRAST HISTORY: hypoxia TECHNIQUE: Contiguous 5 mm axial imaging performed on the thorax. Coronal and sagittal reformats are submitted. All CT scans at [facility] use at least one of these dose optimization techniques: automated exposure control; mA and/or kV adjustment per patient size (includes targeted exams where dose is matched to clinical indication); or iterative reconstruction. CONTRAST: None DLP: 217.79 mGy.cm COMPARISON: 01/24/2022 Lungs and central airway: Severe centrilobular emphysema. New area of dense consolidation in the LEFT lower lobe in the dependent portion of the lung and at the lung base. There is also mild volume loss in the LEFT lower lobe. Pleura: Very tiny LEFT pleural effusion. Heart and pericardium: Normal size heart with no pericardial effusion. Mediastinum and serene: No adenopathy identified on this unenhanced exam. Vessels: Mild atherosclerosis aorta. Normal size pulmonary artery. Chest wall and lower neck: No soft tissue masses. Upper abdomen: Hepatic and splenic granulomata. No adrenal mass. Atrophied pancreas. Osseous structures: Stable lytic region since 01/09/2022 in the RIGHT lateral L1 vertebral body. CT/CT chest wo con [id number] IMPRESSION: 1. New dense area of consolidation with mild volume loss in the LEFT lower lob e. Most consistent with pneumonia. Consider aspiration pneumonia and atelectasi s due to the volume loss. 2. Severe centrilobular emphysema.
[2022-07-10] MEDS: cefTRIAXone 1,000 MG in sodium chloride 0.9% (plus) 50 ML 100 MG IV (15:36)
[2022-07-11] VITALS (15 sets, daily range): BP systolic 115–136; BP diastolic 55–74; PULSE 82–105; RESP 15–22; TEMP 36.3–36.8; O2SAT 92–98
[2022-07-11] MEDS: ALPRAZolam 0.5 mg Tablet PO ×3 (04:04→21:33)
[2022-07-11 05:02] LABS: Basophils % 0.1 %; Hemoglobin 10.9 g/dL (11.7-16.6); Lymphocytes # 0.9 10^3/uL (0.8-4.8); Lymphocytes % 6.3 %; Mean Corpuscular HGB Conc 30.3 g/dL (30.0-36.0); Mean Corpuscular Hemoglobin 29.8 pg (28.0-34.0); Mean Corpuscular Volume 98.4 fl (80-94); Mean Platelet Volume 10.5 fL (7.4-10.4); Monocytes # 0.6 10^3/uL (0.2-0.9); Monocytes % 4.4 %; Neutrophils % 88.5 %; Nucleated Red Blood Cells % 0 %; Platelet Count 221 10^3/cmm (130-400); Red Blood Count 3.66 10^6/uL (4.1-5.3); Red Cell Distribution Width 14.3 % (12.1-15.1); White Blood Count 13.7 10^3/uL (4.0-10.0)
[2022-07-11 05:29] LABS: Alanine Aminotransferase < 5 U/L (0-41); Albumin Level 2.8 g/dL (3.5-5.2); Alkaline Phosphatase 47 U/L (40-130); Anion Gap 12.6 (5-19); Aspartate Amino Transferase 12 U/L (0-40); Blood Urea Nitrogen 20 mg/dL (8-23); Calcium 8.5 mg/dL (8.5-10.5); Carbon Dioxide 29 mmol/L (22-29); Chloride 101 mmol/L (98-107); Glomerular Filtration Rate 134.4 mL/min (90-130); Glucose 121 mg/dL (65-115); Osmolality Calculated 292 mOsm/kg (285-295); Potassium 3.6 mmol/L (3.5-5.1); Sodium 139 mmol/L (136-145); Total Bilirubin 0.2 mg/dL (0.15-1.2); Total Protein 5.8 g/dL (6.6-8.7)
[2022-07-11] MEDS: heparin 5,000 unit/mL INJ 1 mL 5000 UNIT SUBCUT ×2 (06:22→17:50)
[2022-07-11] MEDS: budesonide 0.5 mg/2 mL Neb 0.25 MG INHALATION ×2 (08:18→22:06)
[2022-07-11] MEDS: ipratropium-albuterol 3 mL Neb INHALATION ×4 (08:18→22:06)
[2022-07-11] MEDS: lisinopril 10 mg Tablet PO (09:53)
[2022-07-11] MEDS: azithromycin 250 mg Tablet 500 MG PO (09:53)
[2022-07-11] MEDS: pantoprazole DR 40 mg Tablet PO ×2 (09:53→17:50)
[2022-07-11] MEDS: amlodipine 5 mg Tablet 2.5 MG PO (09:53)
[2022-07-11] MEDS: acetaminophen 325 mg Tablet 650 MG PO ×2 (09:58→21:34)
--- NOTE | 2022-07-11 10:27 | P.PN_ITS ---
Subjective Subjective: Patient is stating that he is not ready to go home, today he is on 1 L I have bumped his oxygen requirement to 2 L Which is his home requirement Leukocytosis has not worsened Afebrile Left a voicemail to his daughter Vitals/I&O/Wt Last Vital Signs Temp 98.2 F 07/11/22 08:01 Pulse 90 07/11/22 08:26 Resp 18 07/11/22 08:21 BP 131/74 07/11/22 08:01 Pulse Ox 97 07/11/22 08:21 O2 Del Method 07/11/22 08:21 O2 Flow Rate 2 07/11/22 08:21 07/10/22 07/11/22 07/11/22 22:59 06:59 14:59 Intake Total 530 / 770 Output Total 550 / 700 200 / 900 Balance - -200 / -130 Weight last 48 hrs Weight 40.37 kg Weight 40.37 kg Physical Exam Narrative: Patient was eating breakfast Currently on 2 L of oxygen No acute respiratory distress Bilateral diminished breath sounds No active wheezing Malnourished Cachectic EOMI, PERRLA S1, S2 Abdomen soft No signs of edema Patient is coughing not able to bring up the sputum up Data : 07/11/22 04:39 07/11/22 04:39 Micro: Microbiology 07/09/22 15:18 Blood Culture - Preliminary Blood NEGATIVE TO DATE 07/09/22 15:15 Blood Culture - Preliminary Blood NEGATIVE TO DATE A&P Assessment and plan (1) Protein calorie malnutrition: Status: Acute (2) Community acquired pneumonia: Status: Acute Qualifiers: Laterality: left Lung location: lower lobe of lung Qualified Code(s): J18.9 - Pneumonia, unspecified organism (3) Generalized anxiety disorder with panic attacks: Status: Acute (4) At risk for aspiration: Status: Acute (5) Dependence on continuous supplemental oxygen: Status: Acute (6) Chronic respiratory failure: Status: Acute Qualifiers: Respiratory failure complication: hypoxia and hypercapnia Qualified Code(s): J96.11 - Chronic respiratory failure with hypoxia; J96.12 - Chronic respiratory failure with hypercapnia Plan Acute on chronic hypoxia Patient is back to his baseline home requirement of 2 L No worsening of leukocytosis Afebrile Left-sided dense pneumonia Patient has been tolerating his diet very well He is actively smoking at home Counseled him He was attending pulm rehab I might be able to discharge him tomorrow if clinically he stays stable, I have left a voicemail to his daughter I have asked case checker to talk with his daughter as well, he might have to give up his check in order to go to the half-way/rehab for short-term Full code for now DVT prophylaxis on board Hypertension: Patient is normotensive Potassium is stable Attestations Medical Necessity Statement*: Anticipating discharge tomorrow Time Spent in Patient Care: 30 Coding Level of Care Code Acute Infection Control Manager for Chg Fwd Diagnoses Protein calorie malnutrition E46 Community acquired pneumonia J18.9 Laterality: left Lung location: lower lobe of lung Generalized anxiety disorder with panic attacks F41.1; F41.0 At risk for aspiration Z91.89 Dependence on continuous supplemental oxygen Z99.81 Chronic respiratory failure J96.11; J96.12 Respiratory failure complication: hypoxia and hypercapnia
[2022-07-11] MEDS: acetylcysteine 200 mg/mL SDV 4 mL INHALATION ×3 (12:58→22:07)
--- NOTE | 2022-07-11 13:22 | PC.CHAP ---
Pastoral Care Encounter/Spiritual Assessment Type of Contact [] Declined mechanist visit [] Patient/Family/Request visit [] Outpatient visit [] Follow-up visit [] Physician referral [] Code/Alert [x] Routine visit [] Staff referral [] Actively dying [] Patient sleeping [] Family support [] [] Out of room [] Palliative care [] [] Receiving care in room [] Pre-surgical visit [] Trauma [] Long length of stay [] ICU visit [] Other: Relational/Emotional Strength [x] Patient feels connected with others/family/visitors/staff [] Distress [] Loneliness/isolation [] Abandonment Spirituality of Patient [x] Person of Marya [] Attends Methodist of their Marya []x Believes in Prayer [] Reads Bible or Protestant materials [] There are Spiritual issues to be addressed Line Decorator Interventions x] Spiritual/emotional support [] Crisis/trauma care [] Spiritual counseling [] Bereavement support [] Provided bereavement packet [] Provided Bible/devotional materials [] Provided toy/stuffed animal, coloring book to patient or family member [] Provided Communion [] Anointing/[place] [] Salvation xx[] Completed spiritual assessment [] Other: Impact on Illness or Injury [] Angry [] Fearful [] Anxious [] Often cries [] Exhaustion [] Unable to work [] Unable to attend anglican [] Unable to walk/stand [] Unable to read [] Unable to drive [] Unable to eat/drink [] Unable to sleep [] Unable to be with family [] Patient intubated [] Other: Summary Time spent with patient 10 min
[2022-07-11 16:02] LABS: D Dimer 0.65 ug/mIFEU (0-0.59)
--- NOTE | 2022-07-11 16:11 | ECG_ITS ---
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 Measurements Intervals [place] Rate: 95 P: 81 MN: 122 QRS: 63 QRSD: 82 T: 76 QT: 324 QTc: 409 Interpretive Statements SINUS RHYTHM Compared to ECG 07/10/2022 03:55:50 ST (T wave) deviation no longer present Electronically Signed On 07-11-2022 20:50:25 CDT by Janak Lazcano M.D. [id number]
[2022-07-11] MEDS: cefTRIAXone 1,000 MG in sodium chloride 0.9% (plus) 50 ML 100 MG IV (17:50)
[2022-07-11] MEDS: benzonatate 100 mg Capsule 200 MG PO (22:20)
[2022-07-12] VITALS (12 sets, daily range): BP systolic 134–158; BP diastolic 66–86; PULSE 79–91; RESP 16–18; TEMP 36.6–36.7; O2SAT 90–98
[2022-07-12 04:41] LABS: Basophils % 0.2 %; Eosinophils # 0.1 10^3/uL (0.0-0.8); Eosinophils % 0.5 %; Hematocrit 33.7 % (42.0-52.0); Hemoglobin 10.3 g/dL (11.7-16.6); Lymphocytes # 1.6 10^3/uL (0.8-4.8); Lymphocytes % 15.7 %; Mean Corpuscular HGB Conc 30.6 g/dL (30.0-36.0); Mean Corpuscular Hemoglobin 29.9 pg (28.0-34.0); Mean Platelet Volume 10.3 fL (7.4-10.4); Monocytes # 0.6 10^3/uL (0.2-0.9); Monocytes % 5.5 %; Neutrophils # 8.08 10^3/uL (1.8-7.7); Neutrophils % 77.2 %; Nucleated Red Blood Cells % 0 %; Platelet Count 226 10^3/cmm (130-400); Red Blood Count 3.44 10^6/uL (4.1-5.3); Red Cell Distribution Width 14.3 % (12.1-15.1); White Blood Count 10.5 10^3/uL (4.0-10.0)
[2022-07-12 05:03] LABS: Alanine Aminotransferase 8 U/L (0-41); Albumin Level 2.7 g/dL (3.5-5.2); Alkaline Phosphatase 61 U/L (40-130); Aspartate Amino Transferase 14 U/L (0-40); Blood Urea Nitrogen 13 mg/dL (8-23); Calcium 8.3 mg/dL (8.5-10.5); Carbon Dioxide 32 mmol/L (22-29); Chloride 105 mmol/L (98-107); Globulin 2.9 g/dL (1.3-4.6); Glomerular Filtration Rate 134.4 mL/min (90-130); Glucose 100 mg/dL (65-115); Osmolality Calculated 298 mOsm/kg (285-295); Sodium 144 mmol/L (136-145); Total Bilirubin 0.2 mg/dL (0.15-1.2); Total Protein 5.6 g/dL (6.6-8.7)
[2022-07-12 05:06] LABS: Anion Gap 10.2 (5-19)
[2022-07-12 05:07] LABS: Potassium 3.2 mmol/L (3.5-5.1)
--- NOTE | 2022-07-12 05:44 | PC.NURSE ---
BM'S Pt c/o bowels being loose. X3 reported this shift while up to bathroom. Were not seen by nurse. Container placed in bathroom to monitor and collect spec to check for C-diff if needed.
[2022-07-12] MEDS: heparin 5,000 unit/mL INJ 1 mL 5000 UNIT SUBCUT ×2 (06:17→18:24)
[2022-07-12] MEDS: ALPRAZolam 0.5 mg Tablet PO ×2 (06:20→20:25)
[2022-07-12] MEDS: acetylcysteine 200 mg/mL SDV 4 mL INHALATION ×4 (08:28→20:55)
[2022-07-12] MEDS: budesonide 0.5 mg/2 mL Neb 0.25 MG INHALATION ×2 (08:28→20:55)
[2022-07-12] MEDS: ipratropium-albuterol 3 mL Neb INHALATION ×4 (08:28→20:55)
[2022-07-12] MEDS: potassium chloride ER 20 mEq Tablet 40 MEQ PO (08:42)
[2022-07-12] MEDS: lidocaine 1% 5 ML in potassium chloride premix 100 ML 50 ML IV (08:43)
[2022-07-12] MEDS: acetaminophen 325 mg Tablet 650 MG PO ×2 (08:44→18:24)
[2022-07-12] MEDS: pantoprazole DR 40 mg Tablet PO ×2 (08:45→18:25)
[2022-07-12] MEDS: amlodipine 5 mg Tablet 2.5 MG PO (08:45)
[2022-07-12] MEDS: azithromycin 250 mg Tablet 500 MG PO (08:45)
[2022-07-12] MEDS: lisinopril 10 mg Tablet PO (08:45)
--- NOTE | 2022-07-12 10:46 | PC.SOCIAL ---
IMM update IMM updated with patient at bedside. Copy of page 2 provided. Patient verbalized understanding. Copy in chart initialed, timed and dated.
--- NOTE | 2022-07-12 11:33 | PM.PN ---
Subjective Subjective: Patient does not want to go to any rehab facility Agreeable to go home by tomorrow Currently on 2 L No fever Leukocytosis improved Cultures negative Potassium 3.2 repleted Vitals/I&O/Wt Last Vital Signs Temp 98.1 F 07/12/22 11:23 Pulse 81 07/12/22 11:23 Resp 18 07/12/22 11:23 BP 142/86 07/12/22 11:23 Pulse Ox 92 07/12/22 11:23 O2 Del Method 07/12/22 11:23 O2 Flow Rate 2 07/12/22 11:23 07/11/22 07/12/22 07/12/22 22:59 06:59 14:59 Intake Total 480 / 720 240 / 960 240 / 240 Output Total 400 / 400 Balance 80 / 320 240 / 560 240 / 240 Physical Exam Narrative: Cachectic, malnourished S1, S2 Abdomen soft Currently on 2 L Bilateral diminished breath sounds No active wheezing or crackles No conversational dyspnea Posterior breathing No signs of cyanosis Digital clubbing prominent EOMI, PERRLA Nonfocal neuro exam Complaining of burning around IV, potassium is running Data : 07/12/22 04:12 07/12/22 04:12 A&P Assessment and plan (1) Protein calorie malnutrition: Status: Acute (2) Community acquired pneumonia: Status: Acute Qualifiers: Laterality: left Lung location: lower lobe of lung Qualified Code(s): J18.9 - Pneumonia, unspecified organism (3) Generalized anxiety disorder with panic attacks: Status: Acute (4) At risk for aspiration: Status: Acute (5) Dependence on continuous supplemental oxygen: Status: Acute (6) Chronic respiratory failure: Status: Acute Qualifiers: Respiratory failure complication: hypoxia and hypercapnia Qualified Code(s): J96.11 - Chronic respiratory failure with hypoxia; J96.12 - Chronic respiratory failure with hypercapnia Plan Chronic hypoxia Community-acquired pneumonia Change antibiotics to p.o. only Doing well on 2 L He was able to go home tomorrow Will touch base with his caregiver Patient does have once a week home health services He will also has prescription to see environmental quality analyst for ERCP outpatient No active wheezing Hypokalemia: Repleted Check magnesium level Mild protein calorie malnourishment: Diet supplementation provided Chest congestion, productive cough, he is getting acetylcysteine/Tessalon Perles DVT prophylaxis Heparin Attestations Medical Necessity Statement*: Discharge tomorrow Time Spent in Patient Care: 40 Coding Level of Care Code Acute General Service Officer for Chg Fwd Diagnoses Protein calorie malnutrition E46 Community acquired pneumonia J18.9 Laterality: left Lung location: lower lobe of lung Generalized anxiety disorder with panic attacks F41.1; F41.0 At risk for aspiration Z91.89 Dependence on continuous supplemental oxygen Z99.81 Chronic respiratory failure J96.11; J96.12 Respiratory failure complication: hypoxia and hypercapnia
[2022-07-12] MEDS: potassium chloride ER 20 mEq Tablet PO (12:54)
[2022-07-12] MEDS: magnesium oxide 400 mg tablet PO (18:24)
[2022-07-12] MEDS: doxycycline 100 mg Tablet PO (18:25)
[2022-07-13] VITALS (13 sets, daily range): BP systolic 144–159; BP diastolic 75–85; PULSE 84–101; RESP 16–18; TEMP 36.6–36.8; O2SAT 92–97
[2022-07-13] MEDS: acetaminophen 325 mg Tablet 650 MG PO ×3 (00:17→18:00)
[2022-07-13] MEDS: ALPRAZolam 0.5 mg Tablet PO ×3 (04:39→22:29)
[2022-07-13 05:38] LABS: Anion Gap 11.4 (5-19); Blood Urea Nitrogen 7 mg/dL (8-23); Calcium 8.7 mg/dL (8.5-10.5); Carbon Dioxide 33 mmol/L (22-29); Chloride 103 mmol/L (98-107); Glomerular Filtration Rate 165.9 mL/min (90-130); Glucose 113 mg/dL (65-115); Magnesium 1.7 mg/dL (1.7-2.3); Osmolality Calculated 297 mOsm/kg (285-295); Potassium 3.4 mmol/L (3.5-5.1); Sodium 144 mmol/L (136-145)
[2022-07-13] MEDS: heparin 5,000 unit/mL INJ 1 mL 5000 UNIT SUBCUT ×2 (06:27→17:49)
[2022-07-13] MEDS: amlodipine 5 mg Tablet 2.5 MG PO (08:57)
[2022-07-13] MEDS: doxycycline 100 mg Tablet PO ×2 (08:59→17:49)
[2022-07-13] MEDS: lisinopril 10 mg Tablet PO (08:59)
[2022-07-13] MEDS: magnesium oxide 400 mg tablet PO ×2 (09:00→17:49)
[2022-07-13] MEDS: pantoprazole DR 40 mg Tablet PO ×2 (09:00→17:49)
[2022-07-13] MEDS: potassium chloride ER 20 mEq Tablet 40 MEQ PO (09:02)
[2022-07-13] MEDS: ipratropium-albuterol 3 mL Neb INHALATION ×4 (09:26→20:35)
[2022-07-13] MEDS: budesonide 0.5 mg/2 mL Neb 0.25 MG INHALATION ×2 (09:26→20:35)
[2022-07-13] MEDS: acetylcysteine 200 mg/mL SDV 4 mL INHALATION ×4 (09:26→20:34)
--- NOTE | 2022-07-13 10:33 | PM.PN ---
Subjective Subjective: 67-year male who was admitted for management evaluation of acute on chronic hypoxia at home he uses 2 L of oxygen has COPD, he was diagnosed with pneumonia, he was put on ceftriaxone and azithromycin, started having diarrhea, C. difficile to be ruled out, and last visit he developed C. difficile diarrhea as well with IV antibiotics, considering he is macerated malnourished deconditioned state I have recommended short-term rehab but patient does not want to go to any rehab facility for now he does not want to give up his check, he wants to go home, his leukocytosis has improved significantly, he remained afebrile, currently saturating well on 2 L nasal cannula, Potassium has been repleted along magnesium Vitals/I&O/Wt Last Vital Signs Temp 98.2 F 07/13/22 08:00 Pulse 89 07/13/22 09:00 Resp 18 07/13/22 09:00 BP 159/85 07/13/22 08:00 Pulse Ox 96 07/13/22 09:00 O2 Del Method 07/13/22 09:00 O2 Flow Rate 2 07/13/22 09:00 07/12/22 07/13/22 07/13/22 22:59 06:59 14:59 Intake Total 375 / 855 250 / 1105 200 / 200 Balance 375 / 855 250 / 1105 200 / 200 Physical Exam Narrative: Patient is doing well on 2 L nasal cannula No acute respite distress He was eating breakfast Awake and alert Nonfocal neuro exam Abdomen soft Malnourished Muscle mass loss Data : 07/12/22 04:12 07/13/22 05:08 A&P Assessment and plan (1) Protein calorie malnutrition: Status: Acute (2) Community acquired pneumonia: Status: Acute Qualifiers: Laterality: left Lung location: lower lobe of lung Qualified Code(s): J18.9 - Pneumonia, unspecified organism (3) Generalized anxiety disorder with panic attacks: Status: Acute (4) Chronic respiratory failure: Status: Acute Qualifiers: Respiratory failure complication: hypoxia and hypercapnia Qualified Code(s): J96.11 - Chronic respiratory failure with hypoxia; J96.12 - Chronic respiratory failure with hypercapnia Plan C. difficile to be ruled out Treatment for pneumonia: Currently patient is doing well on 2 L nasal cannula Plan to discharge him home if C. difficile is negative C. difficile is positive he might need 1 more day with electrolyte replenishment Hypokalemia hypomagnesemia: Replenished Full code Patient has refused to go to senior living Attestations Medical Necessity Statement*: Discharge today versus tomorrow Time Spent in Patient Care: 35 Coding Level of Care Code Acute Costume Maker for Chg Fwd Diagnoses Protein calorie malnutrition E46 Community acquired pneumonia J18.9 Laterality: left Lung location: lower lobe of lung Generalized anxiety disorder with panic attacks F41.1; F41.0 Chronic respiratory failure J96.11; J96.12 Respiratory failure complication: hypoxia and hypercapnia
--- NOTE | 2022-07-13 20:18 | PC.NURSE ---
Spoke with regarding patient on PO Vanco for possible Cdiff but patients CDiff came back negative. Dr Wade said continue Vanco for right now and Dr Haider can decide tomorrow if he wants it discontinued.
[2022-07-14] VITALS (10 sets, daily range): BP systolic 147–155; BP diastolic 72–88; PULSE 84–99; RESP 16–17; TEMP 36.6–36.8; O2SAT 95–98
[2022-07-14] MEDS: acetaminophen 325 mg Tablet 650 MG PO (04:10)
[2022-07-14 05:53] LABS: Anion Gap 11.9 (5-19); Blood Urea Nitrogen 7 mg/dL (8-23); Calcium 8.6 mg/dL (8.5-10.5); Carbon Dioxide 32 mmol/L (22-29); Chloride 102 mmol/L (98-107); Glomerular Filtration Rate 165.9 mL/min (90-130); Glucose 98 mg/dL (65-115); Osmolality Calculated 292 mOsm/kg (285-295); Potassium 3.9 mmol/L (3.5-5.1); Sodium 142 mmol/L (136-145)
[2022-07-14] MEDS: heparin 5,000 unit/mL INJ 1 mL 5000 UNIT SUBCUT (06:20)
--- NOTE | 2022-07-14 07:44 | P.DS_ITS ---
Discharge Providers Date of Admission: 07/09/22 18:47 Date of Discharge: July 14, 2022 Attending Provider at Admission: Prosper Reis Attending Provider at Discharge: Leah Haider MD Primary Care Provider: ALLEN Nichole Diagnoses at Discharge Discharge Diagnosis (1) Protein calorie malnutrition: Status: Acute (2) Community acquired pneumonia: Status: Acute Qualifiers: Laterality: left Lung location: lower lobe of lung Qualified Code(s): J18.9 - Pneumonia, unspecified organism (3) Generalized anxiety disorder with panic attacks: Status: Acute (4) Chronic respiratory failure: Status: Acute Qualifiers: Respiratory failure complication: hypoxia and hypercapnia Qualified Code(s): J96.11 - Chronic respiratory failure with hypoxia; J96.12 - Chronic respiratory failure with hypercapnia Reason for Visit Reason for Visit: SOB, FEVER, N/V Hospital Course Hospital Course 67-year-old male who has history of end-stage COPD, noncompliant, active smoker, lives alone, presented to the hospital for acute on chronic hypoxia related to community-acquired pneumonia he was given ceftriaxone and azithromycin, C. difficile was ruled out, he is extremely nauseated and malnourished CT scan was done to rule out cancer, it only showed consolidation. Patient has been experiencing productive cough. I will prescribe him doxycycline at the time of discharge along Medrol pack. I have requested him to stop taking Lasix and potassium for next 5 to 7 days. We recommended penitentiary placement but patient refused he does not want glucose check not to go to the penitentiary for rehab. He was attending pulmonary rehab before he ended up in the hospital. At home uses 2 L of oxygen at baseline currently he is on 2 L, his oxygen requirement did not worsen. Physical Exam Narrative: Patient is doing well on 2 L nasal cannula No acute respite distress He was eating breakfast Awake and alert Nonfocal neuro exam Abdomen soft Malnourished Muscle mass loss Discharge Data Studies Completed and Pending Completed Studies During Hospitalization Category Date Time Status CT chest wo con [id number] Routine Cat Scan 07/10/22 12:18 Completed XR acute abdomen series [id number] Stat Exams 07/09/22 17:15 Completed XR chest 1V portable [id number] Stat Exams 07/09/22 14:48 Completed Pending at discharge Category Date Time Status Arterial Blood Gas W/O Coox Stat Lab 07/09/22 14:48 Ordered Blood Culture Stat Lab 07/09/22 15:18 Results CDIFF [Clostridioides Difficile PCR] Routine Lab 07/12/22 13:02 Uncollected Sputum Culture and Gram Stain Routine Lab 07/09/22 18:47 Uncollected Radiology Impressions Chest X-Ray 07/09/22 14:48 IMPRESSION: Sequela of COPD. Linear opacities in the left lung base may reflect an infiltrate or focal scarring. Chest/Abdomen X-ray 07/09/22 17:15 IMPRESSION: No acute findings. Chest CT 07/10/22 12:18 IMPRESSION: 1. New dense area of consolidation with mild volume loss in the LEFT lower lobe. Most consistent with pneumonia. Consider aspiration pneumonia and at electasis due to the volume loss. 2. Severe centrilobular emphysema. Laboratory Results WBC 10.5 10^3/uL (4.0-10.0) H 07/12/22 04:12 RBC 3.44 10^6/uL (4.1-5.3) L 07/12/22 04:12 Hgb 10.3 g/dL (11.7-16.6) L 07/12/22 04:12 Hct 33.7 % (42.0-52.0) L 07/12/22 04:12 MCV 98.0 fl (80-94) H 07/12/22 04:12 MCH 29.9 pg (28.0-34.0) 07/12/22 04:12 MCHC 30.6 g/dL (30.0-36.0) 07/12/22 04:12 RDW 14.3 % (12.1-15.1) 07/12/22 04:12 Plt Count 226 10^3/cmm (130-400) 07/12/22 04:12 MPV 10.3 fL (7.4-10.4) 07/12/22 04:12 Neut % (Auto) 77.2 % 07/12/22 04:12 Lymph % (Auto) 15.7 % 07/12/22 04:12 [place] % (Auto) 5.5 % 07/12/22 04:12 Eos % (Auto) 0.5 % 07/12/22 04:12 Baso % (Auto) 0.2 % 07/12/22 04:12 Neut # (Auto) 8.08 10^3/uL (1.8-7.7) H 07/12/22 04:12 Lymph # (Auto) 1.6 10^3/uL (0.8-4.8) 07/12/22 04:12 [place] # (Auto) 0.6 10^3/uL (0.2-0.9) 07/12/22 04:12 Eos # (Auto) 0.1 10^3/uL (0.0-0.8) 07/12/22 04:12 Baso # (Auto) 0.0 10^3/uL (0.0-0.1) 07/12/22 04:12 Nucleated RBC % (auto) 0 % 07/12/22 04:12 Nucleated RBCs # 0.0 /100WBC 07/12/22 04:12 D-Dimer 0.65 ug/mIFEU (0-0.59) H 07/11/22 15:31 Specimen Type Arterial 07/09/22 15:10 Sample Site Radial, right 07/09/22 15:10 ABG pH 7.42 (7.35-7.45) 07/09/22 15:10 ABG pCO2 46.1 mmHg (35-45) H 07/09/22 15:10 ABG pO2 67.8 mmHg (80.0-100.0) L 07/09/22 15:10 ABG HCO3 29.8 mmol/L (22-26) H 07/09/22 15:10 ABG Base Excess 4.5 mmol/L (-2.0-2.0) H 07/09/22 15:10 Quoc Test Pos 07/09/22 15:10 Hematocrit 42.1 % (42-52) 07/09/22 15:10 O2 Delivery Device Nc 07/09/22 15:10 O2 Liters/Min 3.0 % 07/09/22 15:10 FiO2 0.0 % 07/09/22 15:[address] 07/09/22 15:10 Sodium 142 mmol/L (136-145) 07/14/22 04:46 Potassium 3.9 mmol/L (3.5-5.1) 07/14/22 04:46 Chloride 102 mmol/L (98-107) 07/14/22 04:46 Carbon Dioxide 32 mmol/L (22-29) H 07/14/22 04:46 Anion Gap 11.9 (5-19) 07/14/22 04:46 BUN 7 mg/dL (8-23) L 07/14/22 04:46 Creatinine 0.5 mg/dL (0.7-1.2) L 07/14/22 04:46 GFR Calculation 165.9 mL/min (90-130) H 07/14/22 04:46 Glucose 98 mg/dL (65-115) 07/14/22 04:46 Calculated Osmolality 292 mOsm/kg (285-295) 07/14/22 04:46 Lactate 3.2 mmol/L (0.5-2.2) H 07/09/22 15:15 Calcium 8.6 mg/dL (8.5-10.5) 07/14/22 04:46 Magnesium 1.7 mg/dL (1.7-2.3) 07/13/22 05:08 Total Bilirubin 0.2 mg/dL (0.15-1.2) 07/12/22 04:12 AST 14 U/L (0-40) 07/12/22 04:12 ALT 8 U/L (0-41) 07/12/22 04:12 Alkaline Phosphatase 61 U/L (40-130) 07/12/22 04:12 Troponin T Baseline 25 ng/L (0-15) H 07/09/22 19:09 Troponin T 120 Minute 24.65 ng/L (0-15) H 07/09/22 21:05 Delta Troponin T -0.35 ABS# (0-10) L 07/09/22 21:05 Troponin T Hi Sens 6Hr 21.68 ng/L (0-15) H 07/10/22 00:33 Troponin T Hi Sens 6Hr Delta -3.32 ng/L (0-12) L 07/10/22 00:33 NT-Pro-B Natriuret Pep 575 pg/mL (0-125) H 07/09/22 13:45 Total Protein 5.6 g/dL (6.6-8.7) L 07/12/22 04:12 Albumin 2.7 g/dL (3.5-5.2) L 07/12/22 04:12 Globulin 2.9 g/dL (1.3-4.6) 07/12/22 04:12 Lipase 5 U/L (13-60) L 07/09/22 14:00 SARS-CoV-2 Ag (Rapid) Negative (Negative) 07/09/22 15:10 Vitals Last Vital Signs Temp 98.0 F 07/14/22 04:00 Pulse 95 07/14/22 06:00 Resp 16 07/14/22 04:00 BP 150/72 07/14/22 04:00 Pulse Ox 95 07/14/22 04:00 O2 Del Method 07/14/22 04:00 O2 Flow Rate 2 07/14/22 04:00 Discharge Plan Discharge Patient Disposition: Home Condition: Stable Prescriptions: New amlodipine 5 mg Tablet 5 mg PO DAILY Qty: 60 4RF benzonatate 100 mg Capsule 200 mg PO Q6H PRN (Reason: Cough) Qty: 30 0RF doxycycline monohydrate 100 mg Tablet 100 mg PO BID Qty: 14 0RF Magnesium Oxide [Magox] 400 mg PO BID Qty: 6 0RF Mucinex 600 mg tablet extended release 12hr 600 mg PO BID PRN (Reason: cough) Qty: 20 1RF Medrol (Tor) 4 mg tablets,dose pack 4 mg PO DAILY Qty: 21 0RF Continued (DME) mucus clearing device Device See Rx Instructions .Route Qty: 1 0RF Rx Instructions: As directed (DME) miscellaneous medical supply Misc See Rx Instructions .Route Qty: 1 0RF Rx Instructions: [employer] portable oxygen concentrator with supplies ipratropium-albuterol 0.5 mg-3 mg(2.5 mg base)/3 mL solution for nebulization 3 ml inhalation Q6H PRN (Reason: wheezing) Qty: 180 3RF omeprazole 20 mg capsule,delayed release(DR/EC) 20 mg PO BID 30 Days Qty: 60 5RF Rx Instructions: Take on empty stomach. alprazolam [Xanax] 0.5 mg tablet 0.5 mg PO TID PRN (Reason: anxiety) 30 Days Qty: 75 2RF ProAir HFA 90 mcg/actuation HFA aerosol inhaler 2 puff INHALATION Q6H PRN (Reason: shortness of breath or wheezing) Qty: 6.7 13RF Klor-Con M10 10 mEq tablet,ER particles/crystals 10 meq PO DAILY Qty: 90 3RF Trelegy Ellipta 200-62.5-25 mcg blister with device 1 inh inhalation DAILY 30 Days Qty: 1 10RF Changed lisinopril 5 mg Tablet 10 mg PO DAILY Qty: 30 4RF Held furosemide 40 mg tablet 20 mg PO QAM Qty: 0 0RF Hold Instructions: Resume on 07/17/22. Discharge Orders: Discharge Order (Routine); Ordered 07/14/22 Ordered By: Leah Haider Referrals: [facility] [Other] (Please call [facility] 3 days before provider or rehab appointments to schedule rides. ) Shelly Garibay FNP [Primary Care Provider] - 07/20/22 10:30 am Patient Instructions: Benzonatate (By mouth), Decongestant/Expectorant (By mouth), Doxycycline (By mouth), Methylprednisolone (By mouth), Amlodipine (By mouth), Community Acquired Pneumonia (GEN), Opioid Safety Discharge Attestations Time Spent in Discharge Care*: less than 30 min Quality Metrics Clinical Quality Measures [ No reported AMI, CVA or VTE this stay] Coding Level of Care Code Acute Chg FW DC note Diagnoses Protein calorie malnutrition E46 Community acquired pneumonia J18.9 Laterality: left Lung location: lower lobe of lung Generalized anxiety disorder with panic attacks F41.1; F41.0 Chronic respiratory failure J96.11; J96.12 Respiratory failure complication: hypoxia and hypercapnia
[2022-07-14] MEDS: acetylcysteine 200 mg/mL SDV 4 mL INHALATION (08:25)
[2022-07-14] MEDS: ipratropium-albuterol 3 mL Neb INHALATION ×2 (08:25→13:23)
[2022-07-14] MEDS: budesonide 0.5 mg/2 mL Neb 0.25 MG INHALATION (08:25)
[2022-07-14] MEDS: pantoprazole DR 40 mg Tablet PO (09:51)
[2022-07-14] MEDS: lisinopril 10 mg Tablet PO (09:52)
[2022-07-14] MEDS: amlodipine 5 mg Tablet 2.5 MG PO (09:52)
[2022-07-14] MEDS: magnesium oxide 400 mg tablet PO (09:52)
[2022-07-14] MEDS: doxycycline 100 mg Tablet PO (09:52)
[2022-07-14] MEDS: potassium chloride ER 20 mEq Tablet 40 MEQ PO (09:52)
--- NOTE | 2022-07-14 13:40 | PC.SOCIAL ---
IMM Updated Updated pt on IMM. No questions voiced. Provided pt a copy. Initialed, dated, & timed copy in chart.
--- NOTE | 2022-07-14 15:12 | PC.NURSE ---
patient verbalized understanding of home medications, follow up appointments, and discharge instructions. IV removed; medications, and home oxygen has been delivered to patients room. pt waiting on transportation.
--- NOTE | 2022-07-14 17:38 | PC.NURSE ---
CAR TENDER RIDE APPROVED THROUGH GYMNASTICS COACH HARINI RAGSDALE. RIDE ON THEIR WAY.
--- NOTE | 2022-07-14 17:51 | PC.NURSE ---
THIS NURSE CONTACTED [employer] TO CANCEL PATIENT'S MEDICAID RIDE DUE TO RIDE STILL NOT BEING SET UP AT THIS TIME.
== END 2022-07-14 18:05 | disposition home or self-care (01) | DRG 193 ==
LOC: ER 16:24 → MEDSURG 19:37
PROVIDERS: Admitting Provider Internal Medicine; Emergency Provider Emergency Medicine; PCP Registered Nurse; Visit Provider Internal Medicine
DX: J18.9 Pneumonia, unspecified organism (principal); E43 Unspecified severe protein-calorie malnutrition; J96.21 Acute and chronic respiratory failure with hypoxia; J96.22 Acute and chronic respiratory failure with hypercapnia; Z68.1 Body mass index [BMI] 19.9 or less, adult; J43.9 Emphysema, unspecified; Z99.81 Dependence on supplemental oxygen; F10.10 Alcohol abuse, uncomplicated; F41.1 Generalized anxiety disorder; I10 Essential (primary) hypertension; F17.210 Nicotine dependence, cigarettes, uncomplicated; F41.0 Panic disorder [episodic paroxysmal anxiety]; E87.6 Hypokalemia; E83.42 Hypomagnesemia
CPT/HCPCS: 36415; 36600; 71045; 71250; 74022; 80048; 80053; 82803; 83605; 83690; 83735; 83880; 84484; 85025; 85378; 87040; 87426; 87493; 93005; 94640; 96365; 96367; 96372; 97116; 97161; 99285; J0456; J0696; J1644; J3370; J3480; J7030; J7050; J7608; J7614; J7626; Q0144

== ENCOUNTER → 2023-03-26 13:33 | Outpatient (BNVA) | payer MEDICARE, MEDICAID, SELFPAY | PROVIDERS: PCP Registered Nurse; Visit Provider Registered Nurse | DX: E53.8 Deficiency of other specified B group vitamins (principal); I11.0 Hypertensive heart disease with heart failure; E46 Unspecified protein-calorie malnutrition; I50.9 Heart failure, unspecified; E78.5 Hyperlipidemia, unspecified; E55.9 Vitamin D deficiency, unspecified | CPT/HCPCS: 80053; 80061; 82306; 82607; 83880; 84443; 85025 ==

== ENCOUNTER → 2023-05-03 14:26 | Outpatient (BNVA) | payer MEDICARE, MEDICAID, SELFPAY | PROVIDERS: PCP Registered Nurse; Visit Provider Internal Medicine Cardiovascular Disease | DX: R00.0 Tachycardia, unspecified (principal); R09.02 Hypoxemia; I11.0 Hypertensive heart disease with heart failure; I50.9 Heart failure, unspecified; R06.00 Dyspnea, unspecified; R07.89 Other chest pain; F17.210 Nicotine dependence, cigarettes, uncomplicated | CPT/HCPCS: 93242; 93246; 99214 ==

== ENCOUNTER 2023-10-18 12:42 | Inpatient (IN) | payer MEDICARE, MEDICAID, SELFPAY ==
[2023-10-18] VITALS (15 sets, daily range): BP systolic 92–120; BP diastolic 52–67; PULSE 80–107; RESP 15–29; TEMP 36.6–36.8; O2SAT 78–100; BMI 14.6
--- NOTE | 2023-10-18 13:05 | ECG_ITS ---
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 Measurements Intervals [place] Rate: 103 P: 83 [place]: 131 QRS: 73 QRSD: 90 T: 85 QT: 320 QTc: 419 Interpretive Statements SINUS TACHYCARDIA RIGHT ATRIAL ENLARGEMENT [0.3mV P-WAVE] POSSIBLE LEFT ATRIAL ENLARGEMENT [-0.1mV P-WAVE IN V1/V2] POSSIBLE RIGHT VENTRICULAR CONDUCTION DELAY [RSR (QR) IN V1/V2] Compared to ECG 07/11/2022 16:11:40 Atrial abnormality now present Sinus rhythm no longer present Electronically Signed On 10-18-2023 13:28:26 ALTERNATIVE ENERGY ENGINEER by Dexter Romero M.D. [id number]
--- NOTE | 2023-10-18 13:05 | XRR_ITS ---
PROCEDURE INFORMATION: Exam: XR Chest Exam date and time: 10/18/2023 1:36 PM Age: 68 years old Clinical indication: Other: Weakness TECHNIQUE: Imaging protocol: Radiologic exam of the chest. Views: 1 view. COMPARISON: CT chest [facility] [id number] 07/10/2022 1:19 PM FINDINGS: Lungs: Pulmonary hyperinflation without focal consolidation. Mildly increased left lower lung reticulation less pronounced compared to June 2022. No consolidation. Pleural spaces: Unremarkable. No pleural effusion. No pneumothorax. Heart/Mediastinum: Unremarkable. No cardiomegaly. Bones/joints: Unremarkable. XR/XR chest 1V portable [id number] IMPRESSION: COPD and chronic left lower lung reticulation. No consolidation.
--- NOTE | 2023-10-18 13:13 | ED_ITS ---
HPI - Weakness 2 General: Chief complaint: Weakness Stated complaint: generalized weakness Time Seen by Provider: 10/18/23 13:02 History of Present Illness: Presents to the ER with complaints of generalized weakness and going downhill for some time. Patient states has not been able to eat or drink a whole lot for several weeks and has been losing weight unintentionally. Patient states he does not hurt anywhere nor does he have generalized pain. Patient was seen on 10/09/2023 for his family practice and got diagnosed with chronic malnutrition at that time. Patient does have a history of COPD and still smokes. Patient has CHF and also alcohol abuse. Review of Systems 2 General: Reports: 10 or more systems reviewed and unremarkable except in HPI and below PFSH ED 2 PFSH: Medical History Protein calorie malnutrition Nausea and vomiting Community acquired pneumonia Generalized anxiety disorder with panic attacks At risk for aspiration Dependence on continuous supplemental oxygen COPD exacerbation Hypoxemia Tachycardia Acute dyspnea Smoker Leukocytosis Essential hypertension Clubbed fingers Benign essential HTN Smoking addiction Chronic respiratory failure Panic attack as reaction to stress Anxiety Smoking AA (alcohol abuse) CHF (congestive heart failure) Emphysema/COPD Surgical History Hx of tonsillectomy Family History Son Cancer Grandmother Cancer Mother CAD (coronary artery disease) Dementia Stroke Family/Other Lung disease Other Hyperlipidemia Hypertension Denies family history of Diabetes Clotting disorder Chronic kidney disease (CKD) Suicide Anesthesia complication Bleeding disorder Family history of premature coronary artery disease Social History Smoking and tobacco/nicotine status: current every day tobacco/nicotine user cigarettes Packs smoked per day: 1 Years cigarettes smoked: 56 [ Other cigarette details: started age 10] Alcohol intake: current Substance/Drug Use: never Adopted: No Caregiver/support person: No Lives independently: Yes Current occupational status: disabled Current gender identity: Male Physical Exam 2 Const: COMMON NORMALS: no acute distress, average body habitus, patient oriented x3, no limitations, healthy appearing, alert and well nourished HENMT: COMMON NORMALS: normocephalic, hearing grossly normal bilaterally, external ears normal, Normal external nose present, moist oral mucous membranes and oropharynx normal HEAD & SCALP: normocephalic NOSE: Normal external nose present EXTERNAL EAR: Yes external ears normal Eye: COMMON NORMALS: Equal, round and reactive pupils present, EOMs intact bilaterally, conjunctivae normal and no scleral icterus CONJUNCTIVA: Yes conjunctivae normal PUPIL: Yes Equal, round and reactive pupils present Neck/C-Spine: COMMON NORMALS: full ROM, no lymphadenopathy, supple, no meningeal signs, no JVD and Thyroid normal THYROID: Thyroid normal Chest: COMMONS NORMALS: normal inspection of the chest and normal palpation of entire chest wall Resp: COMMON NORMALS: normal respiratory effort, No retractions, No use of accessory muscles and clear to auscultation bilaterally AUSCULTATION: clear to auscultation bilaterally Cardio: COMMON NORMALS: no JVD, regular rate, regular rhythm, S1 normal heart sound present, S2 normal heart sound present, No gallops present (Cardio), No clicks present (Cardio), No murmurs present (Cardio) and No rub (Cardio) R ATE: regular rate RHYTHM: regular rhythm HEART SOUNDS: S1 normal heart sound present and S2 normal heart sound present GI: COMMON NORMALS: Normal to inspection, nondistended, normoactive bowel sounds present, Soft to palpation, non-tender, No hepatosplenomegaly present and no masses PALPATION: Yes Soft to palpation and Yes No hepatosplenomegaly present Neuro: COMMON NORMALS: patient oriented x3 SENSORIUM/ORIENTATION: Yes alert MENINGEAL SIGNS: Yes no meningeal signs Course 2 Vital Signs: Vital signs: Vital Signs Pulse Rate 87 10/18/23 17:00 Respiratory Rate 16 10/18/23 17:00 Blood Pressure 115/57 10/18/23 17:00 Pulse Oximetry 95 10/18/23 17:00 Oxygen Delivery Me thod Nasal Cannula 10/18/23 17:00 Oxygen Flow Rate 6 10/18/23 17:00 Fraction of Inspir ed Oxygen 35 10/18/23 15:57 MDM - Weakness Medical Decision Making Patient had lab work done that included CBC CMP magnesium TSH ABG chest x-ray chest abdomen pelvis CT ABG showed hypercapnia with a pCO2 in the 70s, chest abdomen pelvis CT showed left lower lobe pneumonia. Patient was placed on BiPAP for couple hours and has perked patient up pressure patient was able to be titrated down to nasal cannula on 6 L and His sats up in the mid 90s. Patient was given 1 L normal saline and 3.375 g Zosyn. Discussed patient with Dr. Reis who agreed to accept the patient to the floor for further evaluation and treatment. We will do a D-dimer, COVID PCR, influenza. Differential Diagnosis Unlikely acute myocardial infarction, anemia, hypoglycemia, hypothyroidism, rhabdomyolysis, sepsis or dehydration Medical Records I reviewed the patient's medical records. Lab Data I reviewed the patient's lab results. 10/18/23 13:18 10/18/23 13:18 Radiology Impressions Chest X-Ray 10/18/23 13:05 IMPRESSION: COPD and chronic left lower lung reticulation. No consolidation. Chest/Abdomen/Pelvis CT 10/18/23 15:21 IMPRESSION: 1. COPD with diffuse emphysematous changes. 2. Bronchiectasis with small patchy left peribronchial infiltrate left lower lobe likely secondary to pneumonia. IMPRESSION: 1. No acute findings within the abdomen or pelvis. 2. Stable dilatation of main pancreatic duct without evidence of underlying mass favoring benign etiology. Continued periodic surveillance recommended. 3. There is some narrowing at the origin of the celiac trunk and SMA that could be better assessed on CT angiogram of the abdomen clinically warranted. 4. Additional nonemergent findings as above. Laboratory Results WBC 8.64 10^3/uL (3.29-11.43) 10/18/23 13:18 RBC 3.79 10^6/uL (3.85-5.65) L 10/18/23 13:18 Hgb 11.20 g/dL (11.27-16.99) L 10/18/23 13:18 Hct 36.5 % (37-53) L 10/18/23 13:18 MCV 96.3 fl (82-101) 10/18/23 13:18 MCH 29.6 pg (27-33) 10/18/23 13:18 MCHC 30.7 g/dL (30-55) 10/18/23 13:18 RDW 13.5 % (12.1-15.1) 10/18/23 13:18 Plt Count 132 10^3/cmm (157-399) L 10/18/23 13:18 MPV 10.4 fL (7.4-10.4) 10/18/23 13:18 Neut % (Auto) 84.7 % 10/18/23 13:18 Lymph % (Auto) 7.9 % 10/18/23 13:18 [place] % (Auto) 6.8 % 10/18/23 13:18 Eos % (Auto) 0.0 % 10/18/23 13:18 Baso % (Auto) 0.1 % 10/18/23 13:18 Neut # (Auto) 7.32 10^3/uL (1.8-7.7) 10/18/23 13:18 Lymph # (Auto) 0.7 10^3/uL (0.8-4.8) L 10/18/23 13:18 [place] # (Auto) 0.6 10^3/uL (0.2-0.9) 10/18/23 13:18 Eos # (Auto) 0.0 10^3/uL (0.0-0.8) 10/18/23 13:18 Baso # (Auto) 0.0 10^3/uL (0.0-0.1) 10/18/23 13:18 Nucleated RBC % (auto) 0 % 10/18/23 13:18 Nucleated RBCs # 0.0 /100WBC 10/18/23 13:18 Specimen Type Arterial 10/18/23 13:16 Sample Site Radial, right 10/18/23 13:16 ABG pH 7.33 (7.35-7.45) L 10/18/23 13:16 ABG pCO2 73.7 mmHg (35-45) H* 10/18/23 13:16 ABG pO2 52.5 mmHg (80.0-100.0) L 10/18/23 13:16 ABG PO2/FiO2 Ratio 0 10/18/23 13:16 ABG HCO3 39.1 mmol/L (22-26) H 10/18/23 13:16 ABG O2 Saturation 86.0 10/18/23 13:16 ABG Base Excess 10.7 mmol/L (-2.0-2.0) H 10/18/23 13:16 Quoc Test Pos 10/18/23 13:16 A-a O2 Gradient 11.4 mmHg (5-10) H 10/18/23 13:16 Hematocrit 35.0 % (42-52) L 10/18/23 13:16 Hgb O2 Saturation 84.2 % (95-100) L 10/18/23 13:16 Carboxyhemoglobin 1.4 %THgb (0.4-20.1) 10/18/23 13:16 Methemoglobin 0.8 % (0.4-1.5) 10/18/23 13:16 Total Hemoglobin 11.4 g/dL (14-18) L 10/18/23 13:16 Sodium 141.0 mmol/L (131-143) 10/18/23 13:16 Potassium 3.4 mmol/L (3.5-5.0) L 10/18/23 13:16 Glucose 120.0 mg/dL (70-115) H 10/18/23 13:16 Ionized Calcium 1.2 mmol/L (1.1-1.4) 10/18/23 13:16 O2 Delivery Device Nc 10/18/23 13:16 O2 Liters/Min 3.0 % 10/18/23 13:16 FiO2 32.0 % 10/18/23 13:16 Building Official ID Monro 10/18/23 13:16 Sodium 140 mmol/L (136-145) 10/18/23 13:18 Potassium 3.8 mmol/L (3.5-5.1) 10/18/23 13:18 Chloride 95 mmol/L (98-107) L 10/18/23 13:18 Carbon Dioxide 34 mmol/L (22-29) H 10/18/23 13:18 Anion Gap 14.8 (5-19) 10/18/23 13:18 BUN 26 mg/dL (8-23) H 10/18/23 13:18 Creatinine 0.9 mg/dL (0.7-1.2) 10/18/23 13:18 GFR Calculation 83.9 mL/min (90-130) L 10/18/23 13:18 Glucose 137 mg/dL (65-115) H 10/18/23 13:18 Calculated Osmolality 297 mOsm/kg (285-295) H 10/18/23 13:18 Calcium 8.5 mg/dL (8.5-10.5) 10/18/23 13:18 Magnesium 1.8 mg/dL (1.7-2.3) 10/18/23 13:18 Total Bilirubin 0.2 mg/dL (0.15-1.2) 10/18/23 13:18 AST 43 U/L (0-40) H 10/18/23 13:18 ALT 19 U/L (0-41) 10/18/23 13:18 Alkaline Phosphatase 53 U/L (40-130) 10/18/23 13:18 NT-Pro-B Natriuret Pep 577 pg/mL (0-125) H 10/18/23 13:18 Total Protein 6.7 g/dL (6.6-8.7) 10/18/23 13:18 Albumin 3.6 g/dL (3.5-5.2) 10/18/23 13:18 Globulin 3.1 g/dL (1.3-4.6) 10/18/23 13:18 TSH 0.25 uIU/mL (0.27-4.20) L 10/18/23 13:18 Urine Color Yellow (Yellow) 10/18/23 15:06 Urine Appearance Sl hazy (CLEAR) A 10/18/23 15:06 Urine pH 5 (5-7) 10/18/23 15:06 Ur Specific Carmen 1.025 (1.005-1.030) 10/18/23 15:06 Urine Protein 2+ (Negative) H 10/18/23 15:06 Urine Glucose (UA) Norm (Normal) 10/18/23 15:06 Urine Ketones Negative (Negative) 10/18/23 15:06 Urine Blood 2+ (Negative) H 10/18/23 15:06 Urine Nitrate Negative (Negative) 10/18/23 15:06 Urine Bilirubin Neg (Negative) 10/18/23 15:06 Urine Urobilinogen Norm mg/dL (Negative) 10/18/23 15:06 Ur Leukocyte Esterase Negative (Negative) 10/18/23 15:06 Urine RBC 0-4 /hpf (0-2) H 10/18/23 15:06 Urine WBC 0-4 /hpf (0-5) H 10/18/23 15:06 Ur Squamous Epith Cells 0-4 /hpf (0-5) H 10/18/23 15:06 Amorphous Sediment 1+ /hpf 10/18/23 15:06 Urine Bacteria Trace /hpf (NONE) 10/18/23 15:06 Fine Granular Casts 0-4 /lpf H 10/18/23 15:06 Urine Mucus 1+ /hpf 10/18/23 15:06 All radiology interpretation(s) finalized by discharge EKG Data EKG 1: I personally reviewed and interpreted this EKG as follows: EKG interpretation date: 10/18/23 EKG interpretation time: 13:20 Prior EKG tracings: not available for review Interpretation: EKG showed ventricular rate 103 bpm, NV interval 131, QRS duration 90, QTc of 379, sinus tachycardia, right atrial lodgment, possible left atrial lodgment, possible right ventricular conduction delay, Discharge Plan Discharge Clinical Impression: Chronic malnutrition Left lower lobe pneumonia Qualifiers: Pneumonia type: due to unspecified organism Qualified Code(s): J18.9 - Pneumonia, unspecified organism COPD (chronic obstructive pulmonary disease) Qualifiers: COPD type: COPD with acute lower respiratory infection Qualified Code(s): J44.0 - Chronic obstructive pulmonary disease with (acute) lower respiratory infection Condition: Stable Prescriptions: No Action (DME) mucus clearing device Device See Rx Instructions .Route Qty: 1 0RF Rx Instructions: As directed (DME) miscellaneous medical supply Misc See Rx Instructions .Route Qty: 1 0RF Rx Instructions: Patience portable oxygen concentrator with supplies fluticasone propionate [Flonase Allergy Relief] 50 mcg/actuation spray,suspension 1 spray intranasal DAILY Qty: 16 5RF amlodipine 2.5 mg tablet 2.5 mg PO DAILY 90 Days Qty: 90 1RF alprazolam [Xanax] 0.5 mg tablet 0.5 mg PO TID PRN (Reason: anxiety) 30 Days Qty: 70 5RF (DME) Vanilla Boost See Rx Instructions .Route .MEDSUPPLY Qty: 24 12RF Rx Instructions: one daily Klor-Con M10 10 mEq tablet,ER particles/crystals 10 meq PO DAILY Qty: 180 3RF albuterol sulfate [ProAir HFA] 90 mcg/actuation HFA aerosol inhaler 2 puff INHALATION Q6H PRN (Reason: shortness of breath or wheezing) Qty: 6.7 13RF cholecalciferol (vitamin D3) 1,250 mcg (50,000 unit) tablet 1,250 mcg PO DAILY 90 Days Qty: 12 0RF Dairy Relief 3,000 unit Tablet 3,000 unit PO QID PRN (Reason: Diarrhea) Rx Instructions: administer with meals and/or snacks magnesium 200 mg Tablet 400 mg PO DAILY Mucus Relief Sinus 10-400 mg Tablet 2 tab PO Q4H PRN (Reason: Cold Symptoms) lisinopril 10 mg tablet 10 mg PO DAILY metoprolol tartrate 50 mg tablet 50 mg PO BID omeprazole 20 mg capsule,delayed release(DR/EC) 20 mg PO BID furosemide 20 mg tablet 20 mg PO DAILY mirtazapine 15 mg tablet 15 mg PO DAILY Trelegy Ellipta 200-62.5-25 mcg blister with device 1 ea inhalation DAILY Referrals: Shelly Garibay, LALEN [Primary Care Provider] - Coding Level of Care Code ED Foundation Director for Zain Goss
[2023-10-18] MEDS: sodium chloride 0.9% 1,000 ML 999 ML IV (13:16)
[2023-10-18] MEDS: ondansetron 2 mg/ML SDV 2 mL 4 MG IVP (13:16)
[2023-10-18 13:30] LABS: ABG PCO2 73.7 mmHg (35-45); ABG PH Result 7.33 (7.35-7.45); Alveolar-Arterial Oxygen Gradi 11.4 mmHg (5-10); Base Excess ABG 10.7 mmol/L (-2.0-2.0); Blood Gas Allen Test Pos; Blood Gas Operator Identificat MONRO; Blood Gas Sample Site Radial, right; Blood Gas Sample Type Arterial; Carboxyhemoglobin 1.4 %THgb (0.4-20.1); HCO3 ABG 39.1 mmol/L (22-26); HGB O2 Sat 84.2 % (95-100); Ionized Calcium Level - ABG 1.2 mmol/L (1.1-1.4); Methemoglobin 0.8 % (0.4-1.5); Oxygen Device NC; PO2 ABG 52.5 mmHg (80.0-100.0); PO2 FiO2 Ratio Arterial Blood 0; Potassium Level - ABG 3.4 mmol/L (3.5-5.0); Total Hemoglobin 11.4 g/dL (14-18)
[2023-10-18 13:33] LABS: Basophils % 0.1 %; Hematocrit 36.5 % (37-53); Lymphocytes # 0.7 10^3/uL (0.8-4.8); Lymphocytes % 7.9 %; Mean Corpuscular HGB Conc 30.7 g/dL (30-55); Mean Corpuscular Hemoglobin 29.6 pg (27-33); Mean Corpuscular Volume 96.3 fl (82-101); Mean Platelet Volume 10.4 fL (7.4-10.4); Monocytes # 0.6 10^3/uL (0.2-0.9); Monocytes % 6.8 %; Neutrophils # 7.32 10^3/uL (1.8-7.7); Neutrophils % 84.7 %; Nucleated Red Blood Cells % 0 %; Platelet Count 132 10^3/cmm (157-399); Red Blood Count 3.79 10^6/uL (3.85-5.65); Red Cell Distribution Width 13.5 % (12.1-15.1); White Blood Count 8.64 10^3/uL (3.29-11.43)
[2023-10-18] MEDS: ipratropium-albuterol 3 mL Neb INHALATION ×2 (13:47→20:54)
[2023-10-18 14:01] LABS: Alanine Aminotransferase 19 U/L (0-41); Albumin Level 3.6 g/dL (3.5-5.2); Alkaline Phosphatase 53 U/L (40-130); Anion Gap 14.8 (5-19); Aspartate Amino Transferase 43 U/L (0-40); Blood Urea Nitrogen 26 mg/dL (8-23); Calcium 8.5 mg/dL (8.5-10.5); Carbon Dioxide 34 mmol/L (22-29); Chloride 95 mmol/L (98-107); Globulin 3.1 g/dL (1.3-4.6); Glomerular Filtration Rate 83.9 mL/min (90-130); Glucose 137 mg/dL (65-115); Magnesium 1.8 mg/dL (1.7-2.3); NT Pro B Type Natriuretic Pept 577 pg/mL (0-125); Osmolality Calculated 297 mOsm/kg (285-295); Potassium 3.8 mmol/L (3.5-5.1); Sodium 140 mmol/L (136-145); Thyroid Stimulating Hormone 0.25 uIU/mL (0.27-4.20); Total Bilirubin 0.2 mg/dL (0.15-1.2); Total Protein 6.7 g/dL (6.6-8.7)
[2023-10-18 15:18] LABS: Urine Appearance SL Hazy (CLEAR); Urine Color Yellow (Yellow); pH Urine 5 (5-7)
[2023-10-18 15:19] LABS: Add Urine Microscopic? YES; Bilirubin Urine Neg (Negative); Blood Urine 2+ (Negative); Glucose Urine UA Norm (Normal); Ketones Urine Negative (Negative); Leukocyte Esterase Urine Negative (Negative); Nitrate Urine Negative (Negative); Protein Urine 2+ (Negative); Specific Gravity, Urine 1.025 (1.005-1.030); Urobilinogen Urine Norm (Negative)
--- NOTE | 2023-10-18 15:21 | CTR_ITS ---
PROCEDURE INFORMATION: Exam: CT Chest With Contrast; Diagnostic Exam date and time: 10/18/2023 5:11 PM Age: 68 years old Clinical indication: Other: Unintentional weight loss, hypoxia, hematuria, TECHNIQUE: Imaging protocol: Diagnostic computed tomography of the chest with contrast. Radiation optimization: All CT scans at this facility use at least one of these dose optimization techniques: automated exposure control; mA and/or kV adjustment per patient size (includes targeted exams where dose is matched to clinical indication); or iterative reconstruction. Contrast material: OMNI 350; Contrast volume: 100 ml; Contrast route: INTRAVENOUS (IV); REPORTING DATA: Count of CT and Cardiac NM exams in prior 12 months: This patient has received 0 known CTs and 0 known cardiac nuclear medicine studies in the 12 months prior to the current study. COMPARISON: CT chest con [id number] 07/10/2022 1:19 PM RADIATION DOSE METRICS: Total DLP (mGy-cm): 408 FINDINGS: Lungs: COPD with diffuse emphysematous changes upper lung zones relatively stable. Mild patchy peribronchial consolidative opacities with mild bronchiectasis left lung base likely secondary to bronchopneumonia.Heart is not significantly enlarged. No significant coronary artery calcifications. No significant pericardial effusion. Pleural spaces: Unremarkable. No pneumothorax. No pleural effusion. Heart: See Lungs finding. Lymph nodes: See Kidneys and ureters finding. Vasculature: Unremarkable. No aortic aneurysm. Kidneys and ureters: Chronic renal is calcifications within the mediastinum and left hilum. Scattered small mediastinal lymph nodes, stable favoring benign etiology. No significant hilar or axillary lymphadenopathy. Bones/joints: Unremarkable. No acute fracture. Soft tissues: Unremarkable. COMMENTS: In the absence of a history or active diagnosis of lung cancer, it is recommended that this patient with emphysema be evaluated for enrollment in a low dose CT lung cancer screening program. PROCEDURE INFORMATION: Exam: CT Abdomen And Pelvis With Contrast Exam date and time: 10/18/2023 5:11 PM Age: 68 years old Clinical indication: Other: Unintentional weight loss, hypoxia, hematuria, TECHNIQUE: Imaging protocol: Computed tomography of the abdomen and pelvis with contrast. Radiation optimization: All CT scans at this facility use at least one of these dose optimization techniques: automated exposure control; mA and/or kV adjustment per patient size (includes targeted exams where dose is matched to clinical indication); or iterative reconstruction. Contrast material: OMNI 350; Contrast volume: 100 ml; Contrast route: INTRAVENOUS (IV); REPORTING DATA: Count of CT and Cardiac NM exams in prior 12 months: This patient has received 0 known CTs and 0 known cardiac nuclear medicine studies in the 12 months prior to the current study. COMPARISON: CT abdomen pelvis w con* [id number] 02/07/2022 3:55 PM RADIATION DOSE METRICS: Total DLP (mGy-cm): 409 FINDINGS: Lungs: Lung bases are clear. Liver: Scattered granulomatous calcifications within the liver unchanged otherwise liver is unremarkable. Gallbladder and bile ducts: Gallbladder somewhat contracted limiting assessment. Bile ducts are not dilated. Pancreas: Redemonstration of mild dilatation of main pancreatic duct relatively unchanged. Pancreas is otherwise unremarkable. No pancreatic mass detected. Spleen: Scattered granulomatous calcifications within the spleen unchanged otherwise spleen is unremarkable. Adrenal glands: Normal. No mass. Kidneys and ureters: Normal. No hydronephrosis. Stomach and bowel: Unremarkable. No obstruction. No mucosal thickening. Appendix: No evidence of appendicitis. Intraperitoneal space: Unremarkable. No free air. No significant fluid collection. Vasculature: There is calcification at the origin of the celiac trunk that appears somewhat narrowed. There is also narrowing at the origin of the SMA. Remainder of the SMA appears adequately opacified. Scattered atherosclerotic changes of the abdominal aorta and iliac vessels. No aortic aneurysm. Lymph nodes: Unremarkable. No enlarged lymph nodes. Urinary bladder: Unremarkable as visualized. Reproductive: See Bones/joints finding. Bones/joints: Stable small bone cyst L1 vertebral body. No suspicious bone lesions detected. The Prostate gland is mildly enlarged unchanged. Soft tissues: Unremarkable. CT/CT chest abdpel w/*[id number] IMPRESSION: 1. COPD with diffuse emphysematous changes. 2. Bronchiectasis with small patchy left peribronchial infiltrate left lower lobe likely secondary to pneumonia. IMPRESSION: 1. No acute findings within the abdomen or pelvis. 2. Stable dilatation of main pancreatic duct without evidence of underlying mass favoring benign etiology. Continued periodic surveillance recommended. 3. There is some narrowing at the origin of the celiac trunk and SMA that could be better assessed on CT angiogram of the abdomen clinically warranted. 4. Additional nonemergent findings as above.
[2023-10-18 15:33] LABS: Amorphous Sediment Urine 1+ /hpf; Bacteria Urine TRACE /hpf; Fine Granular Casts Urine 0-4 /lpf; RBC Urine 0-4 /hpf (0-2); Squamous Epithelial Cell Urine 0-4 /hpf (0-5); WBC Urine 0-4 /hpf (0-5)
[2023-10-18 15:34] LABS: Add Urine Culture? No; Mucus Urine 1+ /hpf
[2023-10-18] MEDS: iohexol 350 mg/mL 500 mL Btl (per mL) IV (17:20)
[2023-10-18] MEDS: piperacillin-tazobactam 3.375 GM in sodium chloride 0.9% (plus) 50 ML IV (18:00)
[2023-10-18 18:31] LABS: D Dimer 1.08 ug/mLFEU (0-0.59)
--- NOTE | 2023-10-18 19:00 | P.HP_ITS ---
Providers/Chief Complaint 2 Primary Care Provider: ALLEN Nichole Chief Complaint: generalized weakness History of Present Illness 68-year-old gentleman with advanced, previously noted end-stage COPD, normally on 2 L oxygen by nasal cannula, cachexia, history of CHF, current smoker, has cut down to 5 cigarettes/day, chronic weight loss, in the last 3 weeks has not been able to walk, has been more exhausted, here more recently also weaker, with cough, in ER found to require 6 L nasal cannula oxygen and on ABG with noted respiratory acidosis, required BiPAP support. With significant weight loss, functional decline, with concern for possible occult metastatic malignancy contrast CT chest abdomen pelvis was obtained in ER, finding of extensive emphysema on CT chest, mild patchy peribronchial consolidative opacities with mild bronchiectasis left lung base likely secondary to bronchopneumonia, stable dilation of main pancreatic duct in the abdomen without evidence of underlying mass favoring benign etiology. Continued periodic surveillance recommended. There is some narrowing at the origin of celiac trunk and SMA that could be better assessed on CT angiogram of the abdomen clinically warranted. He also has a past history of C. difficile colitis, and does report some liquid stools several times a day worse over the last week or so. Additionally he reports Concerta has caused an (who is also his DPOA), that he has had some drooling on the left side of his mouth over the last several weeks as well as some numbness in the fingers of the left hand. He is worried about having had a small stroke, reports history of stroke in his mother. Reported allergy to penicillin, the reaction reportedly was that he stops breathing , last reaction was 20 years ago. He had completed Zosyn in ER without any signs of anaphylaxis. Review of Systems 2 Const: Denies: fever(s), chills, body aches or malaise ENMT: Denies: throat pain Card: Denies: chest pain, edema, pre-syncope or dyspnea on exertion Resp: Reports: dyspnea, productive cough and change in phlegm color; Denies: hemoptysis GI: Reports: diarrhea; Denies: abdominal pain, nausea, vomiting, constipation, hematochezia or melena : Denies: flank pain, difficulty urinating, urinary frequency or hematuria Musc: Denies: back pain, joint swelling or joint redness Skin/Breast: Denies: rash or new lesions Neuro: Reports: numbness in extremities (L fingers. ) and other (Mild drooling L side mouth) Medications/Allergies Home Medications Medication Instructions Recorded Confirmed Last Taken Type miscellaneous medical supply #1 ea 03/23/22 10/18/23 Unknown Rx mucus clearing device #1 ea 03/23/22 10/18/23 Unknown Rx potassium chloride 10 mEq 10 meq PO DAILY #180 tabs 02/16/23 10/18/23 10/18/23 Rx tablet,extended release(part/cryst) (Klor-Con M) albuterol sulfate 90 mcg/actuation 2 puff inhalation Q6H PRN 08/02/23 10/18/23 Unknown Rx aerosol inhaler (ProAir HFA) shortness of breath or wheezing #6.7 grams cholecalciferol (vitamin D3) 1,250 1,250 mcg PO DAILY 90 days #12 tabs 08/20/23 10/18/23 10/18/23 Rx mcg (50,000 unit) tablet Vanilla Boost #24 ea 10/09/23 10/18/23 Unknown Rx alprazolam 0.5 mg tablet (Xanax) 0.5 mg PO TID PRN anxiety 30 days 10/09/23 10/18/23 Unknown Rx #70 tabs amlodipine 2.5 mg tablet 2.5 mg PO DAILY 90 days #90 tabs 10/09/23 10/18/23 10/18/23 Rx fluticasone propionate 50 1 spray intranasal DAILY #16 grams 10/09/23 10/18/23 10/18/23 Rx mcg/actuation nasal spray,suspension (Flonase Allergy Relief) fluticasone fur. 200 mcg-umeclid 1 ea inhalation DAILY 10/18/23 10/18/23 10/18/23 History 62.5 mcg-vilant 25 mcg inhalat.powder (Trelegy Ellipta) furosemide 20 mg tablet 20 mg PO DAILY 10/18/23 10/18/23 10/18/23 History lactase 3,000 unit tablet (Dairy 3,000 unit PO QID PRN Diarrhea 10/18/23 10/18/23 Unknown History Relief) lisinopril 10 mg tablet 10 mg PO DAILY 10/18/23 10/18/23 10/18/23 History magnesium 200 mg tablet 400 mg PO DAILY 10/18/23 10/18/23 10/18/23 History metoprolol tartrate 50 mg tablet 50 mg PO BID 10/18/23 10/18/23 10/18/23 History mirtazapine 15 mg tablet 15 mg PO DAILY 10/18/23 10/18/23 10/18/23 History omeprazole 20 mg capsule,delayed 20 mg PO BID 10/18/23 10/18/23 10/18/23 History release phenylephrine-guaifenesin 10 2 tab PO Q4H PRN Cold Symptoms 10/18/23 10/18/23 10/18/23 History mg-400 mg tablet Allergies Allergy/AdvReac Type Severity Reaction Status Date / Time Penicillins Allergy Severe ALGY-Difficulty Verified 10/18/23 19:04 Breathing PFSH Acute 2 PFSH: Medical History Protein calorie malnutrition Nausea and vomiting Community acquired pneumonia Generalized anxiety disorder with panic attacks At risk for aspiration Dependence on continuous supplemental oxygen COPD exacerbation Hypoxemia Tachycardia Acute dyspnea Smoker Leukocytosis Essential hypertension Clubbed fingers Benign essential HTN Smoking addiction Chronic respiratory failure Panic attack as reaction to stress Anxiety Smoking AA (alcohol abuse) CHF (congestive heart failure) Emphysema/COPD Surgical History Hx of tonsillectomy Family History Son Cancer Grandmother Cancer Mother CAD (coronary artery disease) Dementia Stroke Family/Other Lung disease Other Hyperlipidemia Hypertension Denies family history of Diabetes Clotting disorder Chronic kidney disease (CKD) Suicide Anesthesia complication Bleeding disorder Family history of premature coronary artery disease Social History Smoking and tobacco/nicotine status: current every day tobacco/nicotine user cigarettes Packs smoked per day: 1 Years cigarettes smoked: 56 [ Other cigarette details: started age 10] Alcohol intake: current Substance/Drug Use: never Adopted: No Caregiver/support person: No Lives independently: Yes Current occupational status: disabled Current gender identity: Male Vitals/I&O/Wt Last Vital Signs Pulse 87 10/18/23 17:00 Resp 16 10/18/23 17:00 BP 115/57 10/18/23 17:00 Pulse Ox 96 10/18/23 18:00 O2 Del Method Nasal Cannula 10/18/23 18:00 O2 Flow Rate 6 10/18/23 18:00 FiO2 35 10/18/23 15:57 Weight last 48 hrs Weight 39.916 kg Physical Exam 2 Narrative: Accompanied by family. Const: COMMON NORMALS: patient oriented x3 and alert GENERAL APPEARANCE: c ooperative ORIENTATION/CONSCIOUSNESS: Yes awake HENMT: COMMON NORMALS: oropharynx normal Neck/C-Spine: COMMON NORMALS: no JVD Resp: COMMON NORMALS: normal respiratory effort and clear to auscultation bilaterally AUSCULTATION: rhonchi and diminished lung sounds Cardio: COMMON NORMALS: no JVD, regular rhythm, S1 normal heart sound present, S2 normal heart sound present and No murmurs present (Cardio) RHYTHM: regular rhythm HEART SOUNDS: S1 normal heart sound present and S2 normal heart sound present GI: COMMON NORMALS: Normal to inspection, nondistended, normoactive bowel sounds present, Soft to palpation and non-tender PALPATION: Yes Soft to palpation Extremity: COMMON NORMALS: no joint enlargement and no pedal edema Neuro: COMMON NORMALS: patient oriented x3 and moves all extremities S ENSORIUM/ORIENTATION: Yes alert Skin: COMMON NORMALS: no rashes or lesions noted GENERAL SKIN EXAM: no rashes or lesions noted Data 10/18/23 13:18 10/18/23 13:18 A&P Assessment and plan (1) Acute respiratory failure with hypoxia and hypercarbia: Acute on chronic respiratory failure with hypoxia and hypercapnia. Normally on 2 L of oxygen, requiring 6 L in ER, as well as with respiratory acidosis, required BiPAP in ER. Severe exacerbation of COPD with cough, dyspnea, diminished air entry, rhonchi, purulent sputum. Peribronchial infiltrate in left lower lobe with suspected pneumonia. Additionally history of aspiration with thin liquids, question of possible recurrent aspiration. Reviewed vitals, CBC, ABG, CMP, CT chest abdomen pelvis, NT-proBNP, TSH, UA. Reviewed ER documentation. Discussed with ER physician. Continue oxygen support. Antibiotic coverage with Levaquin. IV steroid with Solu-Medrol. Risk of hyperglycemia with steroid. Will follow-up blood glucose. Follow-up blood pressures with risk of hypotension, monitor mental status with risk of encephalopathy. Collect sputum culture, urine bacterial antigens. On review of rapid influenza, noted to also acute influenza. Treat with Tamiflu. Isolation. Breathing treatments. Guaifenesin. RT assess and treat. Wean down oxygen support as tolerating. Clear liquid diet for now. (2) Smoking addiction: Discussed smoking cessation for 5 minutes. He has cut down to about 5 cigarettes/day. He knows that he needs to quit. Discussed additional risks on top of advanced COPD, he is worried about risk of stroke. Nicotine replacement. Continue to encourage cessation. Plan History of aspiration with liquids: Aspiration precautions. ST evaluation. Once breathing is doing better consider repeat MBS given declining condition. L side drooling, numbness of fingers of left hand: Mother had history of CVA. Discussed prior stroke is possible given his risk factors. Discussed also smoking cessation. Continue to encourage. Discussed with him and family starting aspirin, statin. Quitting smoking. Monitor blood pressures. Currently soft, antihypertensives held for now. Discussed is at elevated risk of stroke. Severe protein calorie malnutrition: BMI 14.46. Oral intake is tolerating. Add protein supplements. Advanced COPD: Continue goals of care discussion. For now he wants to be full code. Goals of care discussion: For now he wants to be full code, however, given severity of his illness discussed consideration of options of more conservative goals of cares, hospice. History of congestive heart failure: Currently does not appear in exacerbation. Monitor. Cardiac diet once resuming more usual oral intake. Attestations 2 Medical Necessity Statement*: Admission of over 2 midnights anticipated for assessment management of acute on chronic respiratory failure with respiratory acidosis, and a gentleman with advanced COPD, with severe COPD exacerbation, pneumonia, influenza infection. Diagnoses Acute respiratory failure with hypoxia and hypercarbia J96.01; J96.02 Smoking addiction F17.200
[2023-10-18 19:03] LABS: Influenza A by IFA Positive (Negative); Influenza B by IFA Negative (Negative)
--- NOTE | 2023-10-18 20:04 | PC.NURSE ---
Report called to MENDEZ Little on Med-Surg. All questions and concerns addressed at time of report.
[2023-10-18 20:13] LABS: Adenovirus Not Detected (NOT DETECT); Chlamydia Pneumoniae Not Detected (NOT DETECT); Coronavirus 229E,HKU1,NL63,OC4 Not Detected (NOT DETECT); Human Metapneumovirus Not Detected (NOT DETECT); Human Rhinovirus/Enterovirus Not Detected (NOT DETECT); Influenza A Detected (NOT DETECT); Influenza A H1 Not Detected (NOT DETECT); Influenza A H1-2009 Detected (NOT DETECT); Influenza A H3 Not Detected (NOT DETECT); Influenza B Not Detected (NOT DETECT); Mycoplasma Pneumoniae Not Detected (NOT DETECT); Parainfluenza Virus Type 1 Not Detected (NOT DETECT); Parainfluenza Virus Type 2 Not Detected (NOT DETECT); Parainfluenza Virus Type 3 Not Detected (NOT DETECT); Parainfluenza Virus Type 4 Not Detected (NOT DETECT); Respiratory Syncytial Virus A Not Detected (NOT DETECT); Respiratory Syncytial Virus B Not Detected (NOT DETECT); SARS-COV-2 Not Detected (NOT DETECT)
[2023-10-18 20:16] LABS: Influenza A Detected (NOT DETECT); Influenza A H1 Not Detected (NOT DETECT); Influenza A H1-2009 Detected (NOT DETECT); Influenza A H3 Not Detected (NOT DETECT); Influenza B Not Detected (NOT DETECT); Results from GEN
[2023-10-18 20:50] LABS: Free T4 Free Thyroxine 1.09 ng/dL (0.82-1.77)
[2023-10-18] MEDS: budesonide 0.5 mg/2 mL Neb 0.25 MG INHALATION (20:54)
[2023-10-18] MEDS: aspirin 81 mg EC Tablet PO (20:54)
[2023-10-18] MEDS: oseltamivir phosphate 75 mg Capsule PO (20:55)
[2023-10-18] MEDS: atorvastatin 40 mg Tablet PO (20:55)
[2023-10-18] MEDS: levofloxacin-dextrose 5 % 750 MG/150 ML PREMIX 100 MG IV (20:59)
[2023-10-18] MEDS: enoxaparin 30 mg/0.3 mL Syringe SUBCUT (20:59)
[2023-10-18] MEDS: methylPREDNISolone sod succ 40 mg/mL INJ IVP (20:59)
[2023-10-18] MEDS: ALPRAZolam 0.5 mg Tablet PO (21:17)
[2023-10-19] VITALS (12 sets, daily range): BP systolic 92–118; BP diastolic 51–72; PULSE 63–92; RESP 15–22; TEMP 36.4–36.8; O2SAT 90–97
[2023-10-19] MEDS: ipratropium-albuterol 3 mL Neb INHALATION ×4 (01:47→20:24)
[2023-10-19] MEDS: methylPREDNISolone sod succ 40 mg/mL INJ IVP ×4 (02:10→22:39)
[2023-10-19 05:41] LABS: Basophils % 0.1 %; Hematocrit 35.4 % (37-53); Lymphocytes # 0.5 10^3/uL (0.8-4.8); Lymphocytes % 6.9 %; Mean Corpuscular HGB Conc 29.9 g/dL (30-55); Mean Corpuscular Hemoglobin 29.4 pg (27-33); Mean Corpuscular Volume 98.3 fl (82-101); Monocytes # 0.2 10^3/uL (0.2-0.9); Monocytes % 1.9 %; Neutrophils # 7.15 10^3/uL (1.8-7.7); Neutrophils % 90.7 %; Nucleated Red Blood Cells % 0 %; Platelet Count 137 10^3/cmm (157-399); Red Cell Distribution Width 13.7 % (12.1-15.1); White Blood Count 7.88 10^3/uL (3.29-11.43)
[2023-10-19 06:01] LABS: Alanine Aminotransferase 14 U/L (0-41); Albumin Level 3.1 g/dL (3.5-5.2); Alkaline Phosphatase 46 U/L (40-130); Anion Gap 9.2 (5-19); Aspartate Amino Transferase 43 U/L (0-40); Blood Urea Nitrogen 21 mg/dL (8-23); Calcium 8.3 mg/dL (8.5-10.5); Carbon Dioxide 36 mmol/L (22-29); Chloride 98 mmol/L (98-107); Globulin 2.8 g/dL (1.3-4.6); Glomerular Filtration Rate 112.1 mL/min (90-130); Glucose 144 mg/dL (65-115); Magnesium 1.8 mg/dL (1.7-2.3); Osmolality Calculated 294 mOsm/kg (285-295); Potassium 4.2 mmol/L (3.5-5.1); Sodium 139 mmol/L (136-145); Total Bilirubin 0.2 mg/dL (0.15-1.2); Total Protein 5.9 g/dL (6.6-8.7)
--- NOTE | 2023-10-19 07:29 | PC.SOCIAL ---
Pg 2 IMM Explained to pt Pg 2 IMM. No questions voiced. Provided pt a copy. Initialed, dated, & timed a copy & placed in chart.
--- NOTE | 2023-10-19 09:10 | PC.CHAP ---
Pastoral Care Encounter/Spiritual Assessment Type of Contact [] Declined blankbook forwarder visit [] Patient/Family/Request visit [] Outpatient visit [] Follow-up visit [] Physician referral [] Code/Alert [x] Routine visit [] Staff referral [] Actively dying [] Patient sleeping [] Family support [] [] Out of room [] Palliative care [] [] Receiving care in room [] Pre-surgical visit [] Trauma [] Long length of stay [] ICU visit [] Other: Relational/Emotional Strength [] Patient feels connected with others/family/visitors/staff [x] Distress [] Loneliness/isolation [] Abandonment Spirituality of Patient [] Person of Marya [] Attends Lutheran of their Marya [] Believes in Prayer [] Reads Bible or Restorationist materials [x] There are Spiritual issues to be addressed Can Line Operator Interventions [x] Prayer [] Active listening [] Non-anxious presence [] Spiritual/emotional support [] Crisis/trauma care [] Spiritual counseling [] Bereavement support [] Provided bereavement packet [] Provided Bible/devotional materials [] Provided toy/stuffed animal, coloring book to patient or family member [] Provided Communion [] Anointing/[place] [] Salvation [x] Completed spiritual assessment [] Other: Impact on Illness or Injury [] Angry [] Fearful [] Anxious [] Often cries [] Exhaustion [] Unable to work [] Unable to attend anabaptism [] Unable to walk/stand [] Unable to read [] Unable to drive [] Unable to eat/drink [] Unable to sleep [] Unable to be with family [] Patient intubated [] Other: Summary Time spent with patient 5 min
[2023-10-19] MEDS: mirtazapine 15 mg Tablet PO (10:30)
[2023-10-19] MEDS: oseltamivir phosphate 75 mg Capsule PO ×2 (10:30→17:31)
[2023-10-19] MEDS: aspirin 81 mg EC Tablet PO (10:30)
[2023-10-19] MEDS: nicotine 21 mg Patch 1 PATCH TRANSDERMA (10:30)
[2023-10-19] MEDS: guaiFENesin 600 mg Tablet 1200 MG PO ×2 (10:30→17:31)
[2023-10-19] MEDS: pantoprazole DR 40 mg Tablet PO ×2 (10:30→17:31)
[2023-10-19] MEDS: metoprolol tartrate 50 mg Tablet PO (17:31)
[2023-10-19] MEDS: ALPRAZolam 0.5 mg Tablet PO (17:33)
[2023-10-19] MEDS: enoxaparin 30 mg/0.3 mL Syringe SUBCUT (20:27)
[2023-10-19] MEDS: levofloxacin-dextrose 5 % 750 MG/150 ML PREMIX 100 MG IV (20:27)
[2023-10-19] MEDS: atorvastatin 40 mg Tablet PO (20:27)
[2023-10-20] VITALS (14 sets, daily range): BP systolic 100–129; BP diastolic 49–72; PULSE 72–101; RESP 15–18; TEMP 36.5–36.9; O2SAT 90–99
--- NOTE | 2023-10-20 00:10 | P.PN_ITS ---
Subjective 2 Subjective: He is feeling slightly better. Currently having undergoing evaluation by speech therapy. Vitals/I&O/Wt Last Vital Signs Temp 97.9 F 10/20/23 00:00 Pulse 72 10/20/23 00:00 Resp 16 10/20/23 00:00 BP 101/72 10/20/23 00:00 Pulse Ox 95 10/20/23 00:00 O2 Del Method Nasal Cannula 10/19/23 20:32 O2 Flow Rate 5 10/19/23 20:32 FiO2 35 10/18/23 23:42 10/19/23 10/19/23 10/20/23 14:59 22:59 06:59 Intake Total 240 / 240 270 / 510 Balance 240 / 240 270 / 510 Weight last 48 hrs Weight 41.73 kg Weight 41.73 kg Weight 39.916 kg Physical Exam 2 Const: COMMON NORMALS: patient oriented x3 and alert GENERAL APPEARANCE: c ooperative ORIENTATION/CONSCIOUSNESS: Yes awake HENMT: COMMON NORMALS: oropharynx normal Neck/C-Spine: COMMON NORMALS: no JVD Resp: COMMON NORMALS: normal respiratory effort and clear to auscultation bilaterally AUSCULTATION: clear to auscultation bilaterally, rhonchi and diminished lung sounds Cardio: COMMON NORMALS: no JVD, regular rhythm, S1 normal heart sound present, S2 normal heart sound present and No murmurs present (Cardio) RHYTHM: regular rhythm HEART SOUNDS: S1 normal heart sound present and S2 normal heart sound present GI: COMMON NORMALS: Normal to inspection, nondistended, normoactive bowel sounds present, Soft to palpation and non-tender PALPATION: Yes Soft to palpation Extremity: COMMON NORMALS: no joint enlargement and no pedal edema Neuro: COMMON NORMALS: patient oriented x3 and moves all extremities S ENSORIUM/ORIENTATION: Yes alert Skin: COMMON NORMALS: no rashes or lesions noted GENERAL SKIN EXAM: no rashes or lesions noted Data 10/19/23 04:53 10/19/23 04:53 A&P Assessment and plan (1) Acute respiratory failure with hypoxia and hypercarbia: Minimal improvement, still requiring 5 L nasal cannula oxygen. Being assessed by speech therapy. As per discussion with speech therapy resuming mechanical soft diet. Continue aspiration precautions. Monitor condition. Reviewed speech therapy note. Continue Tamiflu. Continue antibiotic, steroid for severe COPD exacerbation. Monitor glucose, blood pressures due to risk of hyperglycemia, hypertension. Monitor mental status at risk of encephalopathy with steroids. Continue oxygen support, wean down as tolerating. Reviewed RT documentation. Reviewed vitals, CBC, CMP. Still noted mild transaminitis. Recheck chemistry. Recheck CBC. Isolation. Breathing treatments. Guaifenesin. RT assess and treat. Wean down oxygen support as tolerating. Advance diet. (2) Smoking addiction: Encourage cessation. Nicotine replacement. Continue to encourage cessation. Plan History of aspiration with liquids: Aspiration precautions. ST evaluation appreciated. Once breathing is doing better consider repeat MBS given declining condition. L side drooling, numbness of fingers of left hand: Mother had history of CVA. Discussed prior stroke is possible given his risk factors. Discussed also smoking cessation. Continue to encourage. Discussed with him and family starting aspirin, statin. Quitting smoking. Monitor blood pressures. Currently soft, antihypertensives held for now. Discussed is at elevated risk of stroke. Severe protein calorie malnutrition: BMI 14.46. Oral intake is tolerating. Add protein supplements. Advanced COPD: Continue goals of care discussion. For now he wants to be full code. Goals of care discussion: For now he wants to be full code, however, given severity of his illness discussed consideration of options of more conservative goals of cares, hospice. History of congestive heart failure: Currently does not appear in exacerbation. Monitor. Cardiac diet once resuming more usual oral intake. Attestations 2 Medical Necessity Statement*: Continue admission for assessment and management of respiratory failure, severe exacerbation of COPD, influenza, pneumonia. Diagnoses Acute respiratory failure with hypoxia and hypercarbia J96.01; J96.02 Smoking addiction F17.200
[2023-10-20] MEDS: ipratropium-albuterol 3 mL Neb INHALATION ×4 (01:17→20:58)
[2023-10-20] MEDS: ALPRAZolam 0.5 mg Tablet PO ×2 (04:04→16:28)
[2023-10-20] MEDS: methylPREDNISolone sod succ 40 mg/mL INJ IVP ×3 (04:05→16:17)
[2023-10-20 04:15] LABS: Hematocrit 39.7 % (37-53); Lymphocytes # 0.4 10^3/uL (0.8-4.8); Mean Corpuscular HGB Conc 29.5 g/dL (30-55); Mean Corpuscular Volume 98.3 fl (82-101); Mean Platelet Volume 10.9 fL (7.4-10.4); Monocytes # 0.4 10^3/uL (0.2-0.9); Monocytes % 5.6 %; Neutrophils # 5.44 10^3/uL (1.8-7.7); Neutrophils % 86.9 %; Nucleated Red Blood Cells % 0 %; Platelet Count 142 10^3/cmm (157-399); Red Blood Count 4.04 10^6/uL (3.85-5.65); Red Cell Distribution Width 13.4 % (12.1-15.1); White Blood Count 6.26 10^3/uL (3.29-11.43)
[2023-10-20 04:34] LABS: Alanine Aminotransferase 16 U/L (0-41); Albumin Level 3.4 g/dL (3.5-5.2); Alkaline Phosphatase 47 U/L (40-130); Aspartate Amino Transferase 43 U/L (0-40); Blood Urea Nitrogen 16 mg/dL (8-23); Calcium 8.9 mg/dL (8.5-10.5); Carbon Dioxide 37 mmol/L (22-29); Chloride 98 mmol/L (98-107); Globulin 2.9 g/dL (1.3-4.6); Glomerular Filtration Rate 96.1 mL/min (90-130); Glucose 118 mg/dL (65-115); Osmolality Calculated 296 mOsm/kg (285-295); Sodium 142 mmol/L (136-145); Total Bilirubin 0.2 mg/dL (0.15-1.2); Total Protein 6.3 g/dL (6.6-8.7)
[2023-10-20] MEDS: metoprolol tartrate 50 mg Tablet PO ×2 (08:40→16:16)
[2023-10-20] MEDS: mirtazapine 15 mg Tablet PO (08:40)
[2023-10-20] MEDS: guaiFENesin 600 mg Tablet 1200 MG PO ×2 (08:40→16:16)
[2023-10-20] MEDS: pantoprazole DR 40 mg Tablet PO ×2 (08:41→16:16)
[2023-10-20] MEDS: nicotine 21 mg Patch 1 PATCH TRANSDERMA (08:41)
[2023-10-20] MEDS: aspirin 81 mg EC Tablet PO (08:41)
[2023-10-20] MEDS: oseltamivir phosphate 75 mg Capsule PO ×2 (08:41→16:17)
--- NOTE | 2023-10-20 18:18 | P.PN_ITS ---
Subjective 2 Subjective: Today he is feeling slightly better in terms of breathing. Vitals/I&O/Wt Last Vital Signs Temp 98.0 F 10/20/23 16:00 Pulse 83 10/20/23 16:00 Resp 16 10/20/23 16:00 BP 103/63 10/20/23 16:00 Pulse Ox 95 10/20/23 16:00 O2 Del Method Nasal Cannula 10/20/23 16:00 O2 Flow Rate 2 10/20/23 14:24 FiO2 35 10/18/23 23:42 10/20/23 10/20/23 10/20/23 06:59 14:59 22:59 Intake Total 360 / 360 240 / 600 Output Total 300 / 300 200 / 200 Balance -300 / 210 160 / 160 240 / 400 Weight last 48 hrs Weight 41.685 kg Weight 41.73 kg Weight 41.73 kg Physical Exam 2 Narrative: Accompanied by family. Const: COMMON NORMALS: patient oriented x3 and alert GENERAL APPEARANCE: c ooperative ORIENTATION/CONSCIOUSNESS: Yes awake HENMT: COMMON NORMALS: oropharynx normal Neck/C-Spine: COMMON NORMALS: no JVD Resp: COMMON NORMALS: normal respiratory effort and clear to auscultation bilaterally AUSCULTATION: clear to auscultation bilaterally, rhonchi and diminished lung sounds Cardio: COMMON NORMALS: no JVD, regular rhythm, S1 normal heart sound present, S2 normal heart sound present and No murmurs present (Cardio) RHYTHM: regular rhythm HEART SOUNDS: S1 normal heart sound present and S2 normal heart sound present GI: COMMON NORMALS: Normal to inspection, nondistended, normoactive bowel sounds present, Soft to palpation and non-tender PALPATION: Yes Soft to palpation Extremity: COMMON NORMALS: no joint enlargement and no pedal edema Neuro: COMMON NORMALS: patient oriented x3 and moves all extremities S ENSORIUM/ORIENTATION: Yes alert Skin: COMMON NORMALS: no rashes or lesions noted GENERAL SKIN EXAM: no rashes or lesions noted Data 10/20/23 03:08 10/20/23 03:08 A&P Assessment and plan (1) Acute respiratory failure with hypoxia and hypercarbia: Breathing improving. Oxygenation noted improving, down to 2.5 L nasal cannula. Reviewed vitals, CBC, BMP. Reviewed Legionella and bacterial antigens, on collected. Reviewed sputum culture, uncollected. Follow-up. Continue empiric antibiotic coverage, steroid, breathing treatments. Will reduce Solu-Medrol dose to 20 mg. He has been having some difficulty expectorating. Continue guaifenesin. Will add flutter valve. Mechanical soft diet. Continue aspiration precautions. Monitor condition. Continue Tamiflu. Continue antibiotic, steroid for severe COPD exacerbation. Monitor glucose, blood pressures due to risk of hyperglycemia, hypertension. Monitor mental status at risk of encephalopathy with steroids. Continue oxygen support, wean down as tolerating. Reviewed RT documentation. Recheck chemistry. Recheck CBC. Isolation. (2) Smoking addiction: Encourage cessation. Nicotine replacement. Continue to encourage cessation. Plan History of aspiration with liquids: Aspiration precautions. ST evaluation appreciated. Once breathing is doing better consider repeat MBS given declining condition. L side drooling, numbness of fingers of left hand: Mother had history of CVA. Discussed prior stroke is possible given his risk factors. Discussed also smoking cessation. Continue to encourage. Discussed with him and family starting aspirin, statin. Quitting smoking. Monitor blood pressures. Currently soft, antihypertensives held for now. Discussed is at elevated risk of stroke. Diarrhea: Reviewed C. difficile, noted on collected. Severe protein calorie malnutrition: BMI 14.46. Oral intake is tolerating. Add protein supplements. Advanced COPD: Continue goals of care discussion. For now he wants to be full code. Goals of care discussion: For now he wants to be full code, however, given severity of his illness discussed consideration of options of more conservative goals of cares, hospice. History of congestive heart failure: Currently does not appear in exacerbation. Monitor. Cardiac diet once resuming more usual oral intake. Attestations 2 Medical Necessity Statement*: Continue admission for assessment management of improving respiratory failure, pneumonia, severe exacerbation of COPD, influenza infection. Diagnoses Acute respiratory failure with hypoxia and hypercarbia J96.01; J96.02 Smoking addiction F17.200
[2023-10-20] MEDS: atorvastatin 40 mg Tablet PO (21:18)
[2023-10-20] MEDS: enoxaparin 30 mg/0.3 mL Syringe SUBCUT (21:18)
[2023-10-20] MEDS: acetaminophen 325 mg Tablet 650 MG PO (21:18)
[2023-10-20] MEDS: levofloxacin-dextrose 5 % 750 MG/150 ML PREMIX 100 MG IV (21:18)
[2023-10-20] MEDS: methylPREDNISolone sod succ 40 mg/mL INJ 20 MG IVP (23:02)
[2023-10-21] VITALS (7 sets, daily range): BP systolic 111–127; BP diastolic 62–78; PULSE 80–90; RESP 15–18; TEMP 36.8–36.9; O2SAT 92–95
[2023-10-21] MEDS: ALPRAZolam 0.5 mg Tablet PO ×2 (00:05→09:11)
[2023-10-21] MEDS: ipratropium-albuterol 3 mL Neb INHALATION ×2 (02:34→07:41)
[2023-10-21 03:24] LABS: Alanine Aminotransferase 13 U/L (0-41); Albumin Level 3.1 g/dL (3.5-5.2); Alkaline Phosphatase 45 U/L (40-130); Anion Gap 9.9 (5-19); Aspartate Amino Transferase 33 U/L (0-40); Blood Urea Nitrogen 20 mg/dL (8-23); Calcium 8.7 mg/dL (8.5-10.5); Carbon Dioxide 38 mmol/L (22-29); Chloride 96 mmol/L (98-107); Globulin 2.7 g/dL (1.3-4.6); Glomerular Filtration Rate 96.1 mL/min (90-130); Glucose 174 mg/dL (65-115); Osmolality Calculated 297 mOsm/kg (285-295); Potassium 3.9 mmol/L (3.5-5.1); Sodium 140 mmol/L (136-145); Total Bilirubin 0.2 mg/dL (0.15-1.2); Total Protein 5.8 g/dL (6.6-8.7)
[2023-10-21 03:27] LABS: Basophils % 0.1 %; Hematocrit 35.9 % (37-53); Lymphocytes # 0.5 10^3/uL (0.8-4.8); Lymphocytes % 6.6 %; Mean Corpuscular HGB Conc 30.4 g/dL (30-55); Mean Corpuscular Hemoglobin 29.5 pg (27-33); Mean Corpuscular Volume 97.3 fl (82-101); Mean Platelet Volume 10.9 fL (7.4-10.4); Monocytes # 0.6 10^3/uL (0.2-0.9); Monocytes % 7.8 %; Neutrophils # 6.76 10^3/uL (1.8-7.7); Neutrophils % 84.9 %; Nucleated Red Blood Cells % 0 %; Platelet Count 152 10^3/cmm (157-399); Red Blood Count 3.69 10^6/uL (3.85-5.65); Red Cell Distribution Width 13.2 % (12.1-15.1); White Blood Count 7.97 10^3/uL (3.29-11.43)
[2023-10-21] MEDS: methylPREDNISolone sod succ 40 mg/mL INJ 20 MG IVP ×2 (04:11→11:09)
[2023-10-21] MEDS: oseltamivir phosphate 75 mg Capsule PO (09:03)
[2023-10-21] MEDS: aspirin 81 mg EC Tablet PO (09:03)
[2023-10-21] MEDS: guaiFENesin 600 mg Tablet 1200 MG PO (09:03)
[2023-10-21] MEDS: metoprolol tartrate 50 mg Tablet PO (09:03)
[2023-10-21] MEDS: pantoprazole DR 40 mg Tablet PO (09:03)
[2023-10-21] MEDS: mirtazapine 15 mg Tablet PO (09:04)
[2023-10-21] MEDS: nicotine 21 mg Patch 1 PATCH TRANSDERMA (09:04)
--- NOTE | 2023-10-21 09:43 | USR_ITS ---
PROCEDURE INFORMATION: Exam: US Duplex Bilateral Extracranial Arteries; Complete; Carotid Arteries Exam date and time: 10/21/2023 10:45 AM Age: 68 years old Clinical indication: Screening exam; Additional info: Assess for carotid disease TECHNIQUE: Imaging protocol: Real-time duplex ultrasound scan of the bilateral extracranial arteries combining ivory scale, color Doppler and spectral waveform analysis with image documentation. Complete exam. Exam focused on the carotid arteries. COMPARISON: RF FL barium swallow modifd [id number] 02/20/2022 9:53 AM FINDINGS: Right common carotid artery: Unremarkable. No occlusion or stenosis. Waveforms are normal. Right internal carotid artery: Unremarkable. No occlusion or stenosis. Waveforms are normal. Right ICA/CCA ratio: Within normal limits. Right external carotid artery: No stenosis in the origin. Right vertebral artery: Unremarkable. Antegrade flow. Left common carotid artery: Unremarkable. No occlusion or stenosis. Waveforms are normal. Left internal carotid artery: Unremarkable. No occlusion or stenosis. Waveforms are normal. Left ICA/CCA ratio: Within normal limits. Left external carotid artery: No stenosis in the origin. Left vertebral artery: Unremarkable. Antegrade flow. US/CV carotid duplex BI* [id number] IMPRESSION: No carotid arterial stenosis. REFERENCES: SRU CRITERIA. The degree of internal carotid artery stenosis is based on criteria defined by the Society of Radiologists in Ultrasound (SRU). Normal is no stenosis. Mild is less than 50% stenosis. Moderate is 50-69% stenosis. Severe is greater than 69% stenosis to near occlusion. Near occlusion is a markedly narrowed lumen. Total occlusion is no detectable patent lumen.
--- NOTE | 2023-10-21 11:52 | PM.DCS ---
Discharge Providers Date of Admission: 10/18/23 19:42 Date of Discharge: October 21, 2023 Attending Provider at Admission: Prosper Reis Attending Provider at Discharge: Prosper Reis Primary Care Provider: ALLEN Nichole Diagnoses at Discharge Discharge Diagnosis (1) Acute respiratory failure with hypoxia and hypercarbia: Status: Acute (2) Smoking addiction: Status: Acute Reason for Visit Reason for Visit: generalized weakness Brief History: 68-year-old gentleman with advanced, previously noted end-stage COPD, normally on 2 L oxygen by nasal cannula, cachexia, history of CHF, current smoker, has cut down to 5 cigarettes/day, chronic weight loss, in the last 3 weeks has not been able to walk, has been more exhausted, here more recently also weaker, with cough, in ER found to require 6 L nasal cannula oxygen and on ABG with noted respiratory acidosis, required BiPAP support. With significant weight loss, functional decline, with concern for possible occult metastatic malignancy contrast CT chest abdomen pelvis was obtained in ER, finding of extensive emphysema on CT chest, mild patchy peribronchial consolidative opacities with mild bronchiectasis left lung base likely secondary to bronchopneumonia, stable dilation of main pancreatic duct in the abdomen without evidence of underlying mass favoring benign etiology. Continued periodic surveillance recommended. There is some narrowing at the origin of celiac trunk and SMA that could be better assessed on CT angiogram of the abdomen clinically warranted. He also has a past history of C. difficile colitis, and does report some liquid stools several times a day worse over the last week or so. Additionally he reports Concerta has caused an (who is also his DPOA), that he has had some drooling on the left side of his mouth over the last several weeks as well as some numbness in the fingers of the left hand. He is worried about having had a small stroke, reports history of stroke in his mother. Reported allergy to penicillin, the reaction reportedly was that he stops breathing , last reaction was 20 years ago. He had completed Zosyn in ER without any signs of anaphylaxis. Hospital Course Hospital Course Found positive for influenza he was started on Tamiflu, steroids and treatment for severe COPD exacerbation, with suspected secondary superimposed peribronchial pneumonia, was treated with Levaquin, Solu-Medrol, breathing treatments, with prior concern regarding aspiration with thin liquids on MBS underwent assessment by speech therapy to see if aspiration may have been contributing, but overall did pretty well and was advanced on recommendation to mechanical soft diet with thin liquids, reminded to maintain aspiration precautions at all times. Condition gradually improved, oxygen requirement came down from 6 L down to his baseline 2 L. He has been ambulating with a walker to the restroom and back in his room without any significant issues. He has overall been deconditioned, was seen by physical therapy here, he [facility] to [facility]. Please follow-up to set up home health PT for him as this could not be done over the long weekend (discussed with him and is cousin/DPOA). He used to go as outpatient until recently but it became difficult for him to commute there. On presentation he also had diarrhea, tested for C. difficile due to history of C. difficile in the past, but C. difficile was negative. Diarrhea likely related to influenza and has resolved. He additionally complained of some drooling on the left side of his mouth recently as well as some numbness in the fingers of the left hand, concern for possible mild CVA in the past as he does have risk factors, he is started on aspirin, statin, and most importantly counseled on quitting smoking, please follow-up with him and continue optimization of cardiovascular risk factors to the extent that he may participate. He is referred for additional assessment by MRI brain. Carotid Doppler noted without carotid stenosis. At the time of discharge she is overall doing better with much improved oxygenation, air entry and condition. We discussed consideration of timing for discharge settling on reassessment and possible discharge tomorrow, however, later on returning found to be stating that they had considered it further and would prefer to go ahead and discharge today as he would be more comfortable further recovering at home, and it would be easier for them to make arrangements for his return today and rather than tomorrow. Please follow-up with him regarding cachexia, he is instructed to continue with protein shakes with meals. He is DPOA states this places small he is able to manage with his walker, gets home care and family check on him. Discussed also with him and his DPOA obtaining life alert button to allow him to call for help in case of trouble. Physical Exam Narrative: Accompanied by family. Const: COMMON NORMALS: patient oriented x3 and alert GENERAL APPEARANCE: cooperative ORIENTATION/CONSCIOUSNESS: Yes awake HENMT: COMMON NORMALS: oropharynx normal Neck/C-Spine: COMMON NORMALS: no JVD Resp: COMMON NORMALS: normal respiratory effort and clear to auscultation bilaterally AUSCULTATION: clear to auscultation bilaterally, rhonchi and diminished lung sounds Cardio: COMMON NORMALS: no JVD, regular rhythm, S1 normal heart sound present, S2 normal heart sound present and No murmurs present (Cardio) RHYTHM: regular rhythm HEART SOUNDS: S1 normal heart sound present and S2 normal heart sound present GI: COMMON NORMALS: Normal to inspection, nondistended, normoactive bowel sounds present, Soft to palpation and non-tender PALPATION: Yes Soft to palpation Extremity: COMMON NORMALS: no joint enlargement and no pedal edema Neuro: COMMON NORMALS: patient oriented x3 and moves all extremities SENSORIUM/ORIENTATION: Yes alert Skin: COMMON NORMALS: no rashes or lesions noted GENERAL SKIN EXAM: no rashes or lesions noted Discharge Data Studies Completed and Pending Completed Studies During Hospitalization Category Date Time Status CT chest abdomen pelvis [CT chest abdpel w/*[id number] Cat Scan 10/18/23 15:21 Completed ] Stat XR chest 1V portable [id number] Stat Exams 10/18/23 13:05 Completed CV carotid duplex BI* [id number] Routine Ultrasound 10/21/23 09:43 Completed Pending at discharge Category Date Time Status Bacterial Antigen Routine Lab 10/18/23 20:16 Uncollected Clostridium Difficile PCR Routine Lab 10/18/23 20:16 Uncollected Legionella Antigen STAT Routine Lab 10/18/23 20:16 Uncollected Sputum Culture and Gram Stain Routine Lab 10/18/23 20:16 Uncollected Radiology Impressions Chest X-Ray 10/18/23 13:05 IMPRESSION: COPD and chronic left lower lung reticulation. No consolidation. Chest/Abdomen/Pelvis CT 10/18/23 15:21 IMPRESSION: 1. COPD with diffuse emphysematous changes. 2. Bronchiectasis with small patchy left peribronchial infiltrate left lower lobe likely secondary to pneumonia. IMPRESSION: 1. No acute findings within the abdomen or pelvis. 2. Stable dilatation of main pancreatic duct without evidence of underlying mass favoring benign etiology. Continued periodic surveillance recommended. 3. There is some narrowing at the origin of the celiac trunk and SMA that could be better assessed on CT angiogram of the abdomen clinically warranted. 4. Additional nonemergent findings as above. Carotid Doppler Study 10/21/23 09:43 IMPRESSION: No carotid arterial stenosis. REFERENCES: SRU CRITERIA. The degree of internal carotid artery stenosis is based on criteria defined by the Society of Radiologists in Ultrasound (SRU). Normal is no stenosis. Mild is less than 50% stenosis. Moderate is 50-69% stenosis. Severe is greater than 69% stenosis to near occlusion. Near occlusion is a markedly narrowed lumen. Total occlusion is no detectable patent lumen. Laboratory Results WBC 7.97 10^3/uL (3.29-11.43) 10/21/23 02:13 RBC 3.69 10^6/uL (3.85-5.65) L 10/21/23 02:13 Hgb 10.90 g/dL (11.27-16.99) L 10/21/23 02:13 Hct 35.9 % (37-53) L 10/21/23 02:13 MCV 97.3 fl (82-101) 10/21/23 02:13 MCH 29.5 pg (27-33) 10/21/23 02:13 MCHC 30.4 g/dL (30-55) 10/21/23 02:13 RDW 13.2 % (12.1-15.1) 10/21/23 02:13 Plt Count 152 10^3/cmm (157-399) L 10/21/23 02:13 MPV 10.9 fL (7.4-10.4) H 10/21/23 02:13 Neut % (Auto) 84.9 % 10/21/23 02:13 Lymph % (Auto) 6.6 % 10/21/23 02:13 [place] % (Auto) 7.8 % 10/21/23 02:13 Eos % (Auto) 0.0 % 10/21/23 02:13 Baso % (Auto) 0.1 % 10/21/23 02:13 Neut # (Auto) 6.76 10^3/uL (1.8-7.7) 10/21/23 02:13 Lymph # (Auto) 0.5 10^3/uL (0.8-4.8) L 10/21/23 02:13 [place] # (Auto) 0.6 10^3/uL (0.2-0.9) 10/21/23 02:13 Eos # (Auto) 0.0 10^3/uL (0.0-0.8) 10/21/23 02:13 Baso # (Auto) 0.0 10^3/uL (0.0-0.1) 10/21/23 02:13 Nucleated RBC % (auto) 0 % 10/21/23 02:13 Nucleated RBCs # 0.0 /100WBC 10/21/23 02:13 D-Dimer 1.08 ug/mLFEU (0-0.59) H 10/18/23 13:18 Specimen Type Arterial 10/18/23 13:16 Sample Site Radial, right 10/18/23 13:16 ABG pH 7.33 (7.35-7.45) L 10/18/23 13:16 ABG pCO2 73.7 mmHg (35-45) H* 10/18/23 13:16 ABG pO2 52.5 mmHg (80.0-100.0) L 10/18/23 13:16 ABG PO2/FiO2 Ratio 0 10/18/23 13:16 ABG HCO3 39.1 mmol/L (22-26) H 10/18/23 13:16 ABG O2 Saturation 86.0 10/18/23 13:16 ABG Base Excess 10.7 mmol/L (-2.0-2.0) H 10/18/23 13:16 Quoc Test Pos 10/18/23 13:16 A-a O2 Gradient 11.4 mmHg (5-10) H 10/18/23 13:16 Hematocrit 35.0 % (42-52) L 10/18/23 13:16 Hgb O2 Saturation 84.2 % (95-100) L 10/18/23 13:16 Carboxyhemoglobin 1.4 %THgb (0.4-20.1) 10/18/23 13:16 Methemoglobin 0.8 % (0.4-1.5) 10/18/23 13:16 Total Hemoglobin 11.4 g/dL (14-18) L 10/18/23 13:16 Sodium 141.0 mmol/L (131-143) 10/18/23 13:16 Potassium 3.4 mmol/L (3.5-5.0) L 10/18/23 13:16 Glucose 120.0 mg/dL (70-115) H 10/18/23 13:16 Ionized Calcium 1.2 mmol/L (1.1-1.4) 10/18/23 13:16 O2 Delivery Device Nc 10/18/23 13:16 O2 Liters/Min 3.0 % 10/18/23 13:16 FiO2 32.0 % 10/18/23 13:16 Steam Plant Control Room Operator ID Monro 10/18/23 13:16 Sodium 140 mmol/L (136-145) 10/21/23 02:13 Potassium 3.9 mmol/L (3.5-5.1) 10/21/23 02:13 Chloride 96 mmol/L (98-107) L 10/21/23 02:13 Carbon Dioxide 38 mmol/L (22-29) H 10/21/23 02:13 Anion Gap 9.9 (5-19) 10/21/23 02:13 BUN 20 mg/dL (8-23) 10/21/23 02:13 Creatinine 0.8 mg/dL (0.7-1.2) 10/21/23 02:13 GFR Calculation 96.1 mL/min (90-130) 10/21/23 02:13 Glucose 174 mg/dL (65-115) H 10/21/23 02:13 Calculated Osmolality 297 mOsm/kg (285-295) H 10/21/23 02:13 Calcium 8.7 mg/dL (8.5-10.5) 10/21/23 02:13 Magnesium 1.8 mg/dL (1.7-2.3) 10/19/23 04:53 Total Bilirubin 0.2 mg/dL (0.15-1.2) 10/21/23 02:13 AST 33 U/L (0-40) 10/21/23 02:13 ALT 13 U/L (0-41) 10/21/23 02:13 Alkaline Phosphatase 45 U/L (40-130) 10/21/23 02:13 NT-Pro-B Natriuret Pep 577 pg/mL (0-125) H 10/18/23 13:18 Total Protein 5.8 g/dL (6.6-8.7) L 10/21/23 02:13 Albumin 3.1 g/dL (3.5-5.2) L 10/21/23 02:13 Globulin 2.7 g/dL (1.3-4.6) 10/21/23 02:13 TSH 0.25 uIU/mL (0.27-4.20) L 10/18/23 13:18 Free T4 1.09 ng/dL (0.82-1.77) 10/18/23 13:18 Urine Color Yellow (Yellow) 10/18/23 15:06 Urine Appearance Sl hazy (CLEAR) A 10/18/23 15:06 Urine pH 5 (5-7) 10/18/23 15:06 Ur Specific [place] 1.025 (1.005-1.030) 10/18/23 15:06 Urine Protein 2+ (Negative) H 10/18/23 15:06 Urine Glucose (UA) Norm (Normal) 10/18/23 15:06 Urine Ketones Negative (Negative) 10/18/23 15:06 Urine Blood 2+ (Negative) H 10/18/23 15:06 Urine Nitrate Negative (Negative) 10/18/23 15:06 Urine Bilirubin Neg (Negative) 10/18/23 15:06 Urine Urobilinogen Norm mg/dL (Negative) 10/18/23 15:06 Ur Leukocyte Esterase Negative (Negative) 10/18/23 15:06 Urine RBC 0-4 /hpf (0-2) H 10/18/23 15:06 Urine WBC 0-4 /hpf (0-5) H 10/18/23 15:06 Ur Squamous Epith Cells 0-4 /hpf (0-5) H 10/18/23 15:06 Amorphous Sediment 1+ /hpf 10/18/23 15:06 Urine Bacteria Trace /hpf (NONE) 10/18/23 15:06 Fine Granular Casts 0-4 /lpf H 10/18/23 15:06 Urine Mucus 1+ /hpf 10/18/23 15:06 Nasal Influ A H1 2009 PCR Detected (NOT DETECT) A 10/18/23 20:15 Coronavirus 229E (PCR) Not detected (NOT DETECT) 10/18/23 18:14 Influenza A (H1) PCR Not detected (NOT DETECT) 10/18/23 20:15 Influenza A (H3) PCR Not detected (NOT DETECT) 10/18/23 20:15 Influenza Type A Ag Positive (Negative) H 10/18/23 18:14 Influenza Type A (PCR) Detected (NOT DETECT) A 10/18/23 20:15 Influenza Type B Ag Negative (Negative) 10/18/23 18:14 Influenza Type B (PCR) Not detected (NOT DETECT) 10/18/23 20:15 SARS-CoV-2 (PCR) Not detected (NOT DETECT) 10/18/23 18:14 Vitals Last Vital Signs Temp 98.2 F 10/21/23 07:48 Pulse 90 10/21/23 07:48 Resp 18 10/21/23 07:48 BP 127/78 10/21/23 07:48 Pulse Ox 93 10/21/23 07:48 O2 Del Method Nasal Cannula 10/21/23 07:48 O2 Flow Rate 2 10/21/23 07:43 FiO2 35 10/18/23 23:42 Discharge Plan Discharge Patient Disposition: Home Health Service Condition: Stable Prescriptions: New atorvastatin 40 mg Tablet 40 mg PO BEDTIME Qty: 90 0RF aspirin 81 mg Tablet,Delayed Release (Dr/Ec) 81 mg PO DAILY Qty: 90 0RF oseltamivir 75 mg Capsule 75 mg PO BID Qty: 4 0RF Mucinex 600 mg Tablet Extended Release 12hr 1,200 mg PO BID Qty: 10 0RF levofloxacin 750 mg tablet 750 mg PO DAILY 4 Days Qty: 4 0RF prednisone 20 mg tablet 40 mg PO DAILY 2 Days Qty: 4 0RF Continued (DME) mucus clearing device Device See Rx Instructions .Route Qty: 1 0RF Rx Instructions: As directed (DME) miscellaneous medical supply Misc See Rx Instructions .Route Qty: 1 0RF Rx Instructions: [facility] portable oxygen concentrator with supplies fluticasone propionate [Flonase Allergy Relief] 50 mcg/actuation spray,suspension 1 spray intranasal DAILY Qty: 16 5RF amlodipine 2.5 mg tablet 2.5 mg PO DAILY 90 Days Qty: 90 1RF alprazolam [Xanax] 0.5 mg tablet 0.5 mg PO TID PRN (Reason: anxiety) 30 Days Qty: 70 5RF (DME) Vanilla Boost See Rx Instructions .Route .MEDSUPPLY Qty: 24 12RF Rx Instructions: one daily Klor-Con M10 10 mEq tablet,ER particles/crystals 10 meq PO DAILY Qty: 180 3RF albuterol sulfate [ProAir HFA] 90 mcg/actuation HFA aerosol inhaler 2 puff INHALATION Q6H PRN (Reason: shortness of breath or wheezing) Qty: 6.7 13RF cholecalciferol (vitamin D3) 1,250 mcg (50,000 unit) tablet 1,250 mcg PO DAILY 90 Days Qty: 12 0RF Dairy Relief 3,000 unit Tablet 3,000 unit PO QID PRN (Reason: Diarrhea) Rx Instructions: administer with meals and/or snacks magnesium 200 mg Tablet 400 mg PO DAILY phenylephrine-guaifenesin 10-400 mg Tablet 2 tab PO Q4H PRN (Reason: Cold Symptoms) lisinopril 10 mg tablet 10 mg PO DAILY metoprolol tartrate 50 mg tablet 50 mg PO BID omeprazole 20 mg capsule,delayed release(DR/EC) 20 mg PO BID mirtazapine 15 mg tablet 15 mg PO DAILY Trelegy Ellipta 200-62.5-25 mcg blister with device 1 ea inhalation DAILY Changed furosemide 20 mg tablet 20 mg PO DAILY PRN (Reason: Edema) Qty: 1 0RF Rx Instructions: Only as needed Discharge Orders: Discharge Order (Routine); Ordered 10/21/23 Ordered By: Prosper Reis Other Ambulatory Orders: MR head wo con* [id number] (Routine) Timeframe: 1 Week Facility: [facility] - Location: Radiology [place] [facility] Ordered By: Prosper Reis Referrals: Shelly Garibay, CARPENTER ASSISTANT [Primary Care Provider] - 4-7 days (We have notified your physician's clinic of the need for a follow-up appointment to be scheduled. If you have not heard from them within the next 2 business days, please call them directly. ) Discharge Diet: As Directed and Soft Mechanical Discharge Activity: Increase activity as tolerated, As per PT/OT instructions and Oxygen as instructed Patient Instructions: Prednisone (By mouth), Aspirin (By mouth), Atorvastatin (By mouth), Levofloxacin (By mouth) (Levaquin, Levaquin Leva-danni), Oseltamivir (By mouth), How to Stop Smoking (GEN), Malnutrition (GEN), Cigarette Smoking and Your Health (GEN), Influenza (GEN), COPD (Chronic Obstructive Pulmonary Disease) (GEN), Fall Prevention (GEN), Dysphagia (GEN), Aspiration Precautions (GEN), Prevent Cardiovascular Disease (GEN) Activity Restrictions/Additional Instructions: Please stop smoking, continue smoking will lead to further worsening of your lung function, risk of stroke, heart attack, a number of different cancers and other comorbidities. Complete Tamiflu for influenza. Complete antibiotic course for pneumonia and prednisone for COPD exacerbation. Follow-up with your primary doctor to reassess recovery. Continue oxygen supplementation at 2 L/min, target saturation 92%. Continue strict aspiration precautions with past history of aspiration with thin liquids, please follow speech therapy recommendations to avoid choking. Continue with soft diet. Add protein shakes to meals. Follow-up with your primary doctor for reassessment of malnutrition. Return to the hospital in case of any worsening or new concerning symptoms. Follow-up with your primary doctor for reassessment for concern of possible small stroke in the past. You are given referral for additional assessment by MRI brain. Started on aspirin, cholesterol. Please make sure to quit smoking. Please set up for life alert button to allow to call for help anytime. Discharge Attestations Time Spent in Discharge Care*: greater than 30 min Quality Metrics Clinical Quality Measures [ No reported AMI, CVA or VTE this stay] Coding Level of Care Code 57834 Total time (in minutes) for Discharge: 60 Diagnoses Acute respiratory failure with hypoxia and hypercarbia J96.01; J96.02 Smoking addiction F17.200
== END 2023-10-21 12:30 | disposition home or self-care (01) | DRG 193 ==
LOC: ER 18:58 → MEDSURG 19:43
PROVIDERS: Admitting Provider Internal Medicine; Emergency Provider Emergency Medicine; PCP Registered Nurse; Visit Provider Internal Medicine
DX: J10.00 Influenza due to other identified influenza virus with unspecified type of pneumonia (principal); E43 Unspecified severe protein-calorie malnutrition; J96.22 Acute and chronic respiratory failure with hypercapnia; J96.21 Acute and chronic respiratory failure with hypoxia; Z68.1 Body mass index [BMI] 19.9 or less, adult; E87.29 Other acidosis; J43.9 Emphysema, unspecified; I50.9 Heart failure, unspecified; I11.0 Hypertensive heart disease with heart failure; F17.210 Nicotine dependence, cigarettes, uncomplicated; F41.1 Generalized anxiety disorder; F41.0 Panic disorder [episodic paroxysmal anxiety]; F10.10 Alcohol abuse, uncomplicated; Z99.81 Dependence on supplemental oxygen; Z88.0 Allergy status to penicillin; Z82.3 Family history of stroke; Z11.52 Encounter for screening for COVID-19
CPT/HCPCS: 36415; 36600; 71045; 71260; 74177; 80051; 80053; 81001; 82330; 82805; 83735; 83880; 84439; 84443; 85025; 85378; 87631; 87635; 87804; 92523; 92610; 93005; 93880; 94640; 94660; 96372; 96374; 96375; 99285; J1650; J1956; J2405; J2543; J2920; J7030; J7626; Q9967

== ENCOUNTER 2023-10-24 10:42 | Observation (INO) | payer MEDICARE, MEDICAID, SELFPAY ==
[2023-10-24] VITALS (12 sets, daily range): BP systolic 109–136; BP diastolic 60–84; PULSE 63–98; RESP 16–22; TEMP 36.3–36.8; O2SAT 86–97
--- NOTE | 2023-10-24 10:48 | XRR_ITS ---
PROCEDURE INFORMATION: Exam: XR Chest Exam date and time: 10/24/2023 11:12 AM Age: 68 years old Clinical indication: Shortness of breath; Additional info: Shortness of brath TECHNIQUE: Imaging protocol: Radiologic exam of the chest. Views: 1 view. COMPARISON: CT chest abdpel w/*[id number] 10/18/2023 5:11 PM FINDINGS: Lungs: No significant change. Emphysematous COPD with chronic fibrous stranding predominantly in the left lower lobe. No new or progressive abnormality. No significant change since 10/18. Pleural spaces: Unremarkable. No pleural effusion. No pneumothorax. Heart/Mediastinum: Unremarkable. No cardiomegaly. Bones/joints: Unremarkable. XR/XR chest 1V [id number] IMPRESSION: Chronic findings. No acute cardiopulmonary disease.
--- NOTE | 2023-10-24 10:49 | ECG_ITS ---
[facility] Test Date: 2023-10-24 Pat Name: Jacob Goetz Department: Room: Gender: Male Histologist: : 1955 Requested By: Ellen Dumont Order Number: [id number] Lemus MD: Dexter Romero M.D. Measurements Intervals [place] Rate: 93 P: 149 OK: 121 QRS: 101 QRSD: 100 T: 127 QT: 341 QTc: 425 Interpretive Statements SINUS RHYTHM ARM LEADS REVERSED [INVERTED P AND QRS IN I] Compared to ECG 10/18/2023 13:20:59 Sinus tachycardia no longer present Atrial abnormality no longer present Electronically Signed On 10-24-2023 12:52:31 VASCULAR MANAGER by Dexter Romero M.D. [id number]
--- NOTE | 2023-10-24 10:50 | W.ED.SOB ---
HPI - SOB/Dyspnea General: Chief Complaint: Shortness of Breath/Dyspnea Stated Complaint: SOB Time Seen by Provider: 10/24/23 10:44 History of Present Illness: HPI Narrative: 68-year-old man with a history of COPD with chronic hypoxemic respiratory failure on 2 L nasal cannula at all times and tobacco dependence who presents the emergency room with shortness of breath. He was discharged home from the hospital with a COPD exacerbation a couple of days ago. He says almost immediately after he got home he started becoming more short of breath. He says he has not smoked in 2 weeks. EMS reports that he was hypoxemic in the upper 80s on 4 L at home. He said he noticed an immediate difference when they placed him on their oxygen. He feels like his home oxygen concentrator is not working appropriately. He reports no chest pain. No altered mental status. No fevers. No abdominal pain. No nausea or vomiting. No focal motor deficits. He received Solu-Medrol, DuoNeb and an albuterol updraft in the ambulance and they report that his work of breathing has improved significantly. Review of Systems Narrative: Constitutional symptoms: Negative except as documented in HPI. Skin symptoms: Negative except as documented in HPI. Eye symptoms: Negative except as documented in HPI. ENMT symptoms: Negative except as documented in HPI. Respiratory symptoms: Negative except as documented in HPI. Cardiovascular symptoms: Negative except as documented in HPI. Gastrointestinal symptoms: Negative except as documented in HPI. Genitourinary symptoms: Negative except as documented in HPI. Musculoskeletal symptoms: Negative except as documented in HPI. Neurologic symptoms: Negative except as documented in HPI. Psychiatric symptoms: Negative except as documented in HPI. Endocrine symptoms: Negative except as documented in HPI. PFSH ED PFSH: Medical History Protein calorie malnutrition Nausea and vomiting Community acquired pneumonia Generalized anxiety disorder with panic attacks At risk for aspiration Dependence on continuous supplemental oxygen COPD exacerbation Hypoxemia Tachycardia Acute dyspnea Smoker Leukocytosis Essential hypertension Clubbed fingers Benign essential HTN Smoking addiction Chronic respiratory failure Panic attack as reaction to stress Anxiety Smoking AA (alcohol abuse) CHF (congestive heart failure) Emphysema/COPD Surgical History Hx of tonsillectomy Family History Son Cancer Grandmother Cancer Mother CAD (coronary artery disease) Dementia Stroke Family/Other Lung disease Other Hyperlipidemia Hypertension Denies family history of Diabetes Clotting disorder Chronic kidney disease (CKD) Suicide Anesthesia complication Bleeding disorder Family history of premature coronary artery disease Social History Smoking and tobacco/nicotine status: current every day tobacco/nicotine user cigarettes Packs smoked per day: 1 Years cigarettes smoked: 56 [ Other cigarette details: started age 10] Alcohol intake: current Substance/Drug Use: never Adopted: No Caregiver/support person: No Lives independently: Yes Current occupational status: disabled Current gender identity: Male Physical Exam Narrative: EXAM NARRATIVE: General: Alert, no acute distress. Skin: Warm, dry. Head: Normocephalic, atraumatic. Neck: Supple, trachea midline. Eye: Extraocular movements are intact. Ears, nose, mouth and throat: mucosa moist. Cardiovascular: Regular, Normal peripheral perfusion. Respiratory: Some scattered expiratory wheeze, tachypnea, mild increased work of breathing, breath sounds are equal, Symmetrical chest wall expansion. Gastrointestinal: Soft, Nontender, Non distended, Normal bowel sounds. Musculoskeletal: Normal ROM, no deformity. Neurological: Alert and oriented to person, place, time, and situation, No focal neurological deficit observed. Psychiatric: Cooperative, appropriate mood & affect. Course Reevaluation(s): Reevaluation #1: Patient appears somewhat improved. He is on a BiPAP. Wheezing is decreased. He is still slightly tachypneic. He says he cannot use the BiPAP any longer so taken off. No focal motor deficits. No altered mental status. No chest pain. Vital Signs: Vital signs: Vital Signs Temperature 97.3 F L 10/24/23 10:47 Pulse Rate 96 10/24/23 11:53 Respiratory Rate 22 H 10/24/23 11:53 Blood Pressure 114/61 10/24/23 11:53 Pulse Oximetry 95 10/24/23 11:53 Oxygen Delivery Me thod BiPAP 10/24/23 11:53 Oxygen Flow Rate 3 10/24/23 10:47 Fraction of Inspir ed Oxygen 35 10/24/23 11:21 MDM - SOB/Dyspnea Medical Decision Making Patient is being evaluated for COPD exacerbation. Hospitalist also has concern for PE so a CT scan was done. I reviewed previous x-rays and his discharge summary. Lab Data 10/24/23 11:05 10/24/23 11:05 Labs/Radiology: Radiology Impressions Chest X-Ray 10/24/23 10:48 IMPRESSION: Chronic findings. No acute cardiopulmonary disease. Laboratory Results WBC 8.53 10^3/uL (3.29-11.43) 10/24/23 11:05 RBC 4.07 10^6/uL (3.85-5.65) 10/24/23 11:05 Hgb 11.80 g/dL (11.27-16.99) 10/24/23 11:05 Hct 39.0 % (37-53) 10/24/23 11:05 MCV 95.8 fl (82-101) 10/24/23 11:05 MCH 29.0 pg (27-33) 10/24/23 11:05 MCHC 30.3 g/dL (30-55) 10/24/23 11:05 RDW 13.3 % (12.1-15.1) 10/24/23 11:05 Plt Count 158 10^3/cmm (157-399) 10/24/23 11:05 MPV 10.0 fL (7.4-10.4) 10/24/23 11:05 Neut % (Auto) 76.0 % 10/24/23 11:05 Lymph % (Auto) 15.6 % 10/24/23 11:05 Hettinger % (Auto) 6.2 % 10/24/23 11:05 Eos % (Auto) 0.1 % 10/24/23 11:05 Baso % (Auto) 0.1 % 10/24/23 11:05 Neut # (Auto) 6.48 10^3/uL (1.8-7.7) 10/24/23 11:05 Lymph # (Auto) 1.3 10^3/uL (0.8-4.8) 10/24/23 11:05 Hettinger # (Auto) 0.5 10^3/uL (0.2-0.9) 10/24/23 11:05 Eos # (Auto) 0.0 10^3/uL (0.0-0.8) 10/24/23 11:05 Baso # (Auto) 0.0 10^3/uL (0.0-0.1) 10/24/23 11:05 Nucleated RBC % (auto) 0 % 10/24/23 11:05 Nucleated RBCs # 0.0 /100WBC 10/24/23 11:05 Specimen Type Arterial 10/24/23 10:52 Sample Site Radial, left 10/24/23 10:52 ABG pH 7.42 (7.35-7.45) 10/24/23 10:52 ABG pCO2 66.9 mmHg (35-45) H* 10/24/23 10:52 ABG pO2 78.8 mmHg (80.0-100.0) L 10/24/23 10:52 ABG PO2/FiO2 Ratio 0 10/24/23 10:52 ABG HCO3 43.5 mmol/L (22-26) H 10/24/23 10:52 ABG O2 Saturation 96.2 10/24/23 10:52 ABG Base Excess 16.0 mmol/L (-2.0-2.0) H 10/24/23 10:52 Quoc Test Pos 10/24/23 10:52 A-a O2 Gradient 12.8 mmHg (5-10) H 10/24/23 10:52 Hematocrit 37.0 % (42-52) L 10/24/23 10:52 Hgb O2 Saturation 94.9 % (95-100) L 10/24/23 10:52 Carboxyhemoglobin 0.8 %THgb (0.4-20.1) 10/24/23 10:52 Methemoglobin 0.6 % (0.4-1.5) 10/24/23 10:52 Total Hemoglobin 12.1 g/dL (14-18) L 10/24/23 10:52 Sodium 145.0 mmol/L (131-143) H 10/24/23 10:52 Potassium 3.3 mmol/L (3.5-5.0) L 10/24/23 10:52 Glucose 86.0 mg/dL (70-115) 10/24/23 10:52 Ionized Calcium 1.2 mmol/L (1.1-1.4) 10/24/23 10:52 O2 Delivery Device Nc 10/24/23 10:52 O2 Liters/Min 4.0 % 10/24/23 10:52 FiO2 36.0 % 10/24/23 10:52 [employer] Vault Supervisor ID Monro 10/24/23 10:52 Sodium 145 mmol/L (136-145) 10/24/23 11:05 Potassium 3.5 mmol/L (3.5-5.1) 10/24/23 11:05 Chloride 97 mmol/L (98-107) L 10/24/23 11:05 Carbon Dioxide 42 mmol/L (22-29) H* 10/24/23 11:05 Anion Gap 9.5 (5-19) 10/24/23 11:05 BUN 16 mg/dL (8-23) 10/24/23 11:05 Creatinine 0.7 mg/dL (0.7-1.2) 10/24/23 11:05 GFR Calculation 112.1 mL/min (90-130) 10/24/23 11:05 Glucose 93 mg/dL (65-115) 10/24/23 11:05 Calculated Osmolality 301 mOsm/kg (285-295) H 10/24/23 11:05 Calcium 8.9 mg/dL (8.5-10.5) 10/24/23 11:05 Total Bilirubin 0.4 mg/dL (0.15-1.2) 10/24/23 11:05 AST 52 U/L (0-40) H 10/24/23 11:05 ALT 22 U/L (0-41) 10/24/23 11:05 Alkaline Phosphatase 58 U/L (40-130) 10/24/23 11:05 Total Protein 6.4 g/dL (6.6-8.7) L 10/24/23 11:05 Albumin 3.4 g/dL (3.5-5.2) L 10/24/23 11:05 Globulin 3.0 g/dL (1.3-4.6) 10/24/23 11:05 Lab work was reviewed. No anemia. No electrolyte abnormalities that are significant. His renal function is normal. No elevation in his LFTs. He does however have a compensated hypercapnic respiratory failure. pCO2 was 66. All radiology interpretation(s) finalized by discharge ED provider radiology interpretation(s): Chest x-ray: No acute process. No pneumothorax. No infiltrate. No cardiomegaly. Emphysematous changes and a flattened diaphragm. This appears unchanged from x-ray done a few days ago. This was reviewed and interpreted by myself the ER physician. EKG Data EKG 1: Other EKG Comments: EKG: Time 10:54 AM rate 93 normal sinus rhythm, No ST-T changes, no ectopy, normal ME & QRS intervals, This was reviewed and interpreted by myself the ER physician. Discharge Plan Discharge Patient Disposition: Placed in Observation Clinical Impression: Acute and chronic respiratory failure with hypoxia, COPD with acute exacerbation Condition: Stable Prescriptions: No Action (DME) mucus clearing device Device See Rx Instructions .Route Qty: 1 0RF Rx Instructions: As directed (DME) miscellaneous medical supply Misc See Rx Instructions .Route Qty: 1 0RF Rx Instructions: [employer] portable oxygen concentrator with supplies fluticasone propionate [Flonase Allergy Relief] 50 mcg/actuation spray,suspension 1 spray intranasal DAILY Qty: 16 5RF amlodipine 2.5 mg tablet 2.5 mg PO DAILY 90 Days Qty: 90 1RF alprazolam [Xanax] 0.5 mg tablet 0.5 mg PO TID PRN (Reason: anxiety) 30 Days Qty: 70 5RF (DME) Vanilla Boost See Rx Instructions .Route .MEDSUPPLY Qty: 24 12RF Rx Instructions: one daily Klor-Con M10 10 mEq tablet,ER particles/crystals 10 meq PO DAILY Qty: 180 3RF albuterol sulfate [ProAir HFA] 90 mcg/actuation HFA aerosol inhaler 2 puff INHALATION Q6H PRN (Reason: shortness of breath or wheezing) Qty: 6.7 13RF cholecalciferol (vitamin D3) 1,250 mcg (50,000 unit) tablet 1,250 mcg PO DAILY 90 Days Qty: 12 0RF Dairy Relief 3,000 unit Tablet 3,000 unit PO QID PRN (Reason: Diarrhea) Rx Instructions: administer with meals and/or snacks magnesium 200 mg Tablet 400 mg PO DAILY phenylephrine-guaifenesin 10-400 mg Tablet 2 tab PO Q4H PRN (Reason: Cold Symptoms) lisinopril 10 mg tablet 10 mg PO DAILY metoprolol tartrate 50 mg tablet 50 mg PO BID omeprazole 20 mg capsule,delayed release(DR/EC) 20 mg PO BID mirtazapine 15 mg tablet 15 mg PO DAILY Trelegy Ellipta 200-62.5-25 mcg blister with device 1 ea inhalation DAILY atorvastatin 40 mg Tablet 40 mg PO BEDTIME Qty: 90 0RF aspirin 81 mg Tablet,Delayed Release (Dr/Ec) 81 mg PO DAILY Qty: 90 0RF oseltamivir 75 mg Capsule 75 mg PO BID Qty: 4 0RF Mucinex 600 mg Tablet Extended Release 12hr 1,200 mg PO BID Qty: 10 0RF levofloxacin 750 mg tablet 750 mg PO DAILY 4 Days Qty: 4 0RF furosemide 20 mg tablet 20 mg PO DAILY PRN (Reason: Edema) Qty: 1 0RF Rx Instructions: Only as needed Referrals: Shelly Garibay FNP [Primary Care Provider] - Coding Level of Care Code ED Aircraft Time Clerk for Zain Goss
--- NOTE | 2023-10-24 11:01 | PC.NURSE ---
Pt placed on bedside cardiac and SpO2 monitoring
[2023-10-24 11:04] LABS: ABG PCO2 66.9 mmHg (35-45); ABG PH Result 7.42 (7.35-7.45); Alveolar-Arterial Oxygen Gradi 12.8 mmHg (5-10); Blood Gas Allen Test Pos; Blood Gas Operator Identificat MONRO; Blood Gas Sample Site Radial, left; Blood Gas Sample Type Arterial; Carboxyhemoglobin 0.8 %THgb (0.4-20.1); HCO3 ABG 43.5 mmol/L (22-26); HGB O2 Sat 94.9 % (95-100); Ionized Calcium Level - ABG 1.2 mmol/L (1.1-1.4); Methemoglobin 0.6 % (0.4-1.5); Oxygen Device NC; Oxygen Saturation ABG 96.2; PO2 ABG 78.8 mmHg (80.0-100.0); PO2 FiO2 Ratio Arterial Blood 0; Potassium Level - ABG 3.3 mmol/L (3.5-5.0); Total Hemoglobin 12.1 g/dL (14-18)
[2023-10-24 11:11] LABS: Basophils % 0.1 %; Eosinophils % 0.1 %; Lymphocytes # 1.3 10^3/uL (0.8-4.8); Lymphocytes % 15.6 %; Mean Corpuscular HGB Conc 30.3 g/dL (30-55); Mean Corpuscular Volume 95.8 fl (82-101); Monocytes # 0.5 10^3/uL (0.2-0.9); Monocytes % 6.2 %; Neutrophils # 6.48 10^3/uL (1.8-7.7); Nucleated Red Blood Cells % 0 %; Platelet Count 158 10^3/cmm (157-399); Red Blood Count 4.07 10^6/uL (3.85-5.65); Red Cell Distribution Width 13.3 % (12.1-15.1); White Blood Count 8.53 10^3/uL (3.29-11.43)
[2023-10-24] MEDS: ipratropium-albuterol 3 mL Neb INHALATION ×2 (11:18→20:39)
[2023-10-24 11:30] LABS: Alanine Aminotransferase 22 U/L (0-41); Albumin Level 3.4 g/dL (3.5-5.2); Alkaline Phosphatase 58 U/L (40-130); Anion Gap 9.5 (5-19); Aspartate Amino Transferase 52 U/L (0-40); Blood Urea Nitrogen 16 mg/dL (8-23); Calcium 8.9 mg/dL (8.5-10.5); Chloride 97 mmol/L (98-107); Glomerular Filtration Rate 112.1 mL/min (90-130); Glucose 93 mg/dL (65-115); Osmolality Calculated 301 mOsm/kg (285-295); Potassium 3.5 mmol/L (3.5-5.1); Sodium 145 mmol/L (136-145); Total Bilirubin 0.4 mg/dL (0.15-1.2); Total Protein 6.4 g/dL (6.6-8.7)
[2023-10-24 11:33] LABS: Carbon Dioxide 42 mmol/L (22-29)
--- NOTE | 2023-10-24 12:27 | CTR_ITS ---
PROCEDURE INFORMATION: Exam: CTA Chest With Contrast Exam date and time: 10/24/2023 1:03 PM Age: 68 years old Clinical indication: Shortness of breath; Additional info: SOB, copd exacerbation, rule out pe TECHNIQUE: Imaging protocol: Computed tomographic angiography of the chest with contrast. Exam focused on the arteries. 3D rendering (Not supervised by radiologist): MIP and/or 3D reconstructed images were created by the technologist. Radiation optimization: All CT scans at this facility use at least one of these dose optimization techniques: automated exposure control; mA and/or kV adjustment per patient size (includes targeted exams where dose is matched to clinical indication); or iterative reconstruction. Contrast material: OMNI 350; Contrast volume: 100 ml; Contrast route: INTRAVENOUS (IV); COMPARISON: CT angio chest PE protcl [id number] 01/24/2022 9:39 PM RADIATION DOSE METRICS: Total DLP (mGy-cm): 144 FINDINGS: Pulmonary arteries: There is no central pulmonary embolus. Aorta: Unremarkable. No aortic aneurysm. No aortic dissection. Lungs: Marked emphysematous COPD. There are superimposed patchy infiltrates in each lower lobe, left greater than right. This pattern of infiltrates is similar but slightly less extensive than was seen on 01/24/2022. 12 mm subpleural density in the left mid lung is probably atelectasis but it is masslike and a follow-up chest CT in 3 months recommended. Pleural spaces: Unremarkable. No pneumothorax. No pleural effusion. Heart: Unremarkable. No cardiomegaly. No pericardial effusion. Lymph nodes: Calcified central and hilar lymph nodes. Bones/joints: Unremarkable. No acute fracture. Soft tissues: Unremarkable. CT/CT angio chest PE protcl [id number] IMPRESSION: 1. Emphysematous COPD with bilateral lower lobe infiltrates. 2. No evidence of embolus. 3. Mass like density on the left. This is likely atelectasis or infiltrate, three-month follow-up chest CT recommended. COMMENTS: The presence of pulmonary emphysema on CT is an independent risk factor for lung cancer. In the absence of a history or active diagnosis of lung cancer, it is recommended that this patient with emphysema be evaluated for enrollment in a low dose CT lung cancer screening program.
--- NOTE | 2023-10-24 12:33 | PC.PHAR ---
PT IS ON BIPAP BUT DID VERIFY TAKING HIS MORNING MEDS TODAY. XANAX 0.5 MG, ASA 81 MG, AND ATORVASTATIN 40MG ON MED LIST BUT NOT IN MEDICATION BOX BROUGHT IN. 10/24/22
--- NOTE | 2023-10-24 12:59 | PC.NURSE ---
Pt removed from BIPAP per Dr Michaels, placed on 4L O2/NC. To CT scan
[2023-10-24] MEDS: iohexol 350 mg/mL 500 mL Btl (per mL) IV (13:06)
--- NOTE | 2023-10-24 15:01 | P.HP_ITS ---
Providers/Chief Complaint 2 Admitting Physician: Prosper Reis Primary Care Provider: ALLEN Nichole Chief Complaint: SOB History of Present Illness 68-year-old gentleman with history of COPD, normally on 2 L oxygen, CHF, current smoker, has been cutting down, recently admitted here with influenza, COPD exacerbation, with past history of dysphagia, diarrhea, concern of left-sided facial droop. He weaned down on oxygen requirement to baseline, improved, refused to consider going to SNF for rehabilitation and returned home. He was brought in by EMS due to complaint of severe dyspnea at home. With somewhat increased work of breathing, tachypnea, was initially started on BiPAP, with recent illness concern by ER physician observation was requested and he is undergoing CT angiogram of the chest, although was noted to be improving on the way and he also noticed that his oxygen was barely flowing at home compared to EMS and feels that his O2 mchine has a malfunction. Review of Systems 2 Const: Denies: fever(s), chills, body aches or malaise ENMT: Denies: throat pain Card: Denies: chest pain, edema, pre-syncope or dyspnea on exertion Resp: Reports: dyspnea and non-productive cough; Denies: productive cough, change in phlegm color or hemoptysis GI: Denies: abdominal pain, nausea, vomiting, diarrhea, constipation, hematochezia or melena : Denies: flank pain, difficulty urinating, urinary frequency or hematuria Musc: Denies: back pain, joint swelling or joint redness Skin/Breast: Denies: rash or new lesions Neuro: Denies: headache(s), numbness in extremities, weakness in extremities, dizziness, confusion or seizure-like activity Medications/Allergies Home Medications Medication Instructions Recorded Confirmed Last Taken Type miscellaneous medical supply #1 ea 03/23/22 10/24/23 Unknown Rx mucus clearing device #1 ea 03/23/22 10/24/23 Unknown Rx albuterol sulfate 90 mcg/actuation 2 puff inhalation Q6H PRN 08/02/23 10/24/23 Unknown Rx aerosol inhaler (ProAir HFA) shortness of breath or wheezing #6.7 grams cholecalciferol (vitamin D3) 1,250 1,250 mcg PO DAILY 90 days #12 tabs 08/20/23 10/24/23 10/18/23 Rx mcg (50,000 unit) tablet Vanilla Boost #24 ea 10/09/23 10/24/23 Unknown Rx alprazolam 0.5 mg tablet (Xanax) 0.5 mg PO TID PRN anxiety 30 days 10/09/23 10/24/23 Unknown Rx #70 tabs amlodipine 2.5 mg tablet 2.5 mg PO DAILY 90 days #90 tabs 10/09/23 10/24/23 10/24/23 Rx fluticasone propionate 50 1 spray intranasal DAILY #16 grams 10/09/23 10/24/23 10/24/23 Rx mcg/actuation nasal spray,suspension (Flonase Allergy Relief) fluticasone fur. 200 mcg-umeclid 1 ea inhalation DAILY 10/18/23 10/24/23 10/18/23 History 62.5 mcg-vilant 25 mcg inhalat.powder (Trelegy Ellipta) lactase 3,000 unit tablet (Dairy 3,000 unit PO QID PRN Diarrhea 10/18/23 10/24/23 Unknown History Relief) lisinopril 10 mg tablet 10 mg PO QAM 10/18/23 10/24/23 10/24/23 History metoprolol tartrate 50 mg tablet 50 mg PO BID 10/18/23 10/24/23 10/24/23 History mirtazapine 15 mg tablet 15 mg PO BEDTIME 10/18/23 10/24/23 10/23/23 History omeprazole 20 mg capsule,delayed 20 mg PO BID 10/18/23 10/24/23 10/24/23 History release phenylephrine-guaifenesin 10 2 tab PO Q4H PRN Cold Symptoms 10/18/23 10/24/23 10/18/23 History mg-400 mg tablet aspirin 81 mg tablet,delayed 81 mg PO DAILY #90 tabs 10/21/23 10/24/23 Unknown Rx release atorvastatin 40 mg tablet 40 mg PO BEDTIME #90 tabs 10/21/23 10/24/23 10/23/23 Rx furosemide 20 mg tablet 20 mg PO DAILY PRN Edema #1 tab 10/21/23 10/24/23 10/18/23 Rx guaifenesin 600 mg tablet, 1,200 mg (2 x 600 mg) PO BID #10 10/21/23 10/24/23 Unknown Rx extended release 12 hr (Mucinex) tabs magnesium oxide 400 mg PO DAILY 10/24/23 10/24/23 Unknown History phenylephrine 5 1 cap PO Q6H PRN Cold Symptoms 10/24/23 10/24/23 Unknown History mg-dextromethorphan 10 mg-acetaminophen 325 mg capsule (Daytime Cold and Flu Relief (phenylephrine)) potassium chloride 10 mEq 10 meq PO QAM 10/24/23 10/24/23 10/24/23 History tablet,extended release(part/cryst) (Klor-Con M) Allergies Allergy/AdvReac Type Severity Reaction Status Date / Time Penicillins Allergy Severe ALGY-Difficulty Verified 10/24/23 10:51 Breathing PFSH Acute 2 PFSH: Medical History Protein calorie malnutrition Nausea and vomiting Community acquired pneumonia Generalized anxiety disorder with panic attacks At risk for aspiration Dependence on continuous supplemental oxygen COPD exacerbation Hypoxemia Tachycardia Acute dyspnea Smoker Leukocytosis Essential hypertension Clubbed fingers Benign essential HTN Smoking addiction Chronic respiratory failure Panic attack as reaction to stress Anxiety Smoking AA (alcohol abuse) CHF (congestive heart failure) Emphysema/COPD Surgical History Hx of tonsillectomy Family History Son Cancer Grandmother Cancer Mother CAD (coronary artery disease) Dementia Stroke Family/Other Lung disease Other Hyperlipidemia Hypertension Denies family history of Diabetes Clotting disorder Chronic kidney disease (CKD) Suicide Anesthesia complication Bleeding disorder Family history of premature coronary artery disease Social History Smoking and tobacco/nicotine status: current every day tobacco/nicotine user cigarettes Packs smoked per day: 1 Years cigarettes smoked: 56 [ Other cigarette details: started age 10] Alcohol intake: current Substance/Drug Use: never Adopted: No Caregiver/support person: No Lives independently: Yes Current occupational status: disabled Current gender identity: Male Vitals/I&O/Wt Last Vital Signs Temp 97.3 F L 10/24/23 10:47 Pulse 87 10/24/23 14:25 Resp 18 10/24/23 14:25 BP 116/81 10/24/23 14:25 Pulse Ox 95 10/24/23 14:25 O2 Del Method Nasal Cannula 10/24/23 14:00 O2 Flow Rate 4 10/24/23 14:00 FiO2 35 10/24/23 11:21 Physical Exam 2 Narrative: Accompanied by family. Const: COMMON NORMALS: patient oriented x3 and alert GENERAL APPEARANCE: c ooperative NUTRITIONAL APPEARANCE: cachectic ORIENTATION/CONSCIOUSNESS: Y es awake HENMT: COMMON NORMALS: oropharynx normal Neck/C-Spine: COMMON NORMALS: no JVD Resp: COMMON NORMALS: normal respiratory effort and clear to auscultation bilaterally AUSCULTATION: clear to auscultation bilaterally, rhonchi and diminished lung sounds Cardio: COMMON NORMALS: no JVD, regular rhythm, S1 normal heart sound present, S2 normal heart sound present and No murmurs present (Cardio) RHYTHM: regular rhythm HEART SOUNDS: S1 normal heart sound present and S2 normal heart sound present GI: COMMON NORMALS: Normal to inspection, nondistended, normoactive bowel sounds present, Soft to palpation and non-tender PALPATION: Yes Soft to palpation Extremity: COMMON NORMALS: no joint enlargement and no pedal edema OTHER: Thin, sarcopenia Neuro: COMMON NORMALS: patient oriented x3 and moves all extremities S ENSORIUM/ORIENTATION: Yes alert Skin: COMMON NORMALS: no rashes or lesions noted GENERAL SKIN EXAM: no rashes or lesions noted Data 10/24/23 11:05 10/24/23 11:05 A&P Assessment and plan (1) Hypoxia: Transient respiratory failure, saturations in the upper 80s on 4 L oxygen at home noted by EMS. Tachypneic in ER. Nonproductive cough. CT angiogram chest obtained to assess for PE. Reviewed CT. No PE noted, emphysema, COPD, bilateral lower infiltrates are seen. Masslike density in the left likely atelectasis or infiltrate, 3 months follow-up CT chest recommended. Continue oxygen support. Will add empiric antibiotics due to possible superimposed secondary bacterial pneumonia after recent influenza, COPD exacerbation. Continue oxygen support. Reviewed vitals, CBC, ABG, CMP, chest x-ray, CTA. EKG on my interpretation with limb lead reversal, will request repeat. Reviewed ER note. Discussed with ER physician. Penicillin allergy listed, but last admission he received piperacillin without any symptoms. As discussed with him and DPOA, likely has lost the allergy. Will provide broad-spectrum coverage with cefepime, linezolid. Monitor for encephalopathy with risk with cefepime. Monitor for granulocytosis risk with linezolid. Obtain urine bacterial antigens. MRSA PCR. Plan Focal neurological abnormalities: Previously noted, was referred for assessment by MRI brain. HTN: Monitor blood pressures Smoking: Continue to encourage cessation. Nicotine replacement as needed. Cachexia: Protein calorie malnutrition, severe, thin appearance, sarcopenia, BMI 14.5. Regular diet. Protein shakes with meals. Attestations 2 Medical Necessity Statement*: Place in observation for additional assessment of acute on chronic respiratory failure, increased work of breathing, recent influenza infection, severe COPD infection, with suspected superimposed secondary pneumonia. Diagnoses Hypoxia R09.02
--- NOTE | 2023-10-24 15:22 | PC.NURSE ---
Locks pt home medications in the Pyxis.
[2023-10-24] MEDS: cefepime 1,000 MG in sodium chloride 0.9% (plus) 50 ML 100 MG IV (15:48)
[2023-10-24] MEDS: ALPRAZolam 0.5 mg Tablet PO (15:49)
[2023-10-24] MEDS: heparin 5,000 unit/mL INJ 1 mL 5000 UNIT SUBCUT (15:49)
[2023-10-24] MEDS: acetaminophen 325 mg Tablet 650 MG PO ×2 (15:54→23:15)
--- NOTE | 2023-10-24 15:54 | ECG_ITS ---
[facility] Test Date: 2023-10-24 Pat Name: Jacob Goetz Department: Room: 272 Gender: Male Appliquer Zigzag: : [id number] Requested By: Prosper Reis Order Number: [id number] Mariah MD: Dexter Romero M.D. Measurements Intervals Marland Rate: 93 P: 87 WV: 121 QRS: 79 QRSD: 80 T: 82 QT: 339 QTc: 422 Interpretive Statements SINUS RHYTHM POSSIBLE LEFT ATRIAL ENLARGEMENT [-0.1mV P-WAVE IN V1/V2] LOW QRS VOLTAGE IN PRECORDIAL LEADS [QRS DEFLECTION < 1.0 mV IN CHEST LEADS] POSSIBLE RIGHT VENTRICULAR CONDUCTION DELAY [RSR (QR) IN V1/V2] ANTEROSEPTAL MYOCARDIAL INFARCTION , OF INDETERMINATE AGE [40+ ms Q WAVE IN V1-V4] Compared to ECG 10/24/2023 10:54:50 Low QRS voltage now present Myocardial infarct finding now present Electronically Signed On 10-24-2023 19:02:16 LAB PACK CHEMIST by Dexter Romero M.D. [email or web address]
[2023-10-24] MEDS: guaiFENesin 600 mg Tablet 1200 MG PO (17:05)
[2023-10-24] MEDS: metoprolol tartrate 50 mg Tablet PO (17:05)
[2023-10-24] MEDS: pantoprazole DR 40 mg Tablet PO (17:05)
[2023-10-24] MEDS: linezolid premix 600 MG/300 ML PREMIX 300 MG IV (17:06)
[2023-10-24] MEDS: atorvastatin 40 mg Tablet PO (19:42)
[2023-10-24] MEDS: mirtazapine 15 mg Tablet PO (19:42)
--- NOTE | 2023-10-24 21:24 | PC.NURSE ---
Assumed pt care at this time. Report received from MENDEZ Barakat. Pt resting with eyes closed, no signs of distress at this time. Respirations even. Call light is within reach.
[2023-10-25] VITALS (7 sets, daily range): BP systolic 109–121; BP diastolic 65–66; PULSE 66–83; RESP 15–20; TEMP 36.4; O2SAT 91–97
[2023-10-25] MEDS: ALPRAZolam 0.5 mg Tablet PO ×2 (00:06→08:37)
[2023-10-25] MEDS: ipratropium-albuterol 3 mL Neb INHALATION ×3 (02:50→14:08)
[2023-10-25] MEDS: cefepime 1,000 MG in sodium chloride 0.9% (plus) 50 ML 100 MG IV (03:52)
[2023-10-25] MEDS: heparin 5,000 unit/mL INJ 1 mL 5000 UNIT SUBCUT (03:53)
[2023-10-25] MEDS: linezolid premix 600 MG/300 ML PREMIX 300 MG IV (04:31)
[2023-10-25] MEDS: lisinopril 10 mg Tablet PO (05:37)
[2023-10-25 06:35] LABS: Basophils % 0.2 %; Eosinophils % 0.3 %; Hematocrit 31.2 % (37-53); Lymphocytes # 0.9 10^3/uL (0.8-4.8); Lymphocytes % 13.8 %; Mean Corpuscular HGB Conc 30.8 g/dL (30-55); Mean Corpuscular Hemoglobin 28.9 pg (27-33); Mean Platelet Volume 10.4 fL (7.4-10.4); Monocytes # 0.7 10^3/uL (0.2-0.9); Monocytes % 10.7 %; Neutrophils % 72.8 %; Nucleated Red Blood Cells % 0 %; Platelet Count 168 10^3/cmm (157-399); Red Blood Count 3.32 10^6/uL (3.85-5.65); Red Cell Distribution Width 13.2 % (12.1-15.1); White Blood Count 6.45 10^3/uL (3.29-11.43)
[2023-10-25 06:59] LABS: Alanine Aminotransferase 13 U/L (0-41); Albumin Level 2.8 g/dL (3.5-5.2); Alkaline Phosphatase 61 U/L (40-130); Aspartate Amino Transferase 24 U/L (0-40); Blood Urea Nitrogen 14 mg/dL (8-23); Calcium 8.4 mg/dL (8.5-10.5); Carbon Dioxide 39 mmol/L (22-29); Chloride 95 mmol/L (98-107); Globulin 2.4 g/dL (1.3-4.6); Glomerular Filtration Rate 112.1 mL/min (90-130); Glucose 211 mg/dL (65-115); Osmolality Calculated 297 mOsm/kg (285-295); Sodium 140 mmol/L (136-145); Total Bilirubin 0.2 mg/dL (0.15-1.2); Total Protein 5.2 g/dL (6.6-8.7)
[2023-10-25] MEDS: guaiFENesin 600 mg Tablet 1200 MG PO (08:33)
[2023-10-25] MEDS: metoprolol tartrate 50 mg Tablet PO (08:34)
[2023-10-25] MEDS: aspirin 81 mg EC Tablet PO (08:34)
[2023-10-25] MEDS: fluticasone nasal spray 16gm Btl 1 SPRAY INTRANASAL (08:34)
[2023-10-25] MEDS: amlodipine 5 mg Tablet 2.5 MG PO (08:34)
[2023-10-25] MEDS: pantoprazole DR 40 mg Tablet PO (08:34)
--- NOTE | 2023-10-25 10:59 | PC.CHAP ---
Pastoral Care Encounter/Spiritual Assessment Type of Contact [] Declined pharmacy district manager visit [] Patient/Family/Request visit [] Outpatient visit [] Follow-up visit [] Physician referral [] Code/Alert [x] Routine visit [] Staff referral [] Actively dying [] Patient sleeping [] Family support [] [] Out of room [] Palliative care [] [x] Receiving care in room [] Pre-surgical visit [] Trauma [] Long length of stay [] ICU visit [] Other: Relational/Emotional Strength [x] Patient feels connected with others/family/visitors/staff [] Distress [] Loneliness/isolation [] Abandonment Spirituality of Patient [x] Person of Marya [] Attends Zoroastrian of their Marya [x] Believes in Prayer [] Reads Bible or Church materials [] There are Spiritual issues to be addressed Media Specialist Interventions [x] Prayer [x] Active listening [x] Non-anxious presence [x] Spiritual/emotional support [] Crisis/trauma care [x] Spiritual counseling [] Bereavement support [] Provided bereavement packet [] Provided Bible/devotional materials [] Provided toy/stuffed animal, coloring book to patient or family member [] Provided Communion [] Anointing/[place] [] Salvation [x] Completed spiritual assessment [] Other: Impact on Illness or Injury [] Angry [] Fearful [] Anxious [] Often cries [] Exhaustion [] Unable to work [] Unable to attend jewish [] Unable to walk/stand [] Unable to read [] Unable to drive [] Unable to eat/drink [] Unable to sleep [] Unable to be with family [] Patient intubated [] Other: Summary senior +1 family negative health they well take of her at home Time spent with patient 10 mins
--- NOTE | 2023-10-25 12:22 | P.DS_ITS ---
Discharge Providers Date of Admission: 10/24/23 15:25 Date of Discharge: October 25, 2023 Attending Provider at Admission: Prosper Reis Attending Provider at Discharge: Prosper Reis Primary Care Provider: ALLEN Nichole Diagnoses at Discharge Discharge Diagnosis (1) Hypoxia: Status: Acute Reason for Visit Reason for Visit: SOB Brief History: 68-year-old gentleman with history of [place] PD, normally on 2 L oxygen, CHF, current smoker, has been cutting down, recently admitted here with influenza, COPD exacerbation, with past history of dysphagia, diarrhea, concern of left-sided facial droop. He weaned down on oxygen requirement to baseline, improved, refused to consider going to SNF for rehabilitation and returned home. He was brought in by EMS due to complaint of severe dyspnea at home. With somewhat increased work of breathing, tachypnea, was initially started on BiPAP, with recent illness concern by ER physician observation was requested and he is undergoing CT angiogram of the chest, although was noted to be improving on the way and he also noticed that his oxygen was barely flowing at home compared to EMS and feels that his O2 mchine has a malfunction. Hospital Course Hospital Course CT angiogram chest showed no PE. Emphysema, COPD, noted bilateral lower lobe infiltrates. He was on Levaquin at home, restarted on antibiotic coverage here with cefepime, linezolid, incidentally noted masslike density in the left. Atelectasis suspected, but 3-month follow-up chest CT recommended. As he had noted that his oxygen machine at home was not working, oxygen company was contacted and he states they came by his house and that they exchange some hoses due to drunk and crud in them. He is back at his baseline oxygen. He is returning home to complete Levaquin course. Please see prior discharge for additional instructions, he is Encouraged to quit smoking, instructed on strict aspiration precautions. He is referred for additional assessment by MRI brain. Please reassess malnutrition. Physical Exam Narrative: This morning he states he is not sure how he is feeling yet, but is not feeling poorly. Const: COMMON NORMALS: patient oriented x3 and alert GENERAL APPEARANCE: cooperative NUTRITIONAL APPEARANCE: cachectic ORIENTATION/CONSCIOUSNESS: Yes awake HENMT: COMMON NORMALS: oropharynx normal Neck/C-Spine: COMMON NORMALS: no JVD Resp: COMMON NORMALS: normal respiratory effort and clear to auscultation bilaterally AUSCULTATION: clear to auscultation bilaterally Cardio: COMMON NORMALS: no JVD, regular rhythm, S1 normal heart sound present, S2 normal heart sound present and No murmurs present (Cardio) RHYTHM: regular rhythm HEART SOUNDS: S1 normal heart sound present and S2 normal heart sound present GI: COMMON NORMALS: Normal to inspection, nondistended, normoactive bowel sounds present, Soft to palpation and non-tender PALPATION: Yes Soft to palpation Extremity: COMMON NORMALS: no joint enlargement and no pedal edema Neuro: COMMON NORMALS: patient oriented x3 and moves all extremities SENSORIUM/ORIENTATION: Yes alert Skin: COMMON NORMALS: no rashes or lesions noted GENERAL SKIN EXAM: no rashes or lesions noted Discharge Data Studies Completed and Pending Completed Studies During Hospitalization Category Date Time Status CT angio chest PE protcl [id number] Stat Cat Scan 10/24/23 12:27 Completed XR chest 1V [id number] Stat Exams 10/24/23 10:48 Completed Pending at discharge Category Date Time Status Bacterial Antigen Routine Lab 10/25/23 02:00 Results Complete Blood Count w/Auto AM LABS Lab 10/26/23 04:00 Ordered Complete Blood Count w/Auto AM LABS Lab 10/27/23 04:00 Ordered Comprehensive Metabolic Panel AM LABS Lab 10/26/23 04:00 Ordered Comprehensive Metabolic Panel AM LABS Lab 10/27/23 04:00 Ordered Legionella Antigen STAT Routine Lab 10/25/23 02:00 Results MRSA [Methicillin Resistant S.aureu] Routine Lab 10/24/23 15:19 Ordered Radiology Impressions Chest X-Ray 10/24/23 10:48 IMPRESSION: Chronic findings. No acute cardiopulmonary disease. Chest CTA 10/24/23 12:27 IMPRESSION: 1. Emphysematous COPD with bilateral lower lobe infiltrates. 2. No evidence of embolus. 3. Mass like density on the left. This is likely atelectasis or infiltrate, three-month follow-up chest CT recommended. COMMENTS: The presence of pulmonary emphysema on CT is an independent risk factor for lung cancer. In the absence of a history or active diagnosis of lung cancer, it is recommended that this patient with emphysema be evaluated for enrollment in a low dose CT lung cancer screening program. Laboratory Results WBC 6.45 10^3/uL (3.29-11.43) 10/25/23 06:15 RBC 3.32 10^6/uL (3.85-5.65) L 10/25/23 06:15 Hgb 9.60 g/dL (11.27-16.99) L 10/25/23 06:15 Hct 31.2 % (37-53) L 10/25/23 06:15 MCV 94.0 fl (82-101) 10/25/23 06:15 MCH 28.9 pg (27-33) 10/25/23 06:15 MCHC 30.8 g/dL (30-55) 10/25/23 06:15 RDW 13.2 % (12.1-15.1) 10/25/23 06:15 Plt Count 168 10^3/cmm (157-399) 10/25/23 06:15 MPV 10.4 fL (7.4-10.4) 10/25/23 06:15 Neut % (Auto) 72.8 % 10/25/23 06:15 Lymph % (Auto) 13.8 % 10/25/23 06:15 [place] % (Auto) 10.7 % 10/25/23 06:15 Eos % (Auto) 0.3 % 10/25/23 06:15 Baso % (Auto) 0.2 % 10/25/23 06:15 Neut # (Auto) 4.70 10^3/uL (1.8-7.7) 10/25/23 06:15 Lymph # (Auto) 0.9 10^3/uL (0.8-4.8) 10/25/23 06:15 [place] # (Auto) 0.7 10^3/uL (0.2-0.9) 10/25/23 06:15 Eos # (Auto) 0.0 10^3/uL (0.0-0.8) 10/25/23 06:15 Baso # (Auto) 0.0 10^3/uL (0.0-0.1) 10/25/23 06:15 Nucleated RBC % (auto) 0 % 10/25/23 06:15 Nucleated RBCs # 0.0 /100WBC 10/25/23 06:15 Specimen Type Arterial 10/24/23 10:52 Sample Site Radial, left 10/24/23 10:52 ABG pH 7.42 (7.35-7.45) 10/24/23 10:52 ABG pCO2 66.9 mmHg (35-45) H* 10/24/23 10:52 ABG pO2 78.8 mmHg (80.0-100.0) L 10/24/23 10:52 ABG PO2/FiO2 Ratio 0 10/24/23 10:52 ABG HCO3 43.5 mmol/L (22-26) H 10/24/23 10:52 ABG O2 Saturation 96.2 10/24/23 10:52 ABG Base Excess 16.0 mmol/L (-2.0-2.0) H 10/24/23 10:52 Quoc Test Pos 10/24/23 10:52 A-a O2 Gradient 12.8 mmHg (5-10) H 10/24/23 10:52 Hematocrit 37.0 % (42-52) L 10/24/23 10:52 Hgb O2 Saturation 94.9 % (95-100) L 10/24/23 10:52 Carboxyhemoglobin 0.8 %THgb (0.4-20.1) 10/24/23 10:52 Methemoglobin 0.6 % (0.4-1.5) 10/24/23 10:52 Total Hemoglobin 12.1 g/dL (14-18) L 10/24/23 10:52 Sodium 145.0 mmol/L (131-143) H 10/24/23 10:52 Potassium 3.3 mmol/L (3.5-5.0) L 10/24/23 10:52 Glucose 86.0 mg/dL (70-115) 10/24/23 10:52 Ionized Calcium 1.2 mmol/L (1.1-1.4) 10/24/23 10:52 O2 Delivery Device Nc 10/24/23 10:52 O2 Liters/Min 4.0 % 10/24/23 10:52 FiO2 36.0 % 10/24/23 10:52 Vice President Digital Strategist ID [place] 10/24/23 10:52 Sodium 140 mmol/L (136-145) 10/25/23 06:15 Potassium 3.0 mmol/L (3.5-5.1) L 10/25/23 06:15 Chloride 95 mmol/L (98-107) L 10/25/23 06:15 Carbon Dioxide 39 mmol/L (22-29) H 10/25/23 06:15 Anion Gap 9.0 (5-19) 10/25/23 06:15 BUN 14 mg/dL (8-23) 10/25/23 06:15 Creatinine 0.7 mg/dL (0.7-1.2) 10/25/23 06:15 GFR Calculation 112.1 mL/min (90-130) 10/25/23 06:15 Glucose 211 mg/dL (65-115) H 10/25/23 06:15 Calculated Osmolality 297 mOsm/kg (285-295) H 10/25/23 06:15 Calcium 8.4 mg/dL (8.5-10.5) L 10/25/23 06:15 Total Bilirubin 0.2 mg/dL (0.15-1.2) 10/25/23 06:15 AST 24 U/L (0-40) 10/25/23 06:15 ALT 13 U/L (0-41) 10/25/23 06:15 Alkaline Phosphatase 61 U/L (40-130) 10/25/23 06:15 Total Protein 5.2 g/dL (6.6-8.7) L 10/25/23 06:15 Albumin 2.8 g/dL (3.5-5.2) L 10/25/23 06:15 Globulin 2.4 g/dL (1.3-4.6) 10/25/23 06:15 Vitals Last Vital Signs Temp 97.5 F L 10/25/23 11:58 Pulse 79 10/25/23 11:58 Resp 17 10/25/23 11:58 BP 109/66 10/25/23 11:58 Pulse Ox 96 10/25/23 11:58 O2 Del Method Nasal Cannula 10/25/23 11:58 O2 Flow Rate 3 10/25/23 08:50 FiO2 35 10/24/23 11:21 Discharge Plan Discharge Patient Disposition: Home Condition: Stable Prescriptions: New levofloxacin 750 mg tablet 750 mg PO DAILY 6 Days Qty: 6 0RF Continued (DME) mucus clearing device Device See Rx Instructions .Route Qty: 1 0RF Rx Instructions: As directed (DME) miscellaneous medical supply Misc See Rx Instructions .Route Qty: 1 0RF Rx Instructions: [employer] portable oxygen concentrator with supplies fluticasone propionate [Flonase Allergy Relief] 50 mcg/actuation spray,suspension 1 spray intranasal DAILY Qty: 16 5RF amlodipine 2.5 mg tablet 2.5 mg PO DAILY 90 Days Qty: 90 1RF alprazolam [Xanax] 0.5 mg tablet 0.5 mg PO TID PRN (Reason: anxiety) 30 Days Qty: 70 5RF (DME) Vanilla Boost See Rx Instructions .Route .MEDSUPPLY Qty: 24 12RF Rx Instructions: one daily albuterol sulfate [ProAir HFA] 90 mcg/actuation HFA aerosol inhaler 2 puff INHALATION Q6H PRN (Reason: shortness of breath or wheezing) Qty: 6.7 13RF cholecalciferol (vitamin D3) 1,250 mcg (50,000 unit) tablet 1,250 mcg PO DAILY 90 Days Qty: 12 0RF lactase [Dairy Relief] 3,000 unit Tablet 3,000 unit PO QID PRN (Reason: Diarrhea) Rx Instructions: administer with meals and/or snacks phenylephrine-guaifenesin 10-400 mg Tablet 2 tab PO Q4H PRN (Reason: Cold Symptoms) lisinopril 10 mg tablet 10 mg PO QAM metoprolol tartrate 50 mg tablet 50 mg PO BID omeprazole 20 mg capsule,delayed release(DR/EC) 20 mg PO BID mirtazapine 15 mg tablet 15 mg PO BEDTIME Trelegy Ellipta 200-62.5-25 mcg blister with device 1 ea inhalation DAILY atorvastatin 40 mg Tablet 40 mg PO BEDTIME Qty: 90 0RF aspirin 81 mg Tablet,Delayed Release (Dr/Ec) 81 mg PO DAILY Qty: 90 0RF guaifenesin [Mucinex] 600 mg Tablet Extended Release 12hr 1,200 mg PO BID Qty: 10 0RF furosemide 20 mg tablet 20 mg PO DAILY PRN (Reason: Edema) Qty: 1 0RF Rx Instructions: Only as needed Daytime Cold-Flu Relief (PE) 5-10-325 mg Capsule 1 cap PO Q6H PRN (Reason: Cold Symptoms) magnesium oxide 400 mg magnesium Tablet 400 mg PO DAILY Klor-Con M10 10 mEq tablet,ER particles/crystals 10 meq PO QAM Discharge Orders: Discharge Order (Routine); Ordered 10/25/23 Ordered By: Prosper Reis Referrals: Shelly Garibay FNP [Primary Care Provider] - 10/30/23 Discharge Diet: As Directed and Regular Discharge Activity: Oxygen as instructed Patient Instructions: Opioid Safety Activity Restrictions/Additional Instructions: Follow-up with your primary doctor for reassessment of recovery from influenza and possible developing pneumonia. Complete antibiotic course with Levaquin. Continue oxygen at home, contact your oxygen provider in case of any further issues with the device. Continue regular diet, add protein shakes to meals. Follow-up for MRI brain as previously. Have your primary provider also follow-up CT chest in 3 months for reassessment of masslike density. This likely may be atelectasis, but need to confirm and exclude other more dangerous causes, make sure there is nothing suspicious for malignancy. Continue strict aspiration precautions with past history of aspiration with thin liquids, please follow speech therapy recommendations to avoid choking. Continue with soft diet. Add protein shakes to meals. Follow-up with your primary doctor for reassessment of malnutrition. Return to the hospital in case of any worsening or new concerning symptoms. Follow-up with your primary doctor for reassessment for concern of possible small stroke in the past. Continue aspirin, cholesterol. Please make sure to quit smoking. Please set up for life alert button to allow to call for help anytime. Discharge Attestations Time Spent in Discharge Care*: greater than 30 min Quality Metrics Clinical Quality Measures [ No reported AMI, CVA or VTE this stay] Coding Level of Care Code 71330 Total time (in minutes) for Discharge: 40 Diagnoses Hypoxia R09.02
== END 2023-10-25 14:29 | disposition home or self-care (01) ==
LOC: ER 12:32 → MEDSURG 14:26
PROVIDERS: Admitting Provider Internal Medicine; Emergency Provider Emergency Medicine; PCP Registered Nurse; Visit Provider Internal Medicine
DX: R09.02 Hypoxemia (principal); Z99.81 Dependence on supplemental oxygen; I11.0 Hypertensive heart disease with heart failure; I50.9 Heart failure, unspecified; F17.210 Nicotine dependence, cigarettes, uncomplicated; J44.1 Chronic obstructive pulmonary disease with (acute) exacerbation; R19.7 Diarrhea, unspecified; E46 Unspecified protein-calorie malnutrition; Z68.1 Body mass index [BMI] 19.9 or less, adult
CPT/HCPCS: 36415; 36600; 71045; 71275; 80051; 80053; 82330; 82805; 85025; 86403; 87449; 93005; 94640; 94660; 96365; 96367; 96372; 99285; G0378; J0692; J1644; J2020; Q9967

== ENCOUNTER 2023-10-31 12:35 | Inpatient (IN) | payer MEDICARE, MEDICAID, SELFPAY ==
[2023-10-31] VITALS (36 sets, daily range): BP systolic 66–132; BP diastolic 43–83; PULSE 94–136; RESP 12–39; TEMP 35.8–36.8; O2SAT 88–100; BMI 15.0; BMI 16.1
--- NOTE | 2023-10-31 12:50 | XRR_ITS ---
PROCEDURE INFORMATION: Exam: XR Chest Exam date and time: 10/31/2023 1:11 PM Age: 68 years old Clinical indication: Cough and dyspnea; Additional info: Dyspnea/cough TECHNIQUE: Imaging protocol: Radiologic exam of the chest. Views: 1 view. COMPARISON: CT angio chest PE protcl [id number] 10/24/2023 1:03 PM FINDINGS: Lungs: Patchy left basilar airspace opacities. The right lung is clear. Pleural spaces: No sizable pneumothorax. Trace left pleural effusion. Heart/Mediastinum: No cardiomegaly. Bones/joints: Unremarkable. XR/XR chest 1V portable [id number] IMPRESSION: Patchy left basilar airspace opacities concerning for ongoing pneumonia.
--- NOTE | 2023-10-31 12:50 | ECG_ITS ---
[facility] Test Date: 2023-10-31 Pat Name: Jacob Goetz Department: Room: Gender: Male Phys Ther: : 1955 Requested By: Fitz Dumont Order Number: [id number] Mariah MD: Dexter Romero M.D. Measurements Intervals [place] Rate: 98 P: 59 IL: 126 QRS: 69 QRSD: 82 T: 79 QT: 357 QTc: 457 Interpretive Statements SINUS RHYTHM POSSIBLE RIGHT VENTRICULAR CONDUCTION DELAY [RSR (QR) IN V1/V2] SEPTAL MYOCARDIAL INFARCTION , PROBABLY OLD [40+ ms Q WAVE IN V1/V2] Compared to ECG 10/24/2023 15:54:47 No significant changes Electronically Signed On 10-31-2023 18:56:56 LABORATORY MECHANIC HELPER by Dexter Romero M.D. [id number]
--- NOTE | 2023-10-31 12:58 | W.ED.SOB ---
HPI - SOB/Dyspnea General: Chief Complaint: Shortness of Breath/Dyspnea Stated Complaint: Low O2 Time Seen by Provider: 10/31/23 12:45 Source: patient Mode of arrival: EMS History of Present Illness: HPI Narrative: 68-year-old female presents emergency room via EMS from [facility] complaining of shortness of breath. She is normally on oxygen at 3 L by nasal cannula at that level she was satting 70 to 80% at the clinic. Patient was lethargic and difficult to keep awake. He keeps dozing off trailing off his words when asked questions. He denies any chest or abdominal pain does state he has a productive cough for about the last 5 days has not seen anyone prior to today. MD elicited complaint: shortness of breath Pertinent past history: COPD Onset (ago): day(s) (5) Timing: constant and progressively worsening Severity: severe Exacerbating factors: coughing Relieving factors: oxygen, rest and bronchodilators Known history of: COPD Associated symptoms: Reports cough; Deny abdominal pain, chest congestion, chest pain, diaphoresis, dizziness, extremity pain, fever(s), hemoptysis, lightheadedness, myalgias, nausea, orthopnea, palpitations, paresthesias, polydipsia, polyuria, rash, sense of impending doom, syncope or vomiting Treatment prior to arrival: oxygen Related Data: Home oxygen amount: 3 liters Review of Systems Const: Denies: fever(s), chills or diaphoresis Card: Denies: chest pain, palpitations, lightheadedness, syncope or orthopnea Resp: Reports: dyspnea and non-productive cough; Denies: hemoptysis or chest congestion GI: Denies: abdominal pain, nausea or vomiting : Denies: dysuria, urinary frequency or urinary urgency Musc: Denies: neck pain, back pain or extremity pain Skin/Breast: Denies: rash Neuro: Denies: dizziness Endo: Denies: polyuria or polydipsia PFS ED PFSH: Medical History Protein calorie malnutrition Nausea and vomiting Community acquired pneumonia Generalized anxiety disorder with panic attacks At risk for aspiration Dependence on continuous supplemental oxygen COPD exacerbation Hypoxemia Tachycardia Acute dyspnea Smoker Leukocytosis Essential hypertension Clubbed fingers Benign essential HTN Smoking addiction Chronic respiratory failure Panic attack as reaction to stress Anxiety Smoking AA (alcohol abuse) CHF (congestive heart failure) Emphysema/COPD Surgical History Hx of tonsillectomy Family History Son Cancer Grandmother Cancer Mother CAD (coronary artery disease) Dementia Stroke Family/Other Lung disease Other Hyperlipidemia Hypertension Denies family history of Diabetes Clotting disorder Chronic kidney disease (CKD) Suicide Anesthesia complication Bleeding disorder Family history of premature coronary artery disease Social History Smoking and tobacco/nicotine status: current every day tobacco/nicotine user cigarettes Packs smoked per day: 1 Years cigarettes smoked: 56 [ Other cigarette details: started age 10] Alcohol intake: current Substance/Drug Use: never Adopted: No Caregiver/support person: No Lives independently: Yes Current occupational status: disabled Current gender identity: Male Physical Exam Const: GENERAL APPEARANCE: lethargic and ill appearing NUTRITIONAL APPEARANCE: cachectic ORIENTATION/CONSCIOUSNESS: Yes awake and Yes lethargic HENMT: COMMON NORMALS: normocephalic, atraumatic and hearing grossly normal bilaterally HEAD & SCALP: normocephalic and atraumatic Resp: COMMON NORMALS: normal respiratory effort, No retractions and No use of accessory muscles AUSCULTATION: rhonchi and wheezes Cardio: COMMON NORMALS: regular rhythm and No murmurs present (Cardio) RATE: tachycardic RHYTHM: regular rhythm GI: COMMON NORMALS: Soft to palpation and No hepatosplenomegaly present AUSCULTATION: Yes normoactive bowel sounds PALPATION: Yes Soft to palpation, No Tenderness to palpation present (GI), No Guarding due to palpation present (GI) and Yes No hepatosplenomegaly present Extremity: COMMON NORMALS: normal to inspection, capillary refill normal, no clubbing, cyanosis or edema, no calf tenderness and no pedal edema Neuro: SENSORIUM/ORIENTATION: Yes lethargic Skin: COMMON NORMALS: no rashes or lesions noted GENERAL SKIN EXAM: no rashes or lesions noted Course Vital Signs: Vital signs: Vital Signs Temperature 98.2 F 10/31/23 12:36 Pulse Rate 100 10/31/23 14:55 Respiratory Rate 16 10/31/23 13:45 Blood Pressure 114/54 10/31/23 14:55 Pulse Oximetry 98 10/31/23 14:55 Oxygen Delivery Me thod BiPAP 10/31/23 14:55 Oxygen Flow Rate 5 10/31/23 13:55 Fraction of Inspir ed Oxygen 50 10/31/23 13:46 MDM - SOB/Dyspnea Medical Decision Making Chest x-ray shows right pneumonia. Patient is hypercapnic he was started on BiPAP shortly after arrival. Discussed with hospitalist. He had a transient decrease in his blood pressure but responded well to fluids. Will admit orders written he has been cultured with blood and sputum cultures will start on Levaquin. Patient had transient drop in blood pressure responded well initially to IV fluids. He is now refusing BiPAP we are getting a second blood gas on him. Dr. Watson has been in to see him we are going to admit him to the ICU. Were both worried about him worsening with his hypercapnia and needing to be intubated. His blood pressure is also continue to fluctuate at this time he still has a MAP greater than 65 but this will need to be monitored closely. Medical Records I reviewed the patient's medical records. Lab Data I reviewed the patient's lab results. 10/31/23 13:07 10/31/23 13:07 Labs/Radiology: Radiology Impressions Chest X-Ray 10/31/23 12:50 IMPRESSION: Patchy left basilar airspace opacities concerning for ongoing pneumonia. Laboratory Results WBC 11.68 10^3/uL (3.29-11.43) H 10/31/23 13:07 RBC 3.62 10^6/uL (3.85-5.65) L 10/31/23 13:07 Hgb 10.60 g/dL (11.27-16.99) L 10/31/23 13:07 Hct 35.9 % (37-53) L 10/31/23 13:07 MCV 99.2 fl (82-101) 10/31/23 13:07 MCH 29.3 pg (27-33) 10/31/23 13:07 MCHC 29.5 g/dL (30-55) L 10/31/23 13:07 RDW 13.4 % (12.1-15.1) 10/31/23 13:07 Plt Count 200 10^3/cmm (157-399) 10/31/23 13:07 MPV 9.4 fL (7.4-10.4) 10/31/23 13:07 Neut % (Auto) 79.4 % 10/31/23 13:07 Lymph % (Auto) 10.7 % 10/31/23 13:07 [place] % (Auto) 7.5 % 10/31/23 13:07 Eos % (Auto) 1.5 % 10/31/23 13:07 Baso % (Auto) 0.3 % 10/31/23 13:07 Neut # (Auto) 9.27 10^3/uL (1.8-7.7) H 10/31/23 13:07 Lymph # (Auto) 1.3 10^3/uL (0.8-4.8) 10/31/23 13:07 [place] # (Auto) 0.9 10^3/uL (0.2-0.9) 10/31/23 13:07 Eos # (Auto) 0.2 10^3/uL (0.0-0.8) 10/31/23 13:07 Baso # (Auto) 0.0 10^3/uL (0.0-0.1) 10/31/23 13:07 Nucleated RBC % (auto) 0 % 10/31/23 13:07 Nucleated RBCs # 0.0 /100WBC 10/31/23 13:07 Specimen Type Arterial 10/31/23 13:10 Sample Site Brachial, left 10/31/23 13:10 ABG pH 7.35 (7.35-7.45) 10/31/23 13:10 ABG pCO2 77.0 mmHg (35-45) H* 10/31/23 13:10 ABG pO2 67.8 mmHg (80.0-100.0) L 10/31/23 13:10 ABG PO2/FiO2 Ratio 0 10/31/23 13:10 ABG HCO3 42.3 mmol/L (22-26) H 10/31/23 13:10 ABG O2 Saturation 93.2 10/31/23 13:10 ABG Base Excess 13.9 mmol/L (-2.0-2.0) H 10/31/23 13:10 Quoc Test Pos 10/31/23 13:10 A-a O2 Gradient 12.2 mmHg (5-10) H 10/31/23 13:10 Hematocrit 32.4 % (42-52) L 10/31/23 13:10 Hgb O2 Saturation 91.2 % (95-100) L 10/31/23 13:10 Carboxyhemoglobin 1.4 %THgb (0.4-20.1) 10/31/23 13:10 Methemoglobin 0.7 % (0.4-1.5) 10/31/23 13:10 Total Hemoglobin 10.6 g/dL (14-18) L 10/31/23 13:10 Sodium 146.0 mmol/L (131-143) H 10/31/23 13:10 Potassium 3.8 mmol/L (3.5-5.0) 10/31/23 13:10 Glucose 81.0 mg/dL (70-115) 10/31/23 13:10 Ionized Calcium 1.2 mmol/L (1.1-1.4) 10/31/23 13:10 O2 Delivery Device Nc 10/31/23 13:10 O2 Liters/Min 4.0 % 10/31/23 13:10 FiO2 36.0 % 10/31/23 13:10 Embalmer Apprentice ID Cak 10/31/23 13:10 Sodium 146 mmol/L (136-145) H 10/31/23 13:07 Potassium 4.0 mmol/L (3.5-5.1) 10/31/23 13:07 Chloride 98 mmol/L (98-107) 10/31/23 13:07 Carbon Dioxide 41 mmol/L (22-29) H 10/31/23 13:07 Anion Gap 11.0 (5-19) 10/31/23 13:07 BUN 13 mg/dL (8-23) 10/31/23 13:07 Creatinine 0.7 mg/dL (0.7-1.2) 10/31/23 13:07 GFR Calculation 112.1 mL/min (90-130) 10/31/23 13:07 Glucose 85 mg/dL (65-115) 10/31/23 13:07 Calculated Osmolality 301 mOsm/kg (285-295) H 10/31/23 13:07 Lactic Acid 0.7 mmol/L (0.5-2.2) 10/31/23 13:07 Calcium 8.8 mg/dL (8.5-10.5) 10/31/23 13:07 Total Bilirubin 0.2 mg/dL (0.15-1.2) 10/31/23 13:07 AST 11 U/L (0-40) 10/31/23 13:07 ALT 7 U/L (0-41) 10/31/23 13:07 Alkaline Phosphatase 49 U/L (40-130) 10/31/23 13:07 Troponin T Baseline 19 ng/L (0-15) H 10/31/23 13:07 Troponin T 120 Minute 18.26 ng/L (0-15) H 10/31/23 15:27 Delta Troponin T -0.74 ABS# (0-10) L 10/31/23 15:27 NT-Pro-B Natriuret Pep 641 pg/mL (0-125) H 10/31/23 13:07 Total Protein 6.1 g/dL (6.6-8.7) L 10/31/23 13:07 Albumin 3.2 g/dL (3.5-5.2) L 10/31/23 13:07 Globulin 2.9 g/dL (1.3-4.6) 10/31/23 13:07 Coronavirus 229E (PCR) Not detected (NOT DETECT) 10/31/23 13:36 Influenza Type A Ag negative (Negative) 10/31/23 13:36 Influenza Type B Ag negative (Negative) 10/31/23 13:36 SARS-CoV-2 (PCR) Not detected (NOT DETECT) 10/31/23 13:36 All radiology interpretation(s) finalized by discharge Discharge Plan Discharge Patient Disposition: Admitted As Inpatient Admit Provider: Robert Wade Clinical Impression: Community acquired pneumonia, Acute exacerbation of chronic obstructive airways disease, Acute hypercapnic respiratory failure Condition: Stable Coding Level of Care Code ED Development Coordinator for Zain Goss
[2023-10-31 13:20] LABS: Basophils % 0.3 %; Eosinophils # 0.2 10^3/uL (0.0-0.8); Eosinophils % 1.5 %; Hematocrit 35.9 % (37-53); Lymphocytes # 1.3 10^3/uL (0.8-4.8); Lymphocytes % 10.7 %; Mean Corpuscular HGB Conc 29.5 g/dL (30-55); Mean Corpuscular Hemoglobin 29.3 pg (27-33); Mean Corpuscular Volume 99.2 fl (82-101); Mean Platelet Volume 9.4 fL (7.4-10.4); Monocytes # 0.9 10^3/uL (0.2-0.9); Monocytes % 7.5 %; Neutrophils # 9.27 10^3/uL (1.8-7.7); Neutrophils % 79.4 %; Nucleated Red Blood Cells % 0 %; Platelet Count 200 10^3/cmm (157-399); Red Blood Count 3.62 10^6/uL (3.85-5.65); Red Cell Distribution Width 13.4 % (12.1-15.1); White Blood Count 11.68 10^3/uL (3.29-11.43)
[2023-10-31 13:23] LABS: ABG PH Result 7.35 (7.35-7.45); Alveolar-Arterial Oxygen Gradi 12.2 mmHg (5-10); Arterial Blood Gas Hematocrit 32.4 % (42-52); Base Excess ABG 13.9 mmol/L (-2.0-2.0); Blood Gas Allen Test Pos; Blood Gas Operator Identificat CAK; Blood Gas Sample Site Brachial, left; Blood Gas Sample Type Arterial; Carboxyhemoglobin 1.4 %THgb (0.4-20.1); HCO3 ABG 42.3 mmol/L (22-26); HGB O2 Sat 91.2 % (95-100); Ionized Calcium Level - ABG 1.2 mmol/L (1.1-1.4); Methemoglobin 0.7 % (0.4-1.5); Oxygen Device NC; Oxygen Saturation ABG 93.2; PO2 ABG 67.8 mmHg (80.0-100.0); PO2 FiO2 Ratio Arterial Blood 0; Potassium Level - ABG 3.8 mmol/L (3.5-5.0); Total Hemoglobin 10.6 g/dL (14-18)
[2023-10-31 13:37] LABS: Lactic Sepsis W/Reflex 0.7 mmol/L (0.5-2.2); Troponin(5th) Baseline 19 ng/L (0-15)
[2023-10-31] MEDS: dexamethasone 10 mg/mL INJ IM (13:39)
[2023-10-31] MEDS: levofloxacin-dextrose 5 % 750 MG/150 ML PREMIX 100 MG IV (13:42)
--- NOTE | 2023-10-31 13:43 | PC.PHAR ---
PT VERIFIED HE HAS TAKEN SOME OF HIS MEDS TODAY BUT NOT SURE IF HE HAS TAKEN EVERYTHING HE NEEDS TO. PT TOOK LAST DOSE OF LEVAQUIN 750 MG TODAY. 10/31/23
[2023-10-31] MEDS: ipratropium-albuterol 3 mL Neb INHALATION ×4 (13:44→23:42)
[2023-10-31 13:53] LABS: Alanine Aminotransferase 7 U/L (0-41); Albumin Level 3.2 g/dL (3.5-5.2); Alkaline Phosphatase 49 U/L (40-130); Aspartate Amino Transferase 11 U/L (0-40); Blood Urea Nitrogen 13 mg/dL (8-23); Calcium 8.8 mg/dL (8.5-10.5); Chloride 98 mmol/L (98-107); Globulin 2.9 g/dL (1.3-4.6); Glomerular Filtration Rate 112.1 mL/min (90-130); Glucose 85 mg/dL (65-115); NT Pro B Type Natriuretic Pept 641 pg/mL (0-125); Osmolality Calculated 301 mOsm/kg (285-295); Sodium 146 mmol/L (136-145); Total Bilirubin 0.2 mg/dL (0.15-1.2); Total Protein 6.1 g/dL (6.6-8.7)
[2023-10-31 14:01] LABS: Carbon Dioxide 41 mmol/L (22-29)
[2023-10-31 14:25] LABS: Influenza A by IFA negative (Negative); Influenza B by IFA negative (Negative)
[2023-10-31] MEDS: sodium chloride 0.9% 1,000 ML 999 ML IV (14:42)
--- NOTE | 2023-10-31 14:50 | ECG_ITS ---
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 Measurements Intervals [place] Rate: 99 P: -15 WI: 127 QRS: -17 QRSD: 90 T: -16 QT: 346 QTc: 444 Interpretive Statements SINUS RHYTHM POSSIBLE RIGHT VENTRICULAR CONDUCTION DELAY [RSR (QR) IN V1/V2] MINIMAL VOLTAGE CRITERIA FOR LVH, CONSIDER NORMAL VARIANT [MEETS CRITERIA IN ONE OF: R(aVL), S(V1), R(V5), R(V5/V6)+S(V1)] Compared to ECG 10/31/2023 13:10:00 Myocardial infarct finding no longer present Electronically Signed On 10-31-2023 18:59:23 [employer]ORY WORK[employer] by Dexter Romero M.D. [id number]
[2023-10-31 15:51] LABS: Troponin 5 2HR 18.26 ng/L (0-15)
[2023-10-31 15:52] LABS: Adenovirus Not Detected (NOT DETECT); Chlamydia Pneumoniae Not Detected (NOT DETECT); Coronavirus 229E,HKU1,NL63,OC4 Not Detected (NOT DETECT); Human Metapneumovirus Not Detected (NOT DETECT); Human Rhinovirus/Enterovirus Not Detected (NOT DETECT); Influenza A Not Detected (NOT DETECT); Influenza A H1 Not Detected (NOT DETECT); Influenza A H1-2009 Not Detected (NOT DETECT); Influenza A H3 Not Detected (NOT DETECT); Influenza B Not Detected (NOT DETECT); Mycoplasma Pneumoniae Not Detected (NOT DETECT); Parainfluenza Virus Type 1 Not Detected (NOT DETECT); Parainfluenza Virus Type 2 Not Detected (NOT DETECT); Parainfluenza Virus Type 3 Not Detected (NOT DETECT); Parainfluenza Virus Type 4 Not Detected (NOT DETECT); Respiratory Syncytial Virus A Not Detected (NOT DETECT); Respiratory Syncytial Virus B Not Detected (NOT DETECT); SARS-COV-2 Not Detected (NOT DETECT)
[2023-10-31 15:52] LABS: Troponin 5 2HR Delta -0.74 ABS# (0-10)
--- NOTE | 2023-10-31 16:09 | USCV_ITS ---
Jacob Goetz Age: 68 Gender: M : 1955 Exam Date: 10/31/2023 18:10 Ordering Phys: Robert Wade MD Technologist: NOEMI Exam Location: [facility] [place] Indication: SOB, O2 dependent 3L, hypoxic 70-80% at admit. On BIPAP in ICU-9. BP: 111 / 59 HR: 99 Rhythm: Sinus Technical Quality: Adequate MEASUREMENTS (Male / Female) Normal Values 2D ECHO LV Diastolic Diameter PLAX 3.9 cm 4.2 - 5.9 / 3.9 - 5.3 cm LV Systolic Diameter PLAX 2.0 cm IVS Diastolic Thickness 1.3 cm 0.6 - 1.0 / 0.6 - 0.9 cm IVS Systolic Thickness 1.4 cm LVPW Diastolic Thickness 0.8 cm 0.6 - 1.0 / 0.6 - 0.9 cm LVPW Systolic Thickness 1.3 cm LVOT Diameter 1.6 cm LV Ejection Fraction 2D Teich 79.9 % LV Ejection Fraction MOD 2C 60.3 % LV Ejection Fraction 2C AL 60.7 % LA Diameter 2.9 cm LA Width 2.3 cm LA Height 2.7 cm RA Width 2.9 cm RA Height 2.2 cm Aorta at Sinotubular Diameter 3.4 cm IVC Diameter 1.3 cm M-MODE Aortic Annulus Diameter 2.7 cm LA Ao Ratio MM 1.1 MV E Point Septal Separation 0.0 cm DOPPLER AV Peak Velocity 124.0 cm/s LVOT Peak Velocity 89.0 cm/s AV Area Cont Eq vti 1.4 cm squared AV Area Cont Eq pk 1.4 cm squared MV Peak Velocity 114.0 cm/s MV Area PHT 2.5 cm squared Mitral E to A Ratio 0.7 MV E' Velocity 35.5 cm/s Mitral E to MV E' Ratio 6.3 Mitral E to LV E' Lateral Ratio 5.4 Mitral E to LV E' Septal Ratio 7.7 TR Peak Velocity 313.0 cm/s TR Peak Gradient 39.2 mmHg TV Peak E Velocity 43.0 cm/s Right Atrial Pressure 5.0 mmHg Pulmonary Artery Systolic Pressu 44.2 mmHg PV Peak Velocity 116.0 cm/s RV Acceleration Time 0.1 s RV Ejection Time 0.4 s RV AcT/ET 0.4 FINDINGS Left Ventricle Normal left ventricular size and systolic function, EF 63 %. No regional wall motion abnormalities. Right Ventricle An area of hypokinesis in the free wall of the right ventricle Right Atrium Appears to be normal size Left Atrium Appears to be of normal size Mitral Valve No gross abnormalities noted Aortic Valve No gross abnormalities noted Tricuspid Valve Mild tricuspid valve regurgitation. Estimated pulmonary artery peak systolic pressure 44 mmHg Pulmonic Valve Pulmonic valve not well visualized. Pericardium No pericardial effusion. Aorta Normal size aortic root and proximal ascending aorta. IVC Normal inferior vena cava. Dilated IVC with normal respiratory variation. CONCLUSIONS Normal left ventricular size and systolic function, EF 63 %. No regional wall motion abnormalities. 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 Mild tricuspid valve regurgitation. Estimated pulmonary artery peak systolic pressure 44 mmHg. The PA pressure estimation could be misleading due to poor Doppler signals There is no pericardial effusion. Consider cardiac MRI to better evaluate the RV anatomy, if clinically indicated Comparison with the previous study is difficult because of the difference in the technical quality. Dr Janak Lazcano MD FACC (Electronically Signed) Final Date: 31 October 2023 21:35 S
[2023-10-31 16:18] LABS: ABG PH Result 7.28 (7.35-7.45); Alveolar-Arterial Oxygen Gradi 10.3 mmHg (5-10); Arterial Blood Gas Hematocrit 29.8 % (42-52); Base Excess ABG 9.3 mmol/L (-2.0-2.0); Blood Gas Allen Test Pos; Blood Gas Operator Identificat CAK; Blood Gas Sample Site Brachial, left; Blood Gas Sample Type Arterial; Carboxyhemoglobin 1.4 %THgb (0.4-20.1); HCO3 ABG 38.2 mmol/L (22-26); HGB O2 Sat 92.7 % (95-100); Ionized Calcium Level - ABG 1.1 mmol/L (1.1-1.4); Methemoglobin 0.8 % (0.4-1.5); Oxygen Device NC; Oxygen Saturation ABG 94.7; PO2 FiO2 Ratio Arterial Blood 0; Potassium Level - ABG 3.9 mmol/L (3.5-5.0); Total Hemoglobin 9.7 g/dL (14-18)
[2023-10-31 16:20] LABS: ABG PCO2 81.7 mmHg (35-45)
--- NOTE | 2023-10-31 16:26 | P.HP_ITS ---
Providers/Chief Complaint 2 Admitting Physician: Robert Wade MD Primary Care Provider: ALLEN Nichole Chief Complaint: Low O2 History of Present Illness Jacob Goetz is a 68 year old male with a past medical history of severe COPD, recent history of quitting smoking, anorexia, severe muscle wasting, protein calorie malnutrition, history of CAD, who presents [facility] for increased confusion and shortness of breath. Currently patient is alert to person, to place, not to time, history taking is difficult as he is intermittently encephalopathic. He reports shortness of breath, feeling weak fatigued and tired. Does report chills, no fevers, has a nonproductive cough. He was hospitalized twice in the last month, for COPD exacerbations, concerns for pneumonia. Patient was seen at the [facility], O2 sats were in the low 80%, normally he is on 3 L, on arrival to the ER he was lethargic difficult to awake, Dozing off, placed on BiPAP, currently seen on 3 L again a bit encephalopathic, alert to person, to place, not to time, he can follow some commands, I discussed the morbidity mortality associate with hypercarbic respiratory failure, as he removed his BiPAP in the ER, advised of compliance with BiPAP, is at high risk of morbidity and mortality associated with hypercarbic respiratory failure, high risk of intubation, given his present condition, if he were to be intubated he would have high risk of morbidity mortality, high risk of remaining on mechanical ventilation indefinitely for the rest of his life, given his severe COPD, severe muscle wasting, severe anorexia, he has high risk of trach and PEG. He voiced understanding, all questions answered, he tells me he is a full code, but does not want to remain on life- sustaining measures for the rest of his life, he agrees to be compliant with BiPAP, currently on 3 L, having nasal flaring intercostal retractions he speaks a few words, become short of breath, he has been given Levaquin, family member at bedside tells me that has been weak at home, she thinks he might had a TIA 3 weeks ago, as he has intermittent slurring of his words, I cannot discern any focal weakness, no slurring of his words no facial droop, but neurologic testing is difficult as patient is encephalopathic. Review of Systems 2 Const: Denies: fever(s) Card: Denies: chest pain Resp: Reports: dyspnea GI: Denies: abdominal pain Medications/Allergies Home Medications Medication Instructions Recorded Confirmed Last Taken Type miscellaneous medical supply #1 ea 03/23/22 10/31/23 Unknown Rx mucus clearing device #1 ea 03/23/22 10/31/23 Unknown Rx albuterol sulfate 90 mcg/actuation 2 puff inhalation Q6H PRN 08/02/23 10/31/23 Unknown Rx aerosol inhaler (ProAir HFA) shortness of breath or wheezing #6.7 grams Vanilla Boost #24 ea 10/09/23 10/31/23 Unknown Rx alprazolam 0.5 mg tablet (Xanax) 0.5 mg PO TID PRN anxiety 30 days 10/09/23 10/31/23 Unknown Rx #70 tabs amlodipine 2.5 mg tablet 2.5 mg PO DAILY 90 days #90 tabs 10/09/23 10/31/23 10/24/23 Rx fluticasone propionate 50 1 spray intranasal DAILY #16 grams 10/09/23 10/31/23 10/24/23 Rx mcg/actuation nasal spray,suspension (Flonase Allergy Relief) fluticasone fur. 200 mcg-umeclid 1 ea inhalation DAILY 10/18/23 10/31/23 10/31/23 History 62.5 mcg-vilant 25 mcg inhalat.powder (Trelegy Ellipta) lactase 3,000 unit tablet (Dairy 3,000 unit PO QID PRN Diarrhea 10/18/23 10/31/23 Unknown History Relief) lisinopril 10 mg tablet 10 mg PO QAM 10/18/23 10/31/23 10/31/23 History metoprolol tartrate 50 mg tablet 50 mg PO BID 10/18/23 10/31/23 10/30/23 History mirtazapine 15 mg tablet 15 mg PO BEDTIME 10/18/23 10/31/23 10/30/23 History omeprazole 20 mg capsule,delayed 20 mg PO BID 10/18/23 10/31/23 10/31/23 History release phenylephrine-guaifenesin 10 2 tab PO Q4H PRN Cold Symptoms 10/18/23 10/31/23 10/18/23 History mg-400 mg tablet aspirin 81 mg tablet,delayed 81 mg PO DAILY #90 tabs 10/21/23 10/31/23 10/30/23 Rx release atorvastatin 40 mg tablet 40 mg PO BEDTIME #90 tabs 10/21/23 10/31/23 10/30/23 Rx furosemide 20 mg tablet 20 mg PO DAILY PRN Edema #1 tab 10/21/23 10/31/23 10/18/23 Rx magnesium oxide 400 mg PO DAILY 10/24/23 10/31/23 10/30/23 History phenylephrine 5 1 cap PO Q6H PRN Cold Symptoms 10/24/23 10/31/23 Unknown History mg-dextromethorphan 10 mg-acetaminophen 325 mg capsule (Daytime Cold and Flu Relief (phenylephrine)) potassium chloride 10 mEq 10 meq PO QAM 10/24/23 10/31/23 10/31/23 History tablet,extended release(part/cryst) (Klor-Con M) clobetasol 0.05 % shampoo 1 applic topical .Q3days 30 days 10/31/23 10/31/23 Unknown Rx #118 mL ipratropium 0.5 mg-albuterol 3 mg 3 ml inhalation Q6H PRN RESPIRITORY 10/31/23 10/31/23 Unknown History (2.5 mg base)/3 mL nebulization soln Allergies Allergy/AdvReac Type Severity Reaction Status Date / Time Penicillins Allergy Severe ALGY-Difficulty Verified 10/31/23 10:40 Breathing PFSH Acute 2 PFSH: Medical History Protein calorie malnutrition Nausea and vomiting Community acquired pneumonia Generalized anxiety disorder with panic attacks At risk for aspiration Dependence on continuous supplemental oxygen COPD exacerbation Hypoxemia Tachycardia Acute dyspnea Smoker Leukocytosis Essential hypertension Clubbed fingers Benign essential HTN Smoking addiction Chronic respiratory failure Panic attack as reaction to stress Anxiety Smoking AA (alcohol abuse) CHF (congestive heart failure) Emphysema/COPD Surgical History Hx of tonsillectomy Family History Son Cancer Grandmother Cancer Mother CAD (coronary artery disease) Dementia Stroke Family/Other Lung disease Other Hyperlipidemia Hypertension Denies family history of Diabetes Clotting disorder Chronic kidney disease (CKD) Suicide Anesthesia complication Bleeding disorder Family history of premature coronary artery disease Social History Smoking and tobacco/nicotine status: current every day tobacco/nicotine user cigarettes Packs smoked per day: 1 Years cigarettes smoked: 56 [ Other cigarette details: started age 10] Alcohol intake: current Substance/Drug Use: never Adopted: No Caregiver/support person: No Lives independently: Yes Current occupational status: disabled Current gender identity: Male Vitals/I&O/Wt Last Vital Signs Temp 98.2 F 10/31/23 12:36 Pulse 100 10/31/23 14:55 Resp 16 10/31/23 13:45 BP 114/54 10/31/23 14:55 Pulse Ox 98 10/31/23 14:55 O2 Del Method BiPAP 10/31/23 14:55 O2 Flow Rate 5 10/31/23 13:55 FiO2 50 10/31/23 13:46 Weight last 48 hrs Weight 40.823 kg Physical Exam 2 Const: COMMON NORMALS: no acute distress EXAM LIMITATIONS: altered mental status ORIENTATION/CONSCIOUSNESS: Yes awake, Yes oriented to person, Yes oriented to place and Yes confused; not oriented to time HENMT: COMMON NORMALS: normocephalic HEAD & SCALP: normocephalic Eye: COMMON NORMALS: Equal, round and reactive pupils present and EOMs intact bilaterally Neck/C-Spine: COMMON NORMALS: no JVD Resp: COMMON NORMALS: normal respiratory effort, No retractions and No use of accessory muscles OTHER: Diffuse wheezing in all lung cm Cardio: COMMON NORMALS: regular rate, regular rhythm, S1 normal heart sound present and S2 normal heart sound present RATE: regular rate RHYTHM: r egular rhythm HEART SOUNDS: S1 normal heart sound present and S2 normal heart sound present GI: COMMON NORMALS: Normal to inspection, nondistended, normoactive bowel sounds present, Soft to palpation and non-tender Extremity: COMMON NORMALS: no calf tenderness and no pedal edema Neuro: COMMON NORMALS: patient oriented x3 Psych: COMMON NORMALS: mental status grossly normal Data 10/31/23 13:07 10/31/23 13:07 A&P Assessment and plan (1) Acute respiratory failure with hypoxia and hypercarbia: (2) Acute encephalopathy: (3) Anorexia: (4) Severe protein-calorie malnutrition: (5) Muscle wasting: (6) Physical deconditioning: (7) Healthcare-associated pneumonia: Plan Acute hypoxic hypercarbic respiratory failure -Likely secondary to COPD exacerbation -With concerns for underlying healthcare associated ammonia given his multiple hospitalizations in the last month -ABG shows worsening hypercarbia now with acidemia discussed compliance with BiPAP therapy high risk of morbidity and mortality if noncompliant, high risk of intubation, high risk of morbidity and mortality associate with intubation, prolonged intubation, high risk of remaining on ventilator for the rest of his life, high risk of trach and PEG, patient and family voiced understanding, all questions answered, shared decision making Plan -Monitor respiratory status closely -Continue BiPAP therapy -Continue vancomycin -Continue aztreonam -Continue Levaquin -Continue Solu-Medrol 40 IV every 8 hours -Continue DuoNeb -Continue budesonide -Sputum cultures -Blood culture -Respiratory viral panel Acute encephalopathy, ? Likely secondary to hypercarbia, healthcare associate pneumonia Severe protein calorie malnutrition, physical deconditioning, anorexia, muscle wasting -Consult dietary -Speech therapy eval -Dysphagia level 4 diet, with Ensure Full code Lovenox for DVT prophylaxis Attestations 2 Medical Necessity Statement*: Patient requires hospitalization, inpatient, greater than 2 midnights, for acute hypoxic hypercarbic respiratory failure secondary to COPD, with pneumonia, with anorexia, severe protein calorie malnutrition, muscle wasting, physical deconditioning Coding Level of Care Code Acute Code for Chg Fwd Diagnoses Acute respiratory failure with hypoxia and hypercarbia J96.01; J96.02 Acute encephalopathy G93.40 Anorexia R63.0 Severe protein-calorie malnutrition E43 Muscle wasting M62.50 Physical deconditioning R53.81 Healthcare-associated pneumonia J18.9
[2023-10-31 16:53] LABS: Estmated Average Glucose 120; Hemoglobin A1C 5.8 % (4.0-6.0)
[2023-10-31 16:57] LABS: Chol HDL Ratio 2.32 mg/dL (1.0-5.00); Cholesterol 116 mg/dL (0-200); HDL Cholesterol 50 mg/dL (60-100); LDL Cholesterol Calculated 44 mg/dL (50-129); LDL HDL Ratio 0.88 RATIO (0.00-3.22); Thyroid Stimulating Hormone 0.61 uIU/mL (0.27-4.20); Triglycerides 111 mg/dL (0-150)
[2023-10-31 16:58] LABS: Alcohol Level < 10 mg/dL (0-10)
[2023-10-31] MEDS: enoxaparin 40 mg/0.4 mL Syringe SUBCUT (17:04)
[2023-10-31] MEDS: pantoprazole 40 mg SDV IVP (17:06)
[2023-10-31] MEDS: aztreonam 1,000 MG in sodium chloride 0.9% (plus) 50 ML 100 MG IV (17:07)
--- NOTE | 2023-10-31 17:17 | ECG_ITS ---
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 Measurements Intervals [place] Rate: 96 P: 78 NC: 120 QRS: 70 QRSD: 86 T: 90 QT: 349 QTc: 441 Interpretive Statements SINUS RHYTHM POSSIBLE RIGHT VENTRICULAR CONDUCTION DELAY [RSR (QR) IN V1/V2] Compared to ECG 10/31/2023 15:37:19 No significant changes Electronically Signed On 10-31-2023 18:59:12 BUSINESS SPECIALIST by Dexter Romero M.D. [id number]
[2023-10-31 17:41] LABS: Add Urine Microscopic? NO; Charge for UA Resulting for Rev
[2023-10-31] MEDS: vancomycin 1,000 MG in sodium chloride 0.9% 250 ML 250 MG IV (17:50)
[2023-10-31 17:52] LABS: Bilirubin Urine Neg (Negative); Blood Urine Neg (Negative); Glucose Urine UA Norm (Normal); Ketones Urine Negative (Negative); Leukocyte Esterase Urine Negative (Negative); Nitrate Urine Negative (Negative); Protein Urine Neg (Negative); Urine Appearance Clear (CLEAR); Urine Color Yellow (Yellow); Urobilinogen Urine Norm (Negative); pH Urine 6 (5-7)
[2023-10-31 17:57] LABS: Amphetamines Screen Urine Negative (Negative); Barbiturates Screen Urine Negative (Negative); Benzodiazepines Screen Urine Positive (Negative); Cocaine Screen Urine Negative (Negative); Opiate Screen Urine Positive (Negative); PCP Screen Urine Negative (Negative); THC Screen Urine Negative (Negative)
--- NOTE | 2023-10-31 18:14 | PC.NURSE ---
Patient arrived to ICU at 1645. Removed patients clothing and placed into gown. Stage 2 pressure injury on sacrum present upon admission.
[2023-10-31 19:35] LABS: Adenovirus Not Detected (NOT DETECT); Chlamydia Pneumoniae Not Detected (NOT DETECT); Coronavirus 229E,HKU1,NL63,OC4 Not Detected (NOT DETECT); Human Metapneumovirus Not Detected (NOT DETECT); Human Rhinovirus/Enterovirus Not Detected (NOT DETECT); Influenza A Not Detected (NOT DETECT); Influenza A H1 Not Detected (NOT DETECT); Influenza A H1-2009 Not Detected (NOT DETECT); Influenza A H3 Not Detected (NOT DETECT); Influenza B Not Detected (NOT DETECT); Mycoplasma Pneumoniae Not Detected (NOT DETECT); Parainfluenza Virus Type 1 Not Detected (NOT DETECT); Parainfluenza Virus Type 2 Not Detected (NOT DETECT); Parainfluenza Virus Type 3 Not Detected (NOT DETECT); Parainfluenza Virus Type 4 Not Detected (NOT DETECT); Respiratory Syncytial Virus A Not Detected (NOT DETECT); Respiratory Syncytial Virus B Not Detected (NOT DETECT); SARS-COV-2 Not Detected (NOT DETECT)
[2023-10-31 19:45] LABS: Troponin 5 6HR 14.87 ng/L (0-15)
[2023-10-31 19:48] LABS: Troponin 5 6HR Delta -4.13 ng/L (0-12)
[2023-10-31] MEDS: budesonide 0.5 mg/2 mL Neb INHALATION (20:02)
[2023-10-31] MEDS: ALPRAZolam 0.5 mg Tablet PO (22:41)
[2023-10-31] MEDS: atorvastatin 40 mg Tablet PO (22:41)
[2023-10-31] MEDS: acetaminophen 325 mg Tablet 650 MG PO (22:41)
[2023-11-01] VITALS (68 sets, daily range): BP systolic 76–132; BP diastolic 46–78; PULSE 82–117; RESP 13–27; TEMP 36.5–36.7; O2SAT 90–99
[2023-11-01] MEDS: ipratropium-albuterol 3 mL Neb INHALATION ×6 (03:43→23:52)
[2023-11-01] MEDS: aztreonam 1,000 MG in sodium chloride 0.9% (plus) 50 ML 100 MG IV ×2 (04:25→16:13)
[2023-11-01 05:08] LABS: Basophils % 0.2 %; Hematocrit 32.2 % (37-53); Lymphocytes # 0.4 10^3/uL (0.8-4.8); Lymphocytes % 6.1 %; Mean Corpuscular HGB Conc 28.6 g/dL (30-55); Mean Corpuscular Hemoglobin 29.3 pg (27-33); Mean Corpuscular Volume 102.5 fl (82-101); Monocytes # 0.2 10^3/uL (0.2-0.9); Monocytes % 2.7 %; Neutrophils % 90.2 %; Nucleated Red Blood Cells % 0 %; Platelet Count 159 10^3/cmm (157-399); Red Blood Count 3.14 10^6/uL (3.85-5.65); Red Cell Distribution Width 13.6 % (12.1-15.1); White Blood Count 6.21 10^3/uL (3.29-11.43)
[2023-11-01 05:23] LABS: Alanine Aminotransferase 7 U/L (0-41); Albumin Level 2.8 g/dL (3.5-5.2); Alkaline Phosphatase 40 U/L (40-130); Aspartate Amino Transferase 11 U/L (0-40); Blood Urea Nitrogen 19 mg/dL (8-23); Calcium 8.4 mg/dL (8.5-10.5); Carbon Dioxide 35 mmol/L (22-29); Chloride 101 mmol/L (98-107); Globulin 3.5 g/dL (1.3-4.6); Glomerular Filtration Rate 83.9 mL/min (90-130); Glucose 172 mg/dL (65-115); Magnesium 1.5 mg/dL (1.7-2.3); Osmolality Calculated 306 mOsm/kg (285-295); Phosphorus 3.7 mg/dL (2.5-4.5); Sodium 145 mmol/L (136-145); Total Bilirubin 0.2 mg/dL (0.15-1.2); Total Protein 6.3 g/dL (6.6-8.7)
[2023-11-01 05:27] LABS: Anion Gap 13.1 (5-19); Potassium 4.1 mmol/L (3.5-5.1)
[2023-11-01] MEDS: methylPREDNISolone sod succ 40 mg/mL INJ IVP ×3 (05:57→22:28)
--- NOTE | 2023-11-01 06:00 | CTR_ITS ---
PROCEDURE INFORMATION: Exam: CT Head Without Contrast Exam date and time: 11/01/2023 6:14 AM Age: 68 years old Clinical indication: Other: Encephalopathy TECHNIQUE: Imaging protocol: Computed tomography of the head without contrast. Radiation optimization: All CT scans at this facility use at least one of these dose optimization techniques: automated exposure control; mA and/or kV adjustment per patient size (includes targeted exams where dose is matched to clinical indication); or iterative reconstruction. COMPARISON: US CV carotid duplex BI* [id number] 10/21/2023 10:45 AM RADIATION DOSE METRICS: Total DLP (mGy-cm): 1035.8 FINDINGS: Brain: Normal. No hemorrhage. Unremarkable white matter. No mass effect. Cerebral ventricles: No ventriculomegaly. Paranasal sinuses: Visualized sinuses are unremarkable. No fluid levels. Mastoid air cells: Visualized mastoid air cells are well aerated. Bones/joints: Unremarkable. No acute fracture. Soft tissues: Unremarkable. CT/CT head wo con* [id number] IMPRESSION: No acute intracranial abnormality.
--- NOTE | 2023-11-01 06:00 | CTR_ITS ---
PROCEDURE INFORMATION: Exam: CT Chest Without Contrast; Diagnostic Exam date and time: 11/01/2023 6:18 AM Age: 68 years old Clinical indication: Shortness of breath; Additional info: Pna TECHNIQUE: Imaging protocol: Diagnostic computed tomography of the chest without contrast. Radiation optimization: All CT scans at this facility use at least one of these dose optimization techniques: automated exposure control; mA and/or kV adjustment per patient size (includes targeted exams where dose is matched to clinical indication); or iterative reconstruction. COMPARISON: CT angio chest PE protcl [id number] 10/24/2023 1:03 PM RADIATION DOSE METRICS: Total DLP (mGy-cm): 236.31 FINDINGS: Lungs: Dependent atelectasis with possible superimposed infiltrate on the left. Severe emphysematous COPD. Small focal consolidative infiltrate has developed in the left upper lobe. Pleural spaces: Small left pleural effusion. Heart: Unremarkable. No cardiomegaly. No pericardial effusion. Lymph nodes: Unremarkable. No enlarged lymph nodes. Vasculature: Unremarkable. No aortic aneurysm. Liver: Calcified hepatic granulomata. Spleen: Calcified splenic granulomata. Bones/joints: Unremarkable. No acute fracture. Soft tissues: Unremarkable. CT/CT chest wo con [id number] IMPRESSION: 1. New small focal consolidative infiltrate in the left upper lobe. 2. Slightly increasing still very small left pleural effusion. COMMENTS: The presence of pulmonary emphysema on CT is an independent risk factor for lung cancer. In the absence of a history or active diagnosis of lung cancer, it is recommended that this patient with emphysema be evaluated for enrollment in a low dose CT lung cancer screening program.
[2023-11-01] MEDS: efferdent effervescent 1 EACH DENTAL (06:58)
[2023-11-01] MEDS: aspirin 81 mg EC Tablet PO (08:20)
[2023-11-01] MEDS: budesonide 0.5 mg/2 mL Neb INHALATION ×2 (08:21→19:40)
[2023-11-01 08:57] LABS: ABG PCO2 78.2 mmHg (35-45); ABG PH Result 7.32 (7.35-7.45); Arterial Blood Gas Hematocrit 26.9 % (42-52); Blood Gas Allen Test Pos; Blood Gas Operator Identificat CAK; Blood Gas Sample Site Brachial, left; Blood Gas Sample Type Arterial; HCO3 ABG 40.1 mmol/L (22-26); Oxygen Device BIPAP; PO2 ABG 72.8 mmHg (80.0-100.0); PO2 FiO2 Ratio Arterial Blood 0
[2023-11-01] MEDS: magnesium sulfate premix 2 GM/50 ML PIGGYBACK IV (09:00)
--- NOTE | 2023-11-01 10:35 | PC.OT ---
OT EVALUATION ATTEMPTED. PATIENT UNABLE TO COME OFF BIPAP PER NURSING. PATIENT IS UNABLE TO MAINTAIN ALERTNESS OR TO ACTIVELY PARTICIPATE IN SKILLED OT EVALUATION. WILL ATTEMPT AGAIN AT A LATER TIME
[2023-11-01] MEDS: pantoprazole 40 mg SDV IVP (16:12)
[2023-11-01] MEDS: enoxaparin 40 mg/0.4 mL Syringe SUBCUT (16:12)
[2023-11-01] MEDS: levofloxacin-dextrose 5 % 750 MG/150 ML PREMIX 100 MG IV (16:12)
[2023-11-01] MEDS: lanolin oint 7 gm 1 APPLIC TOPICAL (16:12)
[2023-11-01] MEDS: vancomycin 1,000 MG in sodium chloride 0.9% 250 ML 250 MG IV (16:12)
--- NOTE | 2023-11-01 16:50 | P.PN_ITS ---
Subjective 2 Subjective: Patient was seen this morning, he can follow commands he is alert to person, to place, not to time, he is not currently on the BiPAP, tolerating well no evidence of respiratory distress afebrile overnight, Vitals/I&O/Wt Last Vital Signs Temp 97.7 F 11/01/23 16:50 Pulse 113 H 11/01/23 16:50 Resp 22 H 11/01/23 16:50 BP 119/63 11/01/23 16:50 Pulse Ox 91 11/01/23 16:50 O2 Del Method BiPAP 11/01/23 16:50 O2 Flow Rate 5 11/01/23 11:20 FiO2 35 11/01/23 16:00 11/01/23 11/01/23 11/01/23 06:59 14:59 22:59 Intake Total 50 / 1600 Output Total 350 / 350 250 / 250 Balance -300 / 1250 -250 / -250 Weight last 48 hrs Weight 43.091 kg Weight 43.998 kg Weight 40.823 kg Physical Exam 2 Const: COMMON NORMALS: no acute distress Resp: COMMON NORMALS: normal respiratory effort, No retractions and No use of accessory muscles AUSCULTATION: wheezes Cardio: COMMON NORMALS: regular rate, regular rhythm, S1 normal heart sound present and S2 normal heart sound present RATE: regular rate RHYTHM: r egular rhythm HEART SOUNDS: S1 normal heart sound present and S2 normal heart sound present GI: COMMON NORMALS: Normal to inspection, nondistended, normoactive bowel sounds present and non-tender Extremity: COMMON NORMALS: no pedal edema Psych: COMMON NORMALS: mental status grossly normal Urinary Catheter Management: Garcia: Cath Placed During This Visit: yes Reason for Continuing Indwelling Catheter: Accurate Measurement of Urinary Output in Critically Ill Patients Urinary Catheter Date of Insertion: 10/31/23 Urinary Catheter Time of Insertion: 17:34 Data 11/01/23 04:58 11/01/23 04:58 A&P Assessment and plan (1) Acute respiratory failure with hypoxia and hypercarbia: (2) Acute encephalopathy: (3) Anorexia: (4) Severe protein-calorie malnutrition: (5) Muscle wasting: (6) Physical deconditioning: (7) Healthcare-associated pneumonia: Plan Acute hypoxic hypercarbic respiratory failure -Likely secondary to COPD exacerbation -With concerns for underlying healthcare associated ammonia given his multiple hospitalizations in the last month -ABG shows worsening hypercarbia now with acidemia discussed compliance with BiPAP therapy high risk of morbidity and mortality if noncompliant, high risk of intubation, high risk of morbidity and mortality associate with intubation, prolonged intubation, high risk of remaining on ventilator for the rest of his life, high risk of trach and PEG, patient and family voiced understanding, all questions answered, shared decision making CT of the chest - CT/CT chest wo con [id number] IMPRESSION: 1. New small focal consolidative infiltrate in the left upper lobe. 2. Slightly increasing still very small left pleural effusion. Plan -Monitor respiratory status closely -Continue BiPAP therapy -Continue vancomycin -Continue aztreonam -Continue Levaquin -Continue Solu-Medrol 40 IV every 8 hours -Continue DuoNeb -Continue budesonide -Sputum cultures -Blood culture -Respiratory viral panel within normal limits Acute encephalopathy, -CT head within normal limits ? Likely secondary to hypercarbia, healthcare associate pneumonia Severe protein calorie malnutrition, physical deconditioning, anorexia, muscle wasting -Consult dietary -Speech therapy eval -Dysphagia level 4 diet, with Ensure Full code Lovenox for DVT prophylaxis Attestations 2 Medical Necessity Statement*: Patient requires hospitalization for acute hypoxic hypercarbic respiratory failure secondary COPD, pneumonia, requiring ICU monitoring, BiPAP therapy Diagnoses Acute respiratory failure with hypoxia and hypercarbia J96.01; J96.02 Acute encephalopathy G93.40 Anorexia R63.0 Severe protein-calorie malnutrition E43 Muscle wasting M62.50 Physical deconditioning R53.81 Healthcare-associated pneumonia J18.9
[2023-11-01] MEDS: atorvastatin 40 mg Tablet PO (20:29)
[2023-11-01] MEDS: ALPRAZolam 0.5 mg Tablet PO (20:29)
[2023-11-02] VITALS (25 sets, daily range): BP systolic 107–136; BP diastolic 53–71; PULSE 83–129; RESP 12–27; TEMP 36.3–36.9; O2SAT 92–98
[2023-11-02] MEDS: ipratropium-albuterol 3 mL Neb INHALATION ×4 (04:05→16:10)
[2023-11-02] MEDS: methylPREDNISolone sod succ 40 mg/mL INJ IVP ×3 (05:08→21:26)
[2023-11-02] MEDS: aztreonam 1,000 MG in sodium chloride 0.9% (plus) 50 ML 100 MG IV ×2 (05:08→17:30)
[2023-11-02 05:59] LABS: Hematocrit 29.9 % (37-53); Lymphocytes # 0.4 10^3/uL (0.8-4.8); Lymphocytes % 4.2 %; Mean Corpuscular HGB Conc 29.8 g/dL (30-55); Mean Corpuscular Hemoglobin 29.3 pg (27-33); Mean Corpuscular Volume 98.4 fl (82-101); Mean Platelet Volume 10.6 fL (7.4-10.4); Monocytes # 0.3 10^3/uL (0.2-0.9); Neutrophils # 8.35 10^3/uL (1.8-7.7); Neutrophils % 92.2 %; Nucleated Red Blood Cells % 0 %; Platelet Count 204 10^3/cmm (157-399); Red Blood Count 3.04 10^6/uL (3.85-5.65); Red Cell Distribution Width 13.6 % (12.1-15.1); White Blood Count 9.05 10^3/uL (3.29-11.43)
[2023-11-02 06:24] LABS: Alanine Aminotransferase < 5 U/L (0-41); Albumin Level 2.9 g/dL (3.5-5.2); Alkaline Phosphatase 40 U/L (40-130); Anion Gap 11.5 (5-19); Aspartate Amino Transferase 11 U/L (0-40); Blood Urea Nitrogen 25 mg/dL (8-23); Calcium 8.6 mg/dL (8.5-10.5); Carbon Dioxide 37 mmol/L (22-29); Chloride 100 mmol/L (98-107); Glomerular Filtration Rate 112.1 mL/min (90-130); Glucose 216 mg/dL (65-115); Magnesium 2.2 mg/dL (1.7-2.3); Osmolality Calculated 311 mOsm/kg (285-295); Phosphorus 1.8 mg/dL (2.5-4.5); Potassium 3.5 mmol/L (3.5-5.1); Sodium 145 mmol/L (136-145); Total Bilirubin 0.2 mg/dL (0.15-1.2); Total Protein 5.9 g/dL (6.6-8.7)
[2023-11-02 06:34] LABS: NT Pro B Type Natriuretic Pept 512 pg/mL (0-125)
[2023-11-02] MEDS: budesonide 0.5 mg/2 mL Neb INHALATION ×2 (07:27→20:38)
[2023-11-02] MEDS: aspirin 81 mg EC Tablet PO (09:32)
[2023-11-02] MEDS: ALPRAZolam 0.5 mg Tablet PO ×2 (09:32→19:58)
--- NOTE | 2023-11-02 10:45 | PC.SOCIAL ---
IMM Update pg 2 of IMM updated and reviewed w/ patient. Copy provided and copy dated, initialed and placed in chart.
--- NOTE | 2023-11-02 13:08 | P.PN_ITS ---
Subjective 2 Subjective: Patient was seen this morning, resting comfortably on BiPAP, can follow commands, denies any chest pain, no abdominal pain, can follow commands, he tells me that he needs his Xanax Vitals/I&O/Wt Last Vital Signs Temp 98.1 F 11/02/23 12:00 Pulse 121 H 11/02/23 12:00 Resp 18 11/02/23 12:00 BP 114/63 11/02/23 12:00 Pulse Ox 97 11/02/23 12:00 O2 Del Method Nasal Cannula 11/02/23 12:00 O2 Flow Rate 6 11/02/23 11:20 FiO2 35 11/02/23 07:30 11/01/23 11/02/23 11/02/23 22:59 06:59 14:59 Intake Total 1000 / 1000 50 / 1050 Output Total 250 / 250 225 / 475 Balance 750 / 750 -175 / 575 Weight last 48 hrs Weight 42.683 kg Weight 43.091 kg Weight 43.998 kg Physical Exam 2 Const: COMMON NORMALS: no acute distress and patient oriented x3 Resp: COMMON NORMALS: normal respiratory effort, No retractions, No use of accessory muscles and clear to auscultation bilaterally AUSCULTATION: clear to auscultation bilaterally Cardio: COMMON NORMALS: regular rate, regular rhythm, S1 normal heart sound present and S2 normal heart sound present RATE: regular rate RHYTHM: r egular rhythm HEART SOUNDS: S1 normal heart sound present and S2 normal heart sound present GI: COMMON NORMALS: Normal to inspection, nondistended, normoactive bowel sounds present and non-tender Extremity: COMMON NORMALS: no pedal edema Neuro: COMMON NORMALS: patient oriented x3 Urinary Catheter Management: Garcia: Cath Placed During This Visit: yes Reason for Continuing Indwelling Catheter: Accurate Measurement of Urinary Output in Critically Ill Patients Urinary Catheter Date of Insertion: 10/31/23 Urinary Catheter Time of Insertion: 17:34 Data 11/02/23 05:11 11/02/23 05:11 Micro: Microbiology 10/31/23 13:51 Blood Culture - Preliminary Blood 10/31/23 13:48 Blood Culture - Preliminary Blood A&P Assessment and plan (1) Acute respiratory failure with hypoxia and hypercarbia: (2) Acute encephalopathy: (3) Anorexia: (4) Severe protein-calorie malnutrition: (5) Muscle wasting: (6) Physical deconditioning: (7) Healthcare-associated pneumonia: Plan Acute hypoxic hypercarbic respiratory failure -Likely secondary to COPD exacerbation -With concerns for underlying healthcare associated ammonia given his multiple hospitalizations in the last month -ABG shows worsening hypercarbia now with acidemia discussed compliance with BiPAP therapy high risk of morbidity and mortality if noncompliant, high risk of intubation, high risk of morbidity and mortality associate with intubation, prolonged intubation, high risk of remaining on ventilator for the rest of his life, high risk of trach and PEG, patient and family voiced understanding, all questions answered, shared decision making CT of the chest - CT/CT chest wo con [id number] IMPRESSION: 1. New small focal consolidative infiltrate in the left upper lobe. 2. Slightly increasing still very small left pleural effusion. Plan -Monitor respiratory status closely -Continue BiPAP therapy -Continue vancomycin -Continue aztreonam -Continue Levaquin -Continue Solu-Medrol 40 IV every 8 hours -Continue DuoNeb -Continue budesonide -Sputum cultures -Blood culture -Respiratory viral panel within normal limits Acute encephalopathy, -CT head within normal limits ? Likely secondary to hypercarbia, healthcare associate pneumonia Severe protein calorie malnutrition, physical deconditioning, anorexia, muscle wasting -Consult dietary -Speech therapy eval -Dysphagia level 4 diet, with Ensure Full code Lovenox for DVT prophylaxis Attestations 2 Medical Necessity Statement*: Patient requires hospitalization for COPD exacerbation requiring antibiotics for pneumonia, steroids, requiring Lasix therapy Diagnoses Acute respiratory failure with hypoxia and hypercarbia J96.01; J96.02 Acute encephalopathy G93.40 Anorexia R63.0 Severe protein-calorie malnutrition E43 Muscle wasting M62.50 Physical deconditioning R53.81 Healthcare-associated pneumonia J18.9
[2023-11-02] MEDS: FUROsemide 10 mg/mL SDV 4mL 40 MG IVP (13:26)
[2023-11-02] MEDS: potassium phosphate (mEq K) 40 MEQ in sodium chloride 0.9% (100 ml) 100 ML 27.27 MEQ IV (13:27)
--- NOTE | 2023-11-02 13:39 | ECG_ITS ---
[facility] Test Date: 2023-11-02 Pat Name: Jacob Goetz Department: Room: 255 Gender: Male Detective: : 1955 Requested By: Robert Wade Order Number: [id number] Mariah MD: Janak Lazcano M.D. Measurements Intervals [place] Rate: 114 P: 78 LA: 135 QRS: 70 QRSD: 79 T: 72 QT: 292 QTc: 404 Interpretive Statements SINUS TACHYCARDIA MINIMAL ST DEPRESSION [0.025+ mV ST DEPRESSION] ABNORMAL RHYTHM ECG Compared to ECG 10/31/2023 17:17:07 ST (T wave) deviation now present Sinus rhythm no longer present Electronically Signed On 11-02-2023 18:13:05 [employer] by Janak Lazcano M.D. [id number]
[2023-11-02] MEDS: pantoprazole 40 mg SDV IVP (15:55)
[2023-11-02] MEDS: levofloxacin-dextrose 5 % 750 MG/150 ML PREMIX 100 MG IV (15:59)
[2023-11-02] MEDS: enoxaparin 40 mg/0.4 mL Syringe SUBCUT (16:01)
--- NOTE | 2023-11-02 16:45 | PC.OT ---
OT evaluation attempted at 9:30 am with therapist unable to communicate with patient due to patient being on constant bipap; will attempt at later date.
[2023-11-02] MEDS: vancomycin 1,000 MG in sodium chloride 0.9% 250 ML 250 MG IV (17:25)
[2023-11-02] MEDS: atorvastatin 40 mg Tablet PO (20:00)
[2023-11-02] MEDS: levalbuterol 0.63 mg/3 mL Neb INHALATION (20:37)
[2023-11-02] MEDS: ipratropium 0.5 mg/2.5 mL Neb INHALATION (20:37)
[2023-11-03] VITALS (16 sets, daily range): BP systolic 102–147; BP diastolic 54–71; PULSE 86–104; RESP 16–24; TEMP 36.3–37.1; O2SAT 91–100; BMI 15.9
[2023-11-03] MEDS: levalbuterol 0.63 mg/3 mL Neb INHALATION ×4 (00:33→20:29)
[2023-11-03] MEDS: ipratropium 0.5 mg/2.5 mL Neb INHALATION ×4 (00:33→20:28)
[2023-11-03] MEDS: aztreonam 1,000 MG in sodium chloride 0.9% (plus) 50 ML 100 MG IV ×2 (05:05→17:43)
[2023-11-03 05:31] LABS: Hematocrit 29.2 % (37-53); Lymphocytes # 0.5 10^3/uL (0.8-4.8); Lymphocytes % 4.7 %; Mean Corpuscular HGB Conc 29.5 g/dL (30-55); Mean Corpuscular Hemoglobin 28.6 pg (27-33); Mean Platelet Volume 10.4 fL (7.4-10.4); Monocytes # 0.3 10^3/uL (0.2-0.9); Monocytes % 2.9 %; Neutrophils # 9.81 10^3/uL (1.8-7.7); Nucleated Red Blood Cells % 0 %; Platelet Count 198 10^3/cmm (157-399); Red Blood Count 3.01 10^6/uL (3.85-5.65); Red Cell Distribution Width 13.9 % (12.1-15.1); White Blood Count 10.66 10^3/uL (3.29-11.43)
[2023-11-03 05:42] LABS: Alanine Aminotransferase < 5 U/L (0-41); Albumin Level 2.9 g/dL (3.5-5.2); Alkaline Phosphatase 42 U/L (40-130); Anion Gap 8.9 (5-19); Aspartate Amino Transferase 11 U/L (0-40); Blood Urea Nitrogen 25 mg/dL (8-23); Calcium 7.8 mg/dL (8.5-10.5); Chloride 101 mmol/L (98-107); Globulin 2.3 g/dL (1.3-4.6); Glomerular Filtration Rate 112.1 mL/min (90-130); Glucose 172 mg/dL (65-115); Magnesium 1.9 mg/dL (1.7-2.3); Osmolality Calculated 312 mOsm/kg (285-295); Phosphorus 2.4 mg/dL (2.5-4.5); Potassium 3.9 mmol/L (3.5-5.1); Sodium 147 mmol/L (136-145); Total Bilirubin 0.2 mg/dL (0.15-1.2); Total Protein 5.2 g/dL (6.6-8.7)
[2023-11-03 05:48] LABS: Carbon Dioxide 41 mmol/L (22-29)
[2023-11-03 05:50] LABS: NT Pro B Type Natriuretic Pept 604 pg/mL (0-125)
[2023-11-03] MEDS: methylPREDNISolone sod succ 40 mg/mL INJ IVP ×3 (05:52→21:34)
[2023-11-03] MEDS: ALPRAZolam 0.5 mg Tablet PO ×3 (06:06→22:51)
[2023-11-03] MEDS: budesonide 0.5 mg/2 mL Neb INHALATION ×2 (08:41→20:28)
[2023-11-03] MEDS: fluticasone nasal spray 16gm Btl 2 SPRAY NASAL (09:02)
[2023-11-03] MEDS: aspirin 81 mg EC Tablet PO (09:02)
[2023-11-03] MEDS: metoprolol tartrate 25 mg Tablet 12.5 MG PO ×2 (10:24→21:37)
[2023-11-03] MEDS: acetaminophen 325 mg Tablet 650 MG PO ×2 (15:00→21:36)
--- NOTE | 2023-11-03 15:10 | P.PN_ITS ---
Subjective 2 Subjective: Patient was seen this morning, denies any fevers, no chills, does have a cough, he feels significantly better, patient's sister wanted to talk to me, I spoke to her apparently there is a strong family history of lung disease, some of the family numbers are smoker some or not, even the ones that do not smoke Developed some sort of lung disease, she has lung disease she has worked in the she is never smoked, Vitals/I&O/Wt Last Vital Signs Temp 98.8 F 11/03/23 12:00 Pulse 101 H 11/03/23 14:15 Resp 22 H 11/03/23 14:08 BP 140/71 11/03/23 12:00 Pulse Ox 95 11/03/23 14:08 O2 Del Method Nasal Cannula 11/03/23 14:08 O2 Flow Rate 2 11/03/23 14:08 FiO2 35 11/03/23 00:37 11/03/23 11/03/23 11/03/23 06:59 14:59 22:59 Intake Total 50 / 1088.5106 Output Total 400 / 1600 Balance -350 / -511.4894 Weight last 48 hrs Weight 43.409 kg Weight 42.683 kg Physical Exam 2 Const: COMMON NORMALS: no acute distress and patient oriented x3 Resp: COMMON NORMALS: normal respiratory effort, No retractions and No use of accessory muscles AUSCULTATION: wheezes Cardio: COMMON NORMALS: regular rate, regular rhythm, S1 normal heart sound present and S2 normal heart sound present RATE: regular rate RHYTHM: r egular rhythm HEART SOUNDS: S1 normal heart sound present and S2 normal heart sound present GI: COMMON NORMALS: Normal to inspection, nondistended, normoactive bowel sounds present and non-tender Extremity: COMMON NORMALS: no pedal edema Neuro: COMMON NORMALS: patient oriented x3 Psych: COMMON NORMALS: mental status grossly normal Urinary Catheter Management: Garcia: Cath Placed During This Visit: yes Reason for Continuing Indwelling Catheter: Accurate Measurement of Urinary Output in Critically Ill Patients Urinary Catheter Date of Insertion: 10/31/23 Urinary Catheter Time of Insertion: 17:34 Data 11/03/23 04:43 11/03/23 04:43 A&P Assessment and plan (1) Acute respiratory failure with hypoxia and hypercarbia: (2) Acute encephalopathy: (3) Anorexia: (4) Severe protein-calorie malnutrition: (5) Muscle wasting: (6) Physical deconditioning: (7) Healthcare-associated pneumonia: Plan Acute hypoxic hypercarbic respiratory failure -Likely secondary to COPD exacerbation -With concerns for underlying healthcare associated ammonia given his multiple hospitalizations in the last month -ABG shows worsening hypercarbia now with acidemia discussed compliance with BiPAP therapy high risk of morbidity and mortality if noncompliant, high risk of intubation, high risk of morbidity and mortality associate with intubation, prolonged intubation, high risk of remaining on ventilator for the rest of his life, high risk of trach and PEG, patient and family voiced understanding, all questions answered, shared decision making CT of the chest - CT/CT chest wo con [id number] IMPRESSION: 1. New small focal consolidative infiltrate in the left upper lobe. 2. Slightly increasing still very small left pleural effusion. Plan -Monitor respiratory status closely -Continue BiPAP therapy, patient would clinically benefit from BiPAP therapy, due to chronic hypercarbic respiratory failure, secondary to COPD, will decrease his morbidity and mortality, decrease risk of rehospitalization's ? Will order a overnight pulse ox -Continue vancomycin -Continue aztreonam -Continue Levaquin -Continue Solu-Medrol 40 IV every 8 hours -Continue DuoNeb -Continue budesonide -Sputum cultures -Blood culture -Respiratory viral panel within normal limits Strong family history of lung disease, will order alpha-1 antitrypsin Sinus tachycardia, monitor Acute encephalopathy, resolved -CT head within normal limits ? Likely secondary to hypercarbia, healthcare associate pneumonia Acute on chronic anemia, monitor Severe protein calorie malnutrition, physical deconditioning, anorexia, muscle wasting -Consult dietary -Speech therapy eval -Dysphagia level 4 diet, with Ensure Full code Lovenox for DVT prophylaxis Plan for today, IV replacement of potassium, phosphorus, IV antibiotics, IV steroids, monitor closely, continue BiPAP therapy Attestations 2 Medical Necessity Statement*: Patient requires hospitalization for acute hypoxic hypercarbic respiratory failure, secondary to COPD Diagnoses Acute respiratory failure with hypoxia and hypercarbia J96.01; J96.02 Acute encephalopathy G93.40 Anorexia R63.0 Severe protein-calorie malnutrition E43 Muscle wasting M62.50 Physical deconditioning R53.81 Healthcare-associated pneumonia J18.9
[2023-11-03] MEDS: levofloxacin-dextrose 5 % 750 MG/150 ML PREMIX 100 MG IV (17:17)
[2023-11-03] MEDS: enoxaparin 40 mg/0.4 mL Syringe SUBCUT (17:19)
--- NOTE | 2023-11-03 17:24 | PC.PHAR ---
Pharmacy to dose Vancomycin adjustment for trough <10 Use this page to adjust dose, Tinf, or tau when only a TROUGH is taken. VANCOMYCIN or AMINOGLYCOSIDE: VANCO mg/kg Last Name Miguel Angelhor Dose(mg) 1000 23. First Name Jacob Tinf (hrs) 1 hrs : 55 Tau=freq (hrs) 24 hrs Location: [facility] Cmax (calculated) 37.7 mcg/ml Cpeak (calculated) 35.3 mcg/ml Sex (M/F) M Cmin (trough): 8 mcg/ml AGE (yrs) 68 Calculated Vd: 32.3 liters Ht (inches) 65.0 Calculated Ke: 0.066 hrs-1 ABW (Kg) 43.0 Calculated T1/2: 10.50 hrs IBW (Kg) 61.5 mg/kg DW (Kg) 43.0 NEW Dose (mg) 1000 23.26 NEW Tinf (hrs) 1 NEW Tau (hrs) 18 VANCO GENT TARGETS Expected Cmax: 43.2 Targets Standard Dosing High Dose Expected Cpeak: 40.4 25 to 40 6 - 12 mcg/ml 20 - 24 mcg/ml Expected Cmin: 14.1 10 to 20 0.5 - 2 mcg/ml < 1 mcg/ml WHEN DO I GIVE THE NEXT DOSE? When will the Blood Conc. Be Equal to my New Expected Cmin? If Dose was HELD If Dose was GIVEN Give Next Dose In: (From time trough drawn) ROMELIA 15 hrs Where will the Conc. Be if I wait : 2.4 mcg/ml 11.9 mcg/ml 18 hrs
[2023-11-03] MEDS: pantoprazole 40 mg SDV IVP (17:40)
[2023-11-03] MEDS: atorvastatin 40 mg Tablet PO (21:37)
[2023-11-04] VITALS (13 sets, daily range): BP systolic 116–146; BP diastolic 64–74; PULSE 74–100; RESP 15–22; TEMP 36.4–36.7; O2SAT 90–98; BMI 16.4
[2023-11-04] MEDS: aztreonam 1,000 MG in sodium chloride 0.9% (plus) 50 ML 100 MG IV (04:05)
[2023-11-04] MEDS: acetaminophen 325 mg Tablet 650 MG PO (04:06)
[2023-11-04 04:48] LABS: Hematocrit 29.8 % (37-53); Lymphocytes # 0.4 10^3/uL (0.8-4.8); Mean Corpuscular HGB Conc 29.9 g/dL (30-55); Mean Corpuscular Hemoglobin 28.8 pg (27-33); Mean Corpuscular Volume 96.4 fl (82-101); Mean Platelet Volume 10.4 fL (7.4-10.4); Monocytes # 0.4 10^3/uL (0.2-0.9); Neutrophils # 9.47 10^3/uL (1.8-7.7); Neutrophils % 91.4 %; Nucleated Red Blood Cells % 0 %; Platelet Count 178 10^3/cmm (157-399); Red Blood Count 3.09 10^6/uL (3.85-5.65); Red Cell Distribution Width 13.5 % (12.1-15.1); White Blood Count 10.35 10^3/uL (3.29-11.43)
[2023-11-04 04:59] LABS: Alanine Aminotransferase 7 U/L (0-41); Albumin Level 2.6 g/dL (3.5-5.2); Alkaline Phosphatase 66 U/L (40-130); Anion Gap 4.7 (5-19); Aspartate Amino Transferase 13 U/L (0-40); Blood Urea Nitrogen 22 mg/dL (8-23); C Reactive Protein 10.4 mg/L (0.0-4.9); Calcium 7.8 mg/dL (8.5-10.5); Chloride 100 mmol/L (98-107); Globulin 2.7 g/dL (1.3-4.6); Glucose 165 mg/dL (65-115); Magnesium 1.9 mg/dL (1.7-2.3); Osmolality Calculated 301 mOsm/kg (285-295); Phosphorus 1.7 mg/dL (2.5-4.5); Potassium 3.7 mmol/L (3.5-5.1); Sodium 142 mmol/L (136-145); Total Bilirubin 0.2 mg/dL (0.15-1.2); Total Protein 5.3 g/dL (6.6-8.7)
[2023-11-04 05:02] LABS: Carbon Dioxide 41 mmol/L (22-29)
[2023-11-04] MEDS: methylPREDNISolone sod succ 40 mg/mL INJ IVP ×2 (05:29→15:48)
[2023-11-04] MEDS: ALPRAZolam 0.5 mg Tablet PO ×2 (08:19→18:59)
[2023-11-04] MEDS: metoprolol tartrate 25 mg Tablet 12.5 MG PO ×2 (08:19→20:36)
[2023-11-04] MEDS: aspirin 81 mg EC Tablet PO (08:19)
[2023-11-04] MEDS: fluticasone nasal spray 16gm Btl 2 SPRAY NASAL (08:20)
[2023-11-04] MEDS: budesonide 0.5 mg/2 mL Neb INHALATION ×2 (08:59→20:32)
[2023-11-04] MEDS: levalbuterol 0.63 mg/3 mL Neb INHALATION ×3 (08:59→20:32)
[2023-11-04] MEDS: ipratropium 0.5 mg/2.5 mL Neb INHALATION ×3 (08:59→20:32)
[2023-11-04] MEDS: vancomycin 1,000 MG in sodium chloride 0.9% 250 ML 250 MG IV (10:54)
[2023-11-04] MEDS: pantoprazole 40 mg SDV IVP (15:49)
[2023-11-04] MEDS: enoxaparin 40 mg/0.4 mL Syringe SUBCUT (15:49)
[2023-11-04] MEDS: levofloxacin-dextrose 5 % 750 MG/150 ML PREMIX 100 MG IV (15:49)
--- NOTE | 2023-11-04 16:35 | P.PN_ITS ---
Subjective 2 Subjective: Patient was seen this morning, he is worried about us discharging him home too soon, denies any fevers, no chills, has a productive cough Vitals/I&O/Wt Last Vital Signs Temp 97.6 F 11/04/23 11:58 Pulse 81 11/04/23 13:44 Resp 15 11/04/23 13:42 BP 146/69 11/04/23 11:58 Pulse Ox 97 11/04/23 13:44 O2 Del Method BiPAP 11/04/23 13:42 O2 Flow Rate 3 11/04/23 09:00 FiO2 35 11/04/23 13:44 11/04/23 11/04/23 11/04/23 06:59 14:59 22:59 Intake Total 290 / 490 850 / 850 Output Total 200 / 550 Balance 90 / -60 850 / 850 Weight last 48 hrs Weight 44.815 kg Weight 43.409 kg Physical Exam 2 Const: COMMON NORMALS: no acute distress and patient oriented x3 Resp: COMMON NORMALS: normal respiratory effort, No retractions and No use of accessory muscles AUSCULTATION: wheezes Cardio: COMMON NORMALS: regular rate, regular rhythm, S1 normal heart sound present and S2 normal heart sound present RATE: regular rate RHYTHM: r egular rhythm HEART SOUNDS: S1 normal heart sound present and S2 normal heart sound present GI: COMMON NORMALS: Normal to inspection, nondistended, normoactive bowel sounds present and non-tender Extremity: COMMON NORMALS: no pedal edema Neuro: COMMON NORMALS: patient oriented x3 Psych: COMMON NORMALS: mental status grossly normal Urinary Catheter Management: Garcia: Cath Placed During This Visit: yes Reason for Continuing Indwelling Catheter: Other Urinary Catheter Date of Insertion: 10/31/23 Urinary Catheter Time of Insertion: 17:34 Data 11/04/23 04:10 11/04/23 04:10 A&P Assessment and plan (1) Acute respiratory failure with hypoxia and hypercarbia: (2) Acute encephalopathy: (3) Anorexia: (4) Severe protein-calorie malnutrition: (5) Muscle wasting: (6) Physical deconditioning: (7) Healthcare-associated pneumonia: Plan Acute hypoxic hypercarbic respiratory failure -Likely secondary to COPD exacerbation -With concerns for underlying healthcare associated ammonia given his multiple hospitalizations in the last month -ABG shows worsening hypercarbia now with acidemia discussed compliance with BiPAP therapy high risk of morbidity and mortality if noncompliant, high risk of intubation, high risk of morbidity and mortality associate with intubation, prolonged intubation, high risk of remaining on ventilator for the rest of his life, high risk of trach and PEG, patient and family voiced understanding, all questions answered, shared decision making CT of the chest - CT/CT chest wo con [id number] IMPRESSION: 1. New small focal consolidative infiltrate in the left upper lobe. 2. Slightly increasing still very small left pleural effusion. Plan -Monitor respiratory status closely -Continue BiPAP therapy, patient would clinically benefit from BiPAP therapy, due to chronic hypercarbic respiratory failure, secondary to COPD, will decrease his morbidity and mortality, decrease risk of rehospitalization's -De-escalate to p.o. Levaquin tomorrow -De-escalate to p.o.'s prednisone -Continue DuoNeb -Continue budesonide -Sputum cultures -Blood culture -Respiratory viral panel within normal limits Strong family history of lung disease, will order alpha-1 antitrypsin Sinus tachycardia, monitor Acute encephalopathy, resolved -CT head within normal limits ? Likely secondary to hypercarbia, healthcare associate pneumonia Acute on chronic anemia, monitor Severe protein calorie malnutrition, physical deconditioning, anorexia, muscle wasting -Consult dietary -Speech therapy eval -Dysphagia level 4 diet, with Ensure Full code Lovenox for DVT prophylaxis Plan for today de-escalate p.o. antibiotics, p.o. steroids, continue BiPAP, Attestations 2 Medical Necessity Statement*: Patient requires hospitalization for acute hypoxic hypercarbic respiratory failure Diagnoses Acute respiratory failure with hypoxia and hypercarbia J96.01; J96.02 Acute encephalopathy G93.40 Anorexia R63.0 Severe protein-calorie malnutrition E43 Muscle wasting M62.50 Physical deconditioning R53.81 Healthcare-associated pneumonia J18.9
[2023-11-04] MEDS: atorvastatin 40 mg Tablet PO (20:36)
[2023-11-05] VITALS (15 sets, daily range): BP systolic 144–167; BP diastolic 72–83; PULSE 78–109; RESP 16–20; TEMP 36.6–36.8; O2SAT 93–98; BMI 16.7
[2023-11-05] MEDS: levalbuterol 0.63 mg/3 mL Neb INHALATION ×4 (01:06→21:13)
[2023-11-05] MEDS: ipratropium 0.5 mg/2.5 mL Neb INHALATION ×4 (01:06→21:12)
[2023-11-05] MEDS: levoFLOXacin 750 mg Tablet PO (05:39)
[2023-11-05 05:46] LABS: Hematocrit 32.6 % (37-53); Lymphocytes # 0.6 10^3/uL (0.8-4.8); Lymphocytes % 7.3 %; Mean Corpuscular HGB Conc 29.8 g/dL (30-55); Mean Corpuscular Hemoglobin 28.7 pg (27-33); Mean Corpuscular Volume 96.4 fl (82-101); Mean Platelet Volume 10.1 fL (7.4-10.4); Monocytes # 0.7 10^3/uL (0.2-0.9); Monocytes % 8.4 %; Neutrophils # 7.35 10^3/uL (1.8-7.7); Neutrophils % 83.8 %; Nucleated Red Blood Cells % 0 %; Platelet Count 169 10^3/cmm (157-399); Red Blood Count 3.38 10^6/uL (3.85-5.65); Red Cell Distribution Width 13.2 % (12.1-15.1); White Blood Count 8.77 10^3/uL (3.29-11.43)
[2023-11-05 06:08] LABS: Alanine Aminotransferase 9 U/L (0-41); Albumin Level 2.9 g/dL (3.5-5.2); Alkaline Phosphatase 68 U/L (40-130); Anion Gap 9.5 (5-19); Aspartate Amino Transferase 14 U/L (0-40); Blood Urea Nitrogen 19 mg/dL (8-23); Calcium 8.3 mg/dL (8.5-10.5); Chloride 99 mmol/L (98-107); Globulin 2.3 g/dL (1.3-4.6); Glomerular Filtration Rate 165.4 mL/min (90-130); Glucose 167 mg/dL (65-115); Magnesium 1.9 mg/dL (1.7-2.3); Osmolality Calculated 308 mOsm/kg (285-295); Phosphorus 1.4 mg/dL (2.5-4.5); Potassium 3.5 mmol/L (3.5-5.1); Sodium 146 mmol/L (136-145); Total Bilirubin 0.2 mg/dL (0.15-1.2); Total Protein 5.2 g/dL (6.6-8.7)
[2023-11-05 06:12] LABS: Carbon Dioxide 41 mmol/L (22-29)
[2023-11-05 06:13] LABS: NT Pro B Type Natriuretic Pept 1061 pg/mL (0-125); Procalcitonin 0.03 ng/mL (0-0.5)
[2023-11-05] MEDS: ALPRAZolam 0.5 mg Tablet PO ×2 (06:33→22:05)
[2023-11-05 06:55] LABS: NT Pro B Type Natriuretic Pept 917 pg/mL (0-125)
[2023-11-05] MEDS: predniSONE 20 mg Tablet 40 MG PO (08:25)
[2023-11-05] MEDS: metoprolol tartrate 25 mg Tablet 12.5 MG PO ×2 (08:25→20:28)
[2023-11-05] MEDS: aspirin 81 mg EC Tablet PO (08:26)
[2023-11-05] MEDS: fluticasone nasal spray 16gm Btl 2 SPRAY NASAL ×2 (08:26→17:10)
[2023-11-05] MEDS: budesonide 0.5 mg/2 mL Neb INHALATION ×2 (08:29→21:12)
[2023-11-05 10:59] LABS: Alpha 1 Antitrypsin 203 mg/dL (83-199)
--- NOTE | 2023-11-05 11:01 | P.PN_ITS ---
Subjective 2 Subjective: She had a rough night with bouts of panic/anxiety. He has had mucous plugging in his nose, one of the reasons he could not breathe at the beginning of this hospitalization. Vitals/I&O/Wt Last Vital Signs Temp 98.1 F 11/05/23 07:09 Pulse 103 H 11/05/23 08:41 Resp 18 11/05/23 08:31 BP 152/76 11/05/23 07:09 Pulse Ox 98 11/05/23 08:31 O2 Del Method Nasal Cannula 11/05/23 08:31 O2 Flow Rate 1.5 11/05/23 08:31 FiO2 35 11/05/23 01:07 11/04/23 11/05/23 11/05/23 22:59 06:59 14:59 Intake Total 630 / 1480 120 / 120 Output Total 500 / 500 600 / 1100 Balance 130 / 980 -600 / 380 120 / 120 Weight last 48 hrs Weight 45.586 kg Weight 44.815 kg Physical Exam 2 Narrative: Family at bedside. Const: COMMON NORMALS: patient oriented x3 and alert GENERAL APPEARANCE: c ooperative NUTRITIONAL APPEARANCE: cachectic ORIENTATION/CONSCIOUSNESS: Y es awake HENMT: COMMON NORMALS: oropharynx normal Neck/C-Spine: COMMON NORMALS: no JVD Resp: COMMON NORMALS: normal respiratory effort AUSCULTATION: diminished lung sounds Cardio: COMMON NORMALS: no JVD, regular rhythm, S1 normal heart sound present, S2 normal heart sound present and No murmurs present (Cardio) RHYTHM: regular rhythm HEART SOUNDS: S1 normal heart sound present and S2 normal heart sound present GI: COMMON NORMALS: Normal to inspection, nondistended, normoactive bowel sounds present, Soft to palpation and non-tender PALPATION: Yes Soft to palpation Extremity: COMMON NORMALS: no joint enlargement and no pedal edema OTHER: Thin, sarcopenia Neuro: COMMON NORMALS: patient oriented x3 and moves all extremities S ENSORIUM/ORIENTATION: Yes alert Skin: COMMON NORMALS: no rashes or lesions noted GENERAL SKIN EXAM: no rashes or lesions noted Urinary Catheter Management: Garcia: Cath Placed During This Visit: yes Reason for Continuing Indwelling Catheter: Other Urinary Catheter Date of Insertion: 10/31/23 Urinary Catheter Time of Insertion: 17:34 Data 11/05/23 04:59 11/05/23 04:59 A&P Assessment and plan (1) Acute respiratory failure with hypoxia and hypercarbia: (2) Acute encephalopathy: (3) Anorexia: (4) Severe protein-calorie malnutrition: (5) Muscle wasting: (6) Physical deconditioning: (7) Healthcare-associated pneumonia: Plan Acute hypoxic hypercarbic respiratory failure She had a miserable night overnight with anxiety, panic. With advanced COPD, does get air hunger. Xanax is ordered for him as needed and he states that it does help his symptoms. He is worried about running out of the medication at home, and states that his primary provider is reluctant to have him take the medication. Discussed with him and his caregiver regarding risks. Discussed risk including respiratory suppression, altered mental status, risks also will be present with some low-dose morphine for air hunger. At the same time with advanced COPD he states he suffers quite disabling panic attacks making him unable to cooperate with oxygen and/or BiPAP. Unfortunately air hunger and anxiety may not infrequently go together with advanced COPD exacerbating cycles of dyspnea and anxiety in a vicious [place]. Discussed with him consideration of treatment of anxiety/air hunger, consideration of palliative side of management of his advanced COPD and he would like to proceed, discussed consideration of escalating comfort in case of of progressive discomfort with advancement of his condition. Continue Xanax as needed. Discussed with his caregiver to also monitor how much medication he is using so that as he is concerned about running out of the medication, primary provider's office can be contacted for refill. Continue treatment of COPD exacerbation, mild pneumonia noted in left upper lobe. Aspiration precautions with history of aspiration on MBS. Reviewed CBC, CMP. No leukocytosis. Reviewed procalcitonin, 0.03. Additionally intermittently requiring BiPAP, does not have machine at home. Can arrangements underway to try to get him set up with BiPAP for home use as well. Discussed with case managers. Additionally caregiver states that he had plugging of nasal passages with mucus, discussed with them twice daily as needed nasal spray with saline to help clear out passages. He prefers not to have humidifier in the oxygen as he states could not breathe with the humidifier on. Also could not breathe with oxygen being at 4 L. Again the symptoms are suggestive of air hunger and anxiety symptoms likely related to his condition. His oxygen machine was not functioning well during prior hospitalization, this has been taking care of. -Likely secondary to COPD exacerbation -With concerns for underlying healthcare associated ammonia given his multiple hospitalizations in the last month -ABG shows worsening hypercarbia now with acidemia discussed compliance with BiPAP therapy high risk of morbidity and mortality if noncompliant, high risk of intubation, high risk of morbidity and mortality associate with intubation, prolonged intubation, high risk of remaining on ventilator for the rest of his life, high risk of trach and PEG, patient and family voiced understanding, all questions answered, shared decision making CT of the chest - CT/CT chest wo con [id number] IMPRESSION: 1. New small focal consolidative infiltrate in the left upper lobe. 2. Slightly increasing still very small left pleural effusion. Reviewed blood culture, no growth. Reviewed Legionella, bacterial antigens, negative. Recent influenza infection Risk of hyperglycemia with steroids. Monitor glucose. Reviewed glucose. -De-escalate to p.o. Levaquin -p.o.'s prednisone -Continue DuoNeb -Continue budesonide -Sputum cultures -Blood culture -Respiratory viral panel within normal limits Strong family history of lung disease, reviewed reviewed alpha-1 antitrypsin which is 205. Sinus tachycardia, monitor Acute encephalopathy, resolved -CT head within normal limits ? Likely secondary to hypercarbia, healthcare associate pneumonia Acute on chronic anemia, monitor Severe protein calorie malnutrition, physical deconditioning, anorexia, muscle wasting -Consult dietary -Speech therapy eval -Dysphagia level 4 diet, with Ensure Full code Lovenox for DVT prophylaxis Attestations 2 Medical Necessity Statement*: Continue admission for assessment management of respiratory failure gentleman with advanced COPD, history of aspiration, recent influenza, advanced COPD. Diagnoses Acute respiratory failure with hypoxia and hypercarbia J96.01; J96.02 Acute encephalopathy G93.40 Anorexia R63.0 Severe protein-calorie malnutrition E43 Muscle wasting M62.50 Physical deconditioning R53.81 Healthcare-associated pneumonia J18.9
--- NOTE | 2023-11-05 12:02 | PC.SOCIAL ---
IMM Update pg 2 of IMM updated and reviewed w/ patient. Copy provided and copy dated, initialed and placed in chart.
[2023-11-05] MEDS: pantoprazole 40 mg SDV IVP (17:07)
[2023-11-05] MEDS: enoxaparin 40 mg/0.4 mL Syringe SUBCUT (17:09)
[2023-11-05] MEDS: acetaminophen 325 mg Tablet 650 MG PO (17:12)
[2023-11-05] MEDS: atorvastatin 40 mg Tablet PO (20:29)
[2023-11-05] MEDS: nicotine 21 mg Patch 1 PATCH TRANSDERMA (21:21)
[2023-11-06] VITALS (11 sets, daily range): BP systolic 141–164; BP diastolic 72–81; PULSE 82–114; RESP 16–20; TEMP 36.4–36.8; O2SAT 82–99
[2023-11-06] MEDS: levoFLOXacin 750 mg Tablet PO (05:21)
[2023-11-06 06:01] LABS: Basophils % 0.1 %; Eosinophils % 0.2 %; Hematocrit 33.1 % (37-53); Lymphocytes % 10.6 %; Mean Corpuscular HGB Conc 29.9 g/dL (30-55); Mean Corpuscular Hemoglobin 28.6 pg (27-33); Mean Corpuscular Volume 95.7 fl (82-101); Mean Platelet Volume 10.1 fL (7.4-10.4); Monocytes # 0.8 10^3/uL (0.2-0.9); Monocytes % 8.7 %; Neutrophils # 7.54 10^3/uL (1.8-7.7); Nucleated Red Blood Cells % 0 %; Platelet Count 169 10^3/cmm (157-399); Red Blood Count 3.46 10^6/uL (3.85-5.65); Red Cell Distribution Width 13.1 % (12.1-15.1); White Blood Count 9.43 10^3/uL (3.29-11.43)
[2023-11-06 06:32] LABS: Alanine Aminotransferase 13 U/L (0-41); Albumin Level 2.9 g/dL (3.5-5.2); Alkaline Phosphatase 71 U/L (40-130); Anion Gap 4.2 (5-19); Aspartate Amino Transferase 22 U/L (0-40); Blood Urea Nitrogen 15 mg/dL (8-23); C Reactive Protein 3.9 mg/L (0.0-4.9); Calcium 8.3 mg/dL (8.5-10.5); Chloride 101 mmol/L (98-107); Globulin 2.1 g/dL (1.3-4.6); Glomerular Filtration Rate 165.4 mL/min (90-130); Glucose 106 mg/dL (65-115); Magnesium 1.8 mg/dL (1.7-2.3); Osmolality Calculated 305 mOsm/kg (285-295); Phosphorus 1.9 mg/dL (2.5-4.5); Potassium 3.2 mmol/L (3.5-5.1); Sodium 147 mmol/L (136-145); Total Bilirubin 0.2 mg/dL (0.15-1.2)
[2023-11-06 06:35] LABS: NT Pro B Type Natriuretic Pept 652 pg/mL (0-125); Procalcitonin 0.03 ng/mL (0-0.5)
[2023-11-06 06:38] LABS: Carbon Dioxide 45 mmol/L (22-29)
[2023-11-06] MEDS: ALPRAZolam 0.5 mg Tablet PO (06:42)
[2023-11-06] MEDS: budesonide 0.5 mg/2 mL Neb INHALATION (08:16)
[2023-11-06] MEDS: ipratropium 0.5 mg/2.5 mL Neb INHALATION ×2 (08:16→14:17)
[2023-11-06] MEDS: levalbuterol 0.63 mg/3 mL Neb INHALATION ×2 (08:16→14:17)
[2023-11-06] MEDS: magnesium sulfate premix 1 GM/100 ML PIGGYBACK IV (10:34)
[2023-11-06] MEDS: aspirin 81 mg EC Tablet PO (10:35)
[2023-11-06] MEDS: potassium phosphate (mEq K) 40 MEQ in sodium chloride 0.9% (100 ml) 100 ML 27.27 MEQ IV (10:35)
[2023-11-06] MEDS: predniSONE 20 mg Tablet 40 MG PO (10:35)
[2023-11-06] MEDS: metoprolol tartrate 25 mg Tablet 12.5 MG PO (10:36)
[2023-11-06] MEDS: fluticasone nasal spray 16gm Btl 2 SPRAY NASAL (10:41)
--- NOTE | 2023-11-06 14:26 | P.DS_ITS ---
Discharge Providers Date of Admission: 10/31/23 15:42 Date of Discharge: November 06, 2023 Attending Provider at Admission: Robert Wade MD Attending Provider at Discharge: Prosper Reis Primary Care Provider: ALLEN Nichole Diagnoses at Discharge Discharge Diagnosis (1) Acute respiratory failure with hypoxia and hypercarbia: Status: Resolved (2) Acute encephalopathy: Status: Acute (3) Anorexia: Status: Acute (4) Severe protein-calorie malnutrition: Status: Acute (5) Muscle wasting: Status: Acute (6) Physical deconditioning: Status: Acute (7) Healthcare-associated pneumonia: Status: Acute Reason for Visit Reason for Visit: Low O2 Hospital Course Hospital Course 68-year-old gentleman with advanced COPD, cachexia, history of aspiration, high risk of readmission, with several recent hospitalizations return to the hospital, overall getting better but slow to improve, with nasal mucous plugging, on presentation with left upper lung small focal consolidation, possible pneumonitis versus pneumonia, however, needs follow-up imaging to exclude mass after resolution of acute illness. Required BiPAP support in the hospital, due to this is being set up with BiPAP at home as well. Continue efforts to quit smoking. Would benefit from enrollment in low-dose CT screening program. Patient states also there are arrangements for follow-up with pulmonology, cont inue. With intermittent anxiety/panic/air hunger, continues with Xanax as needed. Please reassess. Instructed on use of saline spray to help clear out mucus buildup and keep nasal passages clear. Alpha-1 antitrypsin was obtained during hospitalization and was 205. With prior history of aspiration and instructed on strict aspiration precautions. Continue reassessment and optimization of malnutrition as previously instructed to add nutritional shakes to meals. As per prior hospitalization follow-up MRI brain. And as previously would benefit from alert button at home. Patient and his power of privacy attorney would also like for him to be set up with [employer] device which could not be set up at current time. Please confirm that [facility] is following up on this. Physical Exam Urinary Catheter Management: Garcia: Cath Placed During This Visit: yes, but has since been removed by the nurse Reason for Continuing Indwelling Catheter: Decision to DC Catheter Urinary Catheter Date of Insertion: 10/31/23 Urinary Catheter Time of Insertion: 17:34 Date Urinary Catheter Removed: 11/05/23 Time Urinary Catheter Discontinued: 16:50 Discharge Data Studies Completed and Pending Completed Studies During Hospitalization Category Date Time Status CT chest wo con [id number] Routine Cat Scan 11/01/23 06:[address] head wo con* [id number] Routine Cat Scan 11/01/23 06:00 Completed XR chest 1V portable [id number] Stat Exams 10/31/23 12:50 Completed CV. echo complete* [id number] Routine Ultrasound 10/31/23 16:09 Completed Pending at discharge Category Date Time Status Blood Cultures ([facility]) Routine Lab 10/31/23 13:48 Results Blood Cultures ([facility]) Routine Lab 10/31/23 13:51 Results Sputum Culture and Gram Stain Stat Lab 10/31/23 13:29 Uncollected Sputum Culture and Gram Stain Stat Lab 10/31/23 16:01 Uncollected Radiology Impressions Chest X-Ray 10/31/23 12:50 IMPRESSION: Patchy left basilar airspace opacities concerning for ongoing pneumonia. Chest CT 11/01/23 06:00 IMPRESSION: 1. New small focal consolidative infiltrate in the left upper lobe. 2. Slightly increasing still very small left pleural effusion. COMMENTS: The presence of pulmonary emphysema on CT is an independent risk factor for lung cancer. In the absence of a history or active diagnosis of lung cancer, it is recommended that this patient with emphysema be evaluated for enrollment in a low dose CT lung cancer screening program. Head CT 11/01/23 06:00 IMPRESSION: No acute intracranial abnormality. Laboratory Results WBC 9.43 10^3/uL (3.29-11.43) 11/06/23 05:15 RBC 3.46 10^6/uL (3.85-5.65) L 11/06/23 05:15 Hgb 9.90 g/dL (11.27-16.99) L 11/06/23 05:15 Hct 33.1 % (37-53) L 11/06/23 05:15 MCV 95.7 fl (82-101) 11/06/23 05:15 MCH 28.6 pg (27-33) 11/06/23 05:15 MCHC 29.9 g/dL (30-55) L 11/06/23 05:15 RDW 13.1 % (12.1-15.1) 11/06/23 05:15 Plt Count 169 10^3/cmm (157-399) 11/06/23 05:15 MPV 10.1 fL (7.4-10.4) 11/06/23 05:15 Neut % (Auto) 80.0 % 11/06/23 05:15 Lymph % (Auto) 10.6 % 11/06/23 05:15 [place] % (Auto) 8.7 % 11/06/23 05:15 Eos % (Auto) 0.2 % 11/06/23 05:15 Baso % (Auto) 0.1 % 11/06/23 05:15 Neut # (Auto) 7.54 10^3/uL (1.8-7.7) 11/06/23 05:15 Lymph # (Auto) 1.0 10^3/uL (0.8-4.8) 11/06/23 05:15 [place] # (Auto) 0.8 10^3/uL (0.2-0.9) 11/06/23 05:15 Eos # (Auto) 0.0 10^3/uL (0.0-0.8) 11/06/23 05:15 Baso # (Auto) 0.0 10^3/uL (0.0-0.1) 11/06/23 05:15 Nucleated RBC % (auto) 0 % 11/06/23 05:15 Nucleated RBCs # 0.0 /100WBC 11/06/23 05:15 Specimen Type Arterial 11/01/23 08:46 Sample Site Brachial, left 11/01/23 08:46 ABG pH 7.32 (7.35-7.45) L 11/01/23 08:46 ABG pCO2 78.2 mmHg (35-45) H* 11/01/23 08:46 ABG pO2 72.8 mmHg (80.0-100.0) L 11/01/23 08:46 ABG PO2/FiO2 Ratio 0 11/01/23 08:46 ABG HCO3 40.1 mmol/L (22-26) H 11/01/23 08:46 ABG O2 Saturation 94.7 10/31/23 16:06 ABG Base Excess 12.0 mmol/L (-2.0-2.0) H 11/01/23 08:46 Quoc Test Pos 11/01/23 08:46 A-a O2 Gradient 10.3 mmHg (5-10) H 10/31/23 16:06 Hematocrit 26.9 % (42-52) L 11/01/23 08:46 Hgb O2 Saturation 92.7 % (95-100) L 10/31/23 16:06 Carboxyhemoglobin 1.4 %THgb (0.4-20.1) 10/31/23 16:06 Methemoglobin 0.8 % (0.4-1.5) 10/31/23 16:06 Total Hemoglobin 9.7 g/dL (14-18) L 10/31/23 16:06 Sodium 145.0 mmol/L (131-143) H 10/31/23 16:06 Potassium 3.9 mmol/L (3.5-5.0) 10/31/23 16:06 Glucose 87.0 mg/dL (70-115) 10/31/23 16:06 Ionized Calcium 1.1 mmol/L (1.1-1.4) 10/31/23 16:06 O2 Delivery Device Bipap 11/01/23 08:46 O2 Liters/Min 4.0 % 10/31/23 16:06 FiO2 40.0 % 11/01/23 08:46 Internet Developer ID Cak 11/01/23 08:46 Sodium 147 mmol/L (136-145) H 11/06/23 05:15 Potassium 3.2 mmol/L (3.5-5.1) L 11/06/23 05:15 Chloride 101 mmol/L (98-107) 11/06/23 05:15 Carbon Dioxide 45 mmol/L (22-29) H* 11/06/23 05:15 Anion Gap 4.2 (5-19) L 11/06/23 05:15 BUN 15 mg/dL (8-23) 11/06/23 05:15 Creatinine 0.5 mg/dL (0.7-1.2) L 11/06/23 05:15 GFR Calculation 165.4 mL/min (90-130) H 11/06/23 05:15 Glucose 106 mg/dL (65-115) 11/06/23 05:15 Estimat Average Glucose 120 10/31/23 13:07 Hemoglobin A1c 5.8 % (4.0-6.0) 10/31/23 13:07 Calculated Osmolality 305 mOsm/kg (285-295) H 11/06/23 05:15 Lactic Acid 0.7 mmol/L (0.5-2.2) 10/31/23 13:07 Calcium 8.3 mg/dL (8.5-10.5) L 11/06/23 05:15 Phosphorus 1.9 mg/dL (2.5-4.5) L 11/06/23 05:15 Magnesium 1.8 mg/dL (1.7-2.3) 11/06/23 05:15 Total Bilirubin 0.2 mg/dL (0.15-1.2) 11/06/23 05:15 AST 22 U/L (0-40) 11/06/23 05:15 ALT 13 U/L (0-41) 11/06/23 05:15 Alkaline Phosphatase 71 U/L (40-130) 11/06/23 05:15 Troponin T Baseline 19 ng/L (0-15) H 10/31/23 13:07 Troponin T 120 Minute 18.26 ng/L (0-15) H 10/31/23 15:27 Delta Troponin T -0.74 ABS# (0-10) L 10/31/23 15:27 Troponin T Hi Sens 6Hr 14.87 ng/L (0-15) 10/31/23 19:17 Troponin T Hi Sens 6Hr Delta -4.13 ng/L (0-12) L 10/31/23 19:17 C-Reactive Protein 3.9 mg/L (0.0-4.9) 11/06/23 05:15 NT-Pro-B Natriuret Pep 652 pg/mL (0-125) H 11/06/23 05:15 Total Protein 5.0 g/dL (6.6-8.7) L 11/06/23 05:15 Albumin 2.9 g/dL (3.5-5.2) L 11/06/23 05:15 Globulin 2.1 g/dL (1.3-4.6) 11/06/23 05:15 Lljbc-0-Otlxqlyrlxp 203 mg/dL (83-199) H 11/03/23 04:43 Triglycerides 111 mg/dL (0-150) 10/31/23 13:07 Cholesterol 116 mg/dL (0-200) 10/31/23 13:07 LDL Cholesterol, Calc 44 mg/dL (50-129) L 10/31/23 13:07 HDL Cholesterol 50 mg/dL (60-100) L 10/31/23 13:07 LDL/HDL Ratio 0.88 RATIO (0.00-3.22) 10/31/23 13:07 Cholesterol/HDL Ratio 2.32 mg/dL (1.0-5.00) 10/31/23 13:07 Procalcitonin 0.03 ng/mL (0-0.5) 11/06/23 05:15 TSH 0.61 uIU/mL (0.27-4.20) 10/31/23 13:07 Urine Color Yellow (Yellow) 10/31/23 17:20 Urine Appearance Clear (CLEAR) 10/31/23 17:20 Urine pH 6 (5-7) 10/31/23 17:20 Ur Specific [place] 1.020 (1.005-1.030) 10/31/23 17:20 Urine Protein Neg (Negative) 10/31/23 17:20 Urine Glucose (UA) Norm (Normal) 10/31/23 17:20 Urine Ketones Negative (Negative) 10/31/23 17:20 Urine Blood Neg (Negative) 10/31/23 17:20 Urine Nitrate Negative (Negative) 10/31/23 17:20 Urine Bilirubin Neg (Negative) 10/31/23 17:20 Urine Urobilinogen Norm mg/dL (Negative) 10/31/23 17:20 Ur Leukocyte Esterase Negative (Negative) 10/31/23 17:20 Vancomycin Trough 8.0 ug/mL (10-15) L 11/03/23 15:38 Urine Opiates Screen Positive ng/mL (Negative) H 10/31/23 17:39 Ur Barbiturates Screen Negative ng/mL (Negative) 10/31/23 17:39 Ur Phencyclidine Scrn Negative ng/mL (Negative) 10/31/23 17:39 Ur Amphetamines Screen Negative ng/mL (Negative) 10/31/23 17:39 U Benzodiazepines Scrn Positive ng/mL (Negative) H 10/31/23 17:39 Urine Cocaine Screen Negative ng/mL (Negative) 10/31/23 17:39 U Marijuana (THC) Screen Negative ng/mL (Negative) 10/31/23 17:39 Ethyl Alcohol < 10 mg/dL (0-10) 10/31/23 13:07 Adenovirus (PCR) Not detected (NOT DETECT) 10/31/23 17:20 C. pneumoniae DNA (PCR) Not detected (NOT DETECT) 10/31/23 17:20 Coronavirus 229E (PCR) Not detected (NOT DETECT) 10/31/23 17:20 Human Metapneumovir PCR Not detected (NOT DETECT) 10/31/23 17:20 Influenza A (H1) PCR Not detected (NOT DETECT) 10/31/23 17:20 Influ A (H1/09) PCR Not detected (NOT DETECT) 10/31/23 17:20 Influenza A (H3) PCR Not detected (NOT DETECT) 10/31/23 17:20 Influenza Type A Ag negative (Negative) 10/31/23 13:36 Influenza Type A (PCR) Not detected (NOT DETECT) 10/31/23 17:20 Influenza Type B Ag negative (Negative) 10/31/23 13:36 Influenza Type B (PCR) Not detected (NOT DETECT) 10/31/23 17:20 M. pneumoniae (PCR) Not detected (NOT DETECT) 10/31/23 17:20 Parainfluenza 1 (PCR) Not detected (NOT DETECT) 10/31/23 17:20 Parainfluenza 2 (PCR) Not detected (NOT DETECT) 10/31/23 17:20 Parainfluenza 3 (PCR) Not detected (NOT DETECT) 10/31/23 17:20 Parainfluenza 4 (PCR) Not detected (NOT DETECT) 10/31/23 17:20 RSV Type A (PCR) Not detected (NOT DETECT) 10/31/23 17:20 RSV Type B (PCR) Not detected (NOT DETECT) 10/31/23 17:20 Entero/Rhino (PCR) Not detected (NOT DETECT) 10/31/23 17:20 SARS-CoV-2 (PCR) Not detected (NOT DETECT) 10/31/23 17:20 Vitals Last Vital Signs Temp 97.9 F 11/06/23 11:36 Pulse 114 H 11/06/23 11:36 Resp 16 11/06/23 11:36 BP 141/80 11/06/23 11:36 Pulse Ox 95 01/16/24 11:36 O2 Del Method Nasal Cannula 11/06/23 11:36 O2 Flow Rate 2 11/06/23 08:00 FiO2 35 11/05/23 01:07 Discharge Plan Discharge Patient Disposition: Home Health Service Condition: Stable Prescriptions: New levofloxacin 750 mg Tablet 750 mg PO DAILY@0600 Qty: 5 0RF Continued (DME) mucus clearing device Device See Rx Instructions .Route Qty: 1 0RF Rx Instructions: As directed (DME) miscellaneous medical supply Mis See Rx Instructions .Route Qty: 1 0RF Rx Instructions: judo portable oxygen concentrator with supplies fluticasone propionate [Flonase Allergy Relief] 50 mcg/actuation spray,suspension 1 spray intranasal DAILY Qty: 16 5RF alprazolam [Xanax] 0.5 mg tablet 0.5 mg PO TID PRN (Reason: anxiety) 30 Days Qty: 70 5RF (DME) Vanilla Boost See Rx Instructions .Route .MEDSUPPLY Qty: 24 12RF Rx Instructions: one daily clobetasol 0.05 % shampoo 1 applic topical .Q3days 30 Days Qty: 118 0RF albuterol sulfate [ProAir HFA] 90 mcg/actuation HFA aerosol inhaler 2 puff INHALATION Q6H PRN (Reason: shortness of breath or wheezing) Qty: 6.7 13RF (DME) Portable oxygen concentrator See Rx Instructions .Route .MEDSUPPLY Qty: 1 0RF Rx Instructions: As directed lactase [Dairy Relief] 3,000 unit Tablet 3,000 unit PO QID PRN (Reason: Diarrhea) phenylephrine-guaifenesin 10-400 mg Tablet 2 tab PO Q4H PRN (Reason: Cold Symptoms) omeprazole 20 mg capsule,delayed release(DR/EC) 20 mg PO BID mirtazapine 15 mg tablet 15 mg PO BEDTIME Trelegy Ellipta 200-62.5-25 mcg blister with device 1 ea inhalation DAILY atorvastatin 40 mg Tablet 40 mg PO BEDTIME Qty: 90 0RF aspirin 81 mg Tablet,Delayed Release (Dr/Ec) 81 mg PO DAILY Qty: 90 0RF furosemide 20 mg tablet 20 mg PO DAILY PRN (Reason: Edema) Qty: 1 0RF Daytime Cold-Flu Relief (PE) 5-10-325 mg Capsule 1 cap PO Q6H PRN (Reason: Cold Symptoms) magnesium oxide 400 mg magnesium Tablet 400 mg PO DAILY potassium chloride [Klor-Con M10] 10 mEq tablet,ER particles/crystals 10 meq PO QAM ipratropium-albuterol 0.5 mg-3 mg(2.5 mg base)/3 mL solution for nebulization 3 ml inhalation Q6H PRN (Reason: RESPIRITORY) Changed lisinopril 10 mg tablet 5 mg PO QAM Qty: 1 0RF Rx Instructions: Dose change to 5mg metoprolol tartrate 50 mg tablet 25 mg PO BID Qty: 1 0RF Rx Instructions: Dose change to 25mg Discontinued amlodipine 2.5 mg tablet 2.5 mg PO DAILY 90 Days Qty: 90 1RF Discharge Orders: Discharge Order (Routine); Ordered 11/06/23 Ordered By: Prosper Reis Other Ambulatory Orders: DME: BIPAP (Order) Location: None Selected Ordered By: Prosper Reis Referrals: [facility] [Outside] Shelly Garibay FNP [Primary Care Provider] - 11/13/23 11:00 am Discharge Diet: As Directed Discharge Activity: Oxygen as instructed and Cpap/Bipap as instructed Patient Instructions: Alprazolam (By mouth), Pneumonitis (GEN), How to Stop Smoking (GEN), Malnutrition (GEN), Cigarette Smoking and Your Health (GEN), COPD (Chronic Obstructive Pulmonary Disease) (GEN), Anxiety (GEN), Panic Attack (GEN), Aspiration Precautions (GEN), Opioid Safety Activity Restrictions/Additional Instructions: Follow-up with your primary doctor for reassessment of recovery from COPD exacerbation, pneumonitis possible aspiration, possible early developing pneumonia. Complete antibiotic course. Continue oxygen at home, contact your oxygen provider in case of any further issues with the device. Abstain from any smoking. Wear BiPAP as instructed. Use Xanax for symptoms of panic/severe anxiety episodes that may accompany advanced COPD as needed. Follow up with your primary provider. Follow up with a lung doctor. Use nasal saline spray to clear out any mucus build up to keep nasal passages cleaar. Alpha-1 antitrypsin is 205. Continue strict aspiration precautions with past history of aspiration with thin liquids, please follow speech therapy recommendations to avoid choking. Continue with soft/easy to chew diet. Add protein shakes to meals. Follow-up with your primary doctor for reassessment of malnutrition. Have your primary provider also follow-up CT chest in 3 months for reassessment of masslike density. This likely may be atelectasis, but need to confirm and exclude other more dangerous causes, make sure there is nothing suspicious for malignancy. Discuss enrollment in low dose CT screening program. Return to the hospital in case of any worsening or new concerning symptoms. Follow-up with your primary doctor for reassessment for concern of possible small stroke in the past. Continue aspirin, cholesterol. Please make sure to quit smoking. Follow-up for MRI brain as previously. Please set up for life alert button to allow to call for help anytime. Discharge Attestations Time Spent in Discharge Care*: greater than 30 min Quality Metrics Clinical Quality Measures [ No reported AMI, CVA or VTE this stay] Coding Level of Care Code 20347 Total time (in minutes) for Discharge: 50 Diagnoses Acute respiratory failure with hypoxia and hypercarbia J96.01; J96.02 Acute encephalopathy G93.40 Anorexia R63.0 Severe protein-calorie malnutrition E43 Muscle wasting M62.50 Physical deconditioning R53.81 Healthcare-associated pneumonia J18.9
== END 2023-11-06 13:55 | disposition home health service (06) | DRG 189 ==
LOC: ER 14:43 → ER IP 15:58 → ICU 16:19 → MEDSURG 11-02 12:02
PROVIDERS: Admitting Provider Family Medicine; Emergency Provider Family Medicine; PCP Registered Nurse; Visit Provider Internal Medicine
DX: J96.02 Acute respiratory failure with hypercapnia (principal); E43 Unspecified severe protein-calorie malnutrition; J18.9 Pneumonia, unspecified organism; G93.40 Encephalopathy, unspecified; Z68.1 Body mass index [BMI] 19.9 or less, adult; J44.0 Chronic obstructive pulmonary disease with (acute) lower respiratory infection; J96.01 Acute respiratory failure with hypoxia; F17.210 Nicotine dependence, cigarettes, uncomplicated; Z99.81 Dependence on supplemental oxygen; F41.1 Generalized anxiety disorder; F41.0 Panic disorder [episodic paroxysmal anxiety]; R68.3 Clubbing of fingers; F10.10 Alcohol abuse, uncomplicated; I11.0 Hypertensive heart disease with heart failure; I50.9 Heart failure, unspecified; R63.0 Anorexia; M62.50 Muscle wasting and atrophy, not elsewhere classified, unspecified site; Z83.6 Family history of other diseases of the respiratory system; R00.0 Tachycardia, unspecified; J43.9 Emphysema, unspecified; Y95 Nosocomial condition
CPT/HCPCS: 36415; 36600; 51702; 70450; 71045; 71250; 80051; 80053; 80061; 80202; 80306; 80307; 81003; 82103; 82330; 82803; 82805; 83036; 83605; 83735; 83880; 84100; 84145; 84443; 84484; 85025; 86140; 87040; 87486; 87581; 87633; 87635; 87804; 92507; 92523; 92526; 92610; 93005; 93306; 94640; 94660; 94664; 94760; 96365; 96372; 96376; 97110; 97116; 97162; 97165; 97530; 99285; C9113; J1100; J1650; J1940; J1956; J2920; J3370; J3475; J3490; J7030; J7050; J7512; J7614; J7626; J7644